=== PATIENT | female | born 1950 | race Caucasian/White ===

== ENCOUNTER → 2019-03-13 11:29 | Outpatient (CLI) | payer MEDICARE, OTHER, SELFPAY ==
[2019-03-14 16:08] LABS: Endomysial Antibody IgA Positive (Negative)
[2019-03-15 12:34] LABS: Immunoglobulin A 195 mg/dL (87-352); t-Transglutaminase IgA 29 U/mL (0-3)
== END ==
PROVIDERS: Family Provider Family Medicine; PCP Family Medicine; Referring Provider Internal Medicine Gastroenterology; Visit Provider Internal Medicine Gastroenterology
DX: R19.7 Diarrhea, unspecified (principal)
CPT/HCPCS: 36415; 82784; 83516; 86255

== ENCOUNTER → 2025-03-24 | Outpatient (CLI) | payer MEDICARE, OTHER, SELFPAY ==
[2025-03-24 17:41] LABS: Hematocrit 39.8 % (37-47); Hemoglobin 13.0 g/dL (12.0-15.0); Mean Corp Hgb Conc 32.7 g/dL (32-36); Mean Corpuscular Volume 96.6 fL (81-99); Mean Platelet Vol. 12.1 fl (6.2-12.0); Platelet Count 287 K/mm3 (150-450); RBC Distribution Width CV 14.6 % (11.6-14.6); RBC Distribution Width SD 52.9 fl (35.1-43.9); Red Blood Count 4.12 M/mm3 (4.2-5.4); White Blood Count 7.0 K/mm3 (4.4-11.0)
[2025-03-24 18:17] LABS: CRP < 3.00 mg/L (0.0-3.0)
--- OUTSIDE RECORDS SUMMARY | 2025-03-24 23:38 | XMS RPT_ITS | CCD ---
Author Organization [facility] CliniSyin Care Team Providers Care Government Teacher Name Role Phone RENATA JIMENEZ Unavailable Unavailable RENATA JIMENEZ Unavailable Unavailable MIGUEL ALCARAZ Unavailable Unavailable RENATA JIMENEZ Unavailable Unavailable RENATA JIMENEZ Unavailable Unavailable MIGUEL ALCARAZ Unavailable Unavailable PRISCILLA DO, DR SZYMANSKI A Primary Care Physician PRISCILLA DO, DR SZYMANSKI A Primary Care Physician PRISCILLA DO, DR SZYMANSKI A Primary Care Physician Unavailable Primary Care Provider Unavailabl e Priscilla DO, Stephon Primary Care Provider Serge Boswell Unavailable Benton Jarrett Unavailable Britta Basurto Unavailable [phone] Benton Jarrett Unavailable Serge Boswell MD Unavailable [phone] SERGE BOSWELL Attending Unavailable PRISCILLA DO, DR STEPHON Tolbert Primary Care Unavailabl e PRISCILLA DO, DR STEPHON Tolbert Attending Unavailabl e PRISCILLA DO, DR STEPHON Tolbert Primary Care Unavailabl e PRISCILLA DO, DR STEPHON Tolbert Attending Unavailabl e PRISCILLA DO, DR STEPHON Tolbert Primary Care Unavailabl SERGE Fleming Attending Unavailable PRISCILLA DO, DR STEPHON Tolbert Primary Care UnavailSERGE Loredo Attending Unavailable PRISCILLA DO, DR STEPHON Tolbert Primary Care Unavailabl BRITTA Gonzales MD Attending Unavaila ble PRISCILLA DO, DR STEPHON Tolbert Primary Care Unavailabl e PRISCILLA DO, DR STEPHON Tolbert Attending Unavailabl e PRISCILLA DO, DR STEPHON Tolbert Primary Care Unavailabl e PRISCILLA DO, DR STEPHON Tolbert Attending Unavailabl e PRISCILLA DO, DR STEPHON Tolbert Primary Care Unavailabl e RAGHUNATHAN MD, BRITTA Attending Unavaila ble PRISCILLA DO, DR STEPHON Tolbert Primary Care Unavailabl e SERGE BOSWELL Attending Unavailable PRISCILLA DO, DR STEPHON Tolbert Primary Care Unavailabl e ZOBENTON MARCANO Attending Unavailable PRISCILLA, STEPHON Primary Care Unavailable ZOBENTON MARCANO Admitting Unavailable ZOGRBENTON WELLS Attending Unavailable PRISCILLA, STEPHON Primary Care Unavailable ZOGRBENTON WELLS Attending Unavailable PRISCILLA, STEPHON Primary Care Unavailable ZOGRAFAKISBENTON Attending Unavailable PRISCILLA, STEPHON Referring Unavailable PRISCILLA, STEPHON Primary Care Unavailable ZOGRAFAKISBENTON Attending Unavailable PRISCILLA, STEPHON Primary Care Unavailable ZOGRAFAKIS, BENTON Attending Unavailable ZOGRAFAKISBENTON Referring Unavailable PRISCILLA, STEPHON Primary Care Unavailable ZOGRAFAKIS, BENTON Attending Unavailable PRISCILLA, STEPHON Primary Care Unavailable Priscilla DO, Stephon Lugo Primary Care Provider SELF Referring Unavailable PRISCILLA, STEPHON LUGO Primary Care Unavailable CHANEL BOONE Attending Unavailable IsckarusAngel Attending Unavailable IsckarusAngel Referring Unavailable Priscilla, Stephon Primary Care Unavailable Mirlande Quiroga Attending Unavailable Priscilla, Stephon Referring Unavailable IsckarusAngel Attending Unavailable Priscilla, Stephon Primary Care Unavailable IsckarusAngel Attending Unavailable Priscilla, Stephon Primary Care Unavailable Priscilla, Stephon Referring Unavailable Priscilla, Stephon Referring Unavailable Isckarus, Angel Attending Unavailable Priscilla, Stephon Primary Care Unavailable BRITTA BASURTO MD Attending Unavaila ble PRISCILLA DO, DR STEPHON Tolbert Primary Care Unavailabl e BRITTA BASURTO MD Attending Unavaila ble PRISCILLA DO, DR STEPHON Tolbert Primary Care Unavailabl e BRITTA BASURTO MD Attending Unavaila ble PRISCILLA DO, DR STEPHON Tolbert Primary Care Unavailabl e PRISCILLA DO, DR STEPHON Tolbert Attending Unavailabl e PRISCILLA DO, DR STEPHON Tolbert Primary Care Unavailabl e Allergies Allergy Classification Reported Allergen(s) Allergy Type Date of Onset Reaction(s) Facility diphenhydrAMINE (2 sources) diphenhydrAMINE Drug Allergy 4 [facility] (2 sources) Gluten Food Allergy 4 [facility] (20 sources) diphenhydrAMINE; Translations: [diphenhydramine] Drug Allergy 3 [facility] (6 sources) Gluten Food allergy [facility] (13 sources) diphenhydrAMINE Drug Allergy 4 [facility] (13 sources) Gluten Allergy to substance 4 [facility] (6 sources) WHEAT DEXTRIN Drug Allergy 4 [facility] (1 source) diphenhydrAMINE Drug Allergy 5 [facility] (1 source) Wheat preparation Drug Allergy 5 [facility] Medications Current Medications Medication Drug Class(es) Dates Sig (Normalized) Sig (Original) alendronic acid 70 mg oral tablet (20 sources) Bisphosphonate Start: 09-16-2024 alendronate 70 mg oral tablet Dose : 70 mg = 1 tab(s), Oral, qWeek, # 12 tab(s), 1 Refill(s), Pharmacy: [facility]/pharmacy #[id number], 163, cm, 08/26/24 9:30:00 EST, Height, kg, 08/26/24 9:30:00 EST, Dosing Weight Start Date: 09/16/24 Status: Ordered Quantity: 12.0 Unit: tab(s) Repeat number: 2 Start: 01-26-2021 End: 06-28-2024 alendronate 70 mg oral table t Dose : 70 mg = 1 tab(s), Oral, qWeek, # 12 tab(s), 0 Refill(s) Start Date: 04/04/24 Status: Ordered amLODIPine 10 mg oral tablet (20 sources) Dihydropyridine Calcium Channel Arina Start: 10-11-2024 amLODIPine 10 mg oral tablet Dose : 10 mg = 1 tab(s), Oral, qDay, change in dose, # 90 tab(s), 3 Refill(s), Pharmacy: [facility], 163, cm, 08/26/24 9:30:00 EST, Height, kg, 08/26/24 9:30:00 EST, Dosing Weight Start Date: 10/11/24 Status: Ordered Quantity: 90.0 Unit: tab(s) Repeat number: 4 Start: 05-11-2022 amLODIPine 10 mg oral tablet Dose : 10 mg = 1 tab(s), Oral, qDay, change in dose, # 90 tab(s), 3 Refill(s), Pharmacy: [facility], 160.5, cm, 03/01/24 9:19:00 EDT, Height, kg, 03/01/24 9:19:00 EDT, Dosing Weight Start Date: 03/01/24 Status: Ordered Start: 07-15-2021 amLODIPine 10 mg oral tablet Dose : 10 mg = 1 tab(s), Oral, qDay, change in dose, # 90 tab(s), 3 Refill(s), Pharmacy: [facility], 160, cm, 07/15/21 9:19:00 EST, Height, kg, 07/15/21 9:19:00 EST, Dosing Weight Start Date: 07/15/21 Status: Ordered amoxicillin 875 mg oral tablet (1 source) Penicillin-class Antibacterial Start: 07-23-2024 End: 08-02-2024 take 1 tablet by mouth every twelve hours amoxicillin (AMOXIL) 875 mg tablet Indications: Acute otitis media, bilateral Take 1 tablet by mouth every 12 hours for 10 days. 20 tablet 07/23/2024 08/02/2024 Active aspirin 81 mg delayed release oral tablet (20 sources) Platelet Aggregation Inhibitor, Nonsteroidal Anti-inflammatory Drug Start: 09-03-2020 aspirin 81 mg oral delayed release tablet Dose : 81 mg = 1 tab(s), Oral, qDay, 0 Refill(s) Start Date: 09/03/20 Status: Ordered Start: 09-03-2020 aspirin, enter ic coated (ASPIRIN, ENTERIC COATED) 81 mg EC tablet Take 81 mg by mouth. 09/03/2020 Active Comment on above: Take 81 mg by mouth. Basaglar 100 unit(s)/mL 3 mL KwikPen (1 source) Start: 2 inject 1 dose by subcutaneous injection once daily at bedtime Basaglar 100 unit(s)/mL 3 mL KwikPen Dose : 15 unit(s) =, Subcutaneous, qHS, # 15 mL, 3 Refill(s), Pharmacy: [facility], 160, cm, 07/15/21 9:19:00 EST, Height, kg, 07/15/21 9:19:00 EST, Dosing Weight Start Date: 07/15/21 Status: Ordered Calcium (1 source) Phosphate Binder, Calcium Start: 9 calcium (as carbonate) 600 mg oral tablet Dose : 600 mg = 1 tab(s), Oral, qDay, 0 Refill(s) Start Date: 06/27/19 Status: Ordered calcium carbonate 1500 mg oral tablet (20 sources) Start: 9 calcium carbonate (CALTRATE) 600 mg calcium (1,500 mg) tab Take 600 mg by mouth. 06/27/2019 Active Start: 06-27-2019 calcium (as ca rbonate) 600 mg oral tablet Dose : 600 mg = 1 tab(s), Oral, qDay, 0 Refill(s) Start Date: 06/27/19 Status: Ordered Repeat number: 1 Comment on above: Take 600 mg by mouth . Calcium Carbonate / Ergocalciferol (6 sources) Provitamin D2 Compound Start: 11-01-2023 Calcium Carbonate-Vitamin D 600-5 MG-MCG capsule Take by mouth. 11/01/2023 Active cholecalciferol 0.025 mg oral capsule (7 sources) Vitamin D Start: 10-17-2024 cholecalciferol 25 mcg (1000 intl units) oral capsule Dose : 25 mcg = 1 cap(s), Oral, qDay, # 90 cap(s), 3 Refill(s), Pharmacy: [facility], 163, cm, 08/26/24 9:30:00 EST, Height, kg, 08/26/24 9:30:00 EST, Dosing Weight Start Date: 10/17/24 Status: Ordered Quantity: 90.0 Unit: cap(s) Repeat number: 4 take 1 tablet by mouth once nii y cholecalciferol (Vitamin D-3) 50 MCG (2000 UT) tablet Take 2,000 Units by mouth daily. Monday thru Monday Active empagliflozin 10 mg oral tablet (1 source) Sodium-Glucose Cotransporter 2 Inhibitor Start: 09-25-2024 Jardiance 10 mg oral tablet Dose : 10 mg = 1 tab(s), Oral, qAM, # 30 tab(s), 4 Refill(s), Pharmacy: [facility], 163, cm, 08/26/24 9:30:00 EST, Height, kg, 08/26/24 9:30:00 EST, Dosing Weight Start Date: 09/25/24 Status: Ordered Quantity: 30.0 Unit: tab(s) Repeat number: 5 ferrous sulfate 324 mg delayed release oral tablet (7 sources) Start: 10-17-2024 ferrous sulfat e 324 mg (65 mg elemental iron) oral delayed release tablet Dose : 324 mg = 1 tab(s), Oral, qDay, # 90 tab(s), 3 Refill(s), Pharmacy: [facility], 163, cm, 08/26/24 9:30:00 EST, Height, kg, 08/26/24 9:30:00 EST, Dosing Weight Start Date: 10/17/24 Status: Ordered Quantity: 90.0 Unit: tab(s) Repeat number: 4 Start: 11-30-2023 ferrous sulfat e 325 mg (65 mg elemental iron) oral tablet Dose : 325 mg = 1 tab(s), Oral, BIDM, Take with food., # 60 tab(s), 3 Refill(s) Start Date: 11/30/23 Status: Ordered Quantity: 60.0 Unit: tab(s) Repeat number: 1 Start: 09-04-2023 ferrous sulfat e 325 mg (65 mg elemental iron) oral delayed release tablet Dose : 325 mg = 1 tab(s), Oral, qDay, may take with food to minimize abdominal discomfort., # 90 tab(s), 1 Refill(s), Pharmacy: [facility]/pharmacy #[id number], Iron deficiency anemia, 160, cm, 09/01/23 9:23:00 EST, Height, kg, 09/01/23 9:23:00 EST, Dosing Weight Start Date: 09/04/23 Status: Ordered folic acid 0.8 mg oral table t (20 sources) Start: 06-08-2018 folic acid 0.8 mg oral tablet Dose : 0.8 mg = 1 tab(s), Oral, qDay, # 90 tab(s), 3 Refill(s), Pharmacy: [facility], 163, cm, 08/26/24 9:30:00 EST, Height, kg, 08/26/24 9:30:00 EST, Dosing Weight Start Date: 10/17/24 Status: Ordered Quantity: 90.0 Unit: tab(s) Repeat number: 4 Start: 06-08-2018 folic acid 800 mcg tablet Take 0.8 mg by mouth. 06/08/2018 Active Folic Acid 0.8 M G capsule Take by mouth. Active Comment on above: Take 0.8 mg by mouth . gentamicin 3 mg/ml ophthalmic solution (1 source) Start: 09-25-19 End: 10-02-19 gentamicin (GENTAK) 0.3 % ophthalmic solution Use 1-2 Drops in eyes three times daily for 7 days. 3 mL 0 09/24/2022 10/01/2022 Active Comment on above: Use 1-2 Drops in eye s three times daily for 7 days. 3 ml insulin glargine 100 unt/ml pen injector (7 sources) Insulin Analog Start: 07-15-19 inject 1 dose by subcutaneous injection once daily at bedtime Basaglar 100 unit(s)/mL 3 mL KwikPen Dose : 15 unit(s) =, Subcutaneous, qHS, # 15 mL, 3 Refill(s), Pharmacy: [facility], 160, cm, 07/15/21 9:19:00 EST, Height, kg, 07/15/21 9:19:00 EST, Dosing Weight Start Date: 07/15/21 Status: Ordered levothyroxine sodium 0.112 mg oral tablet (20 sources) l-Thyroxine Start: 10-15-19 take 1 tablet by mouth once daily levothyroxine 112 mcg (0.112 mg) oral tablet See Instructions, TAKE 1 TABLET BY MOUTH EVERY DAY/ none on sun, # 90 tab(s), 3 Refill(s), Pharmacy: [facility], 163, cm, 08/26/24 9:30:00 EST, Height, kg, 08/26/24 9:30:00 EST, Dosing Weight Start Date: 10/14/24 Status: Ordered Quantity: 90.0 Unit: tab(s) Repeat number: 4 Start: 03-20-2024 take 1 tablet by fausto once daily levothyroxine 112 mcg (0.112 mg) oral tablet See Instructions, TAKE 1 TABLET BY MOUTH EVERY DAY/ none on sun, # 90 tab(s), 3 Refill(s), Pharmacy: [facility], 160.5, cm, 03/01/24 9:19:00 EDT, Height, kg, 03/01/24 9:19:00 EDT, Dosing Weight Start Date: 03/20/24 Status: Ordered Start: 02-02-2023 take 1 tablet by fausto th once daily levothyroxine 112 mcg (0.112 mg) oral tablet See Instructions, TAKE 1 TABLET BY MOUTH EVERY DAY/ none on sun, # 90 tab(s), 3 Refill(s), Pharmacy: [facility], 161.5, cm, 02/02/23 9:08:00 EDT, Height, kg, 02/02/23 9:08:00 EDT, Dosing Weight Start Date: 02/02/23 Status: Ordered Start: 09-05-2022 take 1 tablet by fausto th once daily levothyroxine (Synthroid, Levoxyl) 112 MCG tablet See Instructions, TAKE 1 TABLET BY MOUTH EVERY DAY/ none on sun, # 90 tab(s), 3 Refill(s), Pharmacy: [facility], 161.5, cm, 02/02/23 9:08:00 EDT, Height, kg, 02/02/23 9:08:00 EDT, Dosing Weight 02/02/2023 Active Start: 07-15-2021 take 1 tablet by fausto th once daily levothyroxine 112 mcg (0.112 mg) oral tablet See Instructions, TAKE 1 TABLET BY MOUTH EVERY DAY/ none on sun, # 90 tab(s), 3 Refill(s), Pharmacy: [facility], 161.5, cm, 08/04/22 8:50:00 EST, Height, kg, 08/04/22 8:50:00 EST, Dosing Weight Start Date: 08/04/22 Status: Ordered lisinopril 10 mg oral tablet (20 sources) Angiotensin Converting Enzyme Inhibitor Start: 10-11-2024 lisinopril 10 mg ora l tablet Dose : 10 mg = 1 tab(s), Oral, qDay, # 90 tab(s), 3 Refill(s), [facility], 163, cm, 08/26/24 9:30:00 EST, Height, kg, 08/26/24 9:30:00 EST, Dosing Weight Start Date: 10/11/24 Status: Ordered Quantity: 90.0 Unit: tab(s) Repeat number: 4 Start: 08-15-2022 End: 08-07-2023 lisinopril 10 mg oral tablet Dose : 10 mg = 1 tab(s), Oral, qDay, # 90 tab(s), 3 Refill(s), Pharmacy: [facility], 160.5, cm, 03/01/24 9:19:00 EDT, Height, kg, 03/01/24 9:19:00 EDT, Dosing Weight Start Date: 03/01/24 Status: Ordered Start: 06-18-2021 End: 06-13-2022 lisinopril 10 mg oral tablet Dose : 10 mg = 1 tab(s), Oral, qDay, # 30 tab(s), 11 Refill(s), Pharmacy: [facility]/pharmacy #[id number], 160, cm, 05/24/21 11:28:00 EST, Height, kg, 05/24/21 11:28:00 EST, Dosing Weight Start Date: 06/18/21 Stop Date: 06/13/22 Status: Ordered Magnesium (6 sources) Magnesium 400 MG capsule Take by mouth 1 (one) time each day. Active magnesium oxide 500 mg oral tablet (20 sources) Start: 10-17-2024 End: 10-12-2025 magnesium oxide 500 mg oral tablet Dose : 500 mg = 1 tab(s), Oral, Daily, X 90 day(s), # 90 tab(s), 3 Refill(s), 10/12/25 7:13:00 AM EDT, Pharmacy: [facility], 163, cm, 08/26/24 9:30:00 EST, Height, kg, 08/26/24 9:30:00 EST, Dosing Weight Start Date: 10/17/24 Stop Date: 10/12/25 Status: Ordered Quantity: 90.0 Unit: tab(s) Repeat number: 4 Start: 06-08-2018 magnesium oxid e 400 mg (241.3 mg elemental magnesium) oral tablet Dose : 400 mg = 1 tab(s), Oral, qDay, 0 Refill(s) Start Date: 06/08/18 Status: Ordered Repeat number: 1 Comment on above: Take 400 mg by mouth . metFORMIN hydrochloride 500 mg oral tablet (20 sources) Biguanide Start: take 1 tablet by mouth in the morning, then take 1 tablet by mouth in the evening metFORMIN 500 mg oral tablet (IR) See Instructions, TAKE 1 TABLET IN THE MORNING TAKE 1 TABLETS IN THE EVENING, # 270 tab(s), 3 Refill(s), Pharmacy: [facility], 163, cm, 08/26/24 9:30:00 EST, Height, kg, 08/26/24 9:30:00 EST, Dosing Weight Start Date: 11/04/24 Status: Ordered Quantity: 270.0 Unit: tab(s) Repeat number: 4 Start: 07-11-2022 take 1 tablet by fausto th in the morning, then take 1 tablet by mouth in the evening metFORMIN 500 mg oral tablet (IR) See Instructions, TAKE 1 TABLET IN THE MORNING TAKE 1 TABLETS IN THE EVENING, # 270 tab(s), 3 Refill(s), Pharmacy: [facility], 159, cm, 08/08/23 9:07:00 EST, Height, kg, 08/08/23 9:07:00 EST, Dosing Weight Start Date: 08/08/23 Status: Ordered Start: 07-15-2021 take 1 tablet by fausto th in the morning, then take 2 tablets by mouth in the evening metFORMIN 500 mg oral tablet (IR) See Instructions, TAKE 1 TABLET IN THE MORNING TAKE 2 TABLETS IN THE EVENING, # 270 tab(s), 3 Refill(s), Pharmacy: [facility], 160, cm, 07/15/21 9:19:00 EST, Height, kg, 07/15/21 9:19:00 EST, Dosing Weight Start Date: 07/15/21 Status: Ordered Multivitamin preparation (20 sources) Start: 06-27-2019 take 1 tablet by mouth once daily Multivitamin Dose = 1 tab(s), Oral, Daily, 0 Refill(s) Start Date: 06/27/19 Status: Ordered Repeat number: 1 Start: 06-27-2019 take 1 tablet by fausto th once daily Multivitamin Dose = 1 tab(s), Oral, Daily, 0 Refill(s) Start Date: 06/27/19 Status: Ordered ondansetron 4 mg oral tablet (5 sources) Serotonin-3 Receptor Antagonist Start: 01-26-2024 End: 02-02-2024 take 1 tablet by mouth every eight hours as needed for nausea and vomiting ondansetron (Zofran) 4 MG tablet Take 1 tablet (4 mg) by mouth every 8 hours as needed for nausea or vomiting for up to 7 days. 20 tablet 01/26/2024 02/02/2024 Active Start: 01-26-2024 End: 01-26-2024 4 mg, IntraVENous, Once PRN, nausea, Starting on Mon01/26/24 at 1038, For 1 dose, Recovery (only), Initial antiemetic therapy. 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 15 tablet 01/26/2024 01/31/2024 Active pantoprazole 40 mg delayed release oral tablet (20 sources) Proton Pump Inhibitor Start: 01-26-2024 End: 01-29-2024 40 mg, IntraVENous, Administer over 2 Minutes, Daily, First dose on Mon01/26/24 at 1400, Phase II/On Unit Start: 02-08-2021 End: 12-09-2024 pantoprazole 40 mg oral ente lena coated tablet Dose : 40 mg = 1 tab(s), Oral, BID, # 180 tab(s), 3 Refill(s), Pharmacy: [facility], 163, cm, 08/26/24 9:30:00 EST, Height, kg, 08/26/24 9:30:00 EST, Dosing Weight Start Date: 10/11/24 Status: Ordered Quantity: 180.0 Unit: tab(s) Repeat number: 4 Comment on above: Take 40 mg by mouth. rosuvastatin calcium 10 mg oral tablet (20 sources) HMG-CoA Reductase Inhibitor Start: 07-15-2021 End: 10-09-2025 rosuvastatin 10 mg oral tablet Dose : 10 mg = 1 tab(s), Oral, qDay, X 90 day(s), # 90 tab(s), 3 Refill(s), 10/09/25 5:50:00 AM EDT, Pharmacy: [facility], 163, cm, 08/26/24 9:30:00 EST, Height, kg, 08/26/24 9:30:00 EST, Dosing Weight Start Date: 10/14/24 Stop Date: 10/09/25 Status: Ordered Quantity: 90.0 Unit: tab(s) Repeat number: 4 Comment on above: Take 10 mg by mouth. spironolactone 25 mg oral tablet (20 sources) Aldosterone Antagonist Start: 10-11-2024 spironolactone 25 mg oral tablet Dose : 25 mg = 1 tab(s), Oral, Every other day, # 45 tab(s), 1 Refill(s), Pharmacy: [facility], CHF - Congestive heart failure, 163, cm, 08/26/24 9:30:00 EST, Height, kg, 08/26/24 9:30:00 EST, Dosing Weight Start Date: 10/11/24 Status: Ordered Quantity: 45.0 Unit: tab(s) Repeat number: 2 Indications: Heart failure, unspecified; Start: 05-07-2021 spironolactone 25 mg oral tablet Dose : 25 mg = 1 tab(s), Oral, Every other day, # 45 tab(s), 1 Refill(s), Pharmacy: [facility], CHF - Congestive heart failure, 158, cm, 04/04/24 8:28:00 EDT, Height, kg, 04/04/24 8:28:00 EDT, Dosing Weight Start Date: 04/05/24 Status: Ordered Comment on above: Take 25 mg by mouth. terazosin 1 mg oral capsule (20 sources) alpha-Adrenergic Arina Start: 10-11-2024 terazosin 1 mg oral capsule Dose : 1 mg = 1 cap(s), Oral, qHS, # 90 cap(s), 3 Refill(s), Pharmacy: [facility], 163, cm, 08/26/24 9:30:00 EST, Height, kg, 08/26/24 9:30:00 EST, Dosing Weight Start Date: 10/11/24 Status: Ordered Quantity: 90.0 Unit: cap(s) Repeat number: 4 Start: 04-10-2024 terazosin 1 mg oral capsule Dose : 1 mg = 1 cap(s), Oral, qHS, # 90 cap(s), 3 Refill(s), Pharmacy: [facility], 158, cm, 04/04/24 8:28:00 EDT, Height, kg, 04/04/24 8:28:00 EDT, Dosing Weight Start Date: 04/10/24 Status: Ordered Start: 05-05-2023 terazosin 1 mg oral capsule Dose : 1 mg = 1 cap(s), Oral, qHS, # 90 cap(s), 3 Refill(s), Pharmacy: [facility], 160, cm, 05/05/23 14:43:00 EDT, Height, kg, 05/05/23 14:43:00 EDT, Dosing Weight Start Date: 05/05/23 Status: Ordered vitamin b12 0.5 mg oral tablet (8 sources) Vitamin B12 Start: 10-17-2024 cyanocobalamin 500 mcg oral tablet Dose : 500 mcg = 1 tab(s), Oral, Daily, # 90 tab(s), 3 Refill(s), Pharmacy: [facility], 163, cm, 08/26/24 9:30:00 EST, Height, kg, 08/26/24 9:30:00 EST, Dosing Weight Start Date: 10/17/24 Status: Ordered Quantity: 90.0 Unit: tab(s) Repeat number: 4 Start: 08-26-2024 Vitamin B12 0 Refill(s) Start Date: 08/26/24 Status: Ordered Repeat number: 1 Cyanocobalamin ( VITAMIN B-12 PO) Take by mouth. Active Vitamin D3 2000 intl units o ral capsule (20 sources) Start: 06-08-2018 Vitamin D3 200 0 intl units oral capsule Dose : 2,000 unit(s) = 1 cap(s), Oral, Daily, 0 Refill(s) Start Date: 06/08/18 Status: Ordered Repeat number: 1 Start: 06-08-2018 Vitamin D3 200 0 intl units oral capsule Dose : 2,000 unit(s) = 1 cap(s), Oral, Daily, 0 Refill(s) Start Date: 06/08/18 Status: Ordered Completed/Discontinued Medications Medication Drug Class(es) Dates Sig (Normalized) Sig (Original) Acetaminophen (4 sources) Start: 01-26-2024 End: 01-27-2024 1,000 mg, IntraVENous, at 400 mL/hr, Administer over 15 Minutes, Every 6 hours scheduled (4 times per day), First dose on Mon01/26/24 at 1800, For 2 doses Start: 01-26-2024 End: 01-26-2024 take 1000 mg by mouth once, then take 4000 mg by mouth every twenty-four hours 1,000 mg, Oral, Once, On Mon01/26/24 at 0715, For 1 dose, Preprocedure, Maximum dose of acetaminophen is 4000 mg from all sources in 24 hours. Do not administer if patient has taken tylenol barium sulfate (E-Z-Paque) 9 6 % suspension 176 g (2 sources) Start: 12-12-2023 End: 12-12-2023 barium sulfate (E-Z-Paque) 9 6 % suspension 176 g calcium chloride 0.0014 meq/ ml / potassium chloride 0.004 meq/ml / sodium chloride 0.103 meq/ml / sodium lactate 0.028 meq/ml injectable solution (4 sources) Start: 01-26-2024 End: 01-26-2024 500 mL, IntraVENous, at 250 mL/hr, Administer over 2 Hours, Once, On Mon01/26/24 at 1545, For 1 dose Start: 01-26-2024 End: 01-26-2024 take 50 mL intravenously every hour 50 mL/hr, IntraVENous, Continuous, Starting on Mon01/26/24 at 0715, Preprocedure, Upon admission to sameday - please start iv if patient does not have iv access. Use 500ml NS for patients on dialysis. cholecalciferol 9.52 unt/ml / glucose 357 mg/ml oral gel (2 sources) Vitamin D Start: 01-27-2024 End: 01-29-2024 15 g, Oral, As needed, low blood sugar, Starting on 01/27/24 at 1137, If blood glucose less than 50 mg/dL and patient ALERT and NOT NPO, give 2 tubes glucose gel. If blood glucose less than 70 mg/dL and patient ALERT and NOT NPO, give 1 tube glucose gel. Repeat blood glucose in 15 minutes. If blood glucose is less than 70 mg/dL, repeat treatment and recheck blood glucose in 15 minutes x2 and notify provider. diatrizoate meglumine-sodium (Gastrografin) 66-10 % solution 30 mL (2 sources) Start: 01-27-2024 End: 01-27-2024 take 30 mL by mouth once 30 mL, Oral, Once, On Mon01/27/24 at 0915, For 1 dose 0.4 ml enoxaparin sodium 100 mg/ml prefilled syringe (2 sources) Low Molecular Weight Heparin Start: 01-26-2024 End: 01-29-2024 inject 40 mg by subcutaneous injection every twenty-four hours 40 mg, SubCUTAneous, Every 24 hours, First dose on Mon01/26/24 at 2200, Phase II/On Unit, Indication of Use: Prophylaxis-DVT/PE , Indications: Prophylaxis of Venous Thromboembolism 1 ml ePHEDrine sulfate 50 mg/ml injection (2 sources) alpha-Adrenergic Agonist, beta-Adrenergic Agonist, Norepinephrine Releasing Agent Start: 01-26-2024 End: 01-26-2024 inject 25 mg by intramuscular injection once 25 mg, IntraMUSCular, Once, On Mon01/26/24 at 1215, For 1 dose, Recovery (only) glucagon (rdna) 1 mg injection (2 sources) Antihypoglycemic Agent Start: 01-27-2024 End: 01-29-2024 1 mg, IntraMUSCular, PRN, low blood sugar, Blood glucose less than 70 mg/dL and patient NOT ALERT or NPO and does not have IV access., Starting on 01/27/24 at 1137, After administration, attempt intravenous access and start D5W at 100 mL/hr. Repeat blood glucose in 15 minutes x2 and notify provider. 150 ml glucose 50 mg/ml injection (4 sources) Start: 01-27-2024 End: 01-29-2024 12.5 g, IntraVENous, PRN, low blood sugar, Blood glucose less than 70 mg/dL and patient NOT ALERT or NPO., Starting on 01/27/24 at 1137, If patient does not respond within 5 minutes, repeat dose x1. Start D5W at 100 mL/hour until ordering provider can be reached. Repeat blood glucose in 15 minutes. If blood glucose is less than 70 mg/dL, repeat treatment and recheck blood glucose in 15 minutes x2. If using Glucostabilizer, dose as instructed per system. Start: 01-27-2024 End: 01-29-2024 100 mL/hr, IntraVENous, PRN, Blood sugar less than 70mg/dL, Starting on 01/27/24 at 1137, Start infusion following administration of dextrose 50% or glucagon. 500 ml glucose 50 mg/ml / potassium chloride 0.02 meq/ml / sodium chloride 4.5 mg/ml injection (2 sources) Start: 01-26-2024 End: 01-26-2024 take 100 mL intravenously every hour 100 mL/hr, IntraVENous, Continuous, Starting on Mon01/26/24 at 1330, Phase II/On Unit 0.5 ml heparin sodium, porcine 20134 unt/ml prefilled syringe (2 sources) Unfractionated Heparin, Anti-coagulant Start: 01-26-2024 End: 01-26-2024 inject 5000 [IU] by subcutaneous injection once 5,000 Units, SubCUTAneous, Once, On Mon01/26/24 at 0715, For 1 dose, Preprocedure 1 ml hydrALAZINE hydrochloride 20 mg/ml injection (2 sources) Arteriolar Vasodilator Start: 01-28-2024 End: 01-29-2024 take 10 mg intravenously every four hours as needed for hypertension 10 mg, IntraVENous, Every 4 hours PRN, high blood pressure, Second line, give for blood pressure greater than 160 hold for heart greater than 100 bpm, Starting on Mon01/28/24 at 0755 1 ml HYDROmorphone hydrochloride 1 mg/ml cartridge (2 sources) Opioid Agonist Start: 01-26-2024 End: 01-26-2024 0.5 mg, IntraVENous, Every 5 min PRN, severe pain (7-10), Starting on Mon01/26/24 at 1038, For 4 doses, Recovery (only), Phase I and Phase II- Initial therapy for severe pain (7-10). Restricted to a 90 minute time frame starting when the patient can verbally state their pain score. If after 2 doses the pain score does not decrease by more than one point, then call the provider. If oral meds are utilized, do not return to initial therapy medications. HYDROmorphone (Dilaudid) injection 0.25 mg (2 sources) Start: 01-26-2024 End: 01-29-2024 take 0.25 mg intravenously every four hours as needed for pain HYDROmorphone (Dilaudid) injection 0.25 mg insulin lispro 100 unt/ml injectable solution (4 sources) Insulin Analog Start: 01-26-2024 End: 01-29-2024 inject 6 [IU] by subcutaneous injection four times daily 0-6 Units, SubCUTAneous, 4 times daily, First dose on Mon01/27/24 at 1300, Low Dose Correction Algorithm Glucose: Dose: LESS than 139 No Insulin 140-199 1 Unit 200-249 2 Units 250-299 3 Units 300-349 4 Units 350-400 5 Units Above 400 6 Units labetalol hydrochloride 5 mg/ml injectable solution (2 sources) beta-Adrenergic Arina Start: 01-28-2024 End: 01-29-2024 take 10 mg intravenously every four hours as needed for hypertension 10 mg, IntraVENous, Every 4 hours PRN, high blood pressure, First line, give for blood pressure greater than 160 hold for heart rate less than 60 bpm, Starting on Mon01/28/24 at 0755 1 ml naloxone hydrochloride 0.4 mg/ml injection (2 sources) Opioid Antagonist Start: 01-26-2024 End: 01-29-2024 0.4 mg, IntraVENous, Every 5 min PRN, opioid reversal, respiratory depression, Starting on Mon01/26/24 at 1316, +++ For RR ondansetron ODT (Zofran-ODT) disintegrating tablet 4 mg (2 sources) Start: 01-26-2024 End: 01-29-2024 take 1 tablet by mouth every eight hours as needed for nausea and vomiting ondansetron ODT (Zofran-ODT) disintegrating tablet 4 mg 1000 ml potassium chloride 0.02 meq/ml / sodium chloride 4.5 mg/ml injection (2 sources) Start: 01-26-2024 End: 01-29-2024 take 100 mL intravenously every hour 100 mL/hr, IntraVENous, Continuous, Starting on Mon01/26/24 at 1545 1 ml promethazine hydrochloride 25 mg/ml injection (2 sources) Phenothiazine Start: 01-26-2024 End: 01-29-2024 inject 6.25 mg by intramuscular injection every six hours as needed for nausea and vomiting 6.25 mg, IntraMUSCular, Every 6 hours PRN, nausea, vomiting, Starting on Mon01/26/24 at 1502, Only to be given as IM injection. 5 ml sodium chloride 9 mg/ml injection (6 sources) Start: 01-26-2024 End: 01-29-2024 10 mL, IntraVENous, Every 12 hours scheduled (2 times per day), First dose on Mon01/26/24 at 2100, Phase II/On Unit Start: 01-26-2024 End: 01-29-2024 Start: 01-26-2024 End: 01-29-2024 Problems Active Problems Problem Classification Problem Date Documented Da te Episodic/Chronic Abdominal hernia (20 sources) Hiatal hernia; Translations: [Diaphragmatic hernia without obstruction or gangrene] Onset: 4 04-06-2022 Episodic Abdominal pain (17 sources) Abdominal pain; Translations: [Unspecified abdominal pain] Onset: 4 04-06-2022 Episodic Cardiac dysrhythmias (20 sources) Mo rhythm disorder; Translations: [Other specified cardiac arrhythmias] Onset: 4 01-29-2021 Chronic Cardiac dysrhythmias (20 sources) Bradycardia; Translations: [Bradycardia, unspecified] Onset: 4 03-17-2021 Episodic Chronic kidney disease (15 sources) Chronic kidney disease stage 3; Translations: [Stage 3 chronic kidney disease] Onset: 4 09-01-2023 Chronic Congestive heart failure; nonhypertensive (20 sources) Heart failure with normal ejection fraction; Translations: [Unspecified diastolic (congestive) heart failure] Onset: 4 01-28-2021 Chronic Deficiency and other anemia (2 sources) Iron deficiency anemia secondary to blood loss (chronic); Translations: [Iron deficiency anemia secondary to blood loss (chronic)] Onset: Chronic Deficiency and other anemia (20 sources) Anemia; Translations: [Anemia, unspecified] Onset: 01-28-2021 Episodic Diabetes mellitus with complications (20 sources) Polyneuropathy due to diabetes mellitus; Translations: [Chronic kidney disease stage 3 due to type 2 diabetes mellitus] Onset: 12-12-2019 Chronic Diabetes mellitus without complication (20 sources) Diabetes mellitus; Translations: [Type 2 diabetes mellitus] Onset: 10-05-2017 Chronic Disorders of lipid metabolism (20 sources) Hyperlipidemia; Translations: [Hyperlipidemia, unspecified] Onset: 12-12-2019 Chronic Esophageal disorders (20 sources) Gastroesophageal reflux disease; Translations: [Gastroesophageal reflux disease without esophagitis] Onset: 10-05-2017 Chronic Essential hypertension (20 sources) Hypertensive disorder; Translations: [Essential hypertension] Onset: 10-05-2017 Chronic Genitourinary symptoms and ill-defined conditions (20 sources) Increased frequency of urination; Translations: [Nocturia] Onset: 12-12-2019 Episodic Inflammation; infection of eye (except that caused by tuberculosis or sexually transmitteddisease) (1 source) Bacterial conjunctivitis; Translations: [Unspecified conjunctivitis] Episodic Noninfectious gastroenteritis (20 sources) Inflammatory bowel disease; Translations: [Noninfective gastroenteritis and colitis, unspecified] Onset: 12-12-2019 Episodic Nutritional deficiencies (20 sources) Vitamin D deficiency; Translations: [Vitamin D deficiency, unspecified] Onset: 12-12-2019 Chronic Osteoarthritis (20 sources) Osteoarthritis; Translations: [Unspecified osteoarthritis, unspecified site] Onset: 06-25-2019 Chronic Osteoporosis (20 sources) Osteoporosis; Translations: [Primary osteoporosis] Onset: 06-27-2019 Chronic Other aftercare (2 sources) Postoperative visit; Translations: [Encounter for other specified surgical aftercare] 02-09-2024 Episodic Other aftercare (2 sources) Encounter for other specified surgical aftercare; Translations: [Encounter for other specified surgical aftercare] Onset: 4 Episodic Other circulatory disease (20 sources) Low blood pressure; Translations: [Hypotension, unspecified] Onset: 4 03-17-2021 Episodic Other gastrointestinal disorders (20 sources) Celiac disease; Translations: [Celiac disease] Onset: 4 12-12-2019 Chronic Other gastrointestinal disorders (2 sources) Celiac disease; Translations: [Celiac disease] Onset: 4 Chronic Other lower respiratory disease (20 sources) Dyspnea; Translations: [Shortness of breath] Onset: 4 02-16-2021 Episodic Other nervous system disorders (20 sources) Neuropathy; Translations: [Polyneuropathy, unspecified] Onset: 4 06-08-2018 Chronic Comment on above: BILATERAL FEET Other skin disorders (17 sources) Lesion of face; Translations: [Disorder of the skin and subcutaneous tissue, unspecified] Onset: 4 04-06-2022 Episodic Otitis media and related conditions (4 sources) Acute bilateral otitis media ; Translations: [Otitis media, unspecified, bilateral] Onset: 5 07-23-2024 Episodic Thyroid disorders (20 sources) Hypothyroidism; Translations: [Thyroid nodule] Onset: 4 12-12-2019 Chronic Viral infection (20 sources) Herpes zoster; Translations: [Viral disease] Onset: 3 11-12-2020 Episodic Past or Other Problems Problem Classification Problem Date Documented Da te Episodic/Chronic Deficiency and other anemia (6 sources) Iron deficiency anemia; Translations: [Iron deficiency anemia, unspecified] Onset: 09-01-2023 01-04-2024 Episodic Deficiency and other anemia (2 sources) Iron deficiency anemia, unspecified; Translations: [Iron deficiency anemia, unspecified] Onset: 09-01-2023 Episodic Diabetes mellitus without complication (7 sources) Hyperglycemia; Translations: [Hyperglycemia, unspecified] Onset: 08-13-2022 Episodic Fluid and electrolyte disorders (7 sources) Dehydration; Translations: [Dehydration] Onset: 08-13-2022 Episodic Other gastrointestinal disorders (2 sources) Diarrhea, unspecified; Translations: [DIARRHEA, UNSPECIFIED] Onset: 01-07-2017 Episodic Other screening for suspected conditions (not mental disorders or infectious disease) (2 sources) Encounter for screening mammogram for malignant neoplasm of breast; Translations: [Encounter for screening mammogram for malignant neoplasm of breast] Onset: 06-10-2024 Episodic Results Test Name Value Interpretation Reference Range Facility .GFRon 12-03-2024 Estimated Glomerular Filtration Rate 63 ml/min/1.73sqm Normal [facility] Comment on above: Result Comment: Stages of Chronic Kidney Disease (CKD) Stage Description eGFR(ml/min/1.73 sq.m.) CKD 1 Normal kidney function or >=90 normal kindney function with possible kidney damage (ex. Proteinuria) CKD 2 Kidney damage with mild loss 60-89 of kidney function CKD 3a Mild to moderate loss of kidney 45-59 function CKD 3b Moderate to severe loss of 30-44 of kindey function CKD 4 Severe loss of kidney function 15-29 CKD 5 Kidney failure <15 Note: (go live 2024) the eGFR calculation was updated to the 2020 CKD-EPI creatinine equation without a race factor to calculate the eGFR results. Performed By: #### Kandice LANGLEY, [id number] #### [id number] [place], [place] [address] A1Con 12-03-2024 Glucose [Mass/Vol] 140 mg/dL Normal [facility] Comment on above: Result Comment: Gerri mated Average Glucose calculated by equation ((28.7xA1C)-46.7) Estimated average glucose (eAG) is a calculated value from Hemoglobin A1C and is electroplating sales representative of the average blood glucose level in the last 2-3 month period. Normal range: less than 114 mg/dL Performed By: #### C SHIVAM, [id number] #### [id number] [place], [place] [address] HbA1c (Bld) [Mass fraction] 6.5 % High 4.3-6.4 [facility] Comment on above: Performed By: #### Kandice LANGLEY, [id number] #### [facility] [address] [place], [place] [address] CMPon 12-03-2024 Albumin Level 4.1 G/dL Normal 3.4-4.8 [facility] Comment on above: Performed By: #### Kandice SOLISR, [id number] #### [address] [address] Albumin/Globulin [Mass ratio] 1.2 {ratio} Normal 1.1-2.5 [facility] Comment on above: Performed By: #### Kandice SOLISR, [id number] #### [address] [address] ALP [Catalytic activity/Vol] 54 U/L Normal 40-135 [facility] Comment on above: Performed By: #### Kandice SOLISR, [id number] #### [place] [address] ALT [Catalytic activity/Vol] 20 U/L Normal 14-59 [facility] Comment on above: Performed By: #### Kandice SOLISR, [id number] #### [place] [address] AST [Catalytic activity/Vol] 13 U/L Normal 10-40 [facility] Comment on above: Performed By: #### Kandice SOLISR, [id number] #### [address] [address] Bili Total 0.4 mg/dL Normal 0.2-1.0 [facility] Comment on above: Result Comment: Use of this assay is not recommended for patients undergoing treatment with eltrombopag due to the potential for falsely elevated results. Performed By: #### Kandice SOLISR, [id number] #### [address] [address] BUN/Creatinine Ratio 25 ratio Normal 7-27 [facility] Comment on above: Performed By: #### Kandice SOLISR, [id number] #### [place] [id number] Calcium [Mass/Vol] 8.8 mg/dL Normal 8.4-10.2 [facility] Comment on above: Performed By: #### Kandice SOLISR, [id number] #### [address] [address] Chloride [Moles/Vol] 104 mmol/L Normal 98-107 [facility] Comment on above: Performed By: #### Kandice LANGLEY, [id number] #### [address] [address] CO2 [Moles/Vol] 31 mmol/L Normal 23-31 [facility] Comment on above: Performed By: #### Kandice LAGNLEY, [id number] #### [address] [address] Creatinine [Mass/Vol] 0.95 mg/dL Normal 0.51-0.95 [facility] Comment on above: Performed By: #### Kandice LANGLEY, [id number] #### [address] [address] Electrolyte Balance 4.0 mEq/L Normal 4.0-15.0 [facility] Comment on above: Performed By: #### Kandice LANGLEY, [id number] #### [address] [address] Globulin 3.3 G/dL Normal 2.7-4.4 [facility] Comment on above: Performed By: #### Kandice LANGLEY, [id number] #### [address] [address] Glucose [Mass/Vol] 100 mg/dL Normal 83-110 [facility] Comment on above: Performed By: #### Kandice LANGLEY, [id number] #### [address] [address] Potassium [Moles/Vol] 4.7 mmol/L Normal 3.5-5.1 [facility] Comment on above: Performed By: #### Kandice LANGLEY, [id number] #### [address] [address] Sodium [Moles/Vol] 139 mmol/L Normal 136-145 [facility] Comment on above: Performed By: #### Kandice LANGLEY, [id number] #### [address] [address] Total Protein 7.4 G/dL Normal 6.4-8.2 [facility] Comment on above: Performed By: #### Kandice LANGLEY, [id number] #### [address] [address] Urea nitrogen [Mass/Vol] 24 mg/dL High 7-18 [facility] Comment on above: Performed By: #### Kandice LANGLEY, [id number] #### [place] [address] FT3on 12-03-2024 Free T3 [Mass/Vol] 2.10 pg/mL Low 2.30-4.00 [facility] Comment on above: Performed By: #### Kandice LANGLEY, [id number] #### [address] [place] [address] FT4on 12-03-2024 Free T4 [Mass/Vol] 1.39 ng/dL Normal 0.76-1.46 [facility] Comment on above: Performed By: #### Kandice LANGLEY, [id number] #### [place] [address] LABORATORYOrdered By: SYSTEM SYSTEM on 12-03-2024 Albumin BCP dye [Mass/Vol] 4.1 G/dL Normal 3.4 - 4.8 G/dL AO ADM SS Albumin/Globulin [Mass ratio] 1.2 {ratio} Normal 1.1 - 2.5 ratio AO ADM SS ALP [Catalytic activity/Vol] 54 U/L Normal 40 - 135 U/L AO ADM SS ALT With P-5'-P [Catalytic activity/Vol] 20 U/L Normal 14 - 59 U/L AO ADM SS AST With P-5'-P [Catalytic activity/Vol] 13 U/L Normal 10 - 40 U/L AO ADM SS Bilirubin [Mass/Vol] 0.4 mg/dL Normal 0.2 - 1 .0 mg/dL AO ADM SS Comment on above: Interpretive Data: U se of this assay is not recommended for patients undergoing treatment with eltrombopag due to the potential for falsely elevated results. Calcium [Mass/Vol] 8.8 mg/dL Normal 8.4 - 10. 2 mg/dL AO ADM SS Chloride [Moles/Vol] 104 mmol/L Normal 98 - 10 7 mmol/L AO ADM SS CO2 [Moles/Vol] 31 mmol/L Normal 23 - 31 mmol/L AO ADM SS Creatinine [Mass/Vol] 0.95 mg/dL Normal 0.51 - 0.95 mg/dL AO ADM SS Electrolyte Balance 4.0 mEq/L Normal 4.0 - 15 .0 mEq/L AO ADM SS Estimated Glomerular Filtration Rate 63 ml/min/1.73sqm Invalid Interpretation Code AO Chemistry S Comment on above: Interpretive Data: Stages of Chronic Kidney Disease (CKD) Stage Description eGFR(ml/min/1.73 sq.m.) CKD 1 Normal kidney function or >=90 normal kindney function with possible kidney damage (ex. Proteinuria) CKD 2 Kidney damage with mild loss 60-89 of kidney function CKD 3a Mild to moderate loss of kidney 45-59 function CKD 3b Moderate to severe loss of 30-44 of kindey function CKD 4 Severe loss of kidney function 15-29 CKD 5 Kidney failure <15 Note: (go live 2024) the eGFR calculation was updated to the 2020 CKD-EPI creatinine equation without a race factor to calculate the eGFR results. Free T3 [Mass/Vol] 2.10 pg/mL Low 2.30 - 4.00 pg/mL AO ADM SS Free T4 [Mass/Vol] 1.39 ng/dL Normal 0.76 - 1.46 ng/dL AO ADM SS Globulin 3.3 G/dL Normal 2.7 - 4.4 G/dL AO ADM SS Glucose [Mass/Vol] 100 mg/dL Normal 83 - 110 mg/dL AO ADM SS Glucose [Mass/Vol] 140 mg/dL Invalid Interpretation Code AO Chemistry S Comment on above: Interpretive Data: E stimated average glucose (eAG) is a calculated value from Hemoglobin A1C and is electroplating sales representative of the average blood glucose level in the last 2-3 month period. Normal range: less than 114 mg/dL HbA1c (Bld) [Mass fraction] 6.5 % High 4.3 - 6.4 % AO ADM SS Potassium [Moles/Vol] 4.7 mmol/L Normal 3.5 - 5.1 mmol/L AO ADM SS Protein [Mass/Vol] 7.4 G/dL Normal 6.4 - 8.2 G/dL AO ADM SS Sodium [Moles/Vol] 139 mmol/L Normal 136 - 145 mmol/L AO ADM SS TSH Qn 2.66 m[IU]/L Normal 0.36 - 3.74 mcIU/mL AO ADM SS Urea nitrogen [Mass/Vol] 24 mg/dL High 7 - 18 mg/dL AO ADM SS Urea nitrogen/Creatinine [Mass ratio] 25 ratio Normal 7 - 27 ratio AO ADM SS LABORATORYOrdered By: Morteza Keller on 12-03-2024 Cholesterol [Mass/Vol] 157 mg/dL Normal 0 - 200 mg/dL AO ADM SS Comment on above: Interpretive Data: C holesterol Reference Interval: Less than 200 Desirable 200-239 Borderline high risk 240 and above High risk Cholesterol in HDL [Mass/Vol] 59 mg/dL Normal 40 - 60 mg/dL AO ADM SS Cholesterol in LDL [Mass/Vol] 85 mg/dL Normal 0 - 130 mg/dL AO ADM SS Triglyceride [Mass/Vol] 66 mg/dL Normal 0 - 150 mg/dL AO ADM SS Comment on above: Interpretive Data: T riglyceride Reference Interval: Less than 150 Normal 150-199 Borderline high risk 200-499 High risk 500 or higher Very high risk LIPIDon 12-03-2024 Cholesterol [Mass/Vol] 157 mg/dL Normal 0-200 [facility] Comment on above: Result Comment: Chol esterol Reference Interval: Less than 200 Desirable 200-239 Borderline high risk 240 and above High risk Performed By: #### C WILLR, [id number] #### [address] [address] Cholesterol in HDL [Mass/Vol] 59 mg/dL Normal 40-60 [facility] Comment on above: Performed By: #### Kandice SOLISR, [id number] #### [id number] [place], [place] [address] Cholesterol in LDL [Mass/Vol] 85 mg/dL Normal 0-130 [facility] Comment on above: Performed By: #### Kandice SOLISR, [id number] #### [address] [place], [place] [address] Triglyceride [Mass/Vol] 66 mg/dL Normal 0-150 [facility] Comment on above: Result Comment: Trig lyceride Reference Interval: Less than 150 Normal 150-199 Borderline high risk 200-499 High risk 500 or higher Very high risk Performed By: #### C SHIVAM, [id number] #### [id number] [place], [place] [address] TSHon 12-03-2024 TSH Qn 2.66 m[IU]/L Normal 0.36-3.74 [facility] Comment on above: Performed By: #### Kandice LANGLEY, [id number] #### [id number] [place], [place] [address] CBC W/Diff, Automatedon Absolute Lymph 2.30 X10 3/uL Normal 0.83-4.51 [facility] Comment on above: Performed By: #### L 100.0100, L503.6550, L503.6030, L100.9950 #### [facility] [address] [place], [address] Absolute Neut 3.6 X10 3/uL Normal 2.0-7.7 [facility] Comment on above: Performed By: #### L 100.0100, [id number], L503.6030, L100.9950 #### [facility] [address] [place], [address] Basophils/100 WBC (Bld) 0.8 % Normal 0-1 [facility] Comment on above: Performed By: #### L 100.0100, [id number], L503.6030, L100.9950 #### [facility] [address] [place], [address] Eosinophils/100 WBC (Bld) 1.7 % Normal 0-5 [facility] Comment on above: Performed By: #### L 100.0100, [id number], L503.6030, L100.9950 #### [facility] [address] [place], [address] Erythrocyte distribution width (RBC) [Ratio] 14.4 % Normal 11.6-14.6 [facility] Comment on above: Performed By: #### L 100.0100, [id number], L503.6030, L100.9950 #### [facility] [address] [place], [address] Hematocrit (Bld) [Volume fraction] 36.9 % Low 37-47 [facility] Comment on above: Performed By: #### L 100.0100, [id number], L503.6030, L100.9950 #### [facility] [address] [place], [address] Hemoglobin (Bld) [Mass/Vol] 11.9 g/dL Low 12.0-15.0 [facility] Comment on above: Performed By: #### L 100.0100, [id number], L503.6030, L100.9950 #### [facility] [address] [place], [address] IG% 0.200 Normal 0.0-0.9 [facility] Comment on above: Result Comment: IG% - Immature Granulocytes (promyelocytes, myelocytes and metamyelocytes) > 1% indicates that a LEFT SHIFT is Present. Performed By: #### L 100.0100, [id number], L503.6030, L100.9950 #### [facility] [address] [place], [address] Lymphocytes/100 WBC (Bld) 34.8 % Normal 19-41 [facility] Comment on above: Performed By: #### L 100.0100, [id number], L503.6030, L100.9950 #### [facility] [address] [place], [address] MCH (RBC) [Entitic mass] 30.3 pg Normal 27.0-32.0 [facility] Comment on above: Performed By: #### L 100.0100, [id number], L503.6030, L100.9950 #### [facility] [address] [place], [address] MCHC (RBC) [Mass/Vol] 32.2 g/dL Normal 32-36 [facility] Comment on above: Performed By: #### L 100.0100, [id number], L503.6030, L100.9950 #### [facility] [address] [place], [address] MCV (RBC) [Entitic vol] 93.9 fL Normal 81-99 [facility] Comment on above: Performed By: #### L 100.0100, [id number], [id number], L100.9950 #### [facility] [address] [place], [address] Monocytes/100 WBC (Bld) 8.9 % Normal 0-10 [facility] Comment on above: Performed By: #### L 100.0100, [id number], [id number], L100.9950 #### [facility] [address] [place], [address] Neutrophils/100 WBC (Bld) 53.6 % Normal 47-70 [facility] Comment on above: Performed By: #### L 100.0100, [id number], L503.6030, L100.9950 #### [facility] [address] [place], [address] Nucleated RBC (Bld) [#/Vol] 0 10*3/uL Normal 0-5 [facility] Comment on above: Performed By: #### L 100.0100, L503.6550, L503.6030, L100.9950 #### [facility] [address] [place], [address] Platelet mean volume (Bld) [Entitic vol] 11.6 fL Normal 6.2-12.0 [facility] Comment on above: Performed By: #### L 100.0100, L503.6550, L503.6030, L100.9950 #### [facility] [address] [place], [address] Platelets (Bld) [#/Vol] 303 10*3/uL Normal 150-450 [facility] Comment on above: Performed By: #### L 100.0100, L503.6550, L503.6030, L100.9950 #### [facility] [address] [place], [address] RBC (Bld) [#/Vol] 3.93 10*6/uL Low 4.2-5.4 [facility] [place] Comment on above: Performed By: #### L 100.0100, L503.6550, L503.6030, L100.9950 #### [facility] [address] [place], [address] RDW SD 49.5 fl High 35.1-43.9 [facility] Comment on above: Performed By: #### L 100.0100, L503.6550, L503.6030, L100.9950 #### [facility] [address] [place], [address] WBC (Bld) [#/Vol] 6.6 10*3/uL Normal 4.4-11.0 [facility] Comment on above: Performed By: #### L 100.0100, L503.6550, L503.6030, L100.9950 #### [facility] [address] [place], [address] Ferritinon 08-12-2024 Ferritin [Mass/Vol] 39 ng/mL Normal 8-252 [facility] [place] Comment on above: Performed By: #### L 100.0100, L503.6550, L503.6030, L100.9950 #### [facility] [address] [place], [address] Iron+Iron Binding Capacityon 08-12-2024 Iron [Mass/Vol] 63 ug/dL Normal 50-170 [facility] Comment on above: Performed By: #### L 100.0100, L503.6550, L503.6030, L100.9950 #### [facility] [address] [place], [address] IRON SATURATION 18.0 Normal 15.0-55.0 [facility] Comment on above: Performed By: #### L 100.0100, L503.6550, L503.6030, L100.9950 #### [facility] [address] [place], [address] TIBC 350 ug/dL Normal 250-450 [facility] Comment on above: Performed By: #### L 100.0100, L503.6550, L503.6030, L100.9950 #### [facility] [address] [place], [address] Oncology Visit Reporton Oncology Visit Report [facility] [address] [place] [address] OFFICE VISIT Date of Service: 08/12/24 1122 MR#: [id number] Acct: [id number] Name: HAYDEE QUIROGA Rep #: [id number] : 1950 From: Angel Crespo MD Age/Sex: 74/F Location: [facility] Status: Signed HPI Subjective Date of Service 08/12/24 Chief Complaint Anemia History of Present Illness 73-year-old lady who was evaluated in August 2023 for anemia and was found to be iron deficient. She has a longstanding history of GERD secondary to a hiatus hernia. She has been on pantoprazole for several years. She was started on an oral iron supplement in August 2023 and her anemia has improved. September 2023 colonoscopy; small sessile polyps were biopsied, patient was told were benign. EGD October 2023 confirmed a large hiatus hernia with reflux and pathology showed reactive gastropathy with focal intestinal metaplasia in a background of chronic gastritis negative for H. pylori. [facility] Medical History Hiatal hernia Iron deficiency anemia due to chronic blood loss GERD (gastroesophageal reflux disease) Hypertension Diabetes mellitus type 2, controlled Surgical History History of repair of hiatal hernia H/O right knee surgery Hx of tonsillectomy History of thyroid surgery Family History Mother Hypertension Heart disease COPD (chronic obstructive pulmonary disease) Father Leukemia Social History household members: spouse current occupational status: retired Smoking Status: Never smoker alcohol intake: never substance use type: does not use ROS ROS Narrative I feel a whole lot better Constitutional Constitutional: Reports systems reviewed and no addt'l complaints, except as documented; Denies fatigue Eyes Eyes: Reports systems reviewed and no addt'l complaints, except as documented ENT HEENT: Reports systems reviewed and no addt'l complaints, except as documented; Denies bleeding gums or epistaxis Cardiovascular Cardiovascular: Reports systems reviewed and no addt'l complaints, except as documented; Denies chest pain Respiratory/Chest Respiratory/Chest: Reports systems reviewed and no addt'l complaints, except as documented; Denies dyspnea Gastrointestinal Gastrointestinal: Reports systems reviewed and no addt'l complaints, except as documented; Denies heartburn, hematochezia or melena Genitourinary Genitourinary: Reports systems reviewed and no addt'l complaints, except as documented; Denies hematuria Musculoskeletal Musculoskeletal: Reports systems reviewed and no addt'l complaints, except as documented Integumentary Integumentary: Reports systems reviewed and no addt'l complaints, except as documented; Denies bleeding lesions Neurologic Neurologic: Reports systems reviewed and no addt'l complaints, except as documented Psychiatric Psychiatric: Reports systems reviewed and no addt'l complaints, except as documented Endocrine Endocrinology: Reports systems reviewed and no addt'l complaints, except as documented Hematologic/Lymphatic Hematologic/Lymphatic: Reports systems reviewed and no addt'l complaints, except as documented; Denies easy bleeding Allergic/Immunologic Allergic/Immunologic: Reports systems reviewed and no addt'l complaints, except as documented Intake Vital Signs 02/12/24 10:58 08/12/24 11:23 08/12/24 11:28 Height 5 ft 3 in 5 ft 3 in 5 ft 3 in Weight: 64.637 kg 68.719 kg BMI 25.2 26.8 BP 153/76 H 175/79 H Blood Pressure Location Lt brachial Lt brachial Position Sitting Sitting Respiration 18 16 Pulse 75 83 Pulse Source Monitor Monitor Temp 97.9 F 97.1 F L Temperature Source Temporal Artery Temporal Artery Pulse Oximetry (%) 100 100 Oxygen Delivery Method room air room air Intake Is patient in pain?: No Allergies wheat Allergy (Mild, Verified 08/12/24 11:26) UNKNOWN diphenhydramine (From Benadryl) Allergy (Verified 08/12/24 11:26) unknown Medications ???Medication ???Instructions ???Recorded ???Confirmed ???Type calcium 600 mg (as cap PO DAILY 11/01/23 08/12/24 His tory carbonate)-vitamin D3 5 mcg (200 unit) capsule (Calcium 600 + D(3)) pantoprazole 40 mg tablet,delayed 40 mg PO DAILY 11/01/23 08/12/24 History release alendronate 70 mg tablet 70 mg PO QWEEK 11/13/23 08/12/24 H istory amlodipine 2.5 mg tablet 10 mg PO DAILY 11/13/23 08/12/24 H istory cholecalciferol (vitamin D3) 50 50 mcg PO DAILY 11/13/23 08/12/24 History mcg (2,000 unit) capsule folic acid 1 mg tablet 0.8 mg PO DAILY 11/13/23 08/12/24 History levothyroxine 112 mcg (more content not included)... Normal [facility] Retic Panelon 08-12-2024 IM RET FRACTION 10.50 Normal 3.00-15.90 [facility] Comment on above: Performed By: #### L 100.0100, L503.6550, L503.6030, L100.9950 #### [facility] [address] [place], [address] RET-HE 33.2 pg Normal 30-35 [facility] Comment on above: Performed By: #### L 100.0100, L503.6550, L503.6030, L100.9950 #### [facility] [address] [place], [address] Retic Count 1.32 Normal 0.5-1.5 [facility] Comment on above: Performed By: #### L 100.0100, L503.6550, L503.6030, L100.9950 #### [facility] [address] [facility] [place], [address] [id number] 08-07-2024 Creatinine [Mass/Vol] 119.2 mg/dL Normal Not Estab. [facility] Comment on above: Performed By: #### Kandice LANGLEY, [id number] #### [address] [place], [place] [address] N-telopeptide Ur 188 nmol BCE Normal Not Estab. [facility] Comment on above: Performed By: #### Kandice LANGLEY, [id number] #### [address] [place], [place] [address] NTx Creat Ur 18 nM BCE/mM Cr Normal 0-89 [facility] Comment on above: Result Comment: Comm ent The N-telopeptide and Creatinine are used to calculate the N-telo/Creat. Ratio which is referred to as NTx. Suggested guidelines for the clinical use of NTx are as follows: 1. Menopausal Women not on Hormone Replacement Therapy (HRT): Women with a baseline NTx value >38 are at significant risk for a decrease in bone mineral density (BMD) after 1 year compared to women on HRT. The probability of a decline in BMD increases with NTx value as follows: (1): Baseline NTx Probability of Decrease in BMD 18- 38 1.4 p=0.28 38- 51 2.5 p=0.03 51- 67 3.8 p=0.0006 67-188 17.3 p=0.0001 2. Menopausal Women Receiving Antiresorptive Therapy: The probability that treatment is effective after three months is increased when the measured NTx value is or=30% from baseline.[1] 3. Patients with Paget's Disease of Bone: The probability that treatment is effective after one month is increased when the measured NTx value is within the reference range, or NTx has decreased >or=30% from baseline.[2] 1. Wilman CH, Dacosta NH, Giovani GS, et al. Am J Med, 102:29-37,1997. (1):M757, 1996. 2. Bone H, Carmen J, et al. J Bone Min Res.11(1):M757,1995 Performed At: Lab[address] [id number] Wilber Hardy MD Ph:[phone] Performed At: [address] [id number] Delia Valentine PhD Ph:[phone] Performed By: #### C [facility], [id number] #### [address] [address] .GFRon 08-02-2024 GFR 60 ml/min/1.73sqm Normal [facility] Comment on above: Result Comment: GFR Population mean for , Non- Americans Ages 20-29 = 116 mL/min/1.73 sq.m. Ages 30-39 = 107 mL/min/1.73 sq.m. Ages 40-49 = 99 mL/min/1.73 sq.m. Ages 50-59 = 93 mL/min/1.73 sq.m. Ages 60-69 = 85 mL/min/1.73 sq.m. Ages 70+ = 75 mL/min/1.73 sq.m. Chronic Kidney Disease: Less than 60 mL/min/1.73 square meters End Stage Renal Disease: Less than 15 mL/min/1.73 square meters Performed By: #### V IDH, FT4, GFR, TSH, LIPID, FT3, A1C, CMP #### [address] [address] GFR Non- 50 ml/min/1.73sqm Normal [facility] Comment on above: Result Comment: GFR Population mean for , Non- Americans Ages 20-29 = 116 mL/min/1.73 sq.m. Ages 30-39 = 107 mL/min/1.73 sq.m. Ages 40-49 = 99 mL/min/1.73 sq.m. Ages 50-59 = 93 mL/min/1.73 sq.m. Ages 60-69 = 85 mL/min/1.73 sq.m. Ages 70+ = 75 mL/min/1.73 sq.m. Chronic Kidney Disease: Less than 60 mL/min/1.73 square meters End Stage Renal Disease: Less than 15 mL/min/1.73 square meters Performed By: #### V IDH, FT4, GFR, TSH, LIPID, FT3, A1C, CMP #### [address] [address] A1Con 08-02-2024 Glucose [Mass/Vol] 146 mg/dL Normal [facility] Comment on above: Result Comment: Gerri mated Average Glucose calculated by equation ((28.7xA1C)-46.7) Estimated average glucose (eAG) is a calculated value from Hemoglobin A1C and is electroplating sales representative of the average blood glucose level in the last 2-3 month period. Normal range: less than 114 mg/dL Performed By: #### V IDH, FT4, GFR, TSH, LIPID, FT3, A1C, CMP #### [address] [address] HbA1c (Bld) [Mass fraction] 6.7 % High 4.3-6.4 [facility] Comment on above: Performed By: #### V IDH, FT4, GFR, TSH, LIPID, FT3, A1C, CMP #### [address] [address] CMPon 08-02-2024 Albumin Level 4.0 G/dL Normal 3.4-4.8 [facility] Comment on above: Performed By: #### V IDH, FT4, GFR, TSH, LIPID, FT3, A1C, CMP #### [address] [address] Albumin/Globulin [Mass ratio] 1.1 {ratio} Normal 1.1-2.5 [facility] Comment on above: Performed By: #### V IDH, FT4, GFR, TSH, LIPID, FT3, A1C, CMP #### [address] [address] ALP [Catalytic activity/Vol] 65 U/L Normal 40-135 [facility] Comment on above: Performed By: #### V IDH, FT4, GFR, TSH, LIPID, FT3, A1C, CMP #### [address] [address] ALT [Catalytic activity/Vol] 14 U/L Normal 14-59 [facility] Comment on above: Performed By: #### V IDH, FT4, GFR, TSH, LIPID, FT3, A1C, CMP #### [place] [address] AST [Catalytic activity/Vol] 13 U/L Normal 10-40 [facility] Comment on above: Performed By: #### V IDH, FT4, GFR, TSH, LIPID, FT3, A1C, CMP #### [place] [address] Bili Total 0.4 mg/dL Normal 0.2-1.0 [facility] Comment on above: Result Comment: Use of this assay is not recommended for patients undergoing treatment with eltrombopag due to the potential for falsely elevated results. Performed By: #### V IDH, FT4, GFR, TSH, LIPID, FT3, A1C, CMP #### [address] [address] BUN/Creatinine Ratio 18 ratio Normal 7-27 [facility] Comment on above: Performed By: #### V IDH, FT4, GFR, TSH, LIPID, FT3, A1C, CMP #### [address] [address] Calcium [Mass/Vol] 9.1 mg/dL Normal 8.4-10.2 [facility] Comment on above: Performed By: #### V IDH, FT4, GFR, TSH, LIPID, FT3, A1C, CMP #### [address] [address] Chloride [Moles/Vol] 100 mmol/L Normal 98-107 [facility] Comment on above: Performed By: #### V IDH, FT4, GFR, TSH, LIPID, FT3, A1C, CMP #### [address] [address] CO2 [Moles/Vol] 32 mmol/L High 23-31 [facility] Comment on above: Performed By: #### V IDH, FT4, GFR, TSH, LIPID, FT3, A1C, CMP #### [address] [address] Creatinine [Mass/Vol] 1.08 mg/dL High 0.55-1.02 [facility] Comment on above: Result Comment: Test ing performed on Siemens Dimension EXL analyzer using a modified kinetic Siddharth technique. Performed By: #### V IDH, FT4, GFR, TSH, LIPID, FT3, A1C, CMP #### [address] [address] Electrolyte Balance 5.0 mEq/L Normal 4.0-15.0 [facility] Comment on above: Performed By: #### V IDH, FT4, GFR, TSH, LIPID, FT3, A1C, CMP #### [address] [address] Globulin 3.6 G/dL Normal [facility] Comment on above: Performed By: #### V IDH, FT4, GFR, TSH, LIPID, FT3, A1C, CMP #### [address] [address] Glucose [Mass/Vol] 102 mg/dL Normal 83-110 [facility] Comment on above: Performed By: #### V IDH, FT4, GFR, TSH, LIPID, FT3, A1C, CMP #### [address] [address] Potassium [Moles/Vol] 4.5 mmol/L Normal 3.5-5.1 [facility] Comment on above: Performed By: #### V IDH, FT4, GFR, TSH, LIPID, FT3, A1C, CMP #### [address] [address] Sodium [Moles/Vol] 137 mmol/L Normal 136-145 [facility] Comment on above: Performed By: #### V IDH, FT4, GFR, TSH, LIPID, FT3, A1C, CMP #### [address] [address] Total Protein 7.6 G/dL Normal 6.4-8.2 [facility] Comment on above: Performed By: #### V IDH, FT4, GFR, TSH, LIPID, FT3, A1C, CMP #### [address] [address] Urea nitrogen [Mass/Vol] 19 mg/dL High 7-18 [facility] Comment on above: Performed By: #### V IDH, FT4, GFR, TSH, LIPID, FT3, A1C, CMP #### [address] [address] CRURon 08-02-2024 U Creatinine 119.4 mg/dL Normal [facility] Comment on above: Performed By: #### C RUR, [id number] #### [address] [address] FT3on 08-02-2024 Free T3 [Mass/Vol] 2.49 pg/mL Normal 2.30-4.00 [facility] Comment on above: Performed By: #### V IDH, FT4, GFR, TSH, LIPID, FT3, A1C, CMP #### [address] [address] FT4on 08-02-2024 Free T4 [Mass/Vol] 1.49 ng/dL High 0.76-1.46 [facility] Comment on above: Performed By: #### V IDH, FT4, GFR, TSH, LIPID, FT3, A1C, CMP #### [address] [address] LIPIDon 08-02-2024 Cholesterol [Mass/Vol] 146 mg/dL Normal 0-200 [facility] Comment on above: Result Comment: Chol esterol Reference Interval: Less than 200 Desirable 200-239 Borderline high risk 240 and above High risk Performed By: #### V IDH, FT4, GFR, TSH, LIPID, FT3, A1C, CMP #### [address] [address] Cholesterol in HDL [Mass/Vol] 49 mg/dL Normal 40-60 [facility] Comment on above: Performed By: #### V IDH, FT4, GFR, TSH, LIPID, FT3, A1C, CMP #### [address] [address] Cholesterol in LDL [Mass/Vol] 81 mg/dL Normal 0-130 [facility] Comment on above: Performed By: #### V IDH, FT4, GFR, TSH, LIPID, FT3, A1C, CMP #### [address] [address] Triglyceride [Mass/Vol] 78 mg/dL Normal 0-150 [facility] Comment on above: Result Comment: Trig lyceride Reference Interval: Less than 150 Normal 150-199 Borderline high risk 200-499 High risk 500 or higher Very high risk Performed By: #### V IDH, FT4, GFR, TSH, LIPID, FT3, A1C, CMP #### [address] [address] MALBRon 08-02-2024 U Creatinine 124.1 mg/dL Normal [facility] Comment on above: Performed By: #### C RUR, [id number] #### [address] [address] U Microalb 1669 mcg/dL Normal [facility] Comment on above: Performed By: #### C RUR, [id number] #### [address] [address] U Ratio Alb/Cre 13 mcg/mg Normal 0-30 [facility] Comment on above: Performed By: #### C RUR, [id number] #### [address] [address] TSHon 08-02-2024 TSH Qn 2.91 m[IU]/L Normal 0.36-3.74 [facility] Comment on above: Performed By: #### V IDH, FT4, GFR, TSH, LIPID, FT3, A1C, CMP #### [address] [address] VIDHon 08-02-2024 Vit. D 25-Hydroxy 75.4 ng/mL Normal [facility] Comment on above: Result Comment: Inte rpretive Values Based on Total 25(OH) Vitamin D: Deficient <20 ng/mL Insufficient 20 - <30 ng/mL Sufficient 30-100 ng/mL Performed By: #### C WILLR, [id number] #### [place] [address] CNOVon 07-23-2024 CNOV Office Visit (MMAS ) BOBBI ACUÑA ([id number]) 1950 F Date Time Provider Department 07/23/24 4:40 PM CHANEL BOONE [facility] During your visit today, we recorded the following information about you: Temperature Pulse Respiration Blood pressure 98.4 degrees 85/minute 18/minute 148/76 Chanel Boone PA-C 07/23/2024 5:10 PM Signed Bobbi Acuña is a 74 year old female who presents with Sore Throat (Sore throat x 2 days, both ears painful today) Patient is a 74-year-old female presenting today for sore throat and ear pain. Patient states that she started to have sore throat and ear pain about 2 days ago. Patient states that her sore throat has gone away but now she still having ear pain and pressure. She has had decrease in hearing in both of her ears because of the pressure. Patient is concerned that she may have an infection so patient was wanting to come in today to have this evaluated. History reviewed. No pertinent past medical history. There is no problem list on file for this patient. Current Outpatient Medications Medication Sig Dispense Refill spironolactone (ALDACTONE) 25 mg tablet Take 25 mg by mouth. rosuvastatin (CRESTOR) 10 mg tablet Take 10 mg by mouth. metFORMIN (GLUCOPHAGE) 500 mg tablet magnesium oxide (MAG-OX) 400 mg (241.3 mg magnesium) tablet Take 400 mg by mouth. lisinopril (ZESTRIL) 10 mg tablet levothyroxine (SYNTHROID) 112 mcg tablet folic acid 800 mcg tablet Take 0.8 mg by mouth. calcium carbonate (CALTRATE) 600 mg calcium (1,500 mg) tab Take 600 mg by mouth. aspirin, enteric coated (ASPIRIN, ENTERIC COATED) 81 mg EC tablet Take 81 mg by mouth. amLODIPine (NORVASC) [address] (PROTONIX) 40 mg tablet Take 40 mg by mouth. No current facility-administered medications for this visit. Social History Tobacco Use Smoking status: Never Smokeless tobacco: Never Vaping Use Vaping status: Never Used Substance Use Topics Alcohol use: Not Currently Drug use: Never Alcohol Use: Not Currently Tobacco Use: Never History reviewed. No pertinent family history. Review of Systems Constitutional: Negative for chills, fever and malaise/fatigue. HENT: Positive for ear pain. Negative for congestion, ear discharge, sinus pain and sore throat (Admits to a previous sore throat but admits to this not being present anymore.). Respiratory: Negative. Cardiovascular: Negative. BP 148/76 Pulse 85 Temp 98.4 Resp 18 SpO2 96% Physical Exam Vitals and nursing note reviewed. Constitutional: General: She is not in acute distress. Appearance: Normal appearance. She is not ill-appearing. HENT: Head: Normocephalic and atraumatic. Right Ear: Ear canal normal. Tympanic membrane is erythematous and bulging. Left Ear: Ear canal normal. Tympanic membrane is erythematous and bulging. Nose: Nose normal. No congestion or rhinorrhea. Mouth/Throat: Mouth: Mucous membranes are moist. Pharynx: Oropharynx is clear. No oropharyngeal exudate or posterior oropharyngeal erythema. Eyes: Extraocular Movements: Extraocular movements intact. Conjunctiva/sclera: Conjunctivae normal. Pupils: Pupils are equal, round, and reactive to light. Cardiovascular: Rate and Rhythm: Normal rate and regular rhythm. Heart sounds: Normal heart sounds. Pulmonary: Effort: Pulmonary effort is normal. Breath sounds: Normal breath sounds. Musculoskeletal: Cervical back: Normal range of motion and neck supple. No rigidity or tenderness. Lymphadenopathy: Cervical: No cervical adenopathy. Skin: General: Skin is warm and dry. Neurological: General: No focal deficit present. Mental Status: She is alert and oriented to person, place, and time. ASSESSMENT/PLAN: 1. Acute otitis media, bilateral - ICD9: 382.9, ICD10: H66.93 - AMOXICILLIN 875 MG TABLET Patient is presenting today with bilateral otitis media. I sent in amoxicillin for the patient and she is to take as directed. Take Tylenol or Motrin [id number] if needed for symptomatic relief patient can also put warm compresses on to the ears. Follow-up at primary care doctor if not improving. Patient agrees and understands plan at this time. Patient was stable upon discharge from [facility]. Chanel Boone PA-C Referring Provider: SELF [200] Allergies As of Date: 07/23/2024 Noted Allergy Reaction BENADRYL (DIPHENHYDRAMINE) 09/24/2022 4 - Hives Date Reviewed: 07/23/2024 Reviewed by: Chanel Boone PA-C - Fully Assessed Reason for Visit: Sore Throat [200] Cmt: Sore throat x 2 days, both ears painful today Primary Visit Diagnosis:Acute otitis media, bilateral [H66.93] Order(s):amoxicillin (AMOXIL) 875 mg tabletTake 1 tablet by mouth every 12 hours for 10 days.Disp: 20 tabletRfl: 0 Prescriptions as of 07/23/2024 - amoxicillin (AMOXIL) 875 mg tablet Take 1 tablet by mouth every 12 h (more content not included)... Normal [facility] MA MAMMOGRAM SCREENING BILAT ERAL W/TOMOon 06-13-2024 MA MAMMOGRAM SCREENING BILATERAL W/GONZALEZ ORIGINAL FROM: SAURABH LEBRON [address] [place], [place] [id number] PROCEDURE FOR: HAYDEE ACUÑA [address] [place] [address] Home: PID#: [id number] Exam#: [id number] : 1950 Age: 73 TO: STEPHON WELLS DO [address] [place], [place] [address] Fax: NO FAX EXAMINATION: SCREENING DIGITAL BILATERAL MAMMOGRAM WITH TOMOSYNTHESIS, 06/10/2024 9:39 am TECHNIQUE: Screening mammography of the bilateral breasts was performed with tomosynthesis. 2D standard and 3D tomosynthesis combination imaging performed through both breasts in the MLO and CC projection. Computer aided detection was utilized in the interpretation of this exam. COMPARISON: 05/29/2023, 05/04/2022 HISTORY: Breast cancer screening. FINDINGS: BREAST DENSITY: The breasts are heterogeneously dense, which may obscure small masses. There are benign appearing calcifications in both breasts. There are no significant masses or calcifications. IMPRESSION: No mammographic evidence of malignancy. Continued screening with annual mammograms is recommended. Tyrer zick risk calculations, generated with the history provided, report this patient's 10 year risk and lifetime risk for developing breast cancer at 3.0% and 3.7%, respectively. Based on this assessment tool, if the patient's calculated lifetime risk is below 20%, then the patient is considered at average risk for developing breast cancer. If the patient's calculated lifetime risk is at or above 20%, then the patient is considered high risk for developing breast cancer and may be a candidate for supplemental breast MRI screening in addition to annual mammographic screening per the [employer]. BIRADS: BI-RADS: 2: Benign RECALL: 1 year screening RECALL TYPE: mammo LETTER SENT: Normal BI-RADS 1 and 2 Interpreted by: Baldo Meza MD Preliminary Report By: Baldo Meza MD Electronically signed By Baldo Meza MD Dictated Date: 06/13/2024 9:21:56 AM Prelim Date: 06/13/2024 9:24:27 AM Sign Date: 06/13/2024 9:24:27 AM Ordering Provider: STEPHON WELLS [place] Technician: PALAK CROFT RT(R)(M)(CT) letter sent: Normal BI-RADS 1 and 2 Mammogram BI-RADS: 2 Benign Normal [facility] .GFRon 04-02-2024 GFR 62 ml/min/1.73sqm Normal [facility] Comment on above: Result Comment: GFR Population mean for , Non- Americans Ages 20-29 = 116 mL/min/1.73 sq.m. Ages 30-39 = 107 mL/min/1.73 sq.m. Ages 40-49 = 99 mL/min/1.73 sq.m. Ages 50-59 = 93 mL/min/1.73 sq.m. Ages 60-69 = 85 mL/min/1.73 sq.m. Ages 70+ = 75 mL/min/1.73 sq.m. Chronic Kidney Disease: Less than 60 mL/min/1.73 square meters End Stage Renal Disease: Less than 15 mL/min/1.73 square meters Performed By: #### C SHIVAM, [id number] #### [address] [place], [place] [address] GFR Non- 51 ml/min/1.73sqm [facility] Comment on above: Result Comment: GFR Population mean for , Non- Americans Ages 20-29 = 116 mL/min/1.73 sq.m. Ages 30-39 = 107 mL/min/1.73 sq.m. Ages 40-49 = 99 mL/min/1.73 sq.m. Ages 50-59 = 93 mL/min/1.73 sq.m. Ages 60-69 = 85 mL/min/1.73 sq.m. Ages 70+ = 75 mL/min/1.73 sq.m. Chronic Kidney Disease: Less than 60 mL/min/1.73 square meters End Stage Renal Disease: Less than 15 mL/min/1.73 square meters Performed By: #### C SHIVAM, [id number] #### [address] [place], [place] [address] A1Con 04-02-2024 Glucose [Mass/Vol] 134 mg/dL Normal [facility] Comment on above: Result Comment: Gerri mated Average Glucose calculated by equation ((28.7xA1C)-46.7) Estimated average glucose (eAG) is a calculated value from Hemoglobin A1C and is electroplating sales representative of the average blood glucose level in the last 2-3 month period. Normal range: less than 114 mg/dL Performed By: #### Kandice LANGLEY, [id number] #### [address] [address] HbA1c (Bld) [Mass fraction] 6.3 % Normal 4.3-6.4 [facility] Comment on above: Performed By: #### Kandice SOLISR, [id number] #### [address] [address] CMPon 04-02-2024 Albumin Level 4.0 G/dL Normal 3.4-4.8 [facility] Comment on above: Performed By: #### Kandice LANGLEY, [id number] #### [id number] Albumin/Globulin [Mass ratio] 1.2 {ratio} Normal 1.1-2.5 [facility] Comment on above: Performed By: #### Kandice LANGLEY, [id number] #### [address] [address] ALP [Catalytic activity/Vol] 57 U/L Normal 40-135 [facility] Comment on above: Performed By: #### Kandice SOLISR, [id number] #### [address] [address] ALT [Catalytic activity/Vol] 19 U/L Normal 14-59 [facility] Comment on above: Performed By: #### Kandice SOLISR, [id number] #### [address] [address] AST [Catalytic activity/Vol] 13 U/L Normal 10-40 [facility] Comment on above: Performed By: #### Kandice SOLISR, [id number] #### [address] [address] Bili Total 0.6 mg/dL Normal 0.2-1.0 [facility] Comment on above: Result Comment: Use of this assay is not recommended for patients undergoing treatment with eltrombopag due to the potential for falsely elevated results. Performed By: #### Kandice LANGLEY, [id number] #### [place] [address] BUN/Creatinine Ratio 21 ratio Normal 7-27 [facility] Comment on above: Performed By: #### Kandice LANGLEY, [id number] #### [place] [address] Calcium [Mass/Vol] 8.9 mg/dL Normal 8.4-10.2 [facility] Comment on above: Performed By: #### Kandice LANGLEY, [id number] #### [place] [address] Chloride [Moles/Vol] 104 mmol/L Normal 98-107 [facility] Comment on above: Performed By: #### Kandice LANGLEY, [id number] #### [place] [address] CO2 [Moles/Vol] 32 mmol/L High 23-31 [facility] Comment on above: Performed By: #### Kandice LANGLEY, [id number] #### [place] [address] Creatinine [Mass/Vol] 1.05 mg/dL High 0.55-1.02 [facility] Comment on above: Result Comment: Test ing performed on Siemens Dimension EXL analyzer using a modified kinetic Siddharth technique. Performed By: #### Kandice LANGLEY, [id number] #### [place] [id number] Electrolyte Balance 1.0 mEq/L Low 4.0-15.0 [facility] Comment on above: Performed By: #### Kandice LANGLEY, [id number] #### [place] [address] Globulin 3.3 G/dL Normal [facility] Comment on above: Performed By: #### Kandice LANGLEY, [id number] #### [address] [address] Glucose [Mass/Vol] 103 mg/dL Normal 83-110 [facility] Comment on above: Performed By: #### Kandice LANGLEY, 685231 #### [address] [place], [place] [address] Potassium [Moles/Vol] 4.6 mmol/L Normal 3.5-5.1 [facility] Comment on above: Performed By: #### Kandice LANGLEY, [id number] #### [address] [place], [place] [address] Sodium [Moles/Vol] 137 mmol/L Normal 136-145 [facility] Comment on above: Performed By: #### Kandice LANGLEY, 713155 #### [address] [place], [place] [address] Total Protein 7.3 G/dL Normal 6.4-8.2 [facility] Comment on above: Performed By: #### Kandice LANGLEY, [id number] #### [address] [place], [place] [address] Urea nitrogen [Mass/Vol] 22 mg/dL High 7-18 [facility] Comment on above: Performed By: #### Kandice LANGLEY, [id number] #### [address] [place], [place] [address] LABORATORYOrdered By: SYSTEM SYSTEM on 04-02-2024 25-hydroxyvitamin D3 [Mass/Vol] 86.2 ng/mL Invalid Interpretation Code AO ADM SS Comment on above: Interpretive Data: I nterpretive Values Based on Total 25([place]) Vitamin D: Deficient <20 ng/mL Insufficient 20 - <30 ng/mL Sufficient 30-100 ng/mL Albumin BCP dye [Mass/Vol] 4.0 G/dL Normal 3.4 - 4.8 G/dL AO ADM SS Albumin/Globulin [Mass ratio] 1.2 {ratio} Normal 1.1 - 2.5 ratio AO ADM SS ALP [Catalytic activity/Vol] 57 U/L Normal 40 - 135 U/L AO ADM SS ALT With P-5'-P [Catalytic activity/Vol] 19 U/L Normal 14 - 59 U/L AO ADM SS AST With P-5'-P [Catalytic activity/Vol] 13 U/L Normal 10 - 40 U/L AO ADM SS Bilirubin [Mass/Vol] 0.6 mg/dL Normal 0.2 - 1 .0 mg/dL AO ADM SS Comment on above: Interpretive Data: U se of this assay is not recommended for patients undergoing treatment with eltrombopag due to the potential for falsely elevated results. Calcium [Mass/Vol] 8.9 mg/dL Normal 8.4 - 10. 2 mg/dL AO ADM SS Chloride [Moles/Vol] 104 mmol/L Normal 98 - 10 7 mmol/L AO ADM SS CO2 [Moles/Vol] 32 mmol/L High 23 - 31 mmol/L AO ADM SS Creatinine [Mass/Vol] 1.05 mg/dL High 0.55 - 1.02 mg/dL AO ADM SS Comment on above: Interpretive Data: T esting performed on Siemens Dimension EXL analyzer using a modified kinetic Siddharth technique. Electrolyte Balance 1.0 mEq/L Low 4.0 - 15 .0 mEq/L AO ADM SS GFR/1.73 sq M.predicted among blacks MDRD (S/P/Bld) [Vol rate/Area] 62 ml/min/1.73sqm Invalid Interpretation Code AO Chemistry S Comment on above: Interpretive Data: GFR Population mean for , Non- Americans Ages 20-29 = 116 mL/min/1.73 sq.m. Ages 30-39 = 107 mL/min/1.73 sq.m. Ages 40-49 = 99 mL/min/1.73 sq.m. Ages 50-59 = 93 mL/min/1.73 sq.m. Ages 60-69 = 85 mL/min/1.73 sq.m. Ages 70+ = 75 mL/min/1.73 sq.m. Chronic Kidney Disease: Less than 60 mL/min/1.73 square meters End Stage Renal Disease: Less than 15 mL/min/1.73 square meters GFR/1.73 sq M.predicted among non-blacks MDRD (S/P/Bld) [Vol rate/Area] 51 ml/min/1.73sqm Invalid Interpretation Code AO Chemistry S Comment on above: Interpretive Data: GFR Population mean for , Non- Americans Ages 20-29 = 116 mL/min/1.73 sq.m. Ages 30-39 = 107 mL/min/1.73 sq.m. Ages 40-49 = 99 mL/min/1.73 sq.m. Ages 50-59 = 93 mL/min/1.73 sq.m. Ages 60-69 = 85 mL/min/1.73 sq.m. Ages 70+ = 75 mL/min/1.73 sq.m. Chronic Kidney Disease: Less than 60 mL/min/1.73 square meters End Stage Renal Disease: Less than 15 mL/min/1.73 square meters Globulin 3.3 G/dL Invalid Interpretation Code AO ADM SS Glucose [Mass/Vol] 134 mg/dL Invalid Interpretation Code AO Chemistry S Comment on above: Interpretive Data: E stimated average glucose (eAG) is a calculated value from Hemoglobin A1C and is electroplating sales representative of the average blood glucose level in the last 2-3 month period. Normal range: less than 114 mg/dL Glucose [Mass/Vol] 103 mg/dL Normal 83 - 110 mg/dL AO ADM SS HbA1c (Bld) [Mass fraction] 6.3 % Normal 4.3 - 6.4 % AO ADM SS Potassium [Moles/Vol] 4.6 mmol/L Normal 3.5 - 5.1 mmol/L AO ADM SS Protein [Mass/Vol] 7.3 G/dL Normal 6.4 - 8.2 G/dL AO ADM SS Sodium [Moles/Vol] 137 mmol/L Normal 136 - 145 mmol/L AO ADM SS TSH Qn 2.17 m[IU]/L Normal 0.36 - 3.74 mcIU/mL AO ADM SS Urea nitrogen [Mass/Vol] 22 mg/dL High 7 - 18 mg/dL AO ADM SS Urea nitrogen/Creatinine [Mass ratio] 21 ratio Normal 7 - 27 ratio AO ADM SS TSHon 04-02-2024 TSH Qn 2.17 m[IU]/L Normal 0.36-3.74 [facility] Comment on above: Performed By: #### C SHIVAM, [id number] #### [address] [address] VIDHon 04-02-2024 Vit. D 25-Hydroxy 86.2 ng/mL Normal [facility] Comment on above: Result Comment: Inte rpretive Values Based on Total 25([place]) Vitamin D: Deficient <20 ng/mL Insufficient 20 - <30 ng/mL Sufficient 30-100 ng/mL Performed By: #### C SHIVAM, [id number] #### [id number] [place], [place] [address] Office Visiton 03-22-2024 Follow-up visit [id number] Haydee Quiroga 1950 F Date Provider Department Center 03/22/2024 [id number] NUÑEZ [facility] ALS None No family history on file Level of Service:61495 ME POSTOP FOLLOW UP VISIT RELATED TO ORIGINAL PX Reason for Visit and Comments: Post-op [483] - POST OP LAP HH REPAIR 01/26/[address] [facility] Progress Noteon 03-22-2024 Progress Note [facility] - Surgery Patient Name: Haydee Acuña Date: 03/22/24 S: Haydee Acuña follows up for a post operative visit after undergoing a laparoscopic hiatal hernia repair with posterior fundoplication, clarisa on 01/26/24. She continues to do very well. No vomiting since surgery. She has resumed her regular diet and has not had any further episodes of dysphagia. Denies any abdominal pain and has resumed all normal activities. Was taking iron supplement for chronic anemia prior to surgery. Had f/u with cad manager and states her recent bloodwork looked good and as result was taken off one iron pill. Very pleased with outcome. Allergies Allergen Reactions Diphenhydramine Hives Gluten Meal Wheat Other Reaction(s): UNKNOWN Current Outpatient Medications Medication Sig Dispense Refill alendronate (Fosamax) 70 MG tablet Take by mouth. sundays amLODIPine (Norvasc) 10 MG tablet 10 mg. Calcium Carbonate-Vitamin D 600-5 MG-MCG capsule Take by mouth. cholecalciferol (Vitamin D-3) 50 MCG (1999) tablet Take 2,000 Units by mouth daily. Monday thru Monday Cyanocobalamin (VITAMIN B-12 PO) Take by mouth. Folic Acid 0.8 MG capsule Take by mouth. levothyroxine (Synthroid, Levoxyl) 112 MCG tablet See Instructions, TAKE 1 TABLET BY MOUTH EVERY DAY/ none on sun, # 90 tab(s), 3 Refill(s), Pharmacy: [facility], 161.5, cm, 02/02/23 9:08:00 EDT, Height, kg, 02/02/23 9:08:00 EDT, Dosing Weight lisinopril 10 MG tablet 10 mg. Magnesium 400 MG capsule Take by mouth 1 (one) time each day. metFORMIN (Glucophage) 500 MG tablet See Instructions, TAKE 1 TABLET IN THE MORNING TAKE 1 TABLETS IN THE EVENING, # 270 tab(s), 3 Refill(s), Pharmacy: [facility], 159, cm, 08/08/23 9:07:00 EST, Height, kg, 08/08/23 9:07:00 EST, Dosing Weight pantoprazole (ProtoNix) 40 MG EC tablet 40 mg. rosuvastatin (Crestor) 10 MG tablet 10 mg. spironolactone (Aldactone) 25 MG tablet 25 mg every other day. Takes at 12 noon terazosin (Hytrin) 1 MG capsule 1 mg Nightly. No current facility-administered medications for this visit. Past Medical History: Diagnosis Date Diabetes mellitus (HCC) Disease of thyroid gland Hiatal hernia Hypertension O: BP 138/63 (BP Location: Right arm, Patient Position: Sitting, BP Cuff Size: Large adult) Pulse 71 Temp 36.3 ?C (97.3 ?F) Ht 5' 3 (1.6 m) Wt 147 lb (66.7 kg) BMI 26.04 kg/m? Physical Exam: The wounds are healing well. There is no evidence of infection, seroma, erythema or hernia. Pathology: Final Diagnosis STOMACH, PARTIAL GASTRECTOMY: - PORTION OF STOMACH WITH MODERATE CHRONIC GASTRITIS WITH MILD ACTIVITY Assessment/Plan Haydee was seen today for post-op. Diagnoses and all orders for this visit: Encounter for postoperative care (Primary) Hiatal hernia 73-year-old female status post laparoscopic hiatal hernia repair with mesh, Clarisa gastroplasty and posterior fundoplication on 01/26/2024. Haydee is doing great. All her preoperative symptoms have resolved and she has resumed all her normal activities as well as eating regularly. She can follow-up prn. She is off her PPI therapy and very happy overall with her outcome. The patient was seen and examined independently and relevant data reviewed by myself. A full chart review was performed. Patient Care Team: Stephon Wells DO as PCP - General (Family Medicine) Serge Boswell MD (Gastroenterology) Benton Jarrett as Cmo (Internal Medicine) Britta Basurto (Endocrinology, Diabetes, & Metabolism) hf Normal [facility] CBC W/Diff, Automatedon 08-0 Absolute Lymph 1.79 X10 3/uL Normal 0.83-4.51 [facility] Comment on above: Performed By: #### L 503.6550, L503.0105, L503.6030, L100.0100 #### [facility] [address] [place], [address] Absolute Neut 4.8 X10 3/uL Normal 2.0-7.7 [facility] Comment on above: Performed By: #### L 503.6550, L503.0105, L503.6030, L100.0100 #### [facility] [address] [place], [address] Basophils/100 WBC (Bld) 0.7 % Normal 0-1 [facility] Comment on above: Performed By: #### L 503.6550, L503.0105, L503.6030, L100.0100 #### [facility] [address] [place], [address] Eosinophils/100 WBC (Bld) 3.2 % Normal 0-5 [facility] Comment on above: Performed By: #### L 503.6550, L503.0105, L503.6030, L100.0100 #### [facility] [address] [place], [address] Erythrocyte distribution width (RBC) [Ratio] 14.5 % Normal 11.6-14.6 [facility] Comment on above: Performed By: #### L 503.6550, L503.0105, L503.6030, L100.0100 #### [facility] [address] [place], [address] Hematocrit (Bld) [Volume fraction] 34.8 % Low 37-47 [facility] Comment on above: Performed By: #### L 503.6550, L503.0105, L503.6030, L100.0100 #### [facility] [address] [place], [address] Hemoglobin (Bld) [Mass/Vol] 11.3 g/dL Low 12.0-15.0 [facility] Comment on above: Performed By: #### L 503.6550, L503.0105, L503.6030, L100.0100 #### [facility] [address] [place], [address] IG% 0.300 Normal 0.0-0.9 [facility] Comment on above: Result Comment: IG% - Immature Granulocytes (promyelocytes, myelocytes and metamyelocytes) > 1% indicates that a LEFT SHIFT is Present. Performed By: #### L 503.6550, L503.0105, L503.6030, L100.0100 #### [facility] [address] [place], [address] Lymphocytes/100 WBC (Bld) 23.7 % Normal 19-41 [facility] Comment on above: Performed By: #### L 503.6550, L503.0105, L503.6030, L100.0100 #### [facility] [address] [place], [address] MCH (RBC) [Entitic mass] 31.0 pg Normal 27.0-32.0 [facility] Comment on above: Performed By: #### L 503.6550, L503.0105, L503.6030, L100.0100 #### [facility] [address] [place], [address] MCHC (RBC) [Mass/Vol] 32.5 g/dL Normal 32-36 [facility] Comment on above: Performed By: #### L 503.6550, L503.0105, L503.6030, L100.0100 #### [facility] [address] [place], [address] MCV (RBC) [Entitic vol] 95.3 fL Normal 81-99 [facility] Comment on above: Performed By: #### L 503.6550, L503.0105, L503.6030, L100.0100 #### [facility] [address] [place], [address] Monocytes/100 WBC (Bld) 8.7 % Normal 0-10 [facility] Comment on above: Performed By: #### L 503.6550, L503.0105, L503.6030, L100.0100 #### [facility] [address] [place], [address] Neutrophils/100 WBC (Bld) 63.4 % Normal 47-70 [facility] Comment on above: Performed By: #### L 503.6550, L503.0105, L503.6030, L100.0100 #### [facility] [address] [place], [address] Nucleated RBC (Bld) [#/Vol] 0 10*3/uL Normal 0-5 [facility] Comment on above: Performed By: #### L 503.6550, L503.0105, L503.6030, L100.0100 #### [facility] [address] [place], [address] Platelet mean volume (Bld) [Entitic vol] 10.7 fL Normal 6.2-12.0 [facility] Comment on above: Performed By: #### L 503.6550, L503.0105, L503.6030, L100.0100 #### [facility] [address] [place], [address] Platelets (Bld) [#/Vol] 417 10*3/uL Normal 150-450 [facility] Comment on above: Performed By: #### L 503.6550, L503.0105, L503.6030, L100.0100 #### [facility] [address] [place], [address] RBC (Bld) [#/Vol] 3.65 10*6/uL Low 4.2-5.4 [facility] [place] Comment on above: Performed By: #### L 503.6550, L503.0105, L503.6030, L100.0100 #### [facility] [address] [place], [address] RDW SD 50.4 fl High 35.1-43.9 [facility] Comment on above: Performed By: #### L 503.6550, L503.0105, L503.6030, L100.0100 #### [facility] [address] [place], [address] WBC (Bld) [#/Vol] 7.6 10*3/uL Normal 4.4-11.0 [facility] Comment on above: Performed By: #### L 503.6550, L503.0105, L503.6030, L100.0100 #### [facility] [address] [place], [address] Ferritinon 02-12-2024 Ferritin [Mass/Vol] 59 ng/mL Normal 8-252 [facility] [place] Comment on above: Performed By: #### L 503.6550, L503.0105, L503.6030, L100.0100 #### [facility] [address] [place], [address] Iron+Iron Binding Capacityon 02-12-2024 Iron [Mass/Vol] 65 ug/dL Normal 50-170 [facility] Comment on above: Performed By: #### L 503.6550, L503.0105, L503.6030, L100.0100 #### [facility] [address] [place], [address] IRON SATURATION 19.7 Normal 15.0-55.0 [facility] Comment on above: Performed By: #### L 503.6550, L503.0105, L503.6030, L100.0100 #### [facility] [address] [place], [address] TIBC 330 ug/dL Normal 250-450 [facility] Comment on above: Performed By: #### L 503.6550, L503.0105, L503.6030, L100.0100 #### [facility] [address] [place], [address] Oncology Visit Reporton Oncology Visit Report [facility] [address] [place] [address] OFFICE VISIT Date of Service: 02/12/24 1057 MR#: [id number] Acct: [id number] Name: HAYDEE QUIROGA Rep #: [id number] : 1950 From: Angel Crespo MD Age/Sex: 73/F Location: [facility] Status: Signed HPI Subjective Date of Service 02/12/24 Chief Complaint Anemia History of Present Illness 73-year-old lady who was evaluated in August 2023 for anemia and was found to be iron deficient. She has a longstanding history of GERD secondary to a hiatus hernia. She has been on pantoprazole for several years. She was started on an oral iron supplement in August 2023 and her anemia has improved. September 2023 colonoscopy; small sessile polyps were biopsied, patient was told were benign. EGD October 2023 confirmed a large hiatus hernia with reflux and pathology showed reactive gastropathy with focal intestinal metaplasia in a background of chronic gastritis negative for H. pylori. [facility] Medical History Hiatal hernia Iron deficiency anemia due to chronic blood loss GERD (gastroesophageal reflux disease) Hypertension Diabetes mellitus type 2, controlled Surgical History History of repair of hiatal hernia H/O right knee surgery Hx of tonsillectomy History of thyroid surgery Family History Mother Hypertension Heart disease COPD (chronic obstructive pulmonary disease) Father Leukemia Social History household members: spouse current occupational status: retired Smoking Status: Never smoker alcohol intake: never substance use type: does not use ROS ROS Narrative I feel a whole lot better Constitutional Constitutional: Reports systems reviewed and no addt'l complaints, except as documented; Denies fatigue Eyes Eyes: Reports systems reviewed and no addt'l complaints, except as documented ENT HEENT: Reports systems reviewed and no addt'l complaints, except as documented; Denies bleeding gums or epistaxis Cardiovascular Cardiovascular: Reports systems reviewed and no addt'l complaints, except as documented; Denies chest pain Respiratory/Chest Respiratory/Chest: Reports systems reviewed and no addt'l complaints, except as documented; Denies dyspnea Gastrointestinal Gastrointestinal: Reports systems reviewed and no addt'l complaints, except as documented; Denies heartburn, hematochezia or melena Genitourinary Genitourinary: Reports systems reviewed and no addt'l complaints, except as documented; Denies hematuria Musculoskeletal Musculoskeletal: Reports systems reviewed and no addt'l complaints, except as documented Integumentary Integumentary: Reports systems reviewed and no addt'l complaints, except as documented; Denies bleeding lesions Neurologic Neurologic: Reports systems reviewed and no addt'l complaints, except as documented Psychiatric Psychiatric: Reports systems reviewed and no addt'l complaints, except as documented Endocrine Endocrinology: Reports systems reviewed and no addt'l complaints, except as documented Hematologic/Lymphatic Hematologic/Lymphatic: Reports systems reviewed and no addt'l complaints, except as documented; Denies easy bleeding Allergic/Immunologic Allergic/Immunologic: Reports systems reviewed and no addt'l complaints, except as documented Intake Vital Signs 11/13/23 10:46 02/12/24 10:58 Height 5 ft 3 in 5 ft 3 in Weight: 65.771 kg 64.637 kg BMI 25.7 25.2 BP 153/76 H Blood Pressure Location Lt brachial Position Sitting Respiration 18 Pulse 75 Pulse Source Monitor Temp 97.9 F Temperature Source Temporal Artery Pulse Oximetry (%) 100 Oxygen Delivery Method room air Intake Is patient in pain?: No Allergies wheat Allergy (Mild, Verified 02/12/24 10:59) UNKNOWN diphenhydramine (From Benadryl) Allergy (Verified 02/12/24 10:59) unknown Medications ???Medication ???Instructions ???Recorded ???Confirmed ???Type calcium carbonate 600 mg-vitamin cap PO DAILY 11/01/23 02/12/24 History D3 5 mcg (200 unit) capsule (Calcium 600 + D(3)) pantoprazole 40 mg tablet,delayed 40 mg PO DAILY 11/01/23 02/12/24 History release alendronate 70 mg tablet 70 mg PO QWEEK 11/13/23 02/12/24 History amlodipine 2.5 mg tablet 10 mg PO DAILY 11/13/23 02/12/24 History cholecalciferol (vitamin D3) 50 50 mcg PO DAILY 11/13/23 02/12/24 History mcg (2,000 unit) capsule folic acid 1 mg tablet 0.8 mg PO DAILY 11/13/23 02/12/24 History levothyroxine 112 mcg capsule 112 mcg PO DAILY 11/13/23 02/12/24 History lisinopril 10 mg tablet 10 mg PO DAILY 11/13/23 02/12/24 History (more content not included)... Normal [facility] Vitamin B12on 02-12-2024 Cobalamin (Vitamin B12) [Mass/Vol] 1523 pg/mL High 211-911 [facility] Comment on above: Performed By: #### L 503.3949, L503.0105, L503.6030, L100.0100 ####[facility] [id number] [place], [address] Office Visiton 02-09-2024 Follow-up visit [id number] Haydee Quiroga 1950 F Date Provider Department Center 02/09/2024 25536-EDDNECAOGIBENTON NUÑEZ [facility] ALS None No family history on file Level of Service:35381 ME POSTOP FOLLOW UP VISIT RELATED TO ORIGINAL PX Reason for Visit and Comments: Post-op [483] - Als 2 week post op Normal [facility] Progress Noteon 02-09-2024 Progress Note [facility] - Surgery Patient Name: Haydee Acuña Date: 02/09/24 S: Haydee Acuña follows up for a post operative visit after undergoing a laparoscopic hiatal hernia repair with posterior fundoplicationclarisa on 01/26/24. She is doing well without any major postoperative complications. Her pain control is well controlled and she is not asking for narcotic refills. Her bowel function has returned to normal without constipation or diarrhea. Her appetite is returning to normal. She has had some mild episodes of dysphagia that resolves with sipping on water. States she has not had any emesis since surgery and prior to surgery was vomiting 3x per week. States she feels great. Very pleased with outcome. Allergies Allergen Reactions Diphenhydramine Hives Gluten Meal Wheat Other Reaction(s): UNKNOWN Current Outpatient Medications Medication Sig Dispense Refill alendronate (Fosamax) 70 MG tablet Take by mouth. sundays amLODIPine (Norvasc) 10 MG tablet 10 mg. Calcium Carbonate-Vitamin D 600-5 MG-MCG capsule Take by mouth. cholecalciferol (Vitamin D-3) 50 MCG (1999 UT) tablet Take 2,000 Units by mouth daily. Monday thru Monday Cyanocobalamin (VITAMIN B-12 PO) Take by mouth. Folic Acid 0.8 MG capsule Take by mouth. levothyroxine (Synthroid, Levoxyl) 112 MCG tablet See Instructions, TAKE 1 TABLET BY MOUTH EVERY DAY/ none on sun, # 90 tab(s), 3 Refill(s), Pharmacy: [facility], 161.5, cm, 02/02/23 9:08:00 EDT, Height, kg, 02/02/23 9:08:00 EDT, Dosing Weight lisinopril 10 MG tablet 10 mg. Magnesium 400 MG capsule Take by mouth 1 (one) time each day. metFORMIN (Glucophage) 500 MG tablet See Instructions, TAKE 1 TABLET IN THE MORNING TAKE 1 TABLETS IN THE EVENING, # 270 tab(s), 3 Refill(s), Pharmacy: [facility], 159, cm, 08/08/23 9:07:00 EST, Height, kg, 08/08/23 9:07:00 EST, Dosing Weight pantoprazole (ProtoNix) 40 MG EC tablet 40 mg. rosuvastatin (Crestor) 10 MG tablet 10 mg. spironolactone (Aldactone) 25 MG tablet 25 mg every other day. Takes at 12 noon terazosin (Hytrin) 1 MG capsule 1 mg Nightly. No current facility-administered medications for this visit. Past Medical History: Diagnosis Date Diabetes mellitus (HCC) Disease of thyroid gland Hiatal hernia Hypertension O: BP 139/64 (BP Location: Right arm, Patient Position: Sitting, BP Cuff Size: Adult) Pulse 84 Temp 37.1 ?C (98.7 ?F) (Temporal) Ht 5' 2 (1.575 m) Wt 143 lb 6.4 oz (65 kg) BMI 26.23 kg/m? Physical Exam: The wounds are healing well. There is no evidence of infection, seroma, erythema or hernia. Pathology: Final Diagnosis STOMACH, PARTIAL GASTRECTOMY: - PORTION OF STOMACH WITH MODERATE CHRONIC GASTRITIS WITH MILD ACTIVITY Assessment/Plan Haydee was seen today for post-op. Diagnoses and all orders for this visit: Encounter for postoperative care (Primary) Hiatal hernia Celiac disease 73-year-old female with a history of a hiatal hernia, who underwent laparoscopic hiatal hernia pair with mesh, Clarisa gastroplasty and posterior fundoplication on 01/26/2024. She is doing very well and has had near complete resolution of her preoperative symptoms. She may advance diet as tolerated. She may increase their activity to a normal level yet refrain from lifting greater than 15# for one month after surgery. Follow-up 6 weeks. The patient was seen and examined independently and relevant data reviewed by myself. A full chart review was performed. Patient Care Team: Stephon Wells DO as PCP - General (Family Medicine) Serge Boswell MD (Gastroenterology) Benton Jarrett as Cmo (Internal Medicine) Britta Basurto (Endocrinology, Diabetes, & Metabolism) hf Normal [facility] BASIC METABOLIC PANELon 07-2 Anion gap [Moles/Vol] 9 mmol/L Normal 3-[address] [facility] Comment on above: Performed By: #### L AB15 ####Tail Trimmer: LINDA FIELDS ([phone])[facility] ([facility])[address] [place] [address] Calcium [Mass/Vol] 7.9 mg/dL Low 8.4-10.[address] [facility] Comment on above: Performed By: #### L AB15 ####Tail Trimmer: LINDA FIELDS ([phone])[facility])[address] [place] [address] Chloride [Moles/Vol] 105 mmol/L Normal 98-107 [facility] Comment on above: Performed By: #### L AB15 ####Tail Trimmer: LINDA FIELDS ([phone])[facility] ([facility])[address] [place] [address] CO2 [Moles/Vol] 21 mmol/L Low 22-[address] [facility] Comment on above: Performed By: #### L AB15 ####Tail Trimmer: LINDA FIELDS ([phone])[facility])[address] [place] [address] Creatinine [Mass/Vol] 0.83 mg/dL Normal 0.52-1.[address] [facility] Comment on above: Performed By: #### L AB15 ####Tail Trimmer: LINDA FIELDS ([phone])[facility])[address] [place] [address] [place] GLOMERULAR FILTRATION RATE ML/MIN/1.73 SQ M.PREDICTED 74.5 mL/min/1.73m*2 Normal >60.[address] [facility] Comment on above: Result Comment: Calc ulation based on the Chronic Kidney Disease Epidemiology Collaboration (CKD-EPI) equation refit without adjustment for race Performed By: #### L AB15 ####Tail Trimmer: LINDA FIELDS ([phone])[facility] ([facility])[address] [place] [address] Glucose [Mass/Vol] 94 mg/dL Normal 70-[address] [facility] Comment on above: Performed By: #### L AB15 ####Tail Trimmer: LINDA FIELDS ([phone])[facility] ([facility])[address] [place] [address] Potassium [Moles/Vol] 4.4 mmol/L Normal 3.5-5.[address] [facility] Comment on above: Performed By: #### L AB15 ####Tail Trimmer: LINDA FIELDS ([phone])[facility] ([facility])[address] [place] [address] Sodium [Moles/Vol] 135 mmol/L Normal 135-[address] [facility] Comment on above: Performed By: #### L AB15 ####Tail Trimmer: LINDA FIELDS ([phone])[facility] ([facility])[address] [place] [address] Urea nitrogen [Mass/Vol] 15 mg/dL Normal 7-[address] [facility] Comment on above: Performed By: #### L AB15 ####Tail Trimmer: LINDA FIELDS ([phone])[facility] ([facility])[address] [place] [address] Basic metabolic 1998 panelon 01-29-2024 Anion gap [Moles/Vol] 9 mmol/L 3 - 13 mmol/L [facility] Calcium [Mass/Vol] 7.9 mg/dL Low 8.4 - 10. 4 mg/dL [facility] Chloride [Moles/Vol] 105 mmol/L 98 - 10 7 mmol/L [facility] CO2 [Moles/Vol] 21 mmol/L Low 22 - 30 mmol/L [facility] Creatinine [Mass/Vol] 0.83 mg/dL 0.52 - 1.04 mg/dL [facility] GFR/1.73 sq M.predicted MDRD (S/P/Bld) [Vol rate/Area] 74.5 mL/min/{1.73_m2} - PINF [facility] Comment on above: Calculation based on the Chronic Kidney Disease Epidemiology Collaboration (CKD-EPI) equation refit without adjustment for race Glucose [Mass/Vol] 94 mg/dL 70 - 100 mg/dL [facility] Interpretation and review of laboratory results Abnormal [facility] Potassium [Moles/Vol] 4.4 mmol/L 3.5 - 5.1 mmol/L [facility] Sodium [Moles/Vol] 135 mmol/L 135 - 145 mmol/L [facility] Urea nitrogen [Mass/Vol] 15 mg/dL 7 - 17 mg/dL [facility] CARECOORDon 01-29-2024 [facility] TCC in to see radha scherer at 1020, Resident in at same time to discuss current state and discharge plan. Patient is s/p HH 01/25/2024. Met with pt at bedside, introduced self and explained role of TCC. Pt has insurance with RX coverage, active with PCP. Patient lives with spouse. Patient denies home going needs. Normal [facility] CBC (HEMOGRAM)on 01-29-2024 Erythrocyte distribution width (RBC) [Ratio] 15.1 % High 11.5-15.[address] [facility] Comment on above: Performed By: #### L [id number] ####Tail Trimmer: LINDA FIELDS ([phone])[address] Hematocrit (Bld) [Volume fraction] 34.0 % Low 35.0-47.[address] [facility] Comment on above: Performed By: #### L [id number] ####Tail Trimmer: LINDA FIELDS ([id number])[facility])[address] [place] [address] Hemoglobin (Bld) [Mass/Vol] 11.4 g/dL Low 11.7-16.[address] [facility] Comment on above: Performed By: #### L [id number] ####Tail Trimmer: LINDA FIELDS ([phone])[facility])[address] [place] [address] MCH (RBC) [Entitic mass] 31.1 pg Normal 26.0-34.0 [facility] Comment on above: Performed By: #### L [id number] ####Tail Trimmer: LINDA FIELDS ([id number])[facility])[address] [place] [address] MCHC 33.5 % Normal 30.5-36.0 [facility] Comment on above: Performed By: #### L [id number] ####Tail Trimmer: LINDA FIELDS ([phone])[facility])[address] [place] [address] MCV (RBC) [Entitic vol] 92.6 fL Normal 77.0-99.0 [facility] Comment on above: Performed By: #### L [id number] ####Tail Trimmer: LINDA FIELDS ([phone])[facility])[address] [place] [address] Platelet mean volume (Bld) [Entitic vol] 12.2 fL Normal 9.0-12.7 [facility] Comment on above: Performed By: #### L [id number] ####Tail Trimmer: LINDA FIELDS ([id number])[facility])[address] [place] [address] Platelets (Bld) [#/Vol] 217 10*3/uL Normal 140-440 [facility] Comment on above: Performed By: #### L [id number] ####Tail Trimmer: LINDA FIELDS ([id number])[facility])[address] [place] [address] RBC (Bld) [#/Vol] 3.67 10*6/uL Low 3.80-5.20 [facility] Comment on above: Performed By: #### L [id number] ####Tail Trimmer: LINDA FIELDS ([id number])[facility])[address] [place] [address] WBC (Bld) [#/Vol] 6.6 10*3/uL Normal 3.6-10.7 [facility] Comment on above: Performed By: #### L [id number] ####Tail Trimmer: LINDA FIELDS ([id number])[facility] ([facility])[address] [place] [address] CBC panel Auto (Bld)on 01-28 Erythrocyte distribution width (RBC) [Ratio] 15.1 % High 11.5 - 15.0 % [facility] Hematocrit (Bld) [Volume fraction] 34.0 % Low 35.0 - 47.0 % [facility] Hemoglobin (Bld) [Mass/Vol] 11.4 g/dL Low 11.7 - 16.0 g/dL [facility] Interpretation and review of laboratory results Abnormal [facility] MCH (RBC) [Entitic mass] 31.1 pg 26.0 - 34.0 pg [facility] MCHC (RBC) [Mass/Vol] 33.5 % 30.5 - 36.0 % [facility] MCV (RBC) [Entitic vol] 92.6 fL 77.0 - 99.0 fL [facility] Platelet mean volume (Bld) [Entitic vol] 12.2 fL 9.0 - 12.7 fL [facility] Platelets (Bld) [#/Vol] 217 10*3/uL 140 - 440 10*3/uL [facility] RBC (Bld) [#/Vol] 3.67 10*6/uL Low 3.80 - 5.20 10*6/uL [facility] WBC (Bld) [#/Vol] 6.6 10*3/uL 3.6 - 10.7 10*3/uL [facility] Laboratory - Chemistry and C hemistry - challengeon 01-29-2024 Glucose [Mass/Vol] 105 mg/dL High 70 - 100 mg/dL [facility] Glucose [Mass/Vol] 93 mg/dL 70 - 100 mg/dL [facility] No Panel Informationon 01-28 Interpretation and review of laboratory results Abnormal [facility] Performed by: [facility], [address] [place] [address] CLIA ID: [id number] [facility] Interpretation and review of laboratory results Normal [facility] Performed by: [facility], [address] [place] [address] CLIA ID: [id number] [facility] Nursing Noteon 01-29-2024 Nursing Note Went over discharge instructions, med rec, and prescriptions with pt. Pt verbalized understading. Staff to take pt down to discharge Normal [facility] Progress Noteon 01-29-2024 Progress Note [facility] Patient Name: Haydee Acuña Date: 01/29/24 MIS-General Surgery/Bariatric Progress Note Subjective: The patient is doing well, postoperative day #3 from HH repair . NAEO, doing well on CLD Scheduled Meds:enoxaparin, 40 mg, SubCUTAneous, q24h insulin lispro, 0-6 Units, SubCUTAneous, 4x daily pantoprazole, 40 mg, IntraVENous, Daily sodium chloride 0.9%, 10 mL, IntraVENous, 2 times per day Continuous Infusions:sodium chloride 0.45 % with KCl 20 mEq, 100 mL/hr, Last Rate: 100 mL/hr (01/29/24 0540) PRN Meds:PRN medications: dextrose, dextrose, glucagon (rDNA), glucose, hydrALAZINE, HYDROmorphone OR HYDROmorphone, labetalol, naloxone, ondansetron ODT OR ondansetron, promethazine, sodium chloride, sodium chloride 0.9% Allergies Allergen Reactions Diphenhydramine Hives Gluten Meal Wheat Other Reaction(s): UNKNOWN Objective: Patient Vitals for the past 24 hrs: BP Temp Temp src Pulse Resp SpO2 01/28/24 2142 146/70 36.3 ?C (97.3 ?F) Temporal 68 16 95 % 01/28/24 1546 158/88 36.6 ?C (97.9 ?F) Temporal 78 16 96 % 01/28/24 1206 145/74 37 ?C (98.6 ?F) Temporal 76 18 93 % 01/28/24 0758 (!) 161/93 36.5 ?C (97.7 ?F) Temporal 78 18 98 % Average, Min, and Max for last 24 hours Vitals: TEMPERATURE: Temp Av.6 ?C (97.9 ?F) Min: 36.3 ?C (97.3 ?F) Max: 37 ?C (98.6 ?F) RESPIRATIONS RANGE: Resp Av Min: 16 Max: 18 PULSE RANGE: Pulse Av Min: 68 Max: 78 BLOOD PRESSURE RANGE: Systolic (24hrs), Av , Min:145 , Max:161 ; Diastolic (24hrs), Av, Min:70, Max:93 PULSE OXIMETRY RANGE: SpO2 Av.5 % Min: 93 % Max: 98 % I/O last 3 completed shifts: In: 3928.3 [P.O.:1360; I.V.:2568.3] Out: - CBC: Recent Labs 01/26/24 1126 01/27/24 0022 01/28/24 0004 WBC -- 10.8* 8.9 HGB 10.8* 12.0 11.5* HCT 32.7* 36.2 34.3* PLT -- 249 238 BMP: Recent Labs 01/26/24 1126 01/27/24 0022 01/28/24 0004 NA 138 136 136 K 4.1 4.3 4.4 CL 106 102 102 CO2 26 24 24 BUN 18* 15 17 CREATININE 0.78 0.68 0.85 GLUCOSE 250* 223* 114* Abdomen: The abdomen was soft and appropriately tender postoperative. Nondistended. Incisions c/d/I. Assessment/Plan: Postoperative day #3, HH repair with mesh, Clarisa gastroplasty, toupet fundoplication GI/DVT prophylaxis, continue SQ Lovenox UGI with delay on esophageal emptying, debris within distal esophagus Continue CLD with advance at home Increase activity Pulmonary toilet Continue admit to surg 4, H6. Eli Cui MD PGY5, General Surgery Pager #[phone] [facility] BASIC METABOLIC PANELon 07- Anion gap [Moles/Vol] 11 mmol/L Normal 3-[address] [facility] Comment on above: Performed By: #### L AB15 ####Tail Trimmer: LINDA FIELDS ([phone])[facility] ([address] Calcium [Mass/Vol] 8.0 mg/dL Low 8.4-10.[address] [facility] Comment on above: Performed By: #### L AB15 ####Tail Trimmer: LINDA FIELDS ([phone])[facility] ([facility])[address] [place] [address] [place] Chloride [Moles/Vol] 102 mmol/L Normal 98-107 [facility] Comment on above: Performed By: #### L AB15 ####Tail Trimmer: LINDA FIELDS ([phone])[facility])[address] [place] [address] CO2 [Moles/Vol] 24 mmol/L Normal 22-[address] [facility] Comment on above: Performed By: #### L AB15 ####Tail Trimmer: LINDA FIELDS ([phone])[facility])[address] [place] [address] Creatinine [Mass/Vol] 0.85 mg/dL Normal 0.52-1.[address] [facility] Comment on above: Performed By: #### L AB15 ####Tail Trimmer: LINDA FIELDS ([id number])[facility] ([facility])[address] [place] [address] GLOMERULAR FILTRATION RATE ML/MIN/1.73 SQ M.PREDICTED 72.4 mL/min/1.73m*2 Normal >60.[address] [facility] Comment on above: Result Comment: Calc ulation based on the Chronic Kidney Disease Epidemiology Collaboration (CKD-EPI) equation refit without adjustment for race Performed By: #### L AB15 ####Tail Trimmer: LINDA FIELDS ([phone])[facility] ([facility])[address] [place] [address] [place] Glucose [Mass/Vol] 114 mg/dL High 70-[address] [facility] Comment on above: Performed By: #### L AB15 ####Tail Trimmer: LINDA FIELDS ([phone])[facility] ([facility])[address] [place] [address] [place] Potassium [Moles/Vol] 4.4 mmol/L Normal 3.5-5.[address] [facility] Comment on above: Performed By: #### L AB15 ####Tail Trimmer: LNIDA [id number])[facility])[address] [place] [address] Sodium [Moles/Vol] 136 mmol/L Normal 135-[address] [facility] Comment on above: Performed By: #### L AB15 ####Tail Trimmer: LINDA FIELDS ([phone])[facility] ([facility])[address] [place] [address] Urea nitrogen [Mass/Vol] 17 mg/dL Normal 7-[address] [facility] Comment on above: Performed By: #### L AB15 ####Tail Trimmer: LINDA FIELDS ([phone])[facility])[address] [place] [address] Basic metabolic 1998 panelon 01-28-2024 Anion gap [Moles/Vol] 11 mmol/L 3 - 13 mmol/L [facility] Calcium [Mass/Vol] 8.0 mg/dL Low 8.4 - 10. 4 mg/dL [facility] Chloride [Moles/Vol] 102 mmol/L 98 - 10 7 mmol/L [facility] CO2 [Moles/Vol] 24 mmol/L 22 - 30 mmol/L [facility] Creatinine [Mass/Vol] 0.85 mg/dL 0.52 - 1.04 mg/dL [facility] GFR/1.73 sq M.predicted MDRD (S/P/Bld) [Vol rate/Area] 72.4 mL/min/{1.73_m2} - PINF [facility] Comment on above: Calculation based on the Chronic Kidney Disease Epidemiology Collaboration (CKD-EPI) equation refit without adjustment for race Glucose [Mass/Vol] 114 mg/dL High 70 - 100 mg/dL [facility] Interpretation and review of laboratory results Abnormal [facility] Potassium [Moles/Vol] 4.4 mmol/L 3.5 - 5.1 mmol/L [facility] Sodium [Moles/Vol] 136 mmol/L 135 - 145 mmol/L [facility] Urea nitrogen [Mass/Vol] 17 mg/dL 7 - 17 mg/dL [facility] CBC (HEMOGRAM)on 01-28-2024 Erythrocyte distribution width (RBC) [Ratio] 15.4 % High 11.5-15.[address] [facility] Comment on above: Performed By: #### L [id number] ####Tail Trimmer: LINDA FIELDS ([phone])[facility])[address] [place] [address] Hematocrit (Bld) [Volume fraction] 34.3 % Low 35.0-47.[address] [facility] Comment on above: Performed By: #### L [id number] ####Tail Trimmer: LINDA FIELDS ([id number])[facility])[address] [place] [address] Hemoglobin (Bld) [Mass/Vol] 11.5 g/dL Low 11.7-16.0 [facility] Comment on above: Performed By: #### L [id number] ####Tail Trimmer: LINDA FIELDS ([phone])[facility])[address] [place] [address] MCH (RBC) [Entitic mass] 30.7 pg Normal 26.0-34.[address] [facility] Comment on above: Performed By: #### L [id number] ####Tail Trimmer: LINDA FIELDS ([phone])[facility] ([facility])[address] [place] [address] MCHC 33.5 % Normal 30.5-36.0 [facility] Comment on above: Performed By: #### L [id number] ####Tail Trimmer: LINDA FIELDS ([phone])[facility])[address] [place] [address] MCV (RBC) [Entitic vol] 91.7 fL Normal 77.0-99.0 [facility] Comment on above: Performed By: #### L [id number] ####Tail Trimmer: LINDA FIELDS ([phone])[facility])[address] [place] [address] Platelet mean volume (Bld) [Entitic vol] 11.5 fL Normal 9.0-12.7 [facility] Comment on above: Performed By: #### L [id number] ####Tail Trimmer: LINDA FIELDS ([phone])[facility] ([address] Platelets (Bld) [#/Vol] 238 10*3/uL Normal 140-[address] [facility] Comment on above: Performed By: #### L [id number] ####Tail Trimmer: LINDA FIELDS ([id number])[facility])[address] [place] [address] RBC (Bld) [#/Vol] 3.74 10*6/uL Low 3.80-5.[address] [facility] Comment on above: Performed By: #### L [id number] ####Tail Trimmer: LINDA FIELDS ([phone])[facility])[address] [place] [address] WBC (Bld) [#/Vol] 8.9 10*3/uL Normal 3.6-10.[address] [facility] Comment on above: Performed By: #### L [id number] ####Tail Trimmer: LINDA FIELDS ([phone])[facility] ([facility])[address] [place] [address] CBC panel Auto (Bld)on 01-27 Erythrocyte distribution width (RBC) [Ratio] 15.4 % High 11.5 - 15.0 % [facility] Hematocrit (Bld) [Volume fraction] 34.3 % Low 35.0 - 47.0 % [facility] Hemoglobin (Bld) [Mass/Vol] 11.5 g/dL Low 11.7 - 16.0 g/dL [facility] Interpretation and review of laboratory results Abnormal [facility] MCH (RBC) [Entitic mass] 30.7 pg 26.0 - 34.0 pg [facility] MCHC (RBC) [Mass/Vol] 33.5 % 30.5 - 36.0 % [facility] MCV (RBC) [Entitic vol] 91.7 fL 77.0 - 99.0 fL [facility] Platelet mean volume (Bld) [Entitic vol] 11.5 fL 9.0 - 12.7 fL [facility] Platelets (Bld) [#/Vol] 238 10*3/uL 140 - 440 10*3/uL [facility] RBC (Bld) [#/Vol] 3.74 10*6/uL Low 3.80 - 5.20 10*6/uL [facility] WBC (Bld) [#/Vol] 8.9 10*3/uL 3.6 - 10.7 10*3/uL [facility] IDNon 01-28-2024 IDN The patient is Moder ately Stable - Low risk of patient condition declining or worsening The patient's goals for the shift include pain control The clinical goals for the shift include pain control Over the shift, the patient did not make progress toward the following goals. Barriers to progression include none qt present tolerating diet.. Recommendations to address these barriers include go slow with diet.. Normal [facility] IDN The patient is Moder ately Stable - Low risk of patient condition declining or worsening The patient's goals for the shift include pain control The clinical goals for the shift include pain control Over the shift, the patient did not make progress toward the following goals. Barriers to progression include started on clear liquids. . Recommendations to address these barriers include awaiting to see how patient tolerates clears.. Normal [facility] Laboratory - Chemistry and C hemistry - challengeon 01-28-2024 Glucose [Mass/Vol] 152 mg/dL High 70 - 100 mg/dL [facility] Glucose [Mass/Vol] 123 mg/dL High 70 - 100 mg/dL [facility] Glucose [Mass/Vol] 117 mg/dL High 70 - 100 mg/dL [facility] Glucose [Mass/Vol] 90 mg/dL 70 - 100 mg/dL [facility] No Panel Informationon 01-27 Interpretation and review of laboratory results Abnormal [facility] Performed by: [facility], [address] [place] [address] CLIA ID: [id number] [facility] Interpretation and review of laboratory results Abnormal [facility] Performed by: [facility], [address] [place] [address] CLIA ID: [id number] [facility] Interpretation and review of laboratory results Abnormal [facility] Performed by: [facility], [address] [place] [address] CLIA ID: [id number] [facility] Interpretation and review of laboratory results Normal [facility] Performed by: [facility] [employer] [facility], [address] [place], [place] [address]IA ID: [id number] [facility] Progress Noteon 01-28-2024 Progress Note .Nutrition rescreen completed. Patient is NPO/Clear liquid >3 days. Refer to Dietitian. KELLEE Ramirez Normal [facility] Progress Note -------- Attestation signed by Rafael York MD at 01/28/2024 10:54 AM Feels well, looks well. Labs and vitals noted. Hb and wbc stable. Plan for clears and if tolerates will dc home today. Diet progression as per protocol at home, discussed with pt and family in room. F/u juan harvey as op. I saw and evaluated the patient on the date of service as documented on resident/fellow note. I agree with the findings and plan of care as documented in the resident/fellow's note. The total time spent during this patient encounter includes the face to face interaction with the patient and/or family, chart review, coordination with other providers, and documentation. Additionally, we discussed the risks and the overall treatment plan including any benefits or drawbacks of surgery as well as the preoperative and postoperative care plan for this patient. [facility] Patient Name: Haydee Acuña Date: 01/28/24 MIS-General Surgery/Bariatric Progress Note Subjective: The patient is doing well, postoperative day #2 from HH repair . NAEO, nausea resolved after upper GI yesterday. Denies further nausea/vomiting. Scheduled Meds:enoxaparin, 40 mg, SubCUTAneous, q24h insulin lispro, 0-6 Units, SubCUTAneous, 4x daily pantoprazole, 40 mg, IntraVENous, Daily sodium chloride 0.9%, 10 mL, IntraVENous, 2 times per day Continuous Infusions:sodium chloride 0.45 % with KCl 20 mEq, 100 mL/hr, Last Rate: 100 mL/hr (01/28/24 1022) PRN Meds:PRN medications: dextrose, dextrose, glucagon (rDNA), glucose, hydrALAZINE, HYDROmorphone OR HYDROmorphone, labetalol, naloxone, ondansetron ODT OR ondansetron, promethazine, sodium chloride, sodium chloride 0.9% Allergies Allergen Reactions Diphenhydramine Hives Gluten Meal Wheat Other Reaction(s): UNKNOWN Objective: Patient Vitals for the past 24 hrs: BP Temp Temp src Pulse Resp SpO2 01/28/24 0758 (!) 161/93 36.5 ?C (97.7 ?F) Temporal 78 18 98 % 01/28/24 0454 148/80 36.4 ?C (97.6 ?F) Temporal 69 16 95 % 01/27/24 2355 158/76 36.2 ?C (97.2 ?F) Temporal 74 18 94 % 01/27/24 2022 118/75 -- -- -- -- -- 01/27/242006 (!) 161/74 36.8 ?C (98.3 ?F) Temporal 78 18 96 % 01/27/24 1430 142/74 36.7 ?C (98.1 ?F) Temporal 78 16 99 % Average, Min, and Max for last 24 hours Vitals: TEMPERATURE: Temp Av.6 ?C (97.8 ?F) Min: 36.2 ?C (97.2 ?F) Max: 36.8 ?C (98.3 ?F) RESPIRATIONS RANGE: Resp Av.2 Min: 16 Max: 18 PULSE RANGE: Pulse Av.4 Min: 69 Max: 78 BLOOD PRESSURE RANGE: Systolic (24hrs), Av , Min:118 , Max:161 ; Diastolic (24hrs), Av, Min:74, Max:93 PULSE OXIMETRY RANGE: SpO2 Av.4 % Min: 94 % Max: 99 % I/O last 3 completed shifts: In: 2568.3 [I.V.:2568.3] Out: 400 [Urine:400] CBC: Recent Labs 01/26/24 1126 01/27/24 0022 01/28/24 0004 WBC -- 10.8* 8.9 HGB 10.8* 12.0 11.5* HCT 32.7* 36.2 34.3* PLT -- 249 238 BMP: Recent Labs 01/26/24 1126 01/27/24 0022 01/28/24 0004 NA 138 136 136 K 4.1 4.3 4.4 CL 106 102 102 CO2 24 BUN 18* 15 17 CREATININE 0.78 0.68 0.85 GLUCOSE 250* 223* 114* Abdomen: The abdomen was soft and appropriately tender postoperative. Nondistended. Incisions c/d/I. Assessment/Plan: Postoperative day #2, HH repair with mesh, Clarisa gastroplasty, toupet fundoplication GI/DVT prophylaxis, continue SQ Lovenox UGI with delay on esophageal emptying, debris within distal esophagus Adv to CLD today Increase activity Pulmonary toilet Continue admit to surg 4, H6. Eren Velazquez MD PGY-3, General Surgery Pager# [phone] 01/28/2024 10:[address] [facility] BASIC METABOLIC PANELon 07-2 Anion gap [Moles/Vol] 11 mmol/L Normal 3-[address] [facility] Comment on above: Performed By: #### L AB15 ####Tail Trimmer: LINDA FIELDS ([phone])[address] Calcium [Mass/Vol] 8.4 mg/dL Normal 8.4-10.[address] [facility] Comment on above: Performed By: #### L AB15 ####Tail Trimmer: LINDA FIELDS ([phone])[facility] ([facility])[address] [place] [address] Chloride [Moles/Vol] 102 mmol/L Normal 98-107 [facility] Comment on above: Performed By: #### L AB15 ####Tail Trimmer: LINDA FIELDS ([phone])[facility])[address] [place] [address] CO2 [Moles/Vol] 24 mmol/L Normal 22-[address] [facility] Comment on above: Performed By: #### L AB15 ####Tail Trimmer: LINDA FIELDS ([phone])[facility])[address] [place] [address] Creatinine [Mass/Vol] 0.68 mg/dL Normal 0.52-1.[address] [facility] Comment on above: Performed By: #### L AB15 ####Tail Trimmer: LINDA FIELDS ([id number])[address] GLOMERULAR FILTRATION RATE ML/MIN/1.73 SQ M.PREDICTED >90.0 Normal >60.[address] [facility] Comment on above: Result Comment: Calc ulation based on the Chronic Kidney Disease Epidemiology Collaboration (CKD-EPI) equation refit without adjustment for race Performed By: #### L AB15 ####Tail Trimmer: LINDA FIELDS ([phone])[address] Glucose [Mass/Vol] 223 mg/dL High 70-[address] [facility] Comment on above: Performed By: #### L AB15 ####Tail Trimmer: LINDA FIELDS ([phone])[address] Potassium [Moles/Vol] 4.3 mmol/L Normal 3.5-5.1 [facility] Comment on above: Performed By: #### L AB15 ####Tail Trimmer: LINDA FIELDS ([phone])[address] Sodium [Moles/Vol] 136 mmol/L Normal 135-[address] [facility] Comment on above: Performed By: #### L AB15 ####Tail Trimmer: LINDA FIELDS ([phone])[facility] ([facility])[address] [place] [address] Urea nitrogen [Mass/Vol] 15 mg/dL Normal 7-[address] [facility] Comment on above: Performed By: #### L AB15 ####Tail Trimmer: LINDA FIELDS ([id number])[facility])[address] [place] [address] Basic metabolic 1998 panelon 01-27-2024 Anion gap [Moles/Vol] 11 mmol/L 3 - 13 mmol/L [facility] Calcium [Mass/Vol] 8.4 mg/dL 8.4 - 10. 4 mg/dL [facility] Chloride [Moles/Vol] 102 mmol/L 98 - 10 7 mmol/L [facility] CO2 [Moles/Vol] 24 mmol/L 22 - 30 mmol/L [facility] Creatinine [Mass/Vol] 0.68 mg/dL 0.52 - 1.04 mg/dL [facility] GFR/1.73 sq M.predicted MDRD (S/P/Bld) [Vol rate/Area] - PINF [facility] Comment on above: Calculation based on the Chronic Kidney Disease Epidemiology Collaboration (CKD-EPI) equation refit without adjustment for race Glucose [Mass/Vol] 223 mg/dL High 70 - 100 mg/dL [facility] Interpretation and review of laboratory results Abnormal [facility] Potassium [Moles/Vol] 4.3 mmol/L 3.5 - 5.1 mmol/L [facility] Sodium [Moles/Vol] 136 mmol/L 135 - 145 mmol/L [facility] Urea nitrogen [Mass/Vol] 15 mg/dL 7 - 17 mg/dL [facility] CBC (HEMOGRAM)on 01-27-2024 Erythrocyte distribution width (RBC) [Ratio] 14.9 % Normal 11.5-15.[address] [facility] Comment on above: Performed By: #### L [id number] ####Tail Trimmer: LINDA FIELDS ([id number])[facility])[address] [place] [address] Hematocrit (Bld) [Volume fraction] 36.2 % Normal 35.0-47.0 [facility] Comment on above: Performed By: #### L [id number] ####Tail Trimmer: LINDA FIELDS ([phone])[facility] ([facility])[address] [place] [address] Hemoglobin (Bld) [Mass/Vol] 12.0 g/dL Normal 11.7-16.0 [facility] Comment on above: Performed By: #### L AB294 ####Tail Trimmer: LINDA FIELDS ([phone])[facility] ([facility])[address] [place] [address] MCH (RBC) [Entitic mass] 30.2 pg Normal 26.0-34.0 [facility] Comment on above: Performed By: #### L [id number] ####Tail Trimmer: LINDA FIELDS ([id number])[facility])[address] [place] [address] MCHC 33.1 % Normal 30.5-36.0 [facility] Comment on above: Performed By: #### L AB294 ####Tail Trimmer: LINDA FIELDS ([phone])[facility] ([facility])[address] [place] [address] MCV (RBC) [Entitic vol] 91.0 fL Normal 77.0-99.0 [facility] Comment on above: Performed By: #### L [id number] ####Tail Trimmer: LINDA FIELDS ([id number])[facility])[address] [place] [address] Platelet mean volume (Bld) [Entitic vol] 12.0 fL Normal 9.0-12.7 [facility] Comment on above: Performed By: #### L [id number] ####Tail Trimmer: LINDA FIELDS ([id number])[facility])[address] [place] [address] Platelets (Bld) [#/Vol] 249 10*3/uL Normal 140-440 [facility] Comment on above: Performed By: #### L [id number] ####Tail Trimmer: LINDA FIELDS ([phone])[facility])[address] [place] [address] RBC (Bld) [#/Vol] 3.98 10*6/uL Normal 3.80-5.20 [facility] Comment on above: Performed By: #### L [id number] ####Tail Trimmer: LINDA FIELDS ([id number])[facility] ([facility])[address] [place] [address] WBC (Bld) [#/Vol] 10.8 10*3/uL High 3.6-10.[address] [facility] Comment on above: Performed By: #### L [id number] ####Tail Trimmer: LINDA FIELDS ([id number])[facility])[address] [place] [address] CBC panel Auto (Bld)on 01-26 Erythrocyte distribution width (RBC) [Ratio] 14.9 % 11.5 - 15.0 % [facility] Hematocrit (Bld) [Volume fraction] 36.2 % 35.0 - 47.0 % [facility] Hemoglobin (Bld) [Mass/Vol] 12.0 g/dL 11.7 - 16.0 g/dL [facility] Interpretation and review of laboratory results Abnormal [facility] MCH (RBC) [Entitic mass] 30.2 pg 26.0 - 34.0 pg [facility] MCHC (RBC) [Mass/Vol] 33.1 % 30.5 - 36.0 % [facility] MCV (RBC) [Entitic vol] 91.0 fL 77.0 - 99.0 fL [facility] Platelet mean volume (Bld) [Entitic vol] 12.0 fL 9.0 - 12.7 fL [facility] Platelets (Bld) [#/Vol] 249 10*3/uL 140 - 440 10*3/uL [facility] RBC (Bld) [#/Vol] 3.98 10*6/uL 3.80 - 5.20 10*6/uL [facility] WBC (Bld) [#/Vol] 10.8 10*3/uL High 3.6 - 10.7 10*3/uL [facility] ECG 12-LEADon 01-27-2024 ECG 12-LEAD IMPRESSION: Sinus rhythm Ventricular bigeminy Borderline IVCD with LAD Inferior infarct, old Probable anterolateral infarct, age indeterm Prolonged QT interval Electronically Signed On 01-27-2024 08:31:13 EDT by Paloma Chaudhary Normal [facility] Laboratory - Chemistry and C hemistry - challengeon 01-27-2024 Glucose [Mass/Vol] 98 mg/dL 70 - 100 mg/dL [facility] Glucose [Mass/Vol] 102 mg/dL High 70 - 100 mg/dL [facility] Glucose [Mass/Vol] 120 mg/dL High 70 - 100 mg/dL [facility] No Panel Informationon 01-26 Interpretation and review of laboratory results Normal [facility] Performed by: [facility], [address] [place] [address] CLIA ID: [id number] [facility] Interpretation and review of laboratory results Abnormal [facility] Performed by: [facility], [address] [place] [address] CLIA ID: [id number] [facility] Interpretation and review of laboratory results Abnormal [facility] Performed by: [facility], [address] [place] [address] CLIA ID: [id number] [facility] Sinus rhythm Ventricular bigeminy Borderline IVCD with LAD Inferior infarct, old Probable anterolateral infarct, age indeterm Prolonged QT interval Electronically Signed On 01-27-2024 08:31:13 EDT by Paloma Shaikh MD - 01/27/2024 IMPRESSION: Sinus rhythm Ventricular bigeminy Borderline IVCD with LAD Inferior infarct, old Probable anterolateral infarct, age indeterm Prolonged QT interval Electronically Signed On 01-27-2024 08:31:13 EDT by Paloma Chaudhary [facility] No Panel InformationOrdered By: Paloma Chaudhary on 01-27-2024 P [place] 0 degrees [facility] [employer] Work Phone: ME Interval 188 ms [facility] [employer] Work Phone: QRS [place] -40 degrees [facility] [employer] Work Phone: QRSD Interval 112 ms [employer] Work Phone: QT Interval 434 ms [employer] Phone: QTC Interval 518 ms [employer] Work Phone: T Wave [place] 141 degrees [employer] Phone: [employer] Phone: Progress Noteon 01-27-2024 Progress Note -------- Attestation signed by Rafael York MD at 01/28/2024 10:53 AM Ugi shows some dilation of the esophagus with transit through the wrap into the stomach. There is some delay. She feels well, looks well. Will keep her npo for now. Suspect swelling secondary to recent surgery. I saw and evaluated the patient on the date of service as documented on resident/fellow note. I agree with the findings and plan of care as documented in the resident/fellow's note. The total time spent during this patient encounter includes the face to face interaction with the patient and/or family, chart review, coordination with other providers, and documentation. Additionally, we discussed the risks and the overall treatment plan including any benefits or drawbacks of surgery as well as the preoperative and postoperative care plan for this patient. [facility] Patient Name: Haydee Acuña Date: 01/27/24 MIS-General Surgery/Bariatric Progress Note Subjective: The patient is doing well, postoperative day #1 from HH repair . Reports nausea and vomiting overnight, no adverse events. Pain when drinking contrast for upper GI swallow. . Scheduled Meds:enoxaparin, 40 mg, SubCUTAneous, q24h insulin lispro, 0-6 Units, SubCUTAneous, 4x daily pantoprazole, 40 mg, IntraVENous, Daily sodium chloride 0.9%, 10 mL, IntraVENous, 2 times per day Continuous Infusions:sodium chloride 0.45 % with KCl 20 mEq, 100 mL/hr, Last Rate: 100 mL/hr (01/27/24 0515) PRN Meds:PRN medications: dextrose, dextrose, glucagon (rDNA), glucose, HYDROmorphone OR HYDROmorphone, naloxone, ondansetron ODT OR ondansetron, promethazine, sodium chloride, sodium chloride 0.9% Allergies Allergen Reactions Diphenhydramine Hives Gluten Meal Wheat Other Reaction(s): UNKNOWN Objective: Patient Vitals for the past 24 hrs: BP Temp Temp src Pulse Resp SpO2 01/27/24 1010 145/76 36.8 ?C (98.2 ?F) Temporal 81 15 99 % 01/27/24 0557 128/71 36.5 ?C (97.7 ?F) Temporal 77 -- 100 % 01/26/24 2350 (!) 162/81 36.9 ?C (98.4 ?F) Temporal 87 18 98 % 01/26/24 2019 134/71 36.4 ?C (97.5 ?F) Temporal 89 20 96 % 01/26/24 1650 129/62 36.2 ?C (97.1 ?F) Temporal 84 16 99 % 01/26/24 1523 112/68 (!) 35.5 ?C (95.9 ?F) Temporal 83 18 98 % 01/26/24 1315 131/72 36.4 ?C (97.6 ?F) Temporal 86 16 94 % Average, Min, and Max for last 24 hours Vitals: TEMPERATURE: Temp Av.4 ?C (97.5 ?F) Min: 35.5 ?C (95.9 ?F) Max: 36.9 ?C (98.4 ?F) RESPIRATIONS RANGE: Resp Av.2 Min: 15 Max: 20 PULSE RANGE: Pulse Av.9 Min: 77 Max: 89 BLOOD PRESSURE RANGE: Systolic (24hrs), Av , Min:112 , Max:162 ; Diastolic (24hrs), Av, Min:62, Max:81 PULSE OXIMETRY RANGE: SpO2 Av.7 % Min: 94 % Max: 100 % I/O last 3 completed shifts: In: 2215.7 [I.V.:2215.7] Out: 450 [Urine:400; Blood:50] CBC: Recent Labs 01/26/24 1126 01/27/24 0022 WBC -- 10.8* HGB 10.8* 12.0 HCT 32.7* 36.2 PLT -- 249 BMP: Recent Labs 01/26/24 1126 01/27/24 0022 NA 138 136 K 4.1 4.3 CL 106 102 CO2 26 24 BUN 18* 15 CREATININE 0.78 0.68 GLUCOSE 250* 223* Abdomen: The abdomen was soft and appropriately tender postoperative. Nondistended. Incisions c/d/I. Assessment/Plan: Postoperative day #1, HH repair with mesh, Clarisa gastroplasty, toupet fundoplication GI/DVT prophylaxis, continue SQ Lovenox UGI this AM, follow-up read, preliminarily reviewed, significant delay on esophageal emptying Continue n.p.o., MIVF, okay for limited ice chips today Increase activity Pulmonary toilet Continue admit to surg 4, H6. No plans for discharge until able to advance diet. Eren Velazquez MD PGY-3, General Surgery Pager# [phone] 01/27/2024 12:[address] [facility] Progress Note Preliminary negative for leak. Keep pt in upright position for [address] [facility] Vital signsOrdered By: Paloma Chaudhary on 01-27-2024 Heart rate 85 /min bpm [facility]: XR Abdomen and RF Gastrointe stinal tract upper W contrast Sam 01-27-2024 Changes consistent w ith Toupet fundoplication, Clarisa gastroplasty, hiatal hernia repair. No extravasation or obstruction. Debris in the distal esophagus which could represent postoperative clotting. Mild to moderate distention of the esophagus on several images. Report Dictated on Electronically Signed By: Tina Mcclain MD Electronically Signed Date/Time: 01/27/2024 2:27 PM EDT [facility] Patient Name: HAYDEE QUIROGA : 1950 Exam Date/Time: 01/27/2024 09:15 Procedure: FL UPPER GI WITH KUB Ordering Provider: NUÑEZ JOHN Reason For Exam: HIATAL HERNIA GASTROGRAFIN UPPER GI SERIES CLINICAL INDICATIONS: Postop day one Toupet fundoplication, Clarisa gastroplasty, hiatal hernia repair. Evaluate for leak. FLUOROSCOPY DOSE: Ka,r= 164.3 mGy FINDINGS: Preliminary film demonstrates small amount of free air beneath the left hemidiaphragm, presumably post surgical changes. The exam was performed using Gastrografin orally as requested. There is narrowing of the distal end of the esophagus and deformity of the gastric fundus consistent with post surgical changes in accordance with Toupet fundoplication. There is debris in the distal esophagus which could represent postoperative clot. Mild to moderate distention of the mid and distal esophagus on several images. There are no signs of contrast extravasation or obstruction. There is limited visualization of the stomach that shows contrast emptying into the duodenum without obstruction. Degenerative change of the spine. Atherosclerotic vascular calcifications. Linear atelectasis or scarring in the lung bases. Prominence of the cardiac silhouette. [facility] Tina Mcclain M D - 01/27/2024 [facility] Name[facility]AY[facility] 1950 [id number] Exam Date/Time: 01/27/2024 09:15 Procedure: FL UPPER GI WITH KUB Ordering Provider: NUÑEZ JOHN Reason For Exam: HIATAL HERNIA GASTROGRAFIN UPPER GI SERIES CLINICAL INDICATIONS: Postop day one Toupet fundoplication, Clarisa gastroplasty, hiatal hernia repair. Evaluate for leak. FLUOROSCOPY DOSE: Ka,r= 164.3 mGy FINDINGS: Preliminary film demonstrates small amount of free air beneath the left hemidiaphragm, presumably post surgical changes. The exam was performed using Gastrografin orally as requested. There is narrowing of the distal end of the esophagus and deformity of the gastric fundus consistent with post surgical changes in accordance with Toupet fundoplication. There is debris in the distal esophagus which could represent postoperative clot. Mild to moderate distention of the mid and distal esophagus on several images. There are no signs of contrast extravasation or obstruction. There is limited visualization of the stomach that shows contrast emptying into the duodenum without obstruction. Degenerative change of the spine. Atherosclerotic vascular calcifications. Linear atelectasis or scarring in the lung bases. Prominence of the cardiac silhouette. IMPRESSION: Changes consistent with Toupet fundoplication, Clarisa gastroplasty, hiatal hernia repair. No extravasation or obstruction. Debris in the distal esophagus which could represent postoperative clotting. Mild to moderate distention of the esophagus on several images. Report Dictated on Electronically Signed By: Tina Mcclain MD Electronically Signed Date/Time: 01/27/2024 2:27 PM EDT [facility] Radiology Study observation (narrative) [facility] [employer] XR Abdomen and RF Gastrointe stinal tract upper W contrast POOrdered By: Tina Mcclain on 01-27-2024 [facility] [employer] Work Phone: BASIC METABOLIC PANELon 01-07 Anion gap [Moles/Vol] 6 mmol/L Normal 3-[address] [facility] Comment on above: Performed By: #### L AB15 ####Tail Trimmer: LINDA FIELDS ([phone])[address] Calcium [Mass/Vol] 7.7 mg/dL Low 8.4-10.[address] [facility] Comment on above: Performed By: #### L AB15 ####Tail Trimmer: LINDA FIELDS ([id number])[facility])[address] [place] [address] Chloride [Moles/Vol] 106 mmol/L Normal 98-107 [facility] Comment on above: Performed By: #### L AB15 ####Tail Trimmer: LINDA [id number])[facility] ([facility])[address] [place] [address] CO2 [Moles/Vol] 26 mmol/L Normal 22-[address] [facility] Comment on above: Performed By: #### L AB15 ####Tail Trimmer: LINDA FIELDS ([id number])[facility])[address] [place] [address] Creatinine [Mass/Vol] 0.78 mg/dL Normal 0.52-1.[address] [facility] Comment on above: Performed By: #### L AB15 ####Tail Trimmer: LINDA FIELDS ([id number])[facility] ([facility])[address] [place] [address] [place] GLOMERULAR FILTRATION RATE ML/MIN/1.73 SQ M.PREDICTED 80.3 mL/min/1.73m*2 Normal >60.[address] [facility] Comment on above: Result Comment: Calc ulation based on the Chronic Kidney Disease Epidemiology Collaboration (CKD-EPI) equation refit without adjustment for race Performed By: #### L AB15 ####Tail Trimmer: LINDA FIELDS ([id number])[facility])[address] [place] [address] [place] Glucose [Mass/Vol] 250 mg/dL High 70-[address] [facility] Comment on above: Performed By: #### L AB15 ####Tail Trimmer: LINDA FIELDS ([phone])[facility] ([facility])[address] [place] [address] [place] Potassium [Moles/Vol] 4.1 mmol/L Normal 3.5-5.[address] [facility] Comment on above: Performed By: #### L AB15 ####Tail Trimmer: LINDA FIELDS ([id number])[facility] ([facility])[address] [place] [address] [place] Sodium [Moles/Vol] 138 mmol/L Normal 135-[address] [facility] Comment on above: Performed By: #### L AB15 ####Tail Trimmer: LINDA FIELDS ([phone])[facility] ([facility])[address] [place] [address] [place] Urea nitrogen [Mass/Vol] 18 mg/dL High 7-17 [facility] Comment on above: Performed By: #### L AB15 ####Tail Trimmer: LINDA FIELDS ([phone])[facility] ([facility])[address] [place] [address] Basic metabolic 1998 panelon 01-26-2024 Anion gap [Moles/Vol] 6 mmol/L 3 - 13 mmol/L [facility] Calcium [Mass/Vol] 7.7 mg/dL Low 8.4 - 10. 4 mg/dL [facility] Chloride [Moles/Vol] 106 mmol/L 98 - 10 7 mmol/L [facility] CO2 [Moles/Vol] 26 mmol/L 22 - 30 mmol/L [facility] Creatinine [Mass/Vol] 0.78 mg/dL 0.52 - 1.04 mg/dL [facility] GFR/1.73 sq M.predicted MDRD (S/P/Bld) [Vol rate/Area] 80.3 mL/min/{1.73_m2} - PINF [facility] Comment on above: Calculation based on the Chronic Kidney Disease Epidemiology Collaboration (CKD-EPI) equation refit without adjustment for race Glucose [Mass/Vol] 250 mg/dL High 70 - 100 mg/dL [facility] Interpretation and review of laboratory results Abnormal [facility] Potassium [Moles/Vol] 4.1 mmol/L 3.5 - 5.1 mmol/L [facility] Sodium [Moles/Vol] 138 mmol/L 135 - 145 mmol/L [facility] Urea nitrogen [Mass/Vol] 18 mg/dL High 7 - 17 mg/dL [facility] HEMOGLOBIN AND HEMATOCRIT, B LOODon 01-26-2024 Hematocrit (Bld) [Volume fraction] 32.7 % Low 35.0-47.0 [facility] Comment on above: Performed By: #### L [id number] #### Tail Trimmer: LINDA FIELDS ([phone]) [facility] ([facility]) [address] [place] [address] Hemoglobin (Bld) [Mass/Vol] 10.8 g/dL Low 11.7-16.[address] [facility] Comment on above: Performed By: #### L AB753 #### Tail Trimmer: LINDA FIELDS ([phone]) [facility] ([facility]) [address] [place] [address] Hemoglobin (Bld) [Mass/Vol]o n 01-26-2024 Hematocrit (Bld) [Volume fraction] 32.7 % Low 35.0 - 47.0 % [facility] Interpretation and review of laboratory results Abnormal [facility] IDNon 01-26-2024 IDN Problem: Pain - Adul t Goal: Verbalizes/displays adequate comfort level or baseline comfort level Outcome: Progressing Flowsheets (Taken 01/26/2024 1323) Verbalizes/displays adequate comfort level or baseline comfort level: Encourage patient to monitor pain and request assistance Assess pain using appropriate pain scale Administer analgesics based on type and severity of pain and evaluate response Normal [facility] Laboratory - Chemistry and C hemistry - challengeon 01-26-2024 Glucose [Mass/Vol] 204 mg/dL High 70 - 100 mg/dL [facility] Glucose [Mass/Vol] 252 mg/dL High 70 - 100 mg/dL [facility] Glucose [Mass/Vol] 133 mg/dL High 70 - 100 mg/dL [facility] Laboratory - Hematology and Cell countson 01-26-2024 Hemoglobin (Bld) [Mass/Vol] 10.8 g/dL Low 11.7 - 16.0 g/dL [facility] No Panel Informationon 01-25 Interpretation and review of laboratory results Abnormal [facility] Performed by: [facility], [address] [place] [address] CLIA ID: [id number] [facility] Interpretation and review of laboratory results Abnormal [facility] Performed by: [facility], [address] [place] [id number] CLIA ID: [id number] [facility] Interpretation and review of laboratory results Abnormal [facility] Performed by: [facility], [address] [place] [id number] CLIA ID: [id number] [facility] Nursing Noteon 01-26-2024 Nursing Note Report called to H6 RN and denies any questions, patient will be monitored until transport arrives. Normal [facility] Op Noteon 01-26-2024 Op Note [facility] Surgery Patient Name: Haydee Acuña OPERATIVE NOTE DATE OF PROCEDURE: 01/26/2024 SURGEON: Benton Nuñez MD ARCHITECTURAL MANAGER: Shelly Oliveira PA-C PREOPERATIVE DIAGNOSIS: Symptomatic Hiatal Hernia Refractory GERD POSTOPERATIVE DIAGNOSIS: Symptomatic Hiatal Hernia Refractory GERD OPERATION: Laparoscopic Hiatal Hernia Repair with Mesh Laparoscopic Clarisa Gastroplasty Laparoscopic Posterior Toupet Fundoplication Upper GI Endoscopy ANESTHESIA: General anesthesia ESTIMATED BLOOD LOSS: less than 50 COMPLICATIONS: None SPECIMEN: Portion of stomach PREOPERATIVE MEDICATIONS: Ancef, Heparin HISTORY: The patient is a 73 y.o. year old female with history of above preop diagnosis. I explained the risk, benefits, expected outcome, and alternatives to the procedure. Patient understands and is in agreement to proceed with operation. PROCEDURE: The patient was brought to the operating room and placed in supine position. After initiation of general anesthesia by the Anesthesia Department, she was placed in split-leg lithotomy with his arms extended. Care was taken to pad the bony prominences. Her abdomen was shaved, prepped, and draped in a normal sterile fashion. A Veress needle was placed in the left upper quadrant. We insufflated without difficulty and exchanged this for a 12 mm trocar. A 5 mm was placed in the right upper quadrant, one inferiorly and lateral to the initial access port and one in the mid epigastrium, a 5 mm subxiphoid stab wound was created for retraction of the left lobe of the liver using the Mel liver retractor. Upon evaluation of the diaphragm, there was a hiatal hernia noted, both anteriorly and posteriorly. Because of the abnormal visual inspection of the diaphragm the hiatal hernia was repaired. The phrenoesophageal ligament was divided using hook electrocautery exposing the left yamilex of the diaphragm. We continued our dissection along the anterior crural arch from left to right. The gastrohepatic ligament was incised using Bovie electrocautery, the peritoneum overlying the junction of the transversely passing fat pad at the base of the right yamilex was incised. We bluntly mobilized the esophagus, and reduced the GE junction into the abdomen by 2-3 cm. A Shorty drain was used to provide appropriate retraction. The anterior and posterior vagus nerves were identified and 360 degree circumferential complete mobilization was performed. The hernia sac was from the mediastinum and completely reduced. The hernia sac was completely dissected off the distal esophagus as well as the right and left parietal pleura. The hiatal hernia crural separation measured approximately 12 cm. Multiple sutures of 0 Ethibond were used to reapproximate the left and right yamilex around the 50-Serbian bougie reapproximating the posterior defect created by the right and left posterior crural columns. Because of the chronic hiatal hernia there was inadequate intra-abdominal esophageal length and as such an esophageal lengthening was performed. The fundus was marked and then divided using a 45 mm blue laparoscopic linear staple load, two sequential firings perpendicular to the 50 Fr. Bougie left in place. We then proceeded parallel to the Bougie with additional 45 mm blue staple loads using GORE Seam-Guard reinforcement to complete the Clarisa gastroplasty. Once this was completed the portion of stomach was removed and sent to pathology. At this point, because of the large defect, a piece of biologic mesh was selected. A piece of ACell Gentrix Hiatal was utilized, rehydrated according to sustainable agriculture faculty's recommendations and introduced into the abdomen. It was tacked to the diaphragm, using the the bougie as a guide using a 4.8mm B shaped tacker. The tunica propria was secured to the diaphragm and the basement membrane to the wrap. We then proceeded with a posterior toupet fundoplication. The fundus was marked using a 3-0 Vicryl suture and brought in a retroesophageal plane. We proceeded with a 270? wrap posteriorly using interrupted 2-0 silk sutures securing the wrap along the right yamilex, posteriorly as well as along the left yamilex. This was performed with the bougie in place, this was then removed for endoscopy. The bougie was removed. An upper GI endoscopy was performed. The flexible gastroscope was introduced through the patient's mouth, through the esophagus, through the stomach. The air was insufflated into the stomach and the scope retroflexed. The posterior fundoplication was intact, there was no evidence of a hiatal hernia and the wrap was otherwise normal. Normal postoperative configurations. The air was evacuated and the scope was withdrawn from the patient. She tolerated the procedure well, was extubated, sent to recovery in stable condition. The skin was closed using 4-0 Monocryl. There we (more content not included)... Normal [facility] BASIC METABOLIC PANELon 07-1 2-2024 Anion gap [Moles/Vol] 11 mmol/L Normal 3-[address] [facility] Comment on above: Performed By: #### L AB15 ####Tail Trimmer: LINDA FIELDS ([id number])[facility] ([facility])[address] [place] [address] Calcium [Mass/Vol] 9.0 mg/dL Normal 8.4-10.[address] [facility] Comment on above: Performed By: #### L AB15 ####Tail Trimmer: LINDA FIELDS ([phone])[facility])[address] [place] [address] Chloride [Moles/Vol] 104 mmol/L Normal 98-107 [facility] Comment on above: Performed By: #### L AB15 ####Tail Trimmer: LINDA FIELDS ([id number])[facility] ([facility])[address] [place] [address] CO2 [Moles/Vol] 26 mmol/L Normal 22-[address] [facility] Comment on above: Performed By: #### L AB15 ####Tail Trimmer: LINDA FIELDS ([phone])[facility] ([facility])[address] [place] [address] Creatinine [Mass/Vol] 0.79 mg/dL Normal 0.52-1.[address] [facility] Comment on above: Performed By: #### L AB15 ####Tail Trimmer: LINDA FIELDS ([phone])[facility])[address] [place] [address] GLOMERULAR FILTRATION RATE ML/MIN/1.73 SQ M.PREDICTED 79.1 mL/min/1.73m*2 Normal >60.[address] [facility] Comment on above: Result Comment: Calc ulation based on the Chronic Kidney Disease Epidemiology Collaboration (CKD-EPI) equation refit without adjustment for race Performed By: #### L AB15 ####Tail Trimmer: LINDA FIELDS ([id number])[facility] ([facility])[address] [place] [address] [place] Glucose [Mass/Vol] 100 mg/dL Normal 70-[address] [facility] Comment on above: Performed By: #### L AB15 ####Tail Trimmer: LINDA FIELDS ([phone])[facility])[address] [place] [address] Potassium [Moles/Vol] 4.4 mmol/L Normal 3.5-5.[address] [facility] Comment on above: Performed By: #### L AB15 ####Tail Trimmer: LINDA FIELDS ([phone])[facility] ([facility])[address] [place] [address] Sodium [Moles/Vol] 140 mmol/L Normal 135-[address] [facility] Comment on above: Performed By: #### L AB15 ####Tail Trimmer: LINDA FIELDS ([phone])[facility])[address] [place] [address] Urea nitrogen [Mass/Vol] 17 mg/dL Normal 7-[address] [facility] Comment on above: Performed By: #### L AB15 ####Tail Trimmer: LINDA FIELDS ([phone])[facility] ([facility])[address] [place] [address] CBC (HEMOGRAM)on 01-19-2024 Erythrocyte distribution width (RBC) [Ratio] 15.2 % High 11.5-15.[address] [facility] Comment on above: Performed By: #### L [id number] ####Tail Trimmer: LINDA FIELDS ([phone])[facility] ([facility])[address] [place] [address] Hematocrit (Bld) [Volume fraction] 38.4 % Normal 35.0-47.0 [facility] Comment on above: Performed By: #### L AB294 ####Tail Trimmer: LINDA FIELDS ([phone])[facility])[address] [place] [address] Hemoglobin (Bld) [Mass/Vol] 12.6 g/dL Normal 11.7-16.[address] [facility] Comment on above: Performed By: #### L AB294 ####Tail Trimmer: LINDA FIELDS ([phone])[facility])[address] [place] [address] MCH (RBC) [Entitic mass] 30.4 pg Normal 26.0-34.0 [facility] Comment on above: Performed By: #### L AB294 ####Tail Trimmer: LINDA FIELDS ([phone])[facility])[address] [place] [address] MCHC 32.8 % Normal 30.5-36.0 [facility] Comment on above: Performed By: #### L AB294 ####Tail Trimmer: LINDA FIELDS ([phone])[facility])[address] [place] [address] MCV (RBC) [Entitic vol] 92.8 fL Normal 77.0-99.0 [facility] Comment on above: Performed By: #### L AB294 ####Tail Trimmer: LINDA FIELDS ([phone])[facility] ([facility])[address] [place] [address] Platelet mean volume (Bld) [Entitic vol] 12.7 fL Normal 9.0-12.[address] [facility] Comment on above: Performed By: #### L AB294 ####Tail Trimmer: LINDA FIELDS ([phone])[facility])[address] [place] [address] Platelets (Bld) [#/Vol] 284 10*3/uL Normal 140-440 [facility] Comment on above: Performed By: #### L AB294 ####Tail Trimmer: LINDA FIELDS ([phone])[facility])[address] [place] [address] RBC (Bld) [#/Vol] 4.14 10*6/uL Normal 3.80-5.20 [facility] Comment on above: Performed By: #### L AB294 ####Tail Trimmer: LINDA FIELDS ([phone])[facility])[address] [place] [address] WBC (Bld) [#/Vol] 5.4 10*3/uL Normal 3.6-10.[address] [facility] Comment on above: Performed By: #### L AB294 ####Tail Trimmer: LINDA FIELDS ([phone])[facility] ([facility])[address] [place] [address] Office Visiton 01-19-2024 Follow-up visit [id number] Haydee Quiroga 1950 F Date Provider Department Center 01/19/2024 [id number]-IKPVCOBLPEBENTON NUÑEZ [facility] ALS None No family history on file Level of Service:93289 ME OFFICE/OUTPATIENT ESTABLISHED MOD MDM 30 MIN Reason for Visit and Comments: Follow-up [183686] - Pre op -ALS -lap HH repair w/ mesh, post fundo, poss clarisa gastro, EGD, poss open scheduled 01/[address] [facility] PREPROCINSon 01-19-2024 PREPROCINS Medication List Accurate as of January 19, 2024 11:10 AM. Always use your most recent med list. alendronate 70 MG tablet Commonly known as: Fosamax Notes to patient: NOT DUE DAY OF SURGERY amLODIPine 10 MG tablet Commonly known as: Norvasc Medication Adjustments for Surgery: Take morning of surgery Calcium Carbonate-Vitamin D 600-5 MG-MCG capsule Medication Adjustments for Surgery: Hold morning of surgery cholecalciferol 50 MCG (1999 [place]) tablet Commonly known as: Vitamin D-3 Medication Adjustments for Surgery: Hold morning of surgery Folic Acid 0.8 MG capsule levothyroxine 112 MCG tablet Commonly known as: Synthroid, Levoxyl Medication Adjustments for Surgery: Take morning of surgery lisinopril 10 MG tablet Medication Adjustments for Surgery: Hold morning of surgery Magnesium 400 MG capsule Medication Adjustments for Surgery: Hold morning of surgery metFORMIN 500 MG tablet Commonly known as: Glucophage Medication Adjustments for Surgery: Stop 2 days before surgery Notes to patient: LAST DOSE MONDAY 01/22 pantoprazole 40 MG EC tablet Commonly known as: ProtoNix Medication Adjustments for Surgery: Take morning of surgery rosuvastatin 10 MG tablet Commonly known as: Crestor Medication Adjustments for Surgery: Take night before surgery spironolactone 25 MG tablet Commonly known as: Aldactone Medication Adjustments for Surgery: Hold morning of surgery terazosin 1 MG capsule Commonly known as: Hytrin Medication Adjustments for Surgery: Take night before surgery VITAMIN B-12 PO Medication Adjustments for Surgery: Hold morning of surgery Additional Instructions: You may take your prescription pain medication. You may take Tylenol for pain. NO Motrin, ibuprofen or Advil for 24 hours prior to surgery or longer if instructed by your surgeon. NO Aleve or Naprosyn for 5 days prior to surgery or longer if instructed by your surgeon. IF YOU TAKE ASPIRIN: NO ASPIRIN PRODUCTS FOR FIVE DAYS PRIOR TO SURGERY Follow any instructions given to you by Dr. NUÑEZ Shower with an antibacterial soap such as Dial or Safeguard before coming to the hospital. No makeup, lotion, powder, deodorant or body sprays. No hair products. Remove all jewelry and leave it at home. Wear loose comfortable clothing to go home in. You may brush your teeth morning of surgery. Do not wear contacts day of surgery. No tobacco products, marijuana (THC), smoking or alcohol for 24 hours prior to surgery. Please arrange for a responsible adult to drive you home after your surgery and that there is a responsible adult with you for 24 hours post discharge. If you have specific questions, please call your surgeon. You will receive a call the day before your surgery to verify your arrival time and date. You will be asked to arrive at least two hours prior to your scheduled surgery time. Please bring your [facility] Surgical folder and medication list with you day of surgery. We encourage you to write down any questions you may have for the surgeon, anesthesiologist, or other members of the surgical team and bring it with you the day of surgery. Please bring photo ID and insurance information. ASSISTANT GOLF COURSE SUPERINTENDENT ENTER BUILDING AT THE MAIN ENTRANCE. TAKE THE H ELEVATOR TO THE FIRST FLOOR, TURN LEFT OFF THE ELEVATOR AND GO TO THE SAME DAY SURGERY REGISTRATION DESK TO CHECK IN Normal [facility] Progress Noteon 01-19-2024 Progress Note [facility] : 1950 Primary Care Physician: Stephon Wells, DO The patient and/or family/surrogate voluntarily agreed to participate in ACP services. Patient?s cognitive capacity: intact Code Status: [x] [FULL CODE - Continue all advanced life support: CPR,intubation,invasive procedures] [_] [DNR-CCA - DO NOT do CPR, intubation] [_] [DNR-TELE RN - Comfort care only] [_] DNR form [was/was not] signed Summary of discussion: The patient health care POA/ surrogate is the following: spouse-Jinny. [Condition that instigated the ACP on this DOS, relevant PMH, functional status, goals of care, and whom this was discussed with including names and relationship to the patient, and any relevant advance care documentation discussion] I answered all the patient/family questions that I could within the range and scope of the current medical situation. We discussed the medical conditions, risks, benefits, outcomes, and goals of care at this time for the patient's medical issues at hand in the face of the patient's chronic issues and current presentation. Total time spent: 3 minutes were spent discussing the patient's resuscitation status, advance care planning, and end of life care, with patient and/or family/surrogate. Alcira Harmon APRN - INSURANCE OFFICE SUPERVISOR Acute care [facility] 01/19/2024, 11:11 AM [facility] 36on 01-15-2024 36 Called pt back and e xplained that the appt already scheduled it a good time to coincide with her PAT (to leave enough time in between) -pt verbalized understanding and stated she would attend both [facility] 36 Pt called to find ou t if Dr Harvey would have availiblity Monday that would be close to her PAT appointment at 10:30. She has an appointment at 1:00 here but she lives in [facility]. [facility] RF Upper gastrointestinal tr act and Small bowel Single view W contrast Sam 12-12-2023 Mucosal irregularity of the distal esophagus suggesting esophagitis. Small hiatus hernia with spontaneous gastroesophageal reflux. Satisfactory emptying of the marshmallow bagel within two stripping waves. Stasis of the gluten-free bagel within the thoracic esophagus. Report Dictated on Electronically Signed By: Vikas Elizalde MD Electronically Signed Date/Time: 12/12/2023 3:15 PM EDT [employer] Patient Name: HAYDEE QUIROGA : 1950 Exam Date/Time: 12/12/2023 14:03 Procedure: FL UPPER GI DOUBLE CONTRAST W KUB Ordering Provider: NUÑEZ JOHN Reason For Exam: HIATAL HERNIA AIR CONTRAST UGI SERIES (with marshmallow bagel protocol) CLINICAL INDICATIONS: Hiatal hernia. GERD. History of thyroidectomy. COMPARISON: None. FLUOROSCOPY DOSE: Ka,r= 87.51 mGy TECHNIQUE: Biphasic exam was performed with barium and air. Marshmallow bagel protocol was performed per ordering physician request. A gluten-free bagel was used for the procedure. FINDINGS: Barium and air are administered. The esophagus is studied in the upright as well as the horizontal positions. There are surgical clips seen within the neck from prior thyroidectomy. The esophagus is normal in course and caliber. There is mucosal irregularity of the distal esophagus suggesting esophagitis. There is a small hiatus hernia with spontaneous gastroesophageal reflux. Barium flows freely from the esophagus into the stomach. The stomach and duodenum show normal mucosal pattern, with no discrete ulcer or mass. The visualized proximal jejunum is unremarkable. There is satisfactory emptying of the marshmallow within two stripping waves. There is stasis of the gluten-free bagel within the thoracic esophagus. [facility] Vikas Elizalde MD - 12/12/2023 Patient Name: HAYDEE QUIROGA : 1950 Exam Date/Time: 12/12/2023 14:03 Procedure: FL UPPER GI DOUBLE CONTRAST W KUB Ordering Provider: NUÑEZ JOHN Reason For Exam: HIATAL HERNIA AIR CONTRAST UGI SERIES (with marshmallow bagel protocol) CLINICAL INDICATIONS: Hiatal hernia. GERD. History of thyroidectomy. COMPARISON: None. FLUOROSCOPY DOSE: Ka,r= 87.51 mGy TECHNIQUE: Biphasic exam was performed with barium and air. Marshmallow bagel protocol was performed per ordering physician request. A gluten-free bagel was used for the procedure. FINDINGS: Barium and air are administered. The esophagus is studied in the upright as well as the horizontal positions. There are surgical clips seen within the neck from prior thyroidectomy. The esophagus is normal in course and caliber. There is mucosal irregularity of the distal esophagus suggesting esophagitis. There is a small hiatus hernia with spontaneous gastroesophageal reflux. Barium flows freely from the esophagus into the stomach. The stomach and duodenum show normal mucosal pattern, with no discrete ulcer or mass. The visualized proximal jejunum is unremarkable. There is satisfactory emptying of the marshmallow within two stripping waves. There is stasis of the gluten-free bagel within the thoracic esophagus. IMPRESSION: Mucosal irregularity of the distal esophagus suggesting esophagitis. Small hiatus hernia with spontaneous gastroesophageal reflux. Satisfactory emptying of the marshmallow bagel within two stripping waves. Stasis of the gluten-free bagel within the thoracic esophagus. Report Dictated on Electronically Signed By: Vikas Elizalde MD Electronically Signed Date/Time: 12/12/2023 3:15 PM EDT [facility] Radiology Study observation (narrative) [facility] RF Upper gastrointestinal tr act and Small bowel Single view W contrast POOrdered By: Vikas Elizalde on 12-12-2023 [facility] Office Visiton 12-01-2023 Follow-up visit [id number] Marli Quirogaine 1950 F Date Provider Department Center 12/01/2023 [id number] NUÑEZ [facility] ALS None No family history on file Level of Service:78063 ME OFFICE/OUTPATIENT NEW MODERATE MDM 45 MINUTES Reason for Visit and Comments: Follow-up [535705] - Site Damage Prevention Technician large hiatal hernia Normal [facility] Progress Noteon 12-01-2023 Progress Note Called pt and went o josey pre op, PAT, post-op, surgery arrival. Mailed and mycharted paperwork Normal [facility] Progress Note [facility] - Surgery [facility] Physicians Surgery Patient Name: Haydee Acuña Date: 12/01/23 HPI: Haydee Acuña is a 73 y.o. female who presents with large hiatal hernia. Underwent EGD for iron deficiency anemia and h/o celiac. Patient has endorsed epigastric discomfort for the past year. Denies dysphagia, but does feel full quicker. Was endorsing nausea but resolved with a nausea bracelet. Used to have bad reflux but improved with the pantoprazole. She often is vomiting once to twice per week, especially when she bends over. Was previously on baby aspirin for TIA but stopped taking that 1 month ago due to anemia. EGD and colonoscopy did not show any ulcers or active bleeding. I personally reviewed the patient intake form and discussed the ROS with the patient. The ROS is negative except for what is listed in HPI. Dr Boswell OV note 09/21/23 reviewed EGD 10/23/23 Dr Boswell PMHx: History reviewed. No pertinent past medical history. PSHx: Past Surgical History: Procedure Laterality Date THYROID SURGERY 2020 TOTAL KNEE ARTHROPLASTY Right 2013 PFMHx: No family history on file. ALL: Allergies Allergen Reactions Diphenhydramine Hives Gluten Meal MEDS: Current Outpatient Medications Medication Sig Dispense Refill amLODIPine (Norvasc) 10 MG tablet 10 mg. levothyroxine (Synthroid, Levoxyl) 112 MCG tablet See Instructions, TAKE 1 TABLET BY MOUTH EVERY DAY/ none on sun, # 90 tab(s), 3 Refill(s), Pharmacy: [facility], 161.5, cm, 02/02/23 9:08:00 EDT, Height, kg, 02/02/23 9:08:00 EDT, Dosing Weight lisinopril 10 MG tablet 10 mg. metFORMIN (Glucophage) 500 MG tablet See Instructions, TAKE 1 TABLET IN THE MORNING TAKE 1 TABLETS IN THE EVENING, # 270 tab(s), 3 Refill(s), Pharmacy: [facility], 159, cm, 08/08/23 9:07:00 EST, Height, kg, 08/08/23 9:07:00 EST, Dosing Weight pantoprazole (ProtoNix) 40 MG EC tablet 40 mg. rosuvastatin (Crestor) 10 MG tablet 10 mg. spironolactone (Aldactone) 25 MG tablet 25 mg. terazosin (Hytrin) 1 MG capsule 1 mg. No current facility-administered medications for this visit. SOCIAL Hx: Social History Socioeconomic History Marital status: Spouse name: Not on file Number of children: Not on file Years of education: Not on file Highest education level: Not on file Occupational History Not on file Tobacco Use Smoking status: Unknown Smokeless tobacco: Not on file Substance and Sexual Activity Alcohol use: Not on file Drug use: Not on file Sexual activity: Not on file Other Topics Concern Not on file Social History Narrative Not on file Social Determinants of Health Financial Resource Strain: Not on file Food Insecurity: Not on file Transportation Needs: Not on file Physical Activity: Not on file Stress: Not on file Social Connections: Not on file Intimate Partner Violence: Not on file Housing Stability: Not on file DIAGNOSTIC EVALUATION: EGD Dr Boswell 10/23/23 Pathology Physical Examination: BP (!) 170/79 Pulse 88 Temp (!) 35.8 ?C (96.5 ?F) Resp 16 Ht 5' 2 (1.575 m) Wt 147 lb 3.2 oz (66.8 kg) BMI 26.92 kg/m? She stands Height: 5' 2 (157.5 cm) tall with a weight of Weight: 147 lb 3.2 oz (66.8 kg) , resulting in a BMI of Body mass index is 26.92 kg/m?.. General: The patient is awake, alert, and oriented, and is in no apparent distress. Head and Neck: Normocephalic and atraumatic. Respiratory: Nonlabored breathing Abdomen: Soft, no surgical scars -nontender, no reproducible abdominal pain. No palpable masses. Extremities: Ambulatory without assistance. Skin: No rashes or lesions noted. Hernia: no hernias found on exam She will need medical risk stratification from her snipper (Dr. Jarrett). We will proceed with surgical intervention. I met with the patient today to discuss risks and benefits of laparoscopic hiatal hernia repair with posterior fundoplication including, but not limited to injury to surrounding structures, the possibility of using mesh for diaphragmatic reinforcement, conversion to open, pleural effusion requiring thoracentesis, prolonged mechanical ventilation, and . She is aware of the possibility of gas bloat syndrome, the need for ongoing PPI/H2 Arina use, postoperative reflux or dysphagia. We discussed potential for hemorrhage, infection, incomplete resolution of Her symptoms, as well as cardiac and pulmonary-related complications. The patient understands and wishes to proceed. Non-operative alternatives were discussed with the patient and they wish to proceed with surgical intervention. Plan: Initial Pre-Operative Testing Primary Procedure: Laparoscopic hiatal hernia repair with mesh, posterior fundoplication, possible Clarisa gastroplasty, EGD Clearance: Cardiology clearance, Dr. Jarrett, PAT Preop SQ Heparin: 5000 units subcu heparin 2 hours preop x 1 Assessment/Plan (more content not included)... Normal [facility] Progress Note Received cardiac cassia arance, cleared for surgery. Gave to Shelly to sign off on Normal [facility] Progress Note Pt scheduled for UGI w/ contrast on 12/11 @ 1:30 [facility] *still needs surgery scheduled Normal [facility] Progress Note Called pt and spouse and gave appt date/time for UGI, and directions Normal [facility] .Auto Diffon 11-27-2023 Basophil, Absolute 0.0 10 3/mcL Normal 0.0-0.2 [facility] ([place]) Comment on above: Performed By: #### M ALBR #### [address] [address] Basophils/100 WBC (Bld) 0.5 % Normal 0.0-2.5 [facility] ([place]) Comment on above: Performed By: #### M ALBR #### [address] [address] Eosinophil, Absolute 0.2 10 3/mcL Normal 0.0-0.4 [facility] ([place]) Comment on above: Performed By: #### M ALBR #### [address] [address] Eosinophils/100 WBC (Bld) 2.4 % Normal 0.0-7.0 [facility] ([place]) Comment on above: Performed By: #### M ALBR #### [address] [address] Lymphocyte, Absolute 2.0 10 3/mcL Normal 0.8-3.9 [facility] ([place]) Comment on above: Performed By: #### M ALBR #### [address] [address] Lymphocytes/100 WBC (Bld) 31.7 % Normal 10.0-50.0 [facility] ([place]) Comment on above: Performed By: #### M ALBR #### [address] [address] Monocyte, Absolute 0.7 10 3/mcL Normal 0.2-1.0 [facility] ([place] Comment on above: Performed By: #### M ALBR #### [id number] [place], [place] [address] Monocytes/100 WBC (Bld) 10.3 % Normal 1.7-13.0 [facility] ([place]) Comment on above: Performed By: #### M ALBR #### [id number] [place], [place] [address] Neutrophils/100 WBC (Bld) 55.1 % Normal 37.0-80.0 [facility] ([place]) Comment on above: Performed By: #### M ALBR #### [id number] [place], [place] [address] .GFRon 11-27-2023 GFR Non- 53 ml/min/1.73sqm Normal [facility] ([place]) Comment on above: Result Comment: GFR Population mean for , Non- Americans Ages 20-29 = 116 mL/min/1.73 sq.m. Ages 30-39 = 107 mL/min/1.73 sq.m. Ages 40-49 = 99 mL/min/1.73 sq.m. Ages 50-59 = 93 mL/min/1.73 sq.m. Ages 60-69 = 85 mL/min/1.73 sq.m. Ages 70+ = 75 mL/min/1.73 sq.m. Chronic Kidney Disease: Less than 60 mL/min/1.73 square meters End Stage Renal Disease: Less than 15 mL/min/1.73 square meters Performed By: #### H H #### [address] [address] GFR 64 ml/min/1.73sqm Normal [facility] ([place]) Comment on above: Result Comment: GFR Population mean for , Non- Americans Ages 20-29 = 116 mL/min/1.73 sq.m. Ages 30-39 = 107 mL/min/1.73 sq.m. Ages 40-49 = 99 mL/min/1.73 sq.m. Ages 50-59 = 93 mL/min/1.73 sq.m. Ages 60-69 = 85 mL/min/1.73 sq.m. Ages 70+ = 75 mL/min/1.73 sq.m. Chronic Kidney Disease: Less than 60 mL/min/1.73 square meters End Stage Renal Disease: Less than 15 mL/min/1.73 square meters Performed By: #### H H #### [address] [address] .NEUABSon 11-27-2023 Neutrophil, Absolute 3.6 10 3/mcL Normal 2.9-6.2 [facility] ([place]) Comment on above: Performed By: #### M ALBR #### [place] [address] A1Con 11-27-2023 HbA1c (Bld) [Mass fraction] 6.3 % Normal 4.3-6.4 [facility] ([place]) Comment on above: Performed By: #### M ALBR #### [address] [address] CBCon 11-27-2023 Erythrocyte distribution width (RBC) [Ratio] 20.5 % High 11.5-14.5 [facility] ([place]) Comment on above: Performed By: #### M ALBR #### [address] [address] Hematocrit (Bld) [Volume fraction] 34.8 % Low 37.0-47.0 [facility] ([place]) Comment on above: Performed By: #### M ALBR #### [address] [address] Hgb 12.1 G/dL Normal 12.0-16.0 [facility] ([place]) Comment on above: Performed By: #### M ALBR #### [address] [address] MCH (RBC) [Entitic mass] 30.5 pg Normal 27.0-31.2 [facility] ([place] Comment on above: Performed By: #### M ALBR #### [address] [address] MCHC 34.8 G/dL Normal 33.0-37.0 [facility] ([place] Comment on above: Performed By: #### M ALBR #### [address] [address] MCV (RBC) [Entitic vol] 87.6 fL Normal 80.0-94.0 [facility] ([place]) Comment on above: Performed By: #### M ALBR #### [address] [address] Platelet 246 10 3/mcL Normal 130-400 [facility] ([place]) Comment on above: Performed By: #### M ALBR #### [address] [address] Platelet mean volume (Bld) [Entitic vol] 10.1 fL Normal 7.4-10.4 [facility] ([place]) Comment on above: Performed By: #### M ALBR #### [address] [address] RBC 3.97 10 6/mcL Low 4.20-5.40 [facility] ([place]) Comment on above: Performed By: #### M ALBR #### [address] [address] WBC 6.5 10 3/mcL Normal 4.6-10.8 [facility] ([place]) Comment on above: Performed By: #### M ALBR #### [address] [address] CMPon 11-27-2023 Albumin Level 4.2 G/dL Normal 3.4-4.8 [facility] ([place]) Comment on above: Performed By: #### H H #### [address] [address] Albumin/Globulin [Mass ratio] 1.3 {ratio} Normal 1.1-2.5 [facility] ([place]) Comment on above: Performed By: #### H H #### [address] [address] ALP [Catalytic activity/Vol] 46 U/L Normal 40-135 [facility] ([place]) Comment on above: Performed By: #### H H #### [address] [address] ALT [Catalytic activity/Vol] 21 U/L Normal 14-59 [facility] ([place]) Comment on above: Performed By: #### H H #### [address] [address] AST [Catalytic activity/Vol] 12 U/L Normal 10-40 [facility] ([place]) Comment on above: Performed By: #### H H #### [address] [address] Bili Total 0.4 mg/dL Normal 0.2-1.0 [facility] ([place]) Comment on above: Result Comment: Use of this assay is not recommended for patients undergoing treatment with eltrombopag due to the potential for falsely elevated results. Performed By: #### H H #### [address] [address] BUN/Creatinine Ratio 18 ratio Normal 7-27 [facility] ([place]) Comment on above: Performed By: #### H H #### [address] [address] Calcium [Mass/Vol] 9.1 mg/dL Normal 8.4-10.2 [facility] ([place]) Comment on above: Performed By: #### H H #### [address] [address] Chloride [Moles/Vol] 104 mmol/L Normal 98-107 [facility] ([place]) Comment on above: Performed By: #### H H #### [address] [address] CO2 [Moles/Vol] 30 mmol/L Normal 23-31 [facility] ([place]) Comment on above: Performed By: #### H H #### [address] [address] Creatinine [Mass/Vol] 1.03 mg/dL High 0.55-1.02 [facility] ([place]) Comment on above: Performed By: #### H H #### [place] [id number] Electrolyte Balance 10.0 mEq/L Normal 4.0-15.0 Replaced by [facility] ([place]) Comment on above: Performed By: #### H H #### [address] [address] Globulin 3.2 G/dL Normal [facility] ([place]) Comment on above: Performed By: #### H H #### [address] [address] Glucose [Mass/Vol] 111 mg/dL High 83-110 [facility] ([place]) Comment on above: Performed By: #### H H #### [address] [address] Potassium [Moles/Vol] 5.0 mmol/L Normal 3.5-5.1 [facility] ([place]) Comment on above: Performed By: #### H H #### [address] [address] Sodium [Moles/Vol] 144 mmol/L Normal 136-145 [facility] ([place] Comment on above: Performed By: #### H H #### [address] [address] Total Protein 7.4 G/dL Normal 6.4-8.2 [facility] ([place]) Comment on above: Performed By: #### H H #### [address] [address] Urea nitrogen [Mass/Vol] 19 mg/dL High 7-18 [facility] ([place]) Comment on above: Performed By: #### H H #### [address] [address] FT3on 11-27-2023 Free T3 [Mass/Vol] 1.98 pg/mL Low 2.30-4.00 [facility] ([place]) Comment on above: Performed By: #### H H #### [address] [address] FT4on 11-27-2023 Free T4 [Mass/Vol] 1.58 ng/dL High 0.76-1.46 [facility] ([place]) Comment on above: Performed By: #### H H #### [id number] [place], [place] [address] LABORATORYOrdered By: SYSTEM SYSTEM on 11-27-2023 25-hydroxyvitamin D3 [Mass/Vol] 90.8 ng/mL Invalid Interpretation Code AO ADM SS Comment on above: Interpretive Data: I nterpretive Values Based on Total 25(OH) Vitamin D: Deficient <20 ng/mL Insufficient 20 - <30 ng/mL Sufficient 30-100 ng/mL Albumin BCP dye [Mass/Vol] 4.2 G/dL Normal 3.4 - 4.8 G/dL AO ADM SS Albumin/Globulin [Mass ratio] 1.3 {ratio} Normal 1.1 - 2.5 ratio AO ADM SS ALP [Catalytic activity/Vol] 46 U/L Normal 40 - 135 U/L AO ADM SS ALT With P-5'-P [Catalytic activity/Vol] 21 U/L Normal 14 - 59 U/L AO ADM SS AST With P-5'-P [Catalytic activity/Vol] 12 U/L Normal 10 - 40 U/L AO ADM SS Basophil, Absolute 0.0 103/mcL Normal 0.0 - 0.2 10^3/mcL AO Workflow SS Basophils/100 WBC (Bld) 0.5 % Normal 0.0 - 2.5 % AO Workflow SS Bilirubin [Mass/Vol] 0.4 mg/dL Normal 0.2 - 1 .0 mg/dL AO ADM SS Comment on above: Interpretive Data: U se of this assay is not recommended for patients undergoing treatment with eltrombopag due to the potential for falsely elevated results. Calcium [Mass/Vol] 9.1 mg/dL Normal 8.4 - 10. 2 mg/dL AO ADM SS Chloride [Moles/Vol] 104 mmol/L Normal 98 - 10 7 mmol/L AO ADM SS CO2 [Moles/Vol] 30 mmol/L Normal 23 - 31 mmol/L AO ADM SS Creatinine [Mass/Vol] 1.03 mg/dL High 0.55 - 1.02 mg/dL AO ADM SS Electrolyte Balance 10.0 mEq/L Normal 4.0 - 15 .0 mEq/L AO ADM SS Eosinophil, Absolute 0.2 103/mcL Normal 0.0 - 0 .4 10^3/mcL AO Workflow SS Eosinophils/100 WBC (Bld) 2.4 % Normal 0.0 - 7.0 % AO Workflow SS Erythrocyte distribution width (RBC) [Ratio] 20.5 % High 11.5 - 14.5 % AO Workflow SS Free T3 [Mass/Vol] 1.98 pg/mL Low 2.30 - 4.00 pg/mL AO ADM SS Free T4 [Mass/Vol] 1.58 ng/dL High 0.76 - 1.46 ng/dL AO ADM SS GFR/1.73 sq M.predicted among blacks MDRD (S/P/Bld) [Vol rate/Area] 64 ml/min/1.73sqm Invalid Interpretation Code AO Chemistry S Comment on above: Interpretive Data: GFR Population mean for , Non- Americans Ages 20-29 = 116 mL/min/1.73 sq.m. Ages 30-39 = 107 mL/min/1.73 sq.m. Ages 40-49 = 99 mL/min/1.73 sq.m. Ages 50-59 = 93 mL/min/1.73 sq.m. Ages 60-69 = 85 mL/min/1.73 sq.m. Ages 70+ = 75 mL/min/1.73 sq.m. Chronic Kidney Disease: Less than 60 mL/min/1.73 square meters End Stage Renal Disease: Less than 15 mL/min/1.73 square meters GFR/1.73 sq M.predicted among non-blacks MDRD (S/P/Bld) [Vol rate/Area] 53 ml/min/1.73sqm Invalid Interpretation Code AO Chemistry S Comment on above: Interpretive Data: GFR Population mean for , Non- Americans Ages 20-29 = 116 mL/min/1.73 sq.m. Ages 30-39 = 107 mL/min/1.73 sq.m. Ages 40-49 = 99 mL/min/1.73 sq.m. Ages 50-59 = 93 mL/min/1.73 sq.m. Ages 60-69 = 85 mL/min/1.73 sq.m. Ages 70+ = 75 mL/min/1.73 sq.m. Chronic Kidney Disease: Less than 60 mL/min/1.73 square meters End Stage Renal Disease: Less than 15 mL/min/1.73 square meters Globulin 3.2 G/dL Invalid Interpretation Code AO ADM SS Glucose [Mass/Vol] 111 mg/dL High 83 - 110 mg/dL AO ADM SS HbA1c (Bld) [Mass fraction] 6.3 % Normal 4.3 - 6.4 % AO ADM SS Hematocrit (Bld) [Volume fraction] 34.8 % Low 37.0 - 47.0 % AO Workflow SS Hemoglobin (Bld) [Mass/Vol] 12.1 G/dL Normal 12.0 - 16.0 G/dL AO Workflow SS Lymphocyte, Absolute 2.0 103/mcL Normal 0.8 - 3 .9 10^3/mcL AO Workflow SS Lymphocytes/100 WBC (Bld) 31.7 % Normal 10.0 - 50.0 % AO Workflow SS MCH (RBC) [Entitic mass] 30.5 pg Normal 27.0 - 31.2 pg AO Workflow SS MCHC 34.8 G/dL Normal 33.0 - 37.0 G/dL AO Workflow SS MCV (RBC) [Entitic vol] 87.6 fL Normal 80.0 - 94.0 fL AO Workflow SS Monocyte, Absolute 0.7 103/mcL Normal 0.2 - 1.0 10^3/mcL AO Workflow SS Monocytes/100 WBC (Bld) 10.3 % Normal 1.7 - 13.0 % AO Workflow SS Neutrophil, Absolute 3.6 103/mcL Normal 2.9 - 6 .2 10^3/mcL AO Workflow SS Neutrophils/100 WBC (Bld) 55.1 % Normal 37.0 - 80.0 % AO Workflow SS Platelet mean volume (Bld) [Entitic vol] 10.1 fL Normal 7.4 - 10.4 fL AO Workflow SS Platelets (Bld) [#/Vol] 246 103/mcL Normal 130 - 400 10^3/mcL AO Workflow SS Potassium [Moles/Vol] 5.0 mmol/L Normal 3.5 - 5.1 mmol/L AO ADM SS Protein [Mass/Vol] 7.4 G/dL Normal 6.4 - 8.2 G/dL AO ADM SS RBC (Bld) [#/Vol] 3.97 106/mcL Low 4.20 - 5.40 10^6/mcL AO Workflow SS Sodium [Moles/Vol] 144 mmol/L Normal 136 - 145 mmol/L AO ADM SS TSH Qn 2.50 m[IU]/L Normal 0.36 - 3.74 mcIU/mL AO ADM SS Urea nitrogen [Mass/Vol] 19 mg/dL High 7 - 18 mg/dL AO ADM SS Urea nitrogen/Creatinine [Mass ratio] 18 ratio Normal 7 - 27 ratio AO ADM SS WBC (Bld) [#/Vol] 6.5 103/mcL Normal 4.6 - 10.8 10^3/mcL AO Workflow SS LABORATORYOrdered By: Shelby Graham on 11-27-2023 Cholesterol [Mass/Vol] 169 mg/dL Normal 0 - 200 mg/dL AO ADM SS Comment on above: Interpretive Data: C holesterol Reference Interval: Less than 200 Desirable 200-239 Borderline high risk 240 and above High risk Cholesterol in HDL [Mass/Vol] 66 mg/dL High 40 - 60 mg/dL AO ADM SS Cholesterol in LDL [Mass/Vol] 91 mg/dL Normal 0 - 130 mg/dL AO ADM SS Triglyceride [Mass/Vol] 61 mg/dL Normal 0 - 150 mg/dL AO ADM SS Comment on above: Interpretive Data: T riglyceride Reference Interval: Less than 150 Normal 150-199 Borderline high risk 200-499 High risk 500 or higher Very high risk LIPIDon 11-27-2023 Cholesterol [Mass/Vol] 169 mg/dL Normal 0-200 [facility] ([place]) Comment on above: Result Comment: Chol esterol Reference Interval: Less than 200 Desirable 200-239 Borderline high risk 240 and above High risk Performed By: #### H H #### [address] [address] Cholesterol in HDL [Mass/Vol] 66 mg/dL High 40-60 [facility] ([place]) Comment on above: Performed By: #### H H #### [facility] [address] [place], [place] [address] Cholesterol in LDL [Mass/Vol] 91 mg/dL Normal 0-130 [facility] ([place]) Comment on above: Performed By: #### H H #### [facility] [address] [place], [place] [address] Triglyceride [Mass/Vol] 61 mg/dL Normal 0-150 [facility] ([place]) Comment on above: Result Comment: Trig lyceride Reference Interval: Less than 150 Normal 150-199 Borderline high risk 200-499 High risk 500 or higher Very high risk Performed By: #### H H #### [id number] [place], [place] [address] TSHon 11-27-2023 TSH Qn 2.50 m[IU]/L Normal 0.36-3.74 [facility] ([place]) Comment on above: Performed By: #### H H #### [address] [address] VIDHon 11-27-2023 Vit. D 25-Hydroxy 90.8 ng/mL Normal [facility] ([place]) Comment on above: Result Comment: Inte rpretive Values Based on Total 25(OH) Vitamin D: Deficient <20 ng/mL Insufficient 20 - <30 ng/mL Sufficient 30-100 ng/mL Performed By: #### H H #### [address] [address] Oncology Visit Reporton Oncology Visit Report [facility] [address] [address] OFFICE VISIT Date of Service: 11/13/23 1035 MR#: [id number] Acct: [id number] Name: HAYDEE QUIROGA Rep #: [id number] : 1950 From: Angel Crespo MD Age/Sex: 73/F Location: [facility] Status: Signed HPI Subjective Date of Service 11/13/23 Chief Complaint Anemia History of Present Illness 73-year-old lady who was evaluated in August 2023 for anemia and was found to be iron deficient. She has a longstanding history of GERD secondary to a hiatus hernia. She has been on pantoprazole for several years. She was started on an oral iron supplement in August 2023 and her anemia has improved. September 2023 colonoscopy; small sessile polyps were biopsied, patient was told were benign. EGD October 2023 confirmed a large hiatus hernia with reflux and pathology showed reactive gastropathy with focal intestinal metaplasia in a background of chronic gastritis negative for H. pylori. PFSH Medical History (Updated 11/13/23 @ 11:[address] Angel Crespo MD) Diabetes mellitus type 2, controlled GERD (gastroesophageal reflux disease) Hypertension Iron deficiency anemia due to chronic blood loss Surgical History (Updated 11/13/23 @ 10:42 by Mirlande Quiroga LPN) H/O right knee surgery History of thyroid surgery Hx of tonsillectomy Family History Mother Hypertension Heart disease COPD (chronic obstructive pulmonary disease) Father Leukemia Social History (Updated 11/13/23 @ 10:43 by Mirlande Quiroga LPN) household members: spouse current occupational status: retired Smoking Status: Never smoker alcohol intake: never substance use type: does not use ROS Constitutional Constitutional: Reports systems reviewed and no addt'l complaints, except as documented; Denies fatigue, fever(s) or weight loss Eyes Eyes: Reports systems reviewed and no addt'l complaints, except as documented ENT HEENT: Reports systems reviewed and no addt'l complaints, except as documented; Denies bleeding gums or epistaxis Cardiovascular Cardiovascular: Reports systems reviewed and no addt'l complaints, except as documented; Denies chest pain with activity or edema Respiratory/Chest Respiratory/Chest: Reports systems reviewed and no addt'l complaints, except as documented; Denies cough or dyspnea on exertion Gastrointestinal Gastrointestinal: Reports systems reviewed and no addt'l complaints, except as documented; Denies abdominal pain, change in bowel habits, hematochezia or melena Genitourinary Genitourinary: Reports systems reviewed and no addt'l complaints, except as documented; Denies hematuria Musculoskeletal Musculoskeletal: Reports systems reviewed and no addt'l complaints, except as documented Integumentary Integumentary: Reports systems reviewed and no addt'l complaints, except as documented; Denies bleeding lesions Neurologic Neurologic: Reports systems reviewed and no addt'l complaints, except as documented; Denies focal weakness or paresthesias Psychiatric Psychiatric: Reports systems reviewed and no addt'l complaints, except as documented Endocrine Endocrinology: Reports systems reviewed and no addt'l complaints, except as documented Hematologic/Lymphatic Hematologic/Lymphatic: Reports systems reviewed and no addt'l complaints, except as documented and anemia; Denies easy bleeding, easy bruising or lymphadenopathy Allergic/Immunologic Allergic/Immunologic: Reports systems reviewed and no addt'l complaints, except as documented Intake Vital Signs 11/13/23 10:43 11/13/23 10:46 Height 5 ft 3 in 5 ft 3 in Weight: 65.771 kg 65.771 kg BMI 25.7 25.7 BP 162/84 H Blood Pressure Location Rt brachial Position Sitting Respiration 18 Pulse 90 Pulse Source Monitor Temp 98.8 F Temperature Source Temporal Artery Pulse Oximetry (%) 99 Oxygen Delivery Method room air Intake Is patient in pain?: No Allergies wheat Allergy (Mild, Verified 11/13/23 10:35) UNKNOWN diphenhydramine [From Benadryl] Allergy (Verified 11/13/23 10:35) unknown Medications calcium carbonate 600 mg-vitamin D3 5 mcg (200 unit) capsule (Calcium 600 + D(3)) cap PO DAILY 11/01/23 [History Confirmed 11/13/23] pantoprazole 40 mg tablet,delayed release 40 mg PO DAILY 11/01/23 [History Confirmed 11/13/23] alendronate 70 mg tablet 70 mg PO QWEEK 11/13/23 [History Confirmed 11/13/23] amlodipine 2.5 mg tablet 10 mg PO DAILY 11/13/23 [History Confirmed 11/13/23] cholecalciferol (vitamin D3) 50 mcg (2,000 unit) capsule 50 mcg PO DAILY 11/13/23 [History Confirmed 11/13/23] folic acid 1 mg tablet 0.8 mg PO DAILY 11/13/23 [History Confirmed 11/13/23] levothyroxine 112 mcg capsule 112 mcg PO DAILY 11/13/23 [History Confir (more content not included)... Normal [facility] Final Surgical Pathology Rep [facility] 10-24-2023 Final Surgical Pathology Report . Pathology Reports Accession: Collected Date/Time: Received Date/Time: Pathologist: [id number] 10/23/2023 09:03 EDT 10/23/2023 14:03 EDT PADMINI CRONIN MD Final Surgical Pathology Report DIAGNOSIS: A. GASTRIC ANTRUM BIOPSY: - ANTRAL MUCOSA WITH REACTIVE GASTROPATHY AND FOCAL INTESTINAL METAPLASIA - BACKGROUND OF CHRONIC INACTIVE GASTRITIS. - NEGATIVE FOR HELICOBACTER PYLORI B. DUODENUM, BIOPSY: - DUODENAL MUCOSA WITH NORMAL VILLOUS PATTERN - MINIMAL INCREASE IN INTRAEPITHELIAL LYMPHOCYTES, SEE COMMENT Comment: The biopsy shows overall normal villi, with a slight increase in intraepithelial lymphocytes; this is a nonspecific finding. CLINICAL INFORMATION: IRON DEFICIENCY ANEMIA Procedure: ESOPHAGOGASTRODUODENOSCOPY WITH BX Preoperative diagnosis: IRON DEFICIENCY ANEMIA Postoperative diagnosis: IRON DEFICIENCY ANEMIA SPECIMEN: A GASTRIC ANTRUM BX B DUODENUM BX - R/O ACTIVE CELIAC GROSS DESCRIPTION: All parts labelled with patient name and [id number] A. Received in formalin labeled gastric antrum biopsy are 4 phan-pink tissue fragments measuring less than 0.1 to 0.4 x 0.1 cm. TS-1 B. Received in formalin labeled duodenum biopsy are multiple phan-pink tissue fragments aggregating 0.7 x 0.2 x 0.1 cm. The smallest fragments may not not survive processing. TS-1 Samantha Dominguez, Grossing Nps/ Dr. Saul Tineo, Pathologist Dictated by Samantha Dominguez MICROSCOPIC DESCRIPTION: The microscopic examination is performed, except in the case of Gross Only. Electronically Signed by Pathology Report verified by [facility] PADMINI CRONIN Sign out Date: 10/24/2023 09:01 Performing Lab: [facility], [address] [place] [address] Pathology Dept Disclaimer If ancillary studies were utilized, the following Laboratory Developed Test (LDT) disclaimer will apply: Under CLIA requirements, [facility] is qualified to perform high complexity testing. For all ancillary stains, positive and negative controls stain appropriately. Performance characteristics of immunohistochemical and chromogenic in-situ Pathology Reports Accession: Collected Date/Time: Received Date/Time: Pathologist: [id number] 10/23/2023 09:03 EDT 10/23/2023 14:03 EDT PADMINI CRONIN MD Disclaimer hybridization tests have been determined by [facility]. These tests are used for clinical purposes, They should not be regarded as investigational or for research.l Normal [facility] ([place]) FEon 10-23-2023 Iron [Mass/Vol] 36 ug/dL Low 50-170 [facility] ([place]) Comment on above: Performed By: #### M ALBR #### [place] [id number] Isabell 10-23-2023 Ferritin [Mass/Vol] 15.0 ng/mL Normal 8.0-252.0 Replaced by [facility] ([place]) Comment on above: Performed By: #### H H #### [address] [address] HHon 10-23-2023 Hematocrit (Bld) [Volume fraction] 32.4 % Low 37.0-47.0 [facility] ([place]) Comment on above: Performed By: #### H H #### [address] [address] Hgb 10.8 G/dL Low 12.0-16.0 [facility] ([place]) Comment on above: Performed By: #### H H #### [address] [address] LABORATORYOrdered By: SYSTEM SYSTEM on 10-23-2023 Ferritin [Mass/Vol] 15.0 ng/mL Normal 8.0 - 252.0 ng/mL AO ADM SS Hematocrit (Bld) [Volume fraction] 32.4 % Low 37.0 - 47.0 % AO Workflow SS Hemoglobin (Bld) [Mass/Vol] 10.8 G/dL Low 12.0 - 16.0 G/dL AO Workflow SS Iron [Mass/Vol] 36 ug/dL Low 50 - 170 mcg/dL AO ADM SS TSH Qn 2.59 m[IU]/L Normal 0.36 - 3.74 mcIU/mL AO ADM SS TSHon 10-23-2023 TSH Qn 2.59 m[IU]/L Normal 0.36-3.74 [facility] ([place]) Comment on above: Performed By: #### H H #### [address] [address] Final Surgical Pathology Rep [facility] 10-04-2023 Final Surgical Pathology Report . Pathology Reports Accession: Collected Date/Time: Received Date/Time: Pathologist: [id number] 10/02/2023 08:25 EDT 10/03/2023 07:57 EDT PADMINI CRONIN MD Final Surgical Pathology Report DIAGNOSIS: RIGHT COLON POLYP: - TUBULAR ADENOMA CLINICAL INFORMATION: PROCEDURE: COLONOSCOPY PREOPERATIVE DIAGNOSIS: IRON DEFICIENCY ANEMIA POSTOPERATIVE DIAGNOSIS: IRON DEFICIENCY ANEMIA SPECIMEN: A RIGHT COLON POLYP GROSS DESCRIPTION: All parts labelled with patient name and [id number] Received in formalin labeled right colon polyp are 3 phan tissue fragments measuring 0.2 to 0.7 x 0.1 cm. TS-1 Samantha Dominguez, Grossing Nps/ Dr. Saul Tineo, Pathologist Dictated by Samantha Dominguez MICROSCOPIC DESCRIPTION: The microscopic examination is performed, except in the case of Gross Only. Electronically Signed by Pathology Report verified by [facility] PADMINI CRONIN Sign out Date: 10/04/2023 09:34 Performing Lab: [facility], [address] [place] [address] Pathology Dept Disclaimer If ancillary studies were utilized, the following Laboratory Developed Test (LDT) disclaimer will apply: Under CLIA requirements, [facility] is qualified to perform high complexity testing. For all ancillary stains, positive and negative controls stain appropriately. Performance characteristics of immunohistochemical and chromogenic in-situ hybridization tests have been determined by [facility]. These tests are used for clinical purposes, They should not be regarded as investigational or for research. Normal [facility]) LABORATORYOrdered By: Griselda Mcneil on 10-02-2023 Glucose [Mass/Vol] 96 mg/dL Normal 82 - 115 mg/dL [facility]-2023 Deam Gliad IgA Abs 21 units High 0-19 [facility] ([place]) Comment on above: Result Comment: Nega tive 0 - 19 Weak Positive 20 - 30 Moderate to Strong Positive >30 Performed By: #### 1 [id number] #### [address] [address] Deam Gliad IgG Abs 11 units Normal 0-19 [facility] ([place]) Comment on above: Result Comment: Nega tive 0 - 19 Weak Positive 20 - 30 Moderate to Strong Positive >30 Performed By: #### 1 13799 #### Saurabh [place] [address] [place] [address] Endomysial IgA Ab Negative Normal Negative [facility] ([place]) Comment on above: Performed By: #### 1 67738 #### [address] [address] IgA [Mass/Vol] 149 mg/dL Normal 64-422 [facility] ([place]) Comment on above: Result Comment: Perf ormed At: [facility] [address] [id number] Delia Valentine PhD Ph:[phone] Performed By: #### 1 25976 #### [address] [address] tTG IgA 3 units/ml Normal 0-3 [facility] ([place]) Comment on above: Result Comment: Nega tive 0 - 3 Weak Positive 4 - 10 Positive >10 Tissue Transglutaminase (tTG) has been identified as the endomysial antigen. Studies have demonstr- ated that endomysial IgA antibodies have over 99% specificity for gluten sensitive enteropathy. Performed By: #### 1 22971 #### [place] [id number] tTG IgG 3 units/ml Normal 0-5 [facility] ([place]) Comment on above: Result Comment: Nega tive 0 - 5 Weak Positive 6 - 9 Positive >9 Performed By: #### 1 33982 #### [address] [address] CRPon 09-21-2023 C-Reactive Protein 0.1 mg/dL Normal 0.0-0.3 [facility] ([place]) Comment on above: Performed By: #### C RP #### [address] [address] LABORATORYOrdered By: SYSTEM SYSTEM on 09-21-2023 CRP [Mass/Vol] 0.1 mg/dL Normal 0.0 - 0.3 mg/dL AO ADM SS LABORATORYOrdered By: Adalberto Cole on 09-01-2023 Appearance (U) Clear (09/01/23 5:22 PM) Normal Clear AO Auto Urine SS Bilirubin Ql (U) Negative (09/01/23 5:22 PM) Normal Negative AO Auto Urine SS Color (U) Yellow (09/01/23 5:22 PM) Normal AO Auto Urine SS Glucose Test strip (U) [Mass/Vol] Negative Normal Negative AO Auto Urine SS Hemoglobin Auto test strip (U) [Mass/Vol] Negative (09/01/23 5:22 PM) Normal Negative AO Auto Urine SS Ketones Ql (U) Trace mg/dL Invalid Interpretation Code Negative AO Auto Urine SS UA Leuk Est Negative (09/01/23 5:22 PM) Normal Negative AO Auto Urine SS UA Nitrite Negative (09/01/23 5:22 PM) Normal Negative AO Auto Urine SS UA pH 7.0 (09/01/23 5:22 PM) Normal 5.0 - 8.0 AO Auto Urine SS UA Protein Negative Normal Negative AO Auto Urine SS UA Spec Grav 1.020 (09/01/23 5:22 PM) Normal 1.015-1.02 5 AO Auto Urine SS UA Specimen Type Clean Catch (09/01/23 5:22 PM) Normal AO Auto Urine SS UA Urobilinogen 0.2 E.U./dL Normal 0.2-1.0 AO Auto Urine SS UAon 09-01-2023 Color (U) Yellow Normal [facility] ([place]) Comment on above: Performed By: #### U A #### [place] [address] Glucose (U) [Mass/Vol] Negative Normal Negative [facility] ([place]) Comment on above: Performed By: #### U A #### [place] [address] Ketones Ql (U) Trace Abnormal Negative [facility] ([place]) Comment on above: Performed By: #### U A #### [address] [address] UA Appear Clear Normal Clear [facility] ([place]) Comment on above: Performed By: #### U A #### [address] [address] UA Blood Negative Normal Negative [facility] ([place]) Comment on above: Performed By: #### U A #### [place] [id number] UA Leuk Est Negative Normal Negative [facility] ([place]) Comment on above: Performed By: #### U A #### [place] [address] UA Nitrite Negative Normal Negative [facility] ([place]) Comment on above: Performed By: #### U A #### [place] [address] UA pH 7.0 Normal 5.0 - 8.0 [facility] ([place]) Comment on above: Performed By: #### U A #### [place] [address] UA Protein Negative Normal Negative [facility] ([place]) Comment on above: Performed By: #### U A #### [place] [address] UA Spec Grav 1.020 Normal 1.015-1.02 5 [facility] ([place]) Comment on above: Performed By: #### U A #### [place] [address] UA Specimen Type Clean Catch Normal [facility] ([place]) Comment on above: Performed By: #### U A #### [place] [address] UA Urobilinogen 0.2 E.U./dL Normal 0.2-1.0 [facility] ([place]) Comment on above: Performed By: #### U A #### [place] [address] Urobilinogen (U) [Mass/Vol] Negative Normal Negative [facility] ([place]) Comment on above: Performed By: #### U A #### [place] [address] .Auto Diffon 08-11-2023 Basophil, Absolute 0.0 10 3/mcL Normal 0.0-0.2 [facility] ([place]) Comment on above: Performed By: #### A DIFF, IBC, ANEU, FERR, FE, CBC #### [address] [address] Basophils/100 WBC (Bld) 0.6 % Normal 0.0-2.5 [facility] ([place]) Comment on above: Performed By: #### A DIFF, IBC, ANEU, FERR, FE, CBC #### [address] [address] Eosinophil, Absolute 0.2 10 3/mcL Normal 0.0-0.4 [facility] ([place]) Comment on above: Performed By: #### A DIFF, IBC, ANEU, FERR, FE, CBC #### [address] [address] Eosinophils/100 WBC (Bld) 2.7 % Normal 0.0-7.0 [facility] ([place]) Comment on above: Performed By: #### A DIFF, IBC, ANEU, FERR, FE, CBC #### [address] [address] Lymphocyte, Absolute 2.2 10 3/mcL Normal 0.8-3.9 [facility] ([place]) Comment on above: Performed By: #### A DIFF, IBC, ANEU, FERR, FE, CBC #### [address] [address] Lymphocytes/100 WBC (Bld) 35.0 % Normal 10.0-50.0 [facility] ([place]) Comment on above: Performed By: #### A DIFF, IBC, ANEU, FERR, FE, CBC #### [address] [address] Monocyte, Absolute 0.6 10 3/mcL Normal 0.2-1.0 [facility] ([place]) Comment on above: Performed By: #### A DIFF, IBC, ANEU, FERR, FE, CBC #### [address] [address] Monocytes/100 WBC (Bld) 9.0 % Normal 1.7-13.0 [facility] ([place]) Comment on above: Performed By: #### A DIFF, IBC, ANEU, FERR, FE, CBC #### [address] [address] Neutrophils/100 WBC (Bld) 52.7 % Normal 37.0-80.0 [facility] ([place]) Comment on above: Performed By: #### A DIFF, IBC, ANEU, FERR, FE, CBC #### [address] [address] .NEUABSon 08-11-2023 Neutrophil, Absolute 3.3 10 3/mcL Normal 2.9-6.2 [facility] ([place] Comment on above: Performed By: #### U A #### [place] [address] CBCon 08-11-2023 Erythrocyte distribution width (RBC) [Ratio] 17.1 % High 11.5-14.5 [facility] ([place]) Comment on above: Performed By: #### A DIFF, IBC, ANEU, FERR, FE, CBC #### [place] [address] Hematocrit (Bld) [Volume fraction] 28.3 % Low 37.0-47.0 [facility] ([place]) Comment on above: Performed By: #### A DIFF, IBC, ANEU, FERR, FE, CBC #### [address] [address] Hgb 9.3 G/dL Low 12.0-16.0 [facility] ([place]) Comment on above: Performed By: #### A DIFF, IBC, ANEU, FERR, FE, CBC #### [place] [address] MCH (RBC) [Entitic mass] 25.1 pg Low 27.0-31.2 [facility] ([place]) Comment on above: Performed By: #### A DIFF, IBC, ANEU, FERR, FE, CBC #### [address] [address] MCHC 32.7 G/dL Low 33.0-37.0 [facility] ([place]) Comment on above: Performed By: #### A DIFF, IBC, ANEU, FERR, FE, CBC #### [address] [address] MCV (RBC) [Entitic vol] 76.8 fL Low 80.0-94.0 [facility] ([place]) Comment on above: Performed By: #### A DIFF, IBC, ANEU, FERR, FE, CBC #### [address] [address] Platelet 379 10 3/mcL Normal 130-400 [facility] ([place]) Comment on above: Performed By: #### A DIFF, IBC, ANEU, FERR, FE, CBC #### [place] [address] Platelet mean volume (Bld) [Entitic vol] 9.7 fL Normal 7.4-10.4 [facility] ([place]) Comment on above: Performed By: #### A DIFF, IBC, ANEU, FERR, FE, CBC #### [place] [address] RBC 3.69 10 6/mcL Low 4.20-5.40 [facility] ([place]) Comment on above: Performed By: #### A DIFF, IBC, ANEU, FERR, FE, CBC #### [place] [id number] WBC 6.3 10 3/mcL Normal 4.6-10.8 [facility] ([place]) Comment on above: Performed By: #### A DIFF, IBC, ANEU, FERR, FE, CBC #### [place] [address] FEon 08-11-2023 Iron [Mass/Vol] 31 ug/dL Low 50-170 [facility] ([place]) Comment on above: Performed By: #### A DIFF, IBC, ANEU, FERR, FE, CBC #### [place] [address] Isabell 08-11-2023 Ferritin [Mass/Vol] 7.0 ng/mL Low 8.0-252.0 Replaced by [facility] ([place] Comment on above: Performed By: #### A DIFF, IBC, ANEU, FERR, FE, CBC #### [address] [address] IBCon 08-11-2023 TIBC 452 mcg/dL High 250-450 [facility] ([place]) Comment on above: Performed By: #### A DIFF, IBC, ANEU, FERR, FE, CBC #### [address] [address] .Auto Diffon 08-04-2023 Basophil, Absolute 0.0 10 3/mcL Normal 0.0-0.2 [facility] ([place]) Comment on above: Performed By: #### U A #### [address] [address] Basophils/100 WBC (Bld) 0.8 % Normal 0.0-2.5 [facility] ([place]) Comment on above: Performed By: #### U A #### [address] [address] Eosinophil, Absolute 0.2 10 3/mcL Normal 0.0-0.4 [facility] ([place]) Comment on above: Performed By: #### U A #### [address] [address] Eosinophils/100 WBC (Bld) 3.8 % Normal 0.0-7.0 [facility] ([place]) Comment on above: Performed By: #### U A #### [address] [address] Lymphocyte, Absolute 2.0 10 3/mcL Normal 0.8-3.9 [facility] ([place]) Comment on above: Performed By: #### U A #### [address] [address] Lymphocytes/100 WBC (Bld) 36.1 % Normal 10.0-50.0 [facility] ([place]) Comment on above: Performed By: #### U A #### [address] [address] Monocyte, Absolute 0.5 10 3/mcL Normal 0.2-1.0 [facility] ([place]) Comment on above: Performed By: #### U A #### [address] [address] Monocytes/100 WBC (Bld) 9.6 % Normal 1.7-13.0 [facility] ([place]) Comment on above: Performed By: #### U A #### [address] [address] Neutrophils/100 WBC (Bld) 49.7 % Normal 37.0-80.0 [facility] ([place]) Comment on above: Performed By: #### U A #### [address] [address] .GFRon 08-04-2023 GFR Non- 51 ml/min/1.73sqm Normal [facility] ([place]) Comment on above: Result Comment: GFR Population mean for , Non- Americans Ages 20-29 = 116 mL/min/1.73 sq.m. Ages 30-39 = 107 mL/min/1.73 sq.m. Ages 40-49 = 99 mL/min/1.73 sq.m. Ages 50-59 = 93 mL/min/1.73 sq.m. Ages 60-69 = 85 mL/min/1.73 sq.m. Ages 70+ = 75 mL/min/1.73 sq.m. Chronic Kidney Disease: Less than 60 mL/min/1.73 square meters End Stage Renal Disease: Less than 15 mL/min/1.73 square meters Performed By: #### M ALBR #### [place] [id number] [place], [place] [address] GFR 62 ml/min/1.73sqm Normal [facility] ([place]) Comment on above: Result Comment: GFR Population mean for , Non- Americans Ages 20-29 = 116 mL/min/1.73 sq.m. Ages 30-39 = 107 mL/min/1.73 sq.m. Ages 40-49 = 99 mL/min/1.73 sq.m. Ages 50-59 = 93 mL/min/1.73 sq.m. Ages 60-69 = 85 mL/min/1.73 sq.m. Ages 70+ = 75 mL/min/1.73 sq.m. Chronic Kidney Disease: Less than 60 mL/min/1.73 square meters End Stage Renal Disease: Less than 15 mL/min/1.73 square meters Performed By: #### M ALBR #### [address] [address] .NEUABSon 08-04-2023 Neutrophil, Absolute 2.7 10 3/mcL Low 2.9-6.2 [facility] ([place]) Comment on above: Performed By: #### U A #### [address] [address] A1Con 08-04-2023 HbA1c (Bld) [Mass fraction] 5.6 % Normal 4.3-6.4 [facility] ([place]) Comment on above: Performed By: #### U A #### [address] [address] CBCon 08-04-2023 Erythrocyte distribution width (RBC) [Ratio] 17.5 % High 11.5-14.5 [facility] ([place]) Comment on above: Performed By: #### U A #### [address] [address] Hematocrit (Bld) [Volume fraction] 27.4 % Low 37.0-47.0 [facility] ([place]) Comment on above: Performed By: #### U A #### [address] [address] Hgb 8.9 G/dL Low 12.0-16.0 [facility] ([place]) Comment on above: Performed By: #### U A #### [address] [address] MCH (RBC) [Entitic mass] 25.0 pg Low 27.0-31.2 [facility] ([place]) Comment on above: Performed By: #### U A #### [address] [address] MCHC 32.3 G/dL Low 33.0-37.0 [facility] ([place]) Comment on above: Performed By: #### U A #### [address] [address] MCV (RBC) [Entitic vol] 77.5 fL Low 80.0-94.0 [facility] ([place]) Comment on above: Performed By: #### U A #### [address] [address] Platelet 332 10 3/mcL Normal 130-400 [facility] ([place]) Comment on above: Performed By: #### U A #### [address] [address] Platelet mean volume (Bld) [Entitic vol] 9.8 fL Normal 7.4-10.4 [facility] ([place]) Comment on above: Performed By: #### U A #### [address] [address] RBC 3.54 10 6/mcL Low 4.20-5.40 [facility] ([place]) Comment on above: Performed By: #### U A #### [address] [address] WBC 5.5 10 3/mcL Normal 4.6-10.8 [facility] ([place]) Comment on above: Performed By: #### U A #### [address] [address] CMPon 08-04-2023 Albumin Level 3.8 G/dL Normal 3.4-4.8 [facility] ([place]) Comment on above: Performed By: #### M ALBR #### [address] [address] Albumin/Globulin [Mass ratio] 1.2 {ratio} Normal 1.1-2.5 [facility] ([place]) Comment on above: Performed By: #### M ALBR #### [address] [address] ALP [Catalytic activity/Vol] 46 U/L Normal 40-135 [facility] ([place]) Comment on above: Performed By: #### M ALBR #### [address] [address] ALT [Catalytic activity/Vol] 24 U/L Normal 14-59 [facility] ([place]) Comment on above: Performed By: #### M ALBR #### [address] [address] AST [Catalytic activity/Vol] 13 U/L Normal 10-40 [facility] ([place]) Comment on above: Performed By: #### M ALBR #### [address] [address] Bili Total 0.4 mg/dL Normal 0.2-1.0 [facility] ([place]) Comment on above: Result Comment: Use of this assay is not recommended for patients undergoing treatment with eltrombopag due to the potential for falsely elevated results. Performed By: #### M ALBR #### [address] [address] BUN/Creatinine Ratio 21 ratio Normal 7-27 [facility] ([place]) Comment on above: Performed By: #### M ALBR #### [address] [address] Calcium [Mass/Vol] 9.3 mg/dL Normal 8.4-10.2 [facility] ([place]) Comment on above: Performed By: #### M ALBR #### [address] [address] Chloride [Moles/Vol] 104 mmol/L Normal 98-107 [facility] ([place]) Comment on above: Performed By: #### M ALBR #### [address] [address] CO2 [Moles/Vol] 29 mmol/L Normal 23-31 [facility] ([place]) Comment on above: Performed By: #### M ALBR #### [address] [address] Creatinine [Mass/Vol] 1.05 mg/dL High 0.55-1.02 [facility] ([place]) Comment on above: Performed By: #### M ALBR #### [address] [address] Electrolyte Balance 12.0 mEq/L Normal 4.0-15.0 Replaced by [facility] ([place] Comment on above: Performed By: #### M ALBR #### [address] [address] Globulin 3.3 G/dL Normal [facility] ([place]) Comment on above: Performed By: #### M ALBR #### Saurabh [address] [address] Glucose [Mass/Vol] 95 mg/dL Normal 83-110 [facility] ([place]) Comment on above: Performed By: #### M ALBR #### [address] [address] Potassium [Moles/Vol] 5.3 mmol/L High 3.5-5.1 [facility] ([place]) Comment on above: Performed By: #### M ALBR #### [address] [address] Sodium [Moles/Vol] 145 mmol/L Normal 136-145 [facility] ([place] Comment on above: Performed By: #### M ALBR #### [address] [address] Total Protein 7.1 G/dL Normal 6.4-8.2 [facility] ([place]) Comment on above: Performed By: #### M ALBR #### [address] [address] Urea nitrogen [Mass/Vol] 22 mg/dL High 7-18 [facility] ([place]) Comment on above: Performed By: #### M ALBR #### [address] [address] FT4on 08-04-2023 Free T4 [Mass/Vol] 1.59 ng/dL High 0.76-1.46 [facility] ([place]) Comment on above: Performed By: #### U A #### [place] [address] [place], [place] [address] LABORATORYOrdered By: Carole Capone on 08-04-2023 Albumin DL <= 20 mg/L (U) [Mass/Vol] 1613 mcg/dL Invalid Interpretation Code AO ADM SS Albumin/Creatinine DL <= 20 mg/L (U) [Mass ratio] 9 mcg/mg Normal 0 - 30 mcg/mg AO ADM SS Creatinine (U) [Mass/Vol] 186.8 mg/dL High 28.0 - 117.0 mg/dL AO ADM SS Cholesterol [Mass/Vol] 154 mg/dL Normal 0 - 200 mg/dL AO ADM SS Comment on above: Interpretive Data: C holesterol Reference Interval: Less than 200 Desirable 200-239 Borderline high risk 240 and above High risk Cholesterol in HDL [Mass/Vol] 55 mg/dL Normal 40 - 60 mg/dL AO ADM SS Cholesterol in LDL [Mass/Vol] 85 mg/dL Normal 0 - 130 mg/dL AO ADM SS Triglyceride [Mass/Vol] 71 mg/dL Normal 0 - 150 mg/dL AO ADM SS Comment on above: Interpretive Data: T riglyceride Reference Interval: Less than 150 Normal 150-199 Borderline high risk 200-499 High risk 500 or higher Very high risk LABORATORYOrdered By: SYSTEM SYSTEM on 08-04-2023 25-hydroxyvitamin D3 [Mass/Vol] 82.0 ng/mL Invalid Interpretation Code AO ADM SS Comment on above: Interpretive Data: I nterpretive Values Based on Total 25(OH) Vitamin D: Deficient <20 ng/mL Insufficient 20 - <30 ng/mL Sufficient 30-100 ng/mL Albumin BCP dye [Mass/Vol] 3.8 G/dL Normal 3.4 - 4.8 G/dL AO ADM SS Albumin/Globulin [Mass ratio] 1.2 {ratio} Normal 1.1 - 2.5 ratio AO ADM SS ALP [Catalytic activity/Vol] 46 U/L Normal 40 - 135 U/L AO ADM SS ALT With P-5'-P [Catalytic activity/Vol] 24 U/L Normal 14 - 59 U/L AO ADM SS AST With P-5'-P [Catalytic activity/Vol] 13 U/L Normal 10 - 40 U/L AO ADM SS Basophil, Absolute 0.0 103/mcL Normal 0.0 - 0.2 10^3/mcL AO Workflow SS Basophils/100 WBC (Bld) 0.8 % Normal 0.0 - 2.5 % AO Workflow SS Bilirubin [Mass/Vol] 0.4 mg/dL Normal 0.2 - 1 .0 mg/dL AO ADM SS Comment on above: Interpretive Data: U se of this assay is not recommended for patients undergoing treatment with eltrombopag due to the potential for falsely elevated results. Calcium [Mass/Vol] 9.3 mg/dL Normal 8.4 - 10. 2 mg/dL AO ADM SS Chloride [Moles/Vol] 104 mmol/L Normal 98 - 10 7 mmol/L AO ADM SS CO2 [Moles/Vol] 29 mmol/L Normal 23 - 31 mmol/L AO ADM SS Creatinine [Mass/Vol] 1.05 mg/dL High 0.55 - 1.02 mg/dL AO ADM SS Electrolyte Balance 12.0 mEq/L Normal 4.0 - 15 .0 mEq/L AO ADM SS Eosinophil, Absolute 0.2 103/mcL Normal 0.0 - 0 .4 10^3/mcL AO Workflow SS Eosinophils/100 WBC (Bld) 3.8 % Normal 0.0 - 7.0 % AO Workflow SS Erythrocyte distribution width (RBC) [Ratio] 17.5 % High 11.5 - 14.5 % AO Workflow SS Free T4 [Mass/Vol] 1.59 ng/dL High 0.76 - 1.46 ng/dL AO ADM SS GFR/1.73 sq M.predicted among blacks MDRD (S/P/Bld) [Vol rate/Area] 62 ml/min/1.73sqm Invalid Interpretation Code AO Chemistry S Comment on above: Interpretive Data: GFR Population mean for , Non- Americans Ages 20-29 = 116 mL/min/1.73 sq.m. Ages 30-39 = 107 mL/min/1.73 sq.m. Ages 40-49 = 99 mL/min/1.73 sq.m. Ages 50-59 = 93 mL/min/1.73 sq.m. Ages 60-69 = 85 mL/min/1.73 sq.m. Ages 70+ = 75 mL/min/1.73 sq.m. Chronic Kidney Disease: Less than 60 mL/min/1.73 square meters End Stage Renal Disease: Less than 15 mL/min/1.73 square meters GFR/1.73 sq M.predicted among non-blacks MDRD (S/P/Bld) [Vol rate/Area] 51 ml/min/1.73sqm Invalid Interpretation Code AO Chemistry S Comment on above: Interpretive Data: GFR Population mean for , Non- Americans Ages 20-29 = 116 mL/min/1.73 sq.m. Ages 30-39 = 107 mL/min/1.73 sq.m. Ages 40-49 = 99 mL/min/1.73 sq.m. Ages 50-59 = 93 mL/min/1.73 sq.m. Ages 60-69 = 85 mL/min/1.73 sq.m. Ages 70+ = 75 mL/min/1.73 sq.m. Chronic Kidney Disease: Less than 60 mL/min/1.73 square meters End Stage Renal Disease: Less than 15 mL/min/1.73 square meters Globulin 3.3 G/dL Invalid Interpretation Code AO ADM SS Glucose [Mass/Vol] 95 mg/dL Normal 83 - 110 mg/dL AO ADM SS HbA1c (Bld) [Mass fraction] 5.6 % Normal 4.3 - 6.4 % AO ADM SS Hematocrit (Bld) [Volume fraction] 27.4 % Low 37.0 - 47.0 % AO Workflow SS Hemoglobin (Bld) [Mass/Vol] 8.9 G/dL Low 12.0 - 16.0 G/dL AO Workflow SS Lymphocyte, Absolute 2.0 103/mcL Normal 0.8 - 3 .9 10^3/mcL AO Workflow SS Lymphocytes/100 WBC (Bld) 36.1 % Normal 10.0 - 50.0 % AO Workflow SS MCH (RBC) [Entitic mass] 25.0 pg Low 27.0 - 31.2 pg AO Workflow SS MCHC 32.3 G/dL Low 33.0 - 37.0 G/dL AO Workflow SS MCV (RBC) [Entitic vol] 77.5 fL Low 80.0 - 94.0 fL AO Workflow SS Monocyte, Absolute 0.5 103/mcL Normal 0.2 - 1.0 10^3/mcL AO Workflow SS Monocytes/100 WBC (Bld) 9.6 % Normal 1.7 - 13.0 % AO Workflow SS Neutrophil, Absolute 2.7 103/mcL Low 2.9 - 6 .2 10^3/mcL AO Workflow SS Neutrophils/100 WBC (Bld) 49.7 % Normal 37.0 - 80.0 % AO Workflow SS Platelet mean volume (Bld) [Entitic vol] 9.8 fL Normal 7.4 - 10.4 fL AO Workflow SS Platelets (Bld) [#/Vol] 332 103/mcL Normal 130 - 400 10^3/mcL AO Workflow SS Potassium [Moles/Vol] 5.3 mmol/L High 3.5 - 5.1 mmol/L AO ADM SS Protein [Mass/Vol] 7.1 G/dL Normal 6.4 - 8.2 G/dL AO ADM SS RBC (Bld) [#/Vol] 3.54 106/mcL Low 4.20 - 5.40 10^6/mcL AO Workflow SS Sodium [Moles/Vol] 145 mmol/L Normal 136 - 145 mmol/L AO ADM SS TSH Qn 4.19 m[IU]/L High 0.36 - 3.74 mcIU/mL AO ADM SS Urea nitrogen [Mass/Vol] 22 mg/dL High 7 - 18 mg/dL AO ADM SS Urea nitrogen/Creatinine [Mass ratio] 21 ratio Normal 7 - 27 ratio AO ADM SS WBC (Bld) [#/Vol] 5.5 103/mcL Normal 4.6 - 10.8 10^3/mcL AO Workflow SS LIPIDon 08-04-2023 Cholesterol [Mass/Vol] 154 mg/dL Normal 0-200 [facility] ([place]) Comment on above: Result Comment: Chol esterol Reference Interval: Less than 200 Desirable 200-239 Borderline high risk 240 and above High risk Performed By: #### M ALBR #### Saurabh [address] [address] Cholesterol in HDL [Mass/Vol] 55 mg/dL Normal 40-60 [facility] ([place]) Comment on above: Performed By: #### M ALBR #### Saurabh [id number] [place], [place] [address] Cholesterol in LDL [Mass/Vol] 85 mg/dL Normal 0-130 [facility] ([place]) Comment on above: Performed By: #### M ALBR #### Saurabh [id number] [place], [place] [address] Triglyceride [Mass/Vol] 71 mg/dL Normal 0-150 [facility] ([place]) Comment on above: Result Comment: Trig lyceride Reference Interval: Less than 150 Normal 150-199 Borderline high risk 200-499 High risk 500 or higher Very high risk Performed By: #### M ALBR #### [address] [address] MALBRon 08-04-2023 U Creatinine 186.8 mg/dL High 28.0-117.0 [facility] ([place]) Comment on above: Performed By: #### M ALBR #### [address] [address] U Microalb 1613 mcg/dL Normal [facility] ([place] Comment on above: Performed By: #### M ALBR #### [address] [address] U Ratio Alb/Cre 9 mcg/mg Normal 0-30 [facility] ([place] Comment on above: Performed By: #### M ALBR #### [address] [address] TSHon 08-04-2023 TSH Qn 4.19 m[IU]/L High 0.36-3.74 [facility] ([place]) Comment on above: Performed By: #### U A #### [address] [address] VIDHon 08-04-2023 Vit. D 25-Hydroxy 82.0 ng/mL Normal [facility] ([place]) Comment on above: Result Comment: Inte rpretive Values Based on Total 25(OH) Vitamin D: Deficient <20 ng/mL Insufficient 20 - <30 ng/mL Sufficient 30-100 ng/mL Performed By: #### M ALBR #### [address] [address] BD BONE DENSITY DEXA AXIAL S KELETONon 05-29-2023 BD BONE DENSITY DEXA AXIAL SKELETON ORIGINAL EXAMINATION: BONE DENSITOMETRY 05/29/2023 10:49 am TECHNIQUE: A bone density dual x-ray absorptiometry (DEXA) scan was performed of the axial (e.g. hips, spine) and/or appendicular (e.g. radius) skeleton as appropriate. COMPARISON: 07/19/2021. HISTORY: ORDERING SYSTEM PROVIDED HISTORY: Reason for Exam: Osteoporosis FINDINGS: T Score Left Femoral Neck: -2.9 Left Femoral Neck: 0.525 (g/cm2) T Score Left Hip: -2.4 Left Hip: 0.652 (g/cm2) T Score Lumbar Spine: -1.6 Lumbar Spine: 0.869 (g/cmd2) BMD Change from previous Hip: 2.3% BMD Change from previous Lumbar Spine: 4.5% IMPRESSION: Osteoporosis by WHO criteria. World Health Organization criteria: (Comparing with young normal sex matched population) - Normal: T-score at or above -1 SD (standard deviation) - Osteopenia: T-score between -1 and -2.5 SD - Osteoporosis: T-score at or below -2.5 SD The NOF recommends that FDA-approved medical therapies be considered in post-menopausal women and men age >/= 50 years with a: * Hip or vertebral fracture, or * T-score of /= 20% for major osteoporotic fractures or * >/= 3% for hip fractures All treatment decisions require clinical judgement and consideration of individual patient factors, including patient preferences, comorbidities, previous drug use, risk factors not captured in the FRAX registered model (e.g., frailty, falls, vitamin D deficiency, increased bone turnover, interval significant decline in bone density) and possible under- or over-estimation of fracture risk by FRAX. Interpreted by: Baldo Moran DO Preliminary Report By: Baldo Moran DO Electronically signed By Baldo Moran DO Dictated Date: 05/29/2023 11:34:28 AM Prelim Date: 05/29/2023 11:35:30 AM Sign Date: 05/29/2023 11:35:30 AM Ordering Provider: STEPHON Baez [facility] ([place]) MA MAMMOGRAM SCREENING BILAT KAYEL Juan/Jaspal 05-29-2023 MA MAMMOGRAM SCREENING BILATERAL W/GONZALEZ ORIGINAL FROM: [address] [address] PROCEDURE FOR: HAYDEE ACUÑA [address] [place] [id number] Home: PID#: [id number] Exam#: [id number] : 1950 Age: 72 TO: STEPHON PRISCILLA DO [address] [place], [place] [address] Fax: NO FAX EXAMINATION: SCREENING DIGITAL BILATERAL MAMMOGRAM WITH TOMOSYNTHESIS, 05/29/2023 10:03 am TECHNIQUE: Screening mammography of the bilateral breasts was performed with tomosynthesis. 2D standard and 3D tomosynthesis combination imaging performed through both breasts in the MLO and CC projection. Computer aided detection was utilized in the interpretation of this exam. COMPARISON: 05/04/2022, 01/18/2021 HISTORY: Breast cancer screening. FINDINGS: BREAST DENSITY: Heterogeneously dense There are benign appearing calcifications in both breasts. There are no significant masses or calcifications. IMPRESSION: No mammographic evidence of malignancy. Continued screening with annual mammograms is recommended. Casimiro zick risk calculations, generated with the history provided, report this patient's 10 year risk and lifetime risk for developing breast cancer at 1.9% and 2.6%, respectively. Based on this assessment tool, if the patient's calculated lifetime risk is below 20%, then the patient is considered at average risk for developing breast cancer. If the patient's calculated lifetime risk is at or above 20%, then the patient is considered high risk for developing breast cancer and may be a candidate for supplemental breast MRI screening in addition to annual mammographic screening per the [employer]. BIRADS: MAMMOGRAM BI-RADS: 2: Benign finding RECALL: 1 year screening RECALL TYPE: mammo LETTER SENT: Normal BI-RADS 1 and 2 Interpreted by: Baldo Meza MD Preliminary Report By: Baldo Meza MD Electronically signed By Baldo Meza MD Dictated Date: 05/29/2023 10:58:16 PM Prelim Date: 05/29/2023 11:13:19 PM Sign Date: 05/29/2023 11:13:19 PM Ordering Provider: STEPHON WELLS [place] Technician: PALAK OLEA RT(R) (M) letter sent: Normal BI-RADS 1 and 2 Mammogram BI-RADS: 2 Benign Normal [facility] ([place]) LABORATORYOrdered By: SYSTEM SYSTEM on 02-03-2023 Calcium [Mass/Vol] 8.5 mg/dL Invalid Interpretation Code 8.4 - 10.2 mg/dL AO ADM SS Chloride [Moles/Vol] 104 mmol/L Invalid Interpretation Code 98 - 107 mmol/L AO ADM SS CO2 [Moles/Vol] 31 mmol/L Invalid Interpretation Code 23 - 31 mmol/L AO ADM SS Creatinine [Mass/Vol] 1.05 mg/dL Invalid Interpretation Code 0.55 - 1.02 mg/dL AO ADM SS Electrolyte Balance 8.0 mEq/L Invalid Interpretation Code 4.0 - 15.0 mEq/L AO ADM SS GFR/1.73 sq M.predicted among blacks MDRD (S/P/Bld) [Vol rate/Area] 62 ml/min/1.73sqm Invalid Interpretation Code AO Chemistry S Comment on above: Interpretive Data: GFR Population mean for , Non- Americans Ages 20-29 = 116 mL/min/1.73 sq.m. Ages 30-39 = 107 mL/min/1.73 sq.m. Ages 40-49 = 99 mL/min/1.73 sq.m. Ages 50-59 = 93 mL/min/1.73 sq.m. Ages 60-69 = 85 mL/min/1.73 sq.m. Ages 70+ = 75 mL/min/1.73 sq.m. Chronic Kidney Disease: Less than 60 mL/min/1.73 square meters End Stage Renal Disease: Less than 15 mL/min/1.73 square meters GFR/1.73 sq M.predicted among non-blacks MDRD (S/P/Bld) [Vol rate/Area] 52 ml/min/1.73sqm Invalid Interpretation Code AO Chemistry S Comment on above: Interpretive Data: GFR Population mean for , Non- Americans Ages 20-29 = 116 mL/min/1.73 sq.m. Ages 30-39 = 107 mL/min/1.73 sq.m. Ages 40-49 = 99 mL/min/1.73 sq.m. Ages 50-59 = 93 mL/min/1.73 sq.m. Ages 60-69 = 85 mL/min/1.73 sq.m. Ages 70+ = 75 mL/min/1.73 sq.m. Chronic Kidney Disease: Less than 60 mL/min/1.73 square meters End Stage Renal Disease: Less than 15 mL/min/1.73 square meters Glucose [Mass/Vol] 158 mg/dL Invalid Interpretation Code 83 - 110 mg/dL AO ADM SS Potassium [Moles/Vol] 4.5 mmol/L Invalid Interpretation Code 3.5 - 5.1 mmol/L AO ADM SS Sodium [Moles/Vol] 143 mmol/L Invalid Interpretation Code 136 - 145 mmol/L AO ADM SS Urea nitrogen [Mass/Vol] 20 mg/dL Invalid Interpretation Code 7 - 18 mg/dL AO ADM SS Urea nitrogen/Creatinine [Mass ratio] 19 ratio Invalid Interpretation Code 7 - 27 ratio AO ADM SS LABORATORYOrdered By: SYSTEM SYSTEM on 01-11-2023 25-hydroxyvitamin D3 [Mass/Vol] 83.6 ng/mL Invalid Interpretation Code AO ADM SS Albumin BCP dye [Mass/Vol] 4.1 G/dL Invalid Interpretation Code 3.4 - 4.8 G/dL AO ADM SS Albumin/Globulin [Mass ratio] 1.4 {ratio} Invalid Interpretation Code 1.1 - 2.5 ratio AO ADM SS ALP [Catalytic activity/Vol] 46 U/L Invalid Interpretation Code 40 - 135 U/L AO ADM SS ALT With P-5'-P [Catalytic activity/Vol] 18 U/L Invalid Interpretation Code 14 - 59 U/L AO ADM SS AST With P-5'-P [Catalytic activity/Vol] 11 U/L Invalid Interpretation Code 10 - 40 U/L AO ADM SS Bilirubin [Mass/Vol] 0.3 mg/dL Invalid Interpretation Code 0.2 - 1.0 mg/dL AO ADM SS Calcium [Mass/Vol] 9.4 mg/dL Invalid Interpretation Code 8.4 - 10.2 mg/dL AO ADM SS Chloride [Moles/Vol] 104 mmol/L Invalid Interpretation Code 98 - 107 mmol/L AO ADM SS CO2 [Moles/Vol] 32 mmol/L Invalid Interpretation Code 23 - 31 mmol/L AO ADM SS Creatinine [Mass/Vol] 1.08 mg/dL Invalid Interpretation Code 0.55 - 1.02 mg/dL AO ADM SS Electrolyte Balance 6.0 mEq/L Invalid Interpretation Code 4.0 - 15.0 mEq/L AO ADM SS Free T3 [Mass/Vol] 1.85 pg/mL Invalid Interpretation Code 2.30 - 4.00 pg/mL AO ADM SS Free T4 [Mass/Vol] 1.48 ng/dL Invalid Interpretation Code 0.76 - 1.46 ng/dL AO ADM SS GFR/1.73 sq M.predicted among blacks MDRD (S/P/Bld) [Vol rate/Area] 60 ml/min/1.73sqm Invalid Interpretation Code AO Chemistry S GFR/1.73 sq M.predicted among non-blacks MDRD (S/P/Bld) [Vol rate/Area] 50 ml/min/1.73sqm Invalid Interpretation Code AO Chemistry S Globulin 2.9 G/dL Invalid Interpretation Code AO ADM SS Glucose [Mass/Vol] 106 mg/dL Invalid Interpretation Code 83 - 110 mg/dL AO ADM SS HbA1c (Bld) [Mass fraction] 6.6 % Invalid Interpretation Code 4.3 - 6.4 % AO ADM SS Potassium [Moles/Vol] 5.3 mmol/L Invalid Interpretation Code 3.5 - 5.1 mmol/L AO ADM SS Protein [Mass/Vol] 7.0 G/dL Invalid Interpretation Code 6.4 - 8.2 G/dL AO ADM SS Sodium [Moles/Vol] 142 mmol/L Invalid Interpretation Code 136 - 145 mmol/L AO ADM SS TSH Qn 1.48 m[IU]/L Invalid Interpretation Code 0.36 - 3.74 mcIU/mL AO ADM SS Urea nitrogen [Mass/Vol] 25 mg/dL Invalid Interpretation Code 7 - 18 mg/dL AO ADM SS Urea nitrogen/Creatinine [Mass ratio] 23 ratio Invalid Interpretation Code 7 - 27 ratio AO ADM SS LABORATORYOrdered By: SYSTEM SYSTEM on 09-26-2022 Free T4 [Mass/Vol] 1.59 ng/dL Invalid Interpretation Code 0.76 - 1.46 ng/dL AO ADM SS TSH Qn 2.76 m[IU]/L Invalid Interpretation Code 0.36 - 3.74 mcIU/mL AO ADM SS LABORATORYOrdered By: SYSTEM SYSTEM on 08-13-2022 Albumin BCP dye [Mass/Vol] 4.0 G/dL Invalid Interpretation Code 3.4 - 4.8 G/dL AO ADM SS Albumin/Globulin [Mass ratio] 1.2 {ratio} Invalid Interpretation Code 1.1 - 2.5 ratio AO ADM SS ALP [Catalytic activity/Vol] 55 U/L Invalid Interpretation Code 40 - 135 U/L AO ADM SS ALT With P-5'-P [Catalytic activity/Vol] 16 U/L Invalid Interpretation Code 14 - 59 U/L AO ADM SS AST With P-5'-P [Catalytic activity/Vol] 20 U/L Invalid Interpretation Code 10 - 40 U/L AO ADM SS Bilirubin [Mass/Vol] 0.4 mg/dL Invalid Interpretation Code 0.2 - 1.0 mg/dL AO ADM SS Calcium [Mass/Vol] 8.2 mg/dL Invalid Interpretation Code 8.4 - 10.2 mg/dL AO ADM SS Chloride [Moles/Vol] 99 mmol/L Invalid Interpretation Code 98 - 107 mmol/L AO ADM SS CO2 [Moles/Vol] 27 mmol/L Invalid Interpretation Code 23 - 31 mmol/L AO ADM SS Creatinine [Mass/Vol] 1.12 mg/dL Invalid Interpretation Code 0.55 - 1.02 mg/dL AO ADM SS Electrolyte Balance 10.0 mEq/L Invalid Interpretation Code 4.0 - 15.0 mEq/L AO ADM SS GFR 58 ml/min/1.73sqm Invalid Interpretation Code AO Chemistry S GFR Non- 48 ml/min/1.73sqm Invalid Interpretation Code AO Chemistry S Globulin 3.3 G/dL Invalid Interpretation Code AO ADM SS Glucose [Mass/Vol] 167 mg/dL Invalid Interpretation Code 83 - 110 mg/dL AO ADM SS Magnesium [Mass/Vol] 1.4 mg/dL Invalid Interpretation Code 1.8 - 2.4 mg/dL AO ADM SS Potassium [Moles/Vol] 3.8 mmol/L Invalid Interpretation Code 3.5 - 5.1 mmol/L AO ADM SS Protein [Mass/Vol] 7.3 G/dL Invalid Interpretation Code 6.4 - 8.2 G/dL AO ADM SS Sodium [Moles/Vol] 136 mmol/L Invalid Interpretation Code 136 - 145 mmol/L AO ADM SS Urea nitrogen [Mass/Vol] 25 mg/dL Invalid Interpretation Code 7 - 18 mg/dL AO ADM SS Urea nitrogen/Creatinine [Mass ratio] 22 ratio Invalid Interpretation Code 7 - 27 ratio AO ADM SS LABORATORYOrdered By: Morteza Keller on 08-13-2022 Appearance (U) Clear (08/13/22 5:51 PM) Invalid Interpretation Code Clear AO Auto Urine SS Bacteria LM.HPF (Urine sed) [#/Area] Trace /HPF Invalid Interpretation Code AO Auto Urine SS Basophil, Absolute 0.0 103/mcL Invalid Interpretation Code 0.0 - 0.2 10^3/mcL AO Workflow SS Basophils/100 WBC (Bld) 0.2 % Invalid Interpretation Code 0.0 - 2.5 % AO Workflow SS Bilirubin Ql (U) Small *ABN* (08/13/22 5:51 PM) Invalid Interpretation Code Negative AO Auto Urine SS Color (U) Yellow (08/13/22 5:51 PM) Invalid Interpretation Code AO Auto Urine SS Eosinophil, Absolute 0.0 103/mcL Invalid Interpretation Code 0.0 - 0.4 10^3/mcL AO Workflow SS Eosinophils/100 WBC (Bld) 0.1 % Invalid Interpretation Code 0.0 - 7.0 % AO Workflow SS Erythrocyte distribution width (RBC) [Ratio] 16.4 % Invalid Interpretation Code 11.5 - 14.5 % AO Workflow SS Glucose Test strip (U) [Mass/Vol] Negative Invalid Interpretation Code Negativemg /dL AO Auto Urine SS Hematocrit (Bld) [Volume fraction] 32.9 % Invalid Interpretation Code 37.0 - 47.0 % AO Workflow SS Hemoglobin (Bld) [Mass/Vol] 10.8 G/dL Invalid Interpretation Code 12.0 - 16.0 G/dL AO Workflow SS Hemoglobin Auto test strip (U) [Mass/Vol] Negative (08/13/22 5:51 PM) Invalid Interpretation Code Negative AO Auto Urine SS Ketones Ql (U) 15 mg/dL Invalid Interpretation Code Negativemg /dL AO Auto Urine SS Lymphocyte, Absolute 0.4 103/mcL Invalid Interpretation Code 0.8 - 3.9 10^3/mcL AO Workflow SS Lymphocytes/100 WBC (Bld) 3.9 % Invalid Interpretation Code 10.0 - 50.0 % AO Workflow SS MCH (RBC) [Entitic mass] 26.9 pg Invalid Interpretation Code 27.0 - 31.2 pg AO Workflow SS MCHC 32.8 G/dL Invalid Interpretation Code 33.0 - 37.0 G/dL AO Workflow SS MCV (RBC) [Entitic vol] 82.1 fL Invalid Interpretation Code 80.0 - 94.0 fL AO Workflow SS Monocyte distribution width Auto (Bld) [Entitic vol] 21.38 Invalid Interpretation Code 0.00 - 20.00 AO Workflow SS Comment on above: Result Comment: For adults in ED, MDW>20.0 may be associated with a higher risk of sepsis during the first 12hrs of hospital admission Monocyte, Absolute 0.7 103/mcL Invalid Interpretation Code 0.2 - 1.0 10^3/mcL AO Workflow SS Monocytes/100 WBC (Bld) 7.4 % Invalid Interpretation Code 1.7 - 13.0 % AO Workflow SS Neutrophil, Absolute 8.8 103/mcL Invalid Interpretation Code 2.9 - 6.2 10^3/mcL AO Workflow SS Neutrophils/100 WBC (Bld) 88.4 % Invalid Interpretation Code 37.0 - 80.0 % AO Workflow SS Platelet mean volume (Bld) [Entitic vol] 9.0 fL Invalid Interpretation Code 7.4 - 10.4 fL AO Workflow SS Platelets (Bld) [#/Vol] 360 103/mcL Invalid Interpretation Code 130 - 400 10^3/mcL AO Workflow SS RBC (Bld) [#/Vol] 4.01 106/mcL Invalid Interpretation Code 4.20 - 5.40 10^6/mcL AO Workflow SS UA Leuk Est Negative (08/13/22 5:51 PM) Invalid Interpretation Code Negative AO Auto Urine SS UA Mucous Trace /HPF Invalid Interpretation Code AO Auto Urine SS UA Nitrite Negative (08/13/22 5:51 PM) Invalid Interpretation Code Negative AO Auto Urine SS UA pH 6.0 (08/13/22 5:51 PM) Invalid Interpretation Code 5.0 - 8.0 AO Auto Urine SS UA Protein 100 mg/dL Invalid Interpretation Code Negativemg /dL AO Auto Urine SS UA RBC 0-5 /HPF Invalid Interpretation Code None Seen/HPF AO Auto Urine SS UA Spec Grav 1.020 (08/13/22 5:51 PM) Invalid Interpretation Code 1.015-1.02 5 AO Auto Urine SS UA Specimen Type Clean Catch (08/13/22 5:51 PM) Invalid Interpretation Code AO Auto Urine SS UA Squam Epithelial 15-25 /HPF Invalid Interpretation Code None Seen/HPF AO Auto Urine SS UA Urobilinogen 0.2 E.U./dL Invalid Interpretation Code 0.2-1.0E.U ./dL AO Auto Urine SS WBC (Bld) [#/Vol] 9.9 103/mcL Invalid Interpretation Code 4.6 - 10.8 10^3/mcL AO Workflow SS WBC LM.HPF (Urine sed) [#/Area] 0-5 /HPF Invalid Interpretation Code None Seen/HPF AO Auto Urine SS LABORATORYOrdered By: Maira Alexander on 08-03-2022 Albumin DL <= 20 mg/L (U) [Mass/Vol] 1363 mcg/dL Invalid Interpretation Code AO ADM SS Albumin/Creatinine DL <= 20 mg/L (U) [Mass ratio] 14 mcg/mg Invalid Interpretation Code 0 - 30 mcg/mg AO ADM SS Creatinine (U) [Mass/Vol] 94.2 mg/dL Invalid Interpretation Code 28.0 - 117.0 mg/dL AO ADM SS Cholesterol [Mass/Vol] 167 mg/dL Invalid Interpretation Code 0 - 200 mg/dL AO ADM SS Cholesterol in HDL [Mass/Vol] 60 mg/dL Invalid Interpretation Code 40 - 60 mg/dL AO ADM SS Cholesterol in LDL [Mass/Vol] 91 mg/dL Invalid Interpretation Code 0 - 130 mg/dL AO ADM SS Triglyceride [Mass/Vol] 81 mg/dL Invalid Interpretation Code 0 - 150 mg/dL AO ADM SS LABORATORYOrdered By: SYSTEM SYSTEM on 08-03-2022 Albumin BCP dye [Mass/Vol] 4.2 G/dL Invalid Interpretation Code 3.4 - 4.8 G/dL AO ADM SS Albumin/Globulin [Mass ratio] 1.3 {ratio} Invalid Interpretation Code 1.1 - 2.5 ratio AO ADM SS ALP [Catalytic activity/Vol] 53 U/L Invalid Interpretation Code 40 - 135 U/L AO ADM SS ALT With P-5'-P [Catalytic activity/Vol] 15 U/L Invalid Interpretation Code 14 - 59 U/L AO ADM SS AST With P-5'-P [Catalytic activity/Vol] 13 U/L Invalid Interpretation Code 10 - 40 U/L AO ADM SS Bilirubin [Mass/Vol] 0.3 mg/dL Invalid Interpretation Code 0.2 - 1.0 mg/dL AO ADM SS Calcium [Mass/Vol] 8.8 mg/dL Invalid Interpretation Code 8.4 - 10.2 mg/dL AO ADM SS Chloride [Moles/Vol] 103 mmol/L Invalid Interpretation Code 98 - 107 mmol/L AO ADM SS CO2 [Moles/Vol] 32 mmol/L Invalid Interpretation Code 23 - 31 mmol/L AO ADM SS Creatinine [Mass/Vol] 0.98 mg/dL Invalid Interpretation Code 0.55 - 1.02 mg/dL AO ADM SS Electrolyte Balance 7.0 mEq/L Invalid Interpretation Code 4.0 - 15.0 mEq/L AO ADM SS Free T3 [Mass/Vol] 1.70 pg/mL Invalid Interpretation Code 2.30 - 4.00 pg/mL AO ADM SS Free T4 [Mass/Vol] 1.25 ng/dL Invalid Interpretation Code 0.76 - 1.46 ng/dL AO ADM SS GFR 68 ml/min/1.73sqm Invalid Interpretation Code AO Chemistry S GFR Non- 56 ml/min/1.73sqm Invalid Interpretation Code AO Chemistry S Globulin 3.3 G/dL Invalid Interpretation Code AO ADM SS Glucose [Mass/Vol] 113 mg/dL Invalid Interpretation Code 83 - 110 mg/dL AO ADM SS HbA1c (Bld) [Mass fraction] 6.5 % Invalid Interpretation Code 4.3 - 6.4 % AO ADM SS Potassium [Moles/Vol] 5.1 mmol/L Invalid Interpretation Code 3.5 - 5.1 mmol/L AO ADM SS Protein [Mass/Vol] 7.5 G/dL Invalid Interpretation Code 6.4 - 8.2 G/dL AO ADM SS Sodium [Moles/Vol] 142 mmol/L Invalid Interpretation Code 136 - 145 mmol/L AO ADM SS TSH Qn 9.02 m[IU]/L Invalid Interpretation Code 0.36 - 3.74 mcIU/mL AO ADM SS Urea nitrogen [Mass/Vol] 18 mg/dL Invalid Interpretation Code 7 - 18 mg/dL AO ADM SS Urea nitrogen/Creatinine [Mass ratio] 18 ratio Invalid Interpretation Code 7 - 27 ratio AO ADM SS Vit. D 25-Hydroxy 99.1 ng/mL Invalid Interpretation Code AO ADM SS LABORATORYOrdered By: Shelby Graham on 05-23-2022 Calcium [Mass/Vol] 9.8 mg/dL Invalid Interpretation Code 8.4 - 10.2 mg/dL AO ADM SS Chloride [Moles/Vol] 100 mmol/L Invalid Interpretation Code 98 - 107 mmol/L AO ADM SS CO2 [Moles/Vol] 31 mmol/L Invalid Interpretation Code 23 - 31 mmol/L AO ADM SS Creatinine [Mass/Vol] 0.91 mg/dL Invalid Interpretation Code 0.55 - 1.02 mg/dL AO ADM SS Electrolyte Balance 6.0 mEq/L Invalid Interpretation Code 4.0 - 15.0 mEq/L AO ADM SS Glucose [Mass/Vol] 114 mg/dL Invalid Interpretation Code 83 - 110 mg/dL AO ADM SS Natriuretic peptide.B prohormone N-Terminal [Mass/Vol] 158 pg/mL Invalid Interpretation Code 0 - 125 pg/mL AO ADM SS Potassium [Moles/Vol] 4.4 mmol/L Invalid Interpretation Code 3.5 - 5.1 mmol/L AO ADM SS Sodium [Moles/Vol] 137 mmol/L Invalid Interpretation Code 136 - 145 mmol/L AO ADM SS Urea nitrogen [Mass/Vol] 24 mg/dL Invalid Interpretation Code 7 - 18 mg/dL AO ADM SS Urea nitrogen/Creatinine [Mass ratio] 26 ratio Invalid Interpretation Code 7 - 27 ratio AO ADM SS LABORATORYOrdered By: SYSTEM SYSTEM on 05-23-2022 GFR 74 ml/min/1.73sqm Invalid Interpretation Code AO Chemistry S GFR Non- 61 ml/min/1.73sqm Invalid Interpretation Code AO Chemistry S LABORATORYOrdered By: Maira Alexander on 04-07-2022 Albumin BCP dye [Mass/Vol] 4.6 G/dL Invalid Interpretation Code 3.4 - 4.8 G/dL AO ADM SS Albumin/Globulin [Mass ratio] 1.5 {ratio} Invalid Interpretation Code 1.1 - 2.5 ratio AO ADM SS ALP [Catalytic activity/Vol] 49 U/L Invalid Interpretation Code 40 - 135 U/L AO ADM SS ALT With P-5'-P [Catalytic activity/Vol] 15 U/L Invalid Interpretation Code 14 - 59 U/L AO ADM SS AST With P-5'-P [Catalytic activity/Vol] 13 U/L Invalid Interpretation Code 10 - 40 U/L AO ADM SS Bilirubin [Mass/Vol] 0.5 mg/dL Invalid Interpretation Code 0.2 - 1.0 mg/dL AO ADM SS Calcium [Mass/Vol] 8.9 mg/dL Invalid Interpretation Code 8.4 - 10.2 mg/dL AO ADM SS Chloride [Moles/Vol] 102 mmol/L Invalid Interpretation Code 98 - 107 mmol/L AO ADM SS CO2 [Moles/Vol] 30 mmol/L Invalid Interpretation Code 23 - 31 mmol/L AO ADM SS Creatinine [Mass/Vol] 0.98 mg/dL Invalid Interpretation Code 0.55 - 1.02 mg/dL AO ADM SS Electrolyte Balance 9.0 mEq/L Invalid Interpretation Code 4.0 - 15.0 mEq/L AO ADM SS Globulin 3.0 G/dL Invalid Interpretation Code AO ADM SS Glucose [Mass/Vol] 99 mg/dL Invalid Interpretation Code 83 - 110 mg/dL AO ADM SS Lipase [Catalytic activity/Vol] 69 U/L Invalid Interpretation Code 73 - 393 U/L AO ADM SS Potassium [Moles/Vol] 4.6 mmol/L Invalid Interpretation Code 3.5 - 5.1 mmol/L AO ADM SS Protein [Mass/Vol] 7.6 G/dL Invalid Interpretation Code 6.4 - 8.2 G/dL AO ADM SS Sodium [Moles/Vol] 141 mmol/L Invalid Interpretation Code 136 - 145 mmol/L AO ADM SS Urea nitrogen [Mass/Vol] 19 mg/dL Invalid Interpretation Code 7 - 18 mg/dL AO ADM SS Urea nitrogen/Creatinine [Mass ratio] 19 ratio Invalid Interpretation Code 7 - 27 ratio AO ADM SS LABORATORYOrdered By: Salma Stovall on 04-07-2022 Basophil, Absolute 0.0 103/mcL Invalid Interpretation Code 0.0 - 0.2 10^3/mcL AO Workflow SS Basophils/100 WBC (Bld) 0.7 % Invalid Interpretation Code 0.0 - 2.5 % AO Workflow SS Eosinophil, Absolute 0.1 103/mcL Invalid Interpretation Code 0.0 - 0.4 10^3/mcL AO Workflow SS Eosinophils/100 WBC (Bld) 2.1 % Invalid Interpretation Code 0.0 - 7.0 % AO Workflow SS Erythrocyte distribution width (RBC) [Ratio] 16.5 % Invalid Interpretation Code 11.5 - 14.5 % AO Workflow SS Hematocrit (Bld) [Volume fraction] 33.7 % Invalid Interpretation Code 37.0 - 47.0 % AO Workflow SS Hemoglobin (Bld) [Mass/Vol] 10.9 G/dL Invalid Interpretation Code 12.0 - 16.0 G/dL AO Workflow SS Lymphocyte, Absolute 1.9 103/mcL Invalid Interpretation Code 0.8 - 3.9 10^3/mcL AO Workflow SS Lymphocytes/100 WBC (Bld) 33.9 % Invalid Interpretation Code 10.0 - 50.0 % AO Workflow SS MCH (RBC) [Entitic mass] 27.5 pg Invalid Interpretation Code 27.0 - 31.2 pg AO Workflow SS MCHC 32.5 G/dL Invalid Interpretation Code 33.0 - 37.0 G/dL AO Workflow SS MCV (RBC) [Entitic vol] 84.6 fL Invalid Interpretation Code 80.0 - 94.0 fL AO Workflow SS Monocyte, Absolute 0.6 103/mcL Invalid Interpretation Code 0.2 - 1.0 10^3/mcL AO Workflow SS Monocytes/100 WBC (Bld) 10.0 % Invalid Interpretation Code 1.7 - 13.0 % AO Workflow SS Neutrophil, Absolute 3.1 103/mcL Invalid Interpretation Code 2.9 - 6.2 10^3/mcL AO Workflow SS Neutrophils/100 WBC (Bld) 53.3 % Invalid Interpretation Code 37.0 - 80.0 % AO Workflow SS Platelet mean volume (Bld) [Entitic vol] 10.0 fL Invalid Interpretation Code 7.4 - 10.4 fL AO Workflow SS Platelets (Bld) [#/Vol] 318 103/mcL Invalid Interpretation Code 130 - 400 10^3/mcL AO Workflow SS RBC (Bld) [#/Vol] 3.98 106/mcL Invalid Interpretation Code 4.20 - 5.40 10^6/mcL AO Workflow SS WBC (Bld) [#/Vol] 5.7 103/mcL Invalid Interpretation Code 4.6 - 10.8 10^3/mcL AO Workflow SS LABORATORYOrdered By: SYSTEM SYSTEM on 04-07-2022 GFR 68 ml/min/1.73sqm Invalid Interpretation Code AO Chemistry S GFR Non- 56 ml/min/1.73sqm Invalid Interpretation Code AO Chemistry S LABORATORYOrdered By: Shelby Graham on 02-02-2022 Albumin BCP dye [Mass/Vol] 4.2 G/dL Invalid Interpretation Code 3.4 - 4.8 G/dL AO ADM SS Albumin/Globulin [Mass ratio] 1.5 {ratio} Invalid Interpretation Code 1.1 - 2.5 ratio AO ADM SS ALP [Catalytic activity/Vol] 52 U/L Invalid Interpretation Code 40 - 135 U/L AO ADM SS ALT With P-5'-P [Catalytic activity/Vol] 16 U/L Invalid Interpretation Code 14 - 59 U/L AO ADM SS AST With P-5'-P [Catalytic activity/Vol] 14 U/L Invalid Interpretation Code 10 - 40 U/L AO ADM SS Bilirubin [Mass/Vol] 0.3 mg/dL Invalid Interpretation Code 0.2 - 1.0 mg/dL AO ADM SS Calcium [Mass/Vol] 8.6 mg/dL Invalid Interpretation Code 8.4 - 10.2 mg/dL AO ADM SS Chloride [Moles/Vol] 102 mmol/L Invalid Interpretation Code 98 - 107 mmol/L AO ADM SS CO2 [Moles/Vol] 28 mmol/L Invalid Interpretation Code 23 - 31 mmol/L AO ADM SS Creatinine [Mass/Vol] 0.85 mg/dL Invalid Interpretation Code 0.55 - 1.02 mg/dL AO ADM SS Electrolyte Balance 11.0 mEq/L Invalid Interpretation Code 4.0 - 15.0 mEq/L AO ADM SS Free T4 [Mass/Vol] 1.84 ng/dL Invalid Interpretation Code 0.76 - 1.46 ng/dL AO ADM SS Globulin 2.8 G/dL Invalid Interpretation Code AO ADM SS Glucose [Mass/Vol] 103 mg/dL Invalid Interpretation Code 83 - 110 mg/dL AO ADM SS HbA1c (Bld) [Mass fraction] 6.3 % Invalid Interpretation Code 4.3 - 6.4 % AO ADM SS Potassium [Moles/Vol] 4.3 mmol/L Invalid Interpretation Code 3.5 - 5.1 mmol/L AO ADM SS Protein [Mass/Vol] 7.0 G/dL Invalid Interpretation Code 6.4 - 8.2 G/dL AO ADM SS Sodium [Moles/Vol] 141 mmol/L Invalid Interpretation Code 136 - 145 mmol/L AO ADM SS TSH Qn 0.48 m[IU]/L Invalid Interpretation Code 0.36 - 3.74 mcIU/mL AO ADM SS Urea nitrogen [Mass/Vol] 19 mg/dL Invalid Interpretation Code 7 - 18 mg/dL AO ADM SS Urea nitrogen/Creatinine [Mass ratio] 22 ratio Invalid Interpretation Code 7 - 27 ratio AO ADM SS Vit. D 25-Hydroxy 57.9 ng/mL Invalid Interpretation Code AO ADM SS LABORATORYOrdered By: SYSTEM SYSTEM on 02-02-2022 GFR 80 ml/min/1.73sqm Invalid Interpretation Code AO Chemistry S GFR Non- 66 ml/min/1.73sqm Invalid Interpretation Code AO Chemistry S LABORATORYOrdered By: Shelby Graham on 11-24-2021 Calcium [Mass/Vol] 8.9 mg/dL Invalid Interpretation Code 8.4 - 10.2 mg/dL AO ADM SS Chloride [Moles/Vol] 104 mmol/L Invalid Interpretation Code 98 - 107 mmol/L AO ADM SS CO2 [Moles/Vol] 29 mmol/L Invalid Interpretation Code 23 - 31 mmol/L AO ADM SS Creatinine [Mass/Vol] 0.96 mg/dL Invalid Interpretation Code 0.55 - 1.02 mg/dL AO ADM SS Electrolyte Balance 10.0 mEq/L Invalid Interpretation Code 4.0 - 15.0 mEq/L AO ADM SS Glucose [Mass/Vol] 115 mg/dL Invalid Interpretation Code 83 - 110 mg/dL AO ADM SS Natriuretic peptide.B prohormone N-Terminal [Mass/Vol] 625 pg/mL Invalid Interpretation Code 0 - 125 pg/mL AO ADM SS Potassium [Moles/Vol] 4.5 mmol/L Invalid Interpretation Code 3.5 - 5.1 mmol/L AO ADM SS Sodium [Moles/Vol] 143 mmol/L Invalid Interpretation Code 136 - 145 mmol/L AO ADM SS Urea nitrogen [Mass/Vol] 22 mg/dL Invalid Interpretation Code 7 - 18 mg/dL AO ADM SS Urea nitrogen/Creatinine [Mass ratio] 23 ratio Invalid Interpretation Code 7 - 27 ratio AO ADM SS LABORATORYOrdered By: SYSTEM SYSTEM on 11-24-2021 GFR 69 ml/min/1.73sqm Invalid Interpretation Code AO Chemistry S GFR Non- 57 ml/min/1.73sqm Invalid Interpretation Code AO Chemistry S LABORATORYOrdered By: Carlos Alberto Farah on 10-12-2021 Free T3 [Mass/Vol] 1.82 pg/mL Invalid Interpretation Code 2.30 - 4.00 pg/mL AO ADM SS Free T4 [Mass/Vol] 1.75 ng/dL Invalid Interpretation Code 0.76 - 1.46 ng/dL AO ADM SS TSH Qn 0.76 m[IU]/L Invalid Interpretation Code 0.36 - 3.74 mcIU/mL AO ADM SS Ova & Parasite Examon 2016 Ova & Parasite Exam NO TRAVEL HISTORYMRN #: [id number] Name: HAYDEE QUIROGA.: 1950 Sex: Moreno# Loc [facility] Site [id number] [address] 01/16/17NTIBIOTICS AT COL.:[place] [address] [place] [address] C O M M E N T S ---------NO TRAVEL HISTORYO&P Gross Exam FINALConsistency: LiquidColor: BrownOva & Parasite Exam FINALConcentrated Smear: NegativeThis test does NOT allow identification of Cryptosporidiumspp., Cyclospora, or the Microsporidia. Please consultMicrobiology if needed.Trichrome Smear: Negative for Intestinal ProtozoaMany YeastKEY FOR RESULTS: - NEW RESULTATT.PHYS.: RENATA JIMENEZ LOCATION: DROP--ADM.DATE: 01/16/17 PATIENT : MARLI QUIROGAMATIASMICROBIOLOGYPRINTED : 01/18/17 13:05 REGULAR 2 PAGE: 2 of 1 1 [facility] Comment on above: Performed By: #### O P ####[facility], [address] [place] [id number] C. difficile PCRon 7 C. difficile PCR Name : ROGERS DOMENICO HAYDEE : 1950 Sex: Moreno# Loc [facility] Site [id number] [address] 01/07/17NTIBIOTICS AT COL.:[address] [address]A. difficile PCR FINALNEGATIVE..No tcdB gene DNA detected..Negative test results may occur from improper collection,handling or storage of specimen, technical error, ornumber of organisms below the analytical sensitivity ofthe test..As with all in vitro diagnostic tests, positive andnegative predictive values are highly dependent onprevalence. The [employer] C. difficile PCR Assayperformance may vary depending on the prevalence andpopulation tested.ALLISON FOR RESULTS: - NEW RESULTATT.PHYS.: RENATA JIMENEZ LOCATION: DROP--ADM.DATE: 01/07/17 PATIENT : CÉSAR QUIROGAROBIOLOGYPRINTED : 01/07/17 21:41 REGULAR 2 PAGE: 2 of 1 1 [facility] Cryptosporidium Antigenon Cryptosporidium Antigen Name: MARLI QUIROGAMATIAS Velez: 1950 Sex: Moreno# [facility] Site [id number] [address] 01/07/NTIBIOTICS AT COL.:[address] [address]Wfmkhepowfvnohp Antigen FINALCryptosporidium Antigen by rapid membrane immunoassay: Absentor below detectable levels.Multiple specimens collected over several days can be testedfor patients suspected of cryptosporidiosis. The resultsobtained should be used in conjunction with other clinicalinformation available.ALLISON FOR RESULTS: - NEW RESULTATT.PHYS.: RENATA JIMENEZ LOCATION: DROP--ADM.DATE: 01/07/17 PATIENT : VANDANA QUIROGAIOLOGYPRINTED : 01/09/17 10:19 REGULAR 2 PAGE: 2 of 1 1 [facility] Culture Stoolon 01-07-2017 Culture Stool Name : HAYDEE QUIROGA : 1950 Sex: Moreno# Loc [facility] Site [id number] [address] 01/07/NTIBIOTICS AT COL.:[address] [address]Oiaiqee Stool FINALNormal stool joss presentSalmonella: NegativeShigella: NegativeCampylobacter: NegativeSensitivity Testing: Not IndicatedComment: Requests for alternative pathogens includingYersinia, C. difficile toxin, E. coli 0157,Rotavirus, and parasites require specific requests.ALLISON FOR RESULTS: - NEW RESULTATT.PHYS.: RENATA JIMENEZ LOCATION: DROP--ADM.DATE: 01/07/17 PATIENT : CÉSAR QUIROGAROBIOLOGYPRINTED : 01/10/17 07:47 REGULAR 2 PAGE: 2 of 1 1 [facility] Giardia Antigenon 01-07-2017 Giardia Antigen Name : HAYDEE QUIROGA : 1950 Sex: Moreno# Loc [facility] Site [id number] [address] 01/07/NTIBIOTICS AT COL.:[address] [address]Jzappbk Antigen FINALGiardia Antigen by EIA: NegativeA single diagnostic assay should not be used as the basisfor forming a clinical conclusion. Giardia antigens are shedvery sporadically. It is recommended that two separatestoolsbe tested for Giardia antigen. If both are negative, then itis less likely that Giardia is present.Results should be supported by correlation with the patientsymptoms and the overall clinical picture.ALLISON FOR RESULTS: - NEW RESULTATT.PHYS.: RENATA JIMENEZ LOCATION: DROP--ADM.DATE: 01/07/17 PATIENT : VANDANA QUIROGAIOLOGYPRINTED : 01/09/17 14:48 REGULAR 2 PAGE: 2 of 1 1 [facility] Shiga Toxins 1 and 2on 01-07 Shiga Toxins 1 and 2 Nam e: HAYDEE QUIROGA : 1950 Sex: Moreno# Loc [facility] Site [id number] [address] 01/07/NTIBIOTICS AT COL.:TONY[address] [address]Rlhol Toxins 1 and 2 FINALAbsence of Shiga toxin 1Absence of Shiga toxin 2Testing performed by immunochromatography.ALLISON FOR RESULTS: - NEW RESULTATT.PHYS.: RENATA JIMENEZ LOCATION: DROP--ADM.DATE: 01/07/17 PATIENT : CÉSAR QUIROGAROBIOLOGYPRINTED : 01/09/17 10:20 REGULAR 2 PAGE: 2 of 1 1 [facility] Vital Signs Date Time Vital Sign Value Performing Clinician Facility 07-23-2024 16:44-0500 Body temperature 98.4 [degF] Chanel Zarasusanaky PA-C Work Phone: [facility] 07-23-2024 16:44-0500 Diastolic blood pressure 76 mm[Hg] Chanel Wasosky PA-C Work Phone: [facility] 07-23-2024 16:44-0500 Heart rate 85 /min Chanel Zuñigaosky PA-C Work Phone: [facility] 07-23-2024 16:44-0500 Respiratory rate 18 /min Chanel Zaraosky PA-C Work Phone: [facility] 07-23-2024 16:44-0500 SaO2% (BldA) [Mass fraction] 96 % Chanel Zarasusanaky PA-C Work Phone: [facility] 07-23-2024 16:44-0500 Systolic blood pressure 148 mm[Hg] Chanel Zarasusanaky PA-C Work Phone: [facility] 03-22-2024 10:07-0400 Body height 160 cm Benton Nuñez MD Work Phone: [facility] 03-22-2024 10:07-0400 Body mass index (BMI) [Ratio] 26.04 kg/m2 Benton Nuñez MD Work Phone: [facility] 03-22-2024 10:07-0400 Body temperature 97.3 [degF] Benton Nuñez MD Work Phone: [facility] 03-22-2024 10:07-0400 Body weight 66.68 kg Benton Nuñez MD Work Phone: [facility] 03-22-2024 10:07-0400 Diastolic blood pressure 63 mm[Hg] Benton Nuñez MD Work Phone: [facility] 03-22-2024 10:07-0400 Heart rate 71 /min Benton Nuñez MD Work Phone: [facility] 03-22-2024 10:07-0400 Systolic blood pressure 138 mm[Hg] Benton Nuñez MD Work Phone: [facility] [employer] 02-09-2024 10:22-0400 Body height 157.5 cm Benton Nuñez MD Work Phone: [facility] [employer] 02-09-2024 10:22-0400 Body mass index (BMI) [Ratio] 26.23 kg/m2 Benton Nuñez MD Work Phone: [facility] [employer] 02-09-2024 10:22-0400 Body temperature 98.71 [degF] Benton Nuñez MD Work Phone: [facility] [employer] 02-09-2024 10:22-0400 Body weight 65.05 kg Benton Nuñez MD Work Phone: [facility] [employer] 02-09-2024 10:22-0400 Diastolic blood pressure 64 mm[Hg] Benton Nuñez MD Work Phone: [facility] [employer] 02-09-2024 10:22-0400 Heart rate 84 /min Benton Nuñez MD Work Phone: [facility] [employer] 02-09-2024 10:22-0400 Systolic blood pressure 139 mm[Hg] Benton Nuñez MD Work Phone: [facility] [employer] 01-29-2024 09:55-0400 Diastolic blood pressure 75 mm[Hg] Benton Nuñez MD Work Phone: [facility] [employer] 01-29-2024 09:55-0400 Heart rate 70 /min Benton Nuñez MD Work Phone: [facility] [employer] 01-29-2024 09:55-0400 Systolic blood pressure 160 mm[Hg] Benton Nuñez MD Work Phone: [facility] [employer] 01-29-2024 07:39-0400 Body temperature 97.9 [degF] Benton Nuñez MD Work Phone: [facility] [employer] 01-29-2024 07:39-0400 Respiratory rate 16 /min Benton Nuñez MD Work Phone: [facility] [employer] 01-29-2024 07:39-0400 SaO2% (BldA) [Mass fraction] 97 % Benton Nuñez MD Work Phone: [facility] [employer] 01-19-2024 12:54-0400 Body height 157.5 cm Benton Nuñez MD Work Phone: [facility] [employer] 01-19-2024 12:54-0400 Body mass index (BMI) [Ratio] 27.44 kg/m2 Benton Nuñez MD Work Phone: [facility] [employer] 01-19-2024 12:54-0400 Body temperature 97.81 [degF] Benton Nuñez MD Work Phone: [facility] [employer] 01-19-2024 12:54-0400 Body weight 68.04 kg Benton Nuñez MD Work Phone: [facility] [employer] 01-19-2024 12:54-0400 Diastolic blood pressure 73 mm[Hg] Benton Nuñez MD Work Phone: [facility] [employer] 01-19-2024 12:54-0400 Heart rate 88 /min Benton Nuñez MD Work Phone: [facility] [employer] 01-19-2024 12:54-0400 Systolic blood pressure 144 mm[Hg] Benton Nuñez MD Work Phone: [facility] 12-01-2023 11:12-0400 Body height 157.5 cm Benton Nuñez MD Work Phone: [facility] [employer] 12-01-2023 11:12-0400 Body mass index (BMI) [Ratio] 26.92 kg/m2 Benton Nuñez MD Work Phone: [facility] [employer] 12-01-2023 11:12-0400 Body temperature 96.49 [degF] Benton Nuñez MD Work Phone: [facility] [employer] 12-01-2023 11:12-0400 Body weight 66.77 kg Benton Nuñez MD Work Phone: [facility] 12-01-2023 11:12-0400 Diastolic blood pressure 79 mm[Hg] Benton Nuñez MD Work Phone: [facility] 12-01-2023 11:12-0400 Heart rate 88 /min Benton Nuñez MD Work Phone: [facility] 12-01-2023 11:12-0400 Respiratory rate 16 /min Benton Nuñez MD Work Phone: [facility] 12-01-2023 11:12-0400 Systolic blood pressure 170 mm[Hg] Benton Nuñez MD Work Phone: [facility] 10-23-2023 09:38-0400 Diastolic Blood Pressure Non-Invasive 66 mm[Hg] DR SERGE BOSWELL MD [facility] 10-23-2023 09:38-0400 Heart rate 53 /min DR SERGE BOSWELL MD [facility] 10-23-2023 09:38-0400 Respiratory rate 15 /min DR SERGE BOSWELL MD [facility] 10-23-2023 09:38-0400 Systolic Blood Pressure Non-Invasive 151 mm[Hg] DR SERGE BOSWELL MD [facility] 10-23-2023 09:25-0400 Diastolic Blood Pressure Non-Invasive 74 mm[Hg] DR SERGE BOSWELL MD [facility] 10-23-2023 09:25-0400 Heart rate 67 /min DR SERGE BOSWELL MD [facility] 10-23-2023 09:25-0400 Respiratory rate 20 /min DR SERGE BOSWELL MD [facility] 10-23-2023 09:25-0400 Systolic Blood Pressure Non-Invasive 139 mm[Hg] DR SERGE BOSWELL MD [facility] 10-23-2023 09:20-0400 Diastolic Blood Pressure Non-Invasive 67 mm[Hg] DR SERGE BOSWELL MD [facility] 10-23-2023 09:20-0400 Heart rate 65 /min DR SERGE BOSWELL MD [facility] 10-23-2023 09:20-0400 Respiratory rate 20 /min DR SERGE BOSWELL MD [facility] 10-23-2023 09:20-0400 Systolic Blood Pressure Non-Invasive 118 mm[Hg] DR SERGE BOSWELL MD [facility] 10-23-2023 09:05-0400 Respiratory Rate - Anes 16 br/min DR SERGE BOSWELL MD [facility] 10-23-2023 09:00-0400 Respiratory Rate - Anes 22 br/min DR SERGE BOSWELL MD [facility] 10-23-2023 07:48-0400 Blood Pressure Cuff Size DR SERGE BOSWELL MD [facility] 10-23-2023 07:48-[address] SERGE BOSWELL MD [facility] 10-23-2023 07:48-[address] SERGE BOSWELL MD [facility] 10-23-2023 07:48-0400 Body height 160.[address] SERGE BOSWELL MD [facility] 10-23-2023 07:48-0400 Body temperature 98.06 [degF] DR SERGE BOSWELL MD [facility] 10-23-2023 07:48-0400 Body weight 65.[address] SERGE BOSWELL MD [facility] 10-23-2023 07:48-0400 Body weight 25.74 kg/m2 DR SERGE BOSWELL MD [facility] 10-23-2023 07:48-0400 Heart rate 80 /min DR SERGE BOSWELL MD [facility] 10-02-2023 09:12-0400 Diastolic Blood Pressure Non-Invasive 70 mm[Hg] DR SERGE BOSWELL MD [address] [place] [address] 10-02-2023 09:12-0400 Heart rate 69 /min DR SERGE BOSWELL MD [facility] 10-02-2023 09:12-0400 Respiratory rate 16 /min DR SERGE BOSWELL MD [facility] 10-02-2023 09:12-0400 Systolic Blood Pressure Non-Invasive 129 mm[Hg] DR SERGE BOSWELL MD [facility] 10-02-2023 09:05-0400 Diastolic Blood Pressure Non-Invasive 60 mm[Hg] DR SERGE BOSWELL MD [facility] 10-02-2023 09:05-0400 Respiratory rate 15 /min DR SERGE BOSWELL MD [facility] 10-02-2023 09:05-0400 Systolic Blood Pressure Non-Invasive 115 mm[Hg] DR SERGE BOSWELL MD [facility] 10-02-2023 09:01-0400 Diastolic Blood Pressure Non-Invasive 58 mm[Hg] DR SERGE BOSWELL MD [facility] 10-02-2023 09:01-0400 Heart rate 70 /min DR SERGE BOSWELL MD [facility] 10-02-2023 09:01-0400 Respiratory rate 16 /min DR SERGE BOSWELL MD [facility] 10-02-2023 09:01-0400 Systolic Blood Pressure Non-Invasive 118 mm[Hg] DR SERGE BOSWELL MD [facility] 10-02-2023 08:54-0400 Body temperature 97.88 [degF] DR SERGE BOSWELL MD [facility] 10-02-2023 08:54-0400 Heart rate 62 /min DR SERGE BOSWELL MD [facility] 10-02-2023 08:45-0400 Respiratory Rate - Anes 18 br/min DR SERGE BOSWELL MD [facility] 10-02-2023 08:40-0400 Respiratory Rate - Anes 18 br/min DR SERGE BOSWELL MD [facility] 10-02-2023 08:35-0400 Respiratory Rate - Anes 13 br/min DR SERGE BOSWELL MD [facility] 10-02-2023 07:50-0400 Body height 160.[address] SERGE BOSWELL MD [facility] 10-02-2023 07:50-0400 Body temperature 98.06 [degF] DR SERGE BOSWELL MD [facility] 10-02-2023 07:50-0400 Body weight 65.[address] SERGE BOSWELL MD [facility] 10-02-2023 07:50-0400 Heart rate 81 /min DR SERGE BOSWELL MD [facility] 09-24-2022 16:31-0400 Body weight 68.04 kg Emmanuelle Haris PA-C Work Phone: [facility] 09-24-2022 16:31-0400 Diastolic blood pressure 80 mm[Hg] Emmanuelle Haris PA-C Work Phone: [facility] 09-24-2022 16:31-0400 Heart rate 102 /min Emmanuelle Haris PA-C Work Phone: [facility] 09-24-2022 16:31-0400 Respiratory rate 16 /min Emmanuelle Haris PA-C Work Phone: [facility] 09-24-2022 16:31-0400 SaO2% (BldA) [Mass fraction] 97 % Emmanuelle Haris PA-C Work Phone: [facility] 09-24-2022 16:31-0400 Systolic blood pressure 163 mm[Hg] Emmanuelle Haris PA-C Work Phone: [facility] 08-13-2022 19:25-0500 Body temperature 100.22 [degF] DR EMMANUELLE FREEMAN MD [facility] 08-13-2022 19:25-0500 Diastolic Blood Pressure Non-Invasive [address] EMMANUELLE FREEMAN MD [facility] 08-13-2022 19:25-0500 Heart rate 98 /min DR EMMANUELLE FREEMAN MD [facility] 08-13-2022 19:25-0500 Respiratory rate 16 /min DR EMMANUELLE FREEMAN MD [facility] 08-13-2022 19:25-0500 Systolic Blood Pressure Non-Invasive [address] EMMANUELLE FREEMAN MD [facility] 08-13-2022 17:35-0500 Body temperature 100.04 [degF] DR EMMANUELLE FREEMAN MD [facility] 08-13-2022 17:35-0500 Diastolic Blood Pressure Non-Invasive [address] EMMANUELLE FREEMAN MD [facility] 08-13-2022 17:35-0500 Heart rate 128 /min DR EMMANUELLE FREEMAN MD [facility] 08-13-2022 17:35-0500 Respiratory rate 20 /min DR EMMANUELLE FREEMAN MD [facility] 08-13-2022 17:35-0500 Systolic Blood Pressure Non-Invasive [address] EMMANUELLE FREEMAN MD [facility] Encounters Encounter Date Encounter Type Care Provider Facility Start: 12-03-2024 End: 12-03-2024 ambulatory BRITTA BASURTO MD Facility:[facility] Start: 12-03-2024 End: 12-03-2024 Patient encounter procedure BRITTA BASURTO MD [facility] Start: 08-12-2024 End: 08-12-2024 ambulatory Angel Crespo Facility:[facility] Start: 08-02-2024 End: 08-02-2024 ambulatory BRITTA BASURTO MD Facility:[facility] Start: 07-23-2024 End: 07-23-2024 Patient encounter procedure Chanel Boone PA-C Work Phone: [facility] Comment on above: Acute otitis media, bilateral (Primary Dx) Start: 07-23-2024 End: 07-23-2024 ambulatory SELF Facility:[id number] Start: 06-10-2024 End: 06-10-[address] STEPHON WELLS DO Facility:[facility] Start: 06-10-2024 End: 06-10-[address] STEPHON WELLS DO [facility] Start: 04-02-2024 End: 04-02-2024 ambulatory BRITTA BASURTO MD Facility:[facility] Start: 04-02-2024 End: 04-02-2024 Patient encounter procedure BRITTA BASURTO MD [facility] Start: 03-22-2024 End: 03-22-2024 Postop follow up visit related to original px Benton Nuñez MD Work Phone: [facility] [place] Comment on above: Encounter for postop erative care (Primary Dx); Hiatal hernia Start: 03-22-2024 End: 03-22-2024 ambulatory BENTON NUÑEZ [facility] Start: 03-05-[address] STEPHON WELLS DO Fa cility:B Start: 02-12-2024 End: 02-12-2024 ambulatory Stephon Wells Facility:[facility] Start: 02-09-2024 End: 02-09-2024 Postop follow up visit related to original px Benton Nuñez MD Work Phone: [facility] Comment on above: Encounter for postop erative care (Primary Dx); Hiatal hernia; Celiac disease Start: 02-09-2024 End: 02-09-2024 ambulatory BENTON NUÑEZ [facility] Start: 01-26-2024 End: 01-29-2024 Evaluation and management of inpatient Benton Nuñez MD Work Phone: [facility] Surgical Progressive Care Unit PCU H6 Comment on above: Diaphragmatic hernia without obstruction or gangrene (Primary Dx); Gastro-esophageal reflux disease without esophagitis Start: 01-19-2024 End: 01-19-2024 Office outpatient visit 25 minutes Benton Nuñez MD Work Phone: [facility] Comment on above: Hiatal hernia (Prima ry Dx); GERD without esophagitis Start: 01-19-2024 End: 01-19-2024 ambulatory BENTON NUÑEZ [facility] Start: 01-19-2024 End: 01-19-2024 ambulatory BENTON NUÑEZ [facility] Start: 01-19-2024 End: 01-19-2024 Encounter for other preprocedural examination BENTON NUÑEZ [facility] Start: 12-28-2023 End: 12-28-2023 Admission to same day surgery center Shelly Oliveira PA-C Work Phone: [facility] Start: 12-28-2023 End: 12-28-2023 ambulatory Shelly Oliveira PA-C Work Phone: [facility] Start: 12-12-2023 End: 12-12-2023 Subsequent hospital visit by physician Benton Nuñez MD Work Phone: [facility] Comment on above: Hiatal hernia Start: 12-12-2023 End: 12-12-2023 ambulatory BENTON NUÑEZ [facility] Start: 12-01-2023 End: 12-01-2023 Office outpatient new 45 minutes Benton Nuñez MD Work Phone: [facility] Comment on above: Hiatal hernia (Prima ry Dx); Gastroesophageal reflux disease without esophagitis; Celiac disease Start: 12-01-2023 End: 12-01-2023 ambulatory BENTON NUÑEZ [facility] Start: 11-27-2023 End: 11-27-2023 ambulatory BRITTA BASURTO MD Facility:[facility] Start: 11-27-2023 End: 11-27-2023 Patient encounter procedure BRITTA BASURTO MD [facility] Start: 11-13-2023 End: 11-13-2023 ambulatory Stephon Wells Facility:[facility] Start: 11-01-2023 ambulatory Mirlande Quiroga Facility :[facility] Start: 10-23-2023 End: 10-23-2023 ambulatory SERGE BOSWELL Facility:[facility] Start: 10-23-2023 End: 10-23-[address] SERGE BOSWELL MD [facility] Start: 10-02-2023 End: 10-02-2023 ambulatory SERGE BOSWELL Facility:[facility] Start: 10-02-2023 End: 10-02-[address] SERGE BOSWELL MD [facility] Start: 09-22-2023 End: 09-22-2023 [facility] Start: 09-22-2023 End: 09-22-[address] SERGE BOSWELL MD [facility] Start: 09-21-2023 End: 09-21-2023 ambulatory SERGE BOSWELL Facility:[facility] Start: 09-21-2023 End: 09-21-[address] SERGE BOSWELL MD [facility] Start: 09-01-2023 End: 09-05-[address] STEPHON WELLS DO Facility:[facility] Start: 09-01-2023 End: 09-05-[address] STEPHON WELLS DO [facility] Start: 08-11-2023 End: 08-11-[address] STEPHON WELLS DO Facility:[facility] Start: 08-04-2023 End: 08-04-2023 ambulatory BRITTA BASURTO MD Facility:[facility] Start: 08-04-2023 End: 08-04-2023 Patient encounter procedure BRITTA BASURTO MD [facility] Start: 05-29-2023 End: 05-29-[address] STEPHON WELLS DO Facility:[facility] Start: 05-29-2023 End: 05-29-[address] STEPHON WELLS DO [facility] Start: 02-03-2023 End: 02-03-2023 Patient encounter procedure BRITTA BASURTO MD [facility] Start: 01-11-2023 End: 01-11-2023 Patient encounter procedure BRITTA BASURTO MD [facility] Start: 09-26-2022 End: 09-26-2022 Patient encounter procedure BRITTA BASURTO MD [facility] Start: 09-24-2022 End: 09-24-2022 Patient encounter procedure Emmanuelle Carballo PA-C Work Phone: [facility] Comment on above: Bacterial conjunctiv itis (Primary Dx) Start: 08-13-2022 End: 08-13-2022 Emergency department patient visit DR EMMANUELLE FREEMAN MD [facility] Start: 08-03-2022 End: 08-03-2022 Patient encounter procedure BRITTA BASURTO MD [facility] Start: 05-23-2022 End: 05-23-[address] BENTON JARRETT MD [facility] Start: 05-04-2022 End: 05-04-[address] STEPHON WELLS DO [facility] Start: 04-22-2022 End: 04-22-2022 Patient encounter procedure JOANNE MONTANEZKRIS [employer] ARCHITECT-INSURANCE OFFICE SUPERVISOR [facility] Start: 04-07-2022 End: 04-07-2022 Patient encounter procedure JOANNE MONTANEZKRIS [employer] ARCHITECT-INSURANCE OFFICE SUPERVISOR [facility] Start: 02-02-2022 End: 02-02-2022 Patient encounter procedure BRITTA BASURTO MD [facility] Start: 11-24-2021 End: 11-24-[address] BENTON JARRETT MD [facility] Start: 10-12-2021 End: 10-12-2021 Patient encounter procedure BRITTA BASURTO MD [facility] Start: 07-19-2021 End: 07-19-2021 Patient encounter procedure BRITTA BASURTO MD [facility] Start: 01-16-2017 End: 01-17-2017 Ambulatory RENATA JIMENEZ [facility] Start: 01-07-2017 End: 01-08-2017 Ambulatory RENATA JIMENEZ Facility[facility] Procedures Date Procedure Procedure Detail Performing Clinician Start: 01-29-2024 Glucose quantitative blood xcpt reagent strip Benton Nuñez MD Work Phone: Start: 01-29-2024 Glucose quantitative blood xcpt reagent strip Benton Nuñez MD Work Phone: Start: 01-29-2024 Basic metabolic panel calcium total Benton Nuñez MD Work Phone: Start: 01-28-2024 Glucose quantitative blood xcpt reagent strip Benton Nuñez MD Work Phone: Start: 01-28-2024 Glucose quantitative blood xcpt reagent strip Benton Nuñez MD Work Phone: Start: 01-28-2024 Glucose quantitative blood xcpt reagent strip Benton Nuñez MD Work Phone: Start: 01-28-2024 Glucose quantitative blood xcpt reagent strip Benton Nuñez MD Work Phone: Start: 01-28-2024 Basic metabolic panel calcium total Benton Nuñez MD Work Phone: Start: 01-27-2024 Glucose quantitative blood xcpt reagent strip Benton Nuñez MD Work Phone: Start: 01-27-2024 Glucose quantitative blood xcpt reagent strip Benton Nuñez MD Work Phone: Start: 01-27-2024 Glucose quantitative blood xcpt reagent strip Benton Nuñez MD Work Phone: Start: 01-27-2024 Radiologic exam upr gi trc single contrast study Benton Nuñez MD Work Phone: Start: 01-27-2024 Basic metabolic panel calcium total Benton Nuñez MD Work Phone: Start: 01-26-2024 Glucose quantitative blood xcpt reagent strip Benton Nuñez MD Work Phone: Start: 01-26-2024 End: 01-26-2024 Basic metabolic panel calcium total Benton Nuñez MD Work Phone: Start: 01-26-2024 Ecg routine ecg w/least 12 lds trcg only w/o i&r [employer]ong [employer]on [employer] 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 Work Phone: Start: 01-26-2024 End: 01-26-2024 Egd transoral biopsy single/multiple Benton Nuñez MD Work Phone: Start: 01-26-2024 End: 01-26-2024 Esophagus lengthening Benton Nuñez MD Work Phone: Start: 01-26-2024 End: 01-26-2024 Laps rpr paraesphgl hrna incl fundplsty w/mesh Benton Nuñez MD Work Phone: Start: 01-26-2024 Glucose quantitative blood xcpt reagent strip Benton Nuñez MD Work Phone: Start: 12-12-2023 Radiologic exam upr gi trc double contrast study Benton Nuñez MD Work Phone: Start: 10-23-2023 Esophagogastroduodenoscopic electrohydraulic lithotripsy of bezoar in stomach DR SERGE BOSWELL MD Start: 10-02-[address] SERGE BOSWELL MD Start: 04-27-2021 Prescription event monitoring BRITTA BASURTO MD Comment on above: 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 Nocturnal sinus pauses were noted and were asymptomatic as well. Start: 04-21-2021 Electrocardiographic monitor and recorder, device (physical object) BRITTA BASURTO MD Comment on above: 30 day- 03/23/21-04/21/21 Start: 02-09-2021 Echocardiography BRITTA BASURTO MD Comment on above: EF 55-60% Start: 06-12-2018 History of total thyroidectomy BRITTA BASURTO MD Comment on above: Dr. Blanco Start: 07-10-2016 Cardiac catheterization BRITTA BASURTO MD Comment on above: Normal Start: 07-10-2015 Cataract (disorder) BRITTA BASURTO MD Comment on above: bilateral Start: 07-10-2011 Arthroplasty of knee BRITTA BASURTO MD Comment on above: RIGHT Basal cell carcinoma (morphologic abnormality) DR SERGE BOSWELL MD Colonoscopy DR SERGE GOODWIN MD Tonsillectomy BRITTA BASURTO MD Plan of Treatment Date Care Activity Detail Author Start: 2025 RSV Vaccine (1 - 1-dose 75+ series) RSV Vaccine (1 - 1-dose 75+ series) [facility] Start: 01-28-2025 Diabetes: Estimated Glomerular Filtration Rate for Kidney Health Diabetes: Estimated Glomerular Filtration Rate for Kidney Health [facility] Start: 01-18-2025 Diabetes: Estimated Glomerular Filtration Rate for Kidney Health Diabetes: Estimated Glomerular Filtration Rate for Kidney Health [facility] Start: 07-10-2024 Advance Directive Discussion Advance Directive Discussion [facility] Start: 03-22-2024 End: 03-22-2024 Patient encounter procedure 03/22/2024 10:15 AM EDT Office Visit [facility] [address] [place] [address] Benton Nuñez MD [address] [place] [address] [facility] Start: 03-10-2024 COVID-19 Vaccine ( season) COVID-19 Vaccine ( season) [facility] Start: 03-10-2024 Influenza vaccination Influenza Vaccine (#1) [facility] Start: 02-09-2024 End: 02-09-2024 Patient encounter procedure 02/09/2024 10:15 AM EDT Office Visit [facility] [address] [place] [address] Benton Nuñez MD [address] [place] [address] [facility] Start: 01-26-2024 End: 01-26-2024 Admission to same day surgery center [facility] MA[facility] OR Comment on above: LAPAROSCOPY REPAIR PARAESOPHAGEAL HERNIA INCLUDING FUNDOPLASTY WITH MESH [92630 (CPT )] LAPAROSCOPY HIATAL H ERNIA REPAIR WITH MESH AND POSTERIOR FUNDOPLICATION, [47858 (CPT )] Start: 01-26-2024 End: 01-26-2024 Anesthesia consultation 01/26/2024 8:30 AM EDT Anesthesia Event [facility] MA[facility] OR [address] [place] [phone] Ree Murdock, SOFTWARE SOLUTIONS ARCHITECT - INSURANCE OFFICE SUPERVISOR [address] [place] [address] [facility] MAIN OR Start: 01-26-2024 End: 01-26-2024 Egd transoral biopsy single/multiple ESOPHAGOGASTRODUODENOSCOPY WITH BIOPSY Diaphragmatic hernia without obstruction or gangrene Gastro-esophageal reflux disease without esophagitis 01/26/2024 8:[address] [facility] Operating Room Start: 01-26-2024 End: 01-26-2024 Esophagus lengthening ESOPHAGEAL LENGTHENING PROCE DURE GASTROPLASTY OR WEDGE GASTROPLASTY Diaphragmatic hernia without obstruction or gangrene Gastro-esophageal reflux disease without esophagitis 01/26/2024 8:[address] [facility] Operating Room Start: 01-26-2024 End: 01-26-2024 Laps rpr paraesphgl hrna incl fundplsty w/mesh LAPAROSCOPY REPAIR PARAESOPHAGEAL HERNIA INCLUDING FUNDOPLASTY WITH MESH Diaphragmatic hernia without obstruction or gangrene Gastro-esophageal reflux disease without esophagitis 01/26/2024 8:[address] [facility] Operating Room Start: 01-26-2024 Subsequent hospital visit by physician 01/26/2024 8:30 AM EDT Hospital Encounter [facility] OR [address] [place] [phone] Benton Nuñez MD [address] [place] [address] [address] [place] [address] [facility] MA[facility] OR Start: 01-19-2024 End: 01-19-2024 Patient encounter procedure 01/19/2024 1:00 PM EDT Office Visit [facility] [address] [place] [phone] Benton Nuñez MD [address] [facility] [address] [place] [address] [facility] Start: 01-19-2024 End: 01-19-2024 Admission to establishment 01/19/2024 10:30 AM EDT Pre-Admission Testing [facility] Pre-Admit Testing [address] [place] [address] [facility]mit [facility] Start: 12-12-2023 End: 12-12-2023 Patient encounter procedure 12/12/2023 1:30 PM EDT Appointment [facility] [address] [place] [address] Benton Nuñez MD [address] [place] [address] [place] [id number] [facility] Start: 12-01-2023 End: 11-30-2024 RF Upper gastrointestinal tract and Small bowel Single view W contrast PO FL upper GI double contrast w KUB Imaging Routine Hiatal hernia Expected: 12/01/2023, Expires: 11/30/2024 [facility] Work Phone: Comment on above: Expected: 12/01/2023, Expires: Start: 08-11-2023 COVID-19 Vaccine () COVID-19 Vaccine () [facility] Start: 07-10-2022 ADVANCE DIRECTIVE DISCUSSION ADVANCE DIRECTIVE DISCUSSION [facility] Start: 07-10-2022 DEPRESSION ASSESSMENT DEPRESSION ASSESSMENT [facility] Start: 2015 BONE DENSITY BONE DENSITY [facility] Start: 2015 PNEUMOCOCCAL: 65+ (1 - PCV) PNEUMOCOCCAL: 65+ (1 - PCV) [facility] Start: 2015 Screening for osteoporosis Bone Density Screening [facility] Start: 2010 RSV Immunization aged 60 or older (1 - 1-dose 60+ series) RSV Immunization aged 60 or older (1 - 1-dose 60+ series) [facility] Start: 2000 SHINGRIX VACCINE (1 of 2) SHINGRIX VACCINE (1 of 2) [facility] Start: 1995 COLOGUARD (FIT-DNA) COLOGUARD (FIT-DNA) [facility] Start: 1995 Colonoscopy COLONOSCOPY [facility] Start: 1995 COLORECTAL CANCER SCREENING COLORECTAL CANCER SCREENING [facility] Start: [address] COLONOGRAPHY [facility] Start: 1995 DIABETES SCREEN DIABETES SCREEN [facility] Start: 1995 Diabetes Screening Diabetes Screening [facility] Start: 1995 FECAL OCCULT BLOOD FECAL OCCULT BLOOD [facility] Start: 1995 Lipid panel Lipid Screening [facility] Start: 1995 LIPID SCREEN LIPID SCREEN [facility] Start: 1995 Screening for malignant neoplasm of colon [facility] Start: 1995 SIGMOIDOSCOPY SIGMOIDOSCOPY [facility] Start: 1990 Mammography MAMMOGRAM [facility] Start: 1990 Screening for malignant neoplasm of breast [facility] Start: 1969 DTaP/Tdap/Td Vaccines (1 - Tdap) DTaP/Tdap/Td Vaccines (1 - Tdap) [facility] Start: 1969 Urine microalbumin profile [facility] Start: 1968 Anxiety Screening Anxiety Screening [facility] Start: 1968 Depression Screening Depression Screening [facility] Start: 1968 Diabetes: Estimated Glomerular Filtration Rate for Kidney Health Diabetes: Estimated Glomerular Filtration Rate for Kidney Health [facility] Start: 1968 Diabetes: Urine Albumin-Creatinine Ratio for Kidney Health Diabetes: Urine Albumin-Creatinine Ratio for Kidney Health [facility] Start: 1968 HEPATITIS C SCREENING HEPATITIS C SCREENING [facility] Start: 1968 Hepatitis C screening Hepatitis C Screening [facility] Start: 2 Depression Screening Depression Screening [facility] Start: 1960 Diabetic foot examination Diabetes: Foot Exam [facility] Start: 1960 Glaucoma screening Diabetes: Retinopathy Screening [facility] Start: 1960 Preventive dental service Diabetes: Dental Exam [facility] Start: 1950 Hemoglobin A1c measurement Diabetes: Hemoglobin A1C [facility] Start: 1950 Lipid panel Lipid Panel [facility] Start: 1950 Medicare Annual Wellness (AWV) Medicare Annual Wellness (AWV) [facility] Start: 1950 Screening for malignant neoplasm of colon [facility] Start: 1950 Screening for osteoporosis Bone Density Scan [facility] Start: 1950 Thyroid stimulating hormone measurement TSH Level [facility] Tissue exam [facility] Work Phone: Comment on above: Release Upon Ordering for 1 Occurrences starting 01/26/2024, 1 completed Immunizations Immunization Date Immunization Notes Care Provider [facility] 04-01-2024 influenza virus vaccine, unspecified formulation BRITTA BASURTO MD [facility] 04-01-2024 SARS-CoV-2 (COVID-19 ) [id number] BRITTA BASURTO MD [facility] 04-10-2023 Influenza, High-dose Seasonal, Quadrivalent, Preservative Free Benton Nuñez MD Work Phone: [facility] 04-10-2023 SARS-CoV-2 (COVID-19 ) [id number] BRITTA BASURTO MD [facility] 04-10-2023 influenza virus vaccine, unspecified formulation Benton Nuñez MD Work Phone: [facility] 07-25-2022 SARS-CoV-2 (CV19)mRNA-1273 bivalent vac BRITTA BASURTO MD [facility] 04-27-2022 influenza virus vaccine, unspecified formulation BRITTA BASURTO MD [facility] 04-27-2022 Influenza, Seasonal, Quadrivalent, Adjuvanted Benton Nuñez MD Work Phone: [facility] [employer] 02-11-2022 SARS-CoV-2 (COVID-19 ) mRNA-1273 vaccine JOANNE ZIMMER [employer] ARCHITECT-INSURANCE OFFICE SUPERVISOR [facility] 08-03-2021 zoster vaccine recombinant BRITTA BASURTO MD [facility] 05-24-2021 zoster vaccine recombinant BRITTA BASURTO MD [facility] 05-03-2021 SARS-CoV-2 (COVID-19 ) mRNA-[id number] vaccine BRITTA BASURTO MD [facility] Comment on above: Result Comment: 2020: [id number] 04-05-2021 influenza virus vaccine, unspecified formulation BRITTA BASURTO MD [facility] 04-05-2021 Influenza, Seasonal, Quadrivalent, Adjuvanted Benton Nuñez MD Work Phone: [facility] 10-06-2020 SARS-CoV-2 (COVID-19 ) mRNA-1273 vaccine BRITTA BASURTO MD [facility] 09-08-2020 SARS-CoV-2 (COVID-19 ) mRNA-1273 vaccine BRITTA BASURTO MD [facility] 03-12-2020 influenza virus vaccine, unspecified formulation BRITTA BASURTO MD [facility] Comment on above: Result Comment: [facility] [place] 03-12-2020 influenza, injectabl e, quadrivalent, preservative free Benton Nuñez MD Work Phone: [facility] 03-12-2020 pneumococcal conjuga te vaccine, 13 valent BRITTA BASURTO MD [facility] Comment on above: Result Comment: Adam [place] 04-04-2019 influenza virus vaccine, unspecified formulation BRITTA BASURTO MD [facility] 04-04-2019 Seasonal trivalent influenza vaccine, adjuvanted, preservative free Benton Nuñez MD Work Phone: [facility] 07-11-2018 pneumococcal polysaccharide vaccine, 23 valent BRITTA BASURTO MD [facility] 05-07-2018 influenza virus vaccine, unspecified formulation BRITTA BASURTO MD [facility] 05-07-2018 Seasonal trivalent influenza vaccine, adjuvanted, preservative free Benton Nuñez MD Work Phone: [facility] 05-03-2018 influenza virus vaccine, unspecified formulation BRITTA BASURTO MD [facility] 05-03-2018 influenza, seasonal, injectable, preservative free Benton Nuñez MD Work Phone: [facility] 05-29-2017 influenza virus vaccine, unspecified formulation JOANNE ZIMMER APRN-INSURANCE OFFICE SUPERVISOR [facility] 05-29-2017 influenza, injectabl e, quadrivalent, contains preservative Benton Nuñez MD Work Phone: [facility] 05-16-2016 influenza virus vaccine, unspecified formulation JOANNE ZIMMER [employer] ARCHITECT-INSURANCE OFFICE SUPERVISOR [facility] 05-16-2016 influenza, injectabl e, quadrivalent, preservative free Benton Nuñez MD Work Phone: [facility] 05-11-2015 influenza virus vaccine, unspecified formulation JOANNE ZIMMER [employer] ARCHITECT-INSURANCE OFFICE SUPERVISOR [facility] 05-11-2015 influenza, injectabl e, quadrivalent, preservative free Benton Nuñez MD Work Phone: [facility] Payers Date Payer Category Payer Self-pay 2015 Unknown [id number] 2015 Medicare [id number] 2015 Medicare [id number] 2015 Private Health Insurance [facility] [id number] 2014 Unknown [id number] 1950 Unknown [id number] 2.16.8 [id number] 1950 Unknown [id number] 2.16.8 [id number] 1950 Unknown [id number] 2.16.8 [id number] 1950 Unknown [id number] 2.16.8 [id number] 1950 Unknown [id number] 2.16.8 [id number] 1950 Unknown [id number] 2.16.8 [id number] 1950 Unknown [id number] 2.16.8 [id number] 1950 Unknown [id number] 2.16.8 [id number] 1950 Unknown [id number] 2.16.8 [id number] 1950 Unknown [id number] 2.16.8 [id number] 1950 Unknown [id number] 2.16.8 [id number] 1950 Unknown [id number] 2.16.8 [id number] 1950 Unknown [id number] 2.16.8 [id number] 1950 Unknown [id number] 2.16.8 [id number] Unknown [id number] 2.16.8 [id number] Unknown [id number] 2.16.8 [id number] Unknown [id number] 2.16.8 [id number] Unknown [id number] 2.16.8 [id number] Unknown [id number] 2.16.8 [id number] Social History Date Type Detail Facility Start: 06-24-2019 End: 09-24-2022 Never smoked tobacco (finding) [facility] Sex Assigned At Female [facility] Start: 09-24-2022 End: 01-19-2024 Tobacco use and exposure Smokeless tobacco non-user [facility] Start: 1950 Sex Assigned At Not on file [facility] Start: 11-24-2023 Tobacco smoking stat [facility] Tobacco smoking consumption unknown [facility] Start: 01-26-2024 End: 07-23-2024 Gender identity Not on file [facility] Start: 01-19-2024 End: 03-22-2024 Alcoholic beverage intake Lifetime non-drinker (finding) [facility] Start: 01-26-2024 End: 07-23-2024 History of Social function [facility] Within the last year , have you been afraid of your partner or ex-partner? No [facility] How often to you hav e a drink containing alcohol? Never [facility] How many standard dr inks containing alcohol do you have on a typical day? Patient does not drink [facility] Start: 07-23-2024 Alcoholic beverage intake Ex-drinker (finding) [facility] Sexual Orientation [facility] Start: 01-02-2019 Sex Female (finding) [facility] Medical Equipment Procedure Code Equipment Code Equipment Origin al Text Equipment Identifier Dates Graft Surg Gentr ix Hiatal 6x7 - [id number] - [id number] Start: 01-26-2024 Functional Status Date Assessment Result Facility 10-23-2023 Functional Status Awake [facility] 10-23-2023 Functional Status Maintained [facility] 10-02-2023 Functional Status Awake [facility] 10-02-2023 Functional Status Maintained [facility] 08-13-2022 Functional Status Independent [facility] 08-13-2022 Functional Status Standard Safet y ID band on, Allergy Band on, Call device within reach, Bed in low position, Wheels locked, Upper/Half-Length side-rails up, Phone within reach, personal items within reach, Assistive devices within reach, Toileting device within reach, Bedside Cart Locked, Visitor at bedside, Safety level maintained [facility] Mental Status Date Assessment Result Facility 10-23-2023 Mental Status Orientation Oriented x 4 [facility] 10-02-2023 Mental Status Oriented x 4 [facility] 10-02-2023 Mental Status [facility] 08-13-2022 Mental Status Orientation Oriented x 4 [facility] 08-13-2022 Mental Status [facility] Clinical Notes 04-22-2022 to 07-23-2024 Chanel Boone PA-C - 07/23/2024 4:47 PM Manisha Nuñez MD - 03/22/2024 10:15 AM Annika Nuñez MD - 02/09/2024 10:15 AM EDTCcelestino Dalton - Ondina Ibarra RN - 01/27/2024 1:28 AM EDT Note Date & Type Note Facility 07-23-2024 Note HNO ID: [id number] Author: CHANEL BOONE PA-C Service: ? Author Type: Physician Java Web User Interface Developer Type: Progress Notes Filed: 07/23/2024 17:10 Note Text: Bobbi Acuña is a 74 year old female who presents with Sore Throat (Sore throat x 2 days, both ears painful today) Patient is a 74-year-old female presenting today for sore throat and ear pain. Patient states that she started to have sore throat and ear pain about 2 days ago. Patient states that her sore throat has gone away but now she still having ear pain and pressure. She has had decrease in hearing in both of her ears because of the pressure. Patient is concerned that she may have an infection so patient was wanting to come in today to have this evaluated. History reviewed. No pertinent past medical history. There is no problem list on file for this patient. Current Outpatient Medications Medication Sig Dispense Refill spironolactone (ALDACTONE) 25 mg tablet Take 25 mg by mouth. rosuvastatin (CRESTOR) 10 mg tablet Take 10 mg by mouth. metFORMIN (GLUCOPHAGE) 500 mg tablet magnesium oxide (MAG-OX) 400 mg (241.3 mg magnesium) tablet Take 400 mg by mouth. lisinopril (ZESTRIL) 10 mg tablet levothyroxine (SYNTHROID) 112 mcg tablet folic acid 800 mcg tablet Take 0.8 mg by mouth. calcium carbonate (CALTRATE) 600 mg calcium (1,500 mg) tab Take 600 mg by mouth. aspirin, enteric coated (ASPIRIN, ENTERIC COATED) 81 mg EC tablet Take 81 mg by mouth. amLODIPine (NORVASC) [address] (PROTONIX) 40 mg tablet Take 40 mg by mouth. No current facility-administered medications for this visit. Social History Tobacco Use Smoking status: Never Smokeless tobacco: Never Vaping Use Vaping status: Never Used Substance Use Topics Alcohol use: Not Currently Drug use: Never Alcohol Use: Not Currently Tobacco Use: Never History reviewed. No pertinent family history. Review of Systems Constitutional: Negative for chills, fever and malaise/fatigue. HENT: Positive for ear pain. Negative for congestion, ear discharge, sinus pain and sore throat (Admits to a previous sore throat but admits to this not being present anymore.). Respiratory: Negative. Cardiovascular: Negative. BP 148/76 Pulse 85 Temp 98.4 Resp 18 SpO2 96% Physical Exam Vitals and nursing note reviewed. Constitutional: General: She is not in acute distress. Appearance: Normal appearance. She is not ill-appearing. HENT: Head: Normocephalic and atraumatic. Right Ear: Ear canal normal. Tympanic membrane is erythematous and bulging. Left Ear: Ear canal normal. Tympanic membrane is erythematous and bulging. Nose: Nose normal. No congestion or rhinorrhea. Mouth/Throat: Mouth: Mucous membranes are moist. Pharynx: Oropharynx is clear. No oropharyngeal exudate or posterior oropharyngeal erythema. Eyes: Extraocular Movements: Extraocular movements intact. Conjunctiva/sclera: Conjunctivae normal. Pupils: Pupils are equal, round, and reactive to light. Cardiovascular: Rate and Rhythm: Normal rate and regular rhythm. Heart sounds: Normal heart sounds. Pulmonary: Effort: Pulmonary effort is normal. Breath sounds: Normal breath sounds. Musculoskeletal: Cervical back: Normal range of motion and neck supple. No rigidity or tenderness. Lymphadenopathy: Cervical: No cervical adenopathy. Skin: General: Skin is warm and dry. Neurological: General: No focal deficit present. Mental Status: She is alert and oriented to person, place, and time. ASSESSMENT/PLAN: 1. Acute otitis media, bilateral - ICD9: 382.9, ICD10: H66.93 - AMOXICILLIN 875 MG TABLET Patient is presenting today with bilateral otitis media. I sent in amoxicillin for the patient and she is to take as directed. Take Tylenol or Motrin [id number] if needed for symptomatic relief patient can also put warm compresses on to the ears. Follow-up at primary care doctor if not improving. Patient agrees and understands plan at this time. Patient was stable upon discharge from [facility]. Chanel Boone PA-C [facility] 07-23-2024 History of Present illness Narrative Bobbi Acuña is a 74 year old female who presents with Sore Throat (Sore throat x 2 days, both ears painful today) Patient is a 74-year-old female presenting today for sore throat and ear pain. Patient states that she started to have sore throat and ear pain about 2 days ago. Patient states that her sore throat has gone away but now she still having ear pain and pressure. She has had decrease in hearing in both of her ears because of the pressure. Patient is concerned that she may have an infection so patient was wanting to come in today to have this evaluated. History reviewed. No pertinent past medical history. There is no problem list on file for this patient. Current Outpatient Medications Medication Sig Dispense Refill spironolactone (ALDACTONE) 25 mg tablet Take 25 mg by mouth. rosuvastatin (CRESTOR) 10 mg tablet Take 10 mg by mouth. metFORMIN (GLUCOPHAGE) 500 mg tablet magnesium oxide (MAG-OX) 400 mg (241.3 mg magnesium) tablet Take 400 mg by mouth. lisinopril (ZESTRIL) 10 mg tablet levothyroxine (SYNTHROID) 112 mcg tablet folic acid 800 mcg tablet Take 0.8 mg by mouth. calcium carbonate (CALTRATE) 600 mg calcium (1,500 mg) tab Take 600 mg by mouth. aspirin, enteric coated (ASPIRIN, ENTERIC COATED) 81 mg EC tablet Take 81 mg by mouth. amLODIPine (NORVASC) [address] (PROTONIX) 40 mg tablet Take 40 mg by mouth. No current facility-administered medications for this visit. Social History Tobacco Use Smoking status: Never Smokeless tobacco: Never Vaping Use Vaping status: Never Used Substance Use Topics Alcohol use: Not Currently Drug use: Never Alcohol Use: Not Currently Tobacco Use: Never History reviewed. No pertinent family history. Review of Systems Constitutional: Negative for chills, fever and malaise/fatigue. HENT: Positive for ear pain. Negative for congestion, ear discharge, sinus pain and sore throat (Admits to a previous sore throat but admits to this not being present anymore.). Respiratory: Negative. Cardiovascular: Negative. BP 148/76 Pulse 85 Temp 98.4 Resp 18 SpO2 96% Physical Exam Vitals and nursing note reviewed. Constitutional: General: She is not in acute distress. Appearance: Normal appearance. She is not ill-appearing. HENT: Head: Normocephalic and atraumatic. Right Ear: Ear canal normal. Tympanic membrane is erythematous and bulging. Left Ear: Ear canal normal. Tympanic membrane is erythematous and bulging. Nose: Nose normal. No congestion or rhinorrhea. Mouth/Throat: Mouth: Mucous membranes are moist. Pharynx: Oropharynx is clear. No oropharyngeal exudate or posterior oropharyngeal erythema. Eyes: Extraocular Movements: Extraocular movements intact. Conjunctiva/sclera: Conjunctivae normal. Pupils: Pupils are equal, round, and reactive to light. Cardiovascular: Rate and Rhythm: Normal rate and regular rhythm. Heart sounds: Normal heart sounds. Pulmonary: Effort: Pulmonary effort is normal. Breath sounds: Normal breath sounds. Musculoskeletal: Cervical back: Normal range of motion and neck supple. No rigidity or tenderness. Lymphadenopathy: Cervical: No cervical adenopathy. Skin: General: Skin is warm and dry. Neurological: General: No focal deficit present. Mental Status: She is alert and oriented to person, place, and time. ASSESSMENT/PLAN: 1. Acute otitis media, bilateral - ICD9: 382.9, ICD10: H66.93 - AMOXICILLIN 875 MG TABLET Patient is presenting today with bilateral otitis media. I sent in amoxicillin for the patient and she is to take as directed. Take Tylenol or Motrin [id number] if needed for symptomatic relief patient can also put warm compresses on to the ears. Follow-up at primary care doctor if not improving. Patient agrees and understands plan at this time. Patient was stable upon discharge from [facility]. Chanel Boone PA-C documented in this encounter [facility] 03-22-2024 History of Present illness Narrative [facility] Patient Name: Haydee Acuña Date: 03/22/24 S: Haydee Acuña follows up for a post operative visit after undergoing a laparoscopic hiatal hernia repair with posterior fundoplicationclarisa on 01/26/24. She continues to do very well. No vomiting since surgery. She has resumed her regular diet and has not had any further episodes of dysphagia. Denies any abdominal pain and has resumed all normal activities. Was taking iron supplement for chronic anemia prior to surgery. Had f/u with cad manager and states her recent bloodwork looked good and as result was taken off one iron pill. Very pleased with outcome. Allergies Allergen Reactions Diphenhydramine Hives Gluten Meal Wheat Other Reaction(s): UNKNOWN Current Outpatient Medications Medication Sig Dispense Refill alendronate (Fosamax) 70 MG tablet Take by mouth. sundays amLODIPine (Norvasc) 10 MG tablet 10 mg. Calcium Carbonate-Vitamin D 600-5 MG-MCG capsule Take by mouth. cholecalciferol (Vitamin D-3) 50 MCG (1999) tablet Take 2,000 Units by mouth daily. Monday thru Monday Cyanocobalamin (VITAMIN B-12 PO) Take by mouth. Folic Acid 0.8 MG capsule Take by mouth. levothyroxine (Synthroid, Levoxyl) 112 MCG tablet See Instructions, TAKE 1 TABLET BY MOUTH EVERY DAY/ none on sun, # 90 tab(s), 3 Refill(s), [facility], 161.5, cm, 02/02/23 9:08:00 EDT, Height, kg, 02/02/23 9:08:00 EDT, Dosing Weight lisinopril 10 MG tablet 10 mg. Magnesium 400 MG capsule Take by mouth 1 (one) time each day. metFORMIN (Glucophage) 500 MG tablet See Instructions, TAKE 1 TABLET IN THE MORNING TAKE 1 TABLETS IN THE EVENING, # 270 tab(s), 3 Refill(s), Pharmacy: [facility], 159, cm, 08/08/23 9:07:00 EST, Height, kg, 08/08/23 9:07:00 EST, Dosing Weight pantoprazole (ProtoNix) 40 MG EC tablet 40 mg. rosuvastatin (Crestor) 10 MG tablet 10 mg. spironolactone (Aldactone) 25 MG tablet 25 mg every other day. Takes at 12 noon terazosin (Hytrin) 1 MG capsule 1 mg Nightly. No current facility-administered medications for this visit. Past Medical History: Diagnosis Date Diabetes mellitus (HCC) Disease of thyroid gland Hiatal hernia Hypertension O: BP 138/63 (BP Location: Right arm, Patient Position: Sitting, BP Cuff Size: Large adult) Pulse 71 Temp 36.3 C (97.3 F) Ht 5' 3 (1.6 m) Wt 147 lb (66.7 kg) BMI 26.04 kg/m Physical Exam: The wounds are healing well. There is no evidence of infection, seroma, erythema or hernia. Pathology: Final Diagnosis STOMACH, PARTIAL GASTRECTOMY: - PORTION OF STOMACH WITH MODERATE CHRONIC GASTRITIS WITH MILD ACTIVITY Assessment/Plan Haydee was seen today for post-op. Diagnoses and all orders for this visit: Encounter for postoperative care (Primary) Hiatal hernia 73-year-old female status post laparoscopic hiatal hernia repair with mesh, Clarisa gastroplasty and posterior fundoplication on 01/26/2024. Haydee is doing great. All her preoperative symptoms have resolved and she has resumed all her normal activities as well as eating regularly. She can follow-up prn. She is off her PPI therapy and very happy overall with her outcome. The patient was seen and examined independently and relevant data reviewed by myself. A full chart review was performed. Patient Care Team: Stephon Wells DO as PCP - General (Family Medicine) Serge Boswell MD (Gastroenterology) Benton Jarrett as Cmo (Internal Medicine) Britta Basurto (Endocrinology, Diabetes, & Metabolism) hf documented in this encounter [facility] 02-09-2024 History of Present illness Narrative [facility] Patient Name: Haydee Acuña Date: 02/09/24 S: Haydee Acuña follows up for a post operative visit after undergoing a laparoscopic hiatal hernia repair with posterior fundoplicationclarisa on 01/26/24. She is doing well without any major postoperative complications. Her pain control is well controlled and she is not asking for narcotic refills. Her bowel function has returned to normal without constipation or diarrhea. Her appetite is returning to normal. She has had some mild episodes of dysphagia that resolves with sipping on water. States she has not had any emesis since surgery and prior to surgery was vomiting 3x per week. States she feels great. Very pleased with outcome. Allergies Allergen Reactions Diphenhydramine Hives Gluten Meal Wheat Other Reaction(s): UNKNOWN Current Outpatient Medications Medication Sig Dispense Refill alendronate (Fosamax) 70 MG tablet Take by mouth. sundays amLODIPine (Norvasc) 10 MG tablet 10 mg. Calcium Carbonate-Vitamin D 600-5 MG-MCG capsule Take by mouth. cholecalciferol (Vitamin D-3) 50 MCG (1999) tablet Take 2,000 Units by mouth daily. Monday thru Monday Cyanocobalamin (VITAMIN B-12 PO) Take by mouth. Folic Acid 0.8 MG capsule Take by mouth. levothyroxine (Synthroid, Levoxyl) 112 MCG tablet See Instructions, TAKE 1 TABLET BY MOUTH EVERY DAY/ none on sun, # 90 tab(s), 3 Refill(s), Pharmacy: [facility], 161.5, cm, 02/02/23 9:08:00 EDT, Height, kg, 02/02/23 9:08:00 EDT, Dosing Weight lisinopril 10 MG tablet 10 mg. Magnesium 400 MG capsule Take by mouth 1 (one) time each day. metFORMIN (Glucophage) 500 MG tablet See Instructions, TAKE 1 TABLET IN THE MORNING TAKE 1 TABLETS IN THE EVENING, # 270 tab(s), 3 Refill(s), Pharmacy: [facility], 159, cm, 08/08/23 9:07:00 EST, Height, kg, 08/08/23 9:07:00 EST, Dosing Weight pantoprazole (ProtoNix) 40 MG EC tablet 40 mg. rosuvastatin (Crestor) 10 MG tablet 10 mg. spironolactone (Aldactone) 25 MG tablet 25 mg every other day. Takes at 12 noon terazosin (Hytrin) 1 MG capsule 1 mg Nightly. No current facility-administered medications for this visit. Past Medical History: Diagnosis Date Diabetes mellitus (HCC) Disease of thyroid gland Hiatal hernia Hypertension O: BP 139/64 (BP Location: Right arm, Patient Position: Sitting, BP Cuff Size: Adult) Pulse 84 Temp 37.1 C (98.7 F) (Temporal) Ht 5' 2 (1.575 m) Wt 143 lb 6.4 oz (65 kg) BMI 26.23 kg/m Physical Exam: The wounds are healing well. There is no evidence of infection, seroma, erythema or hernia. Pathology: Final Diagnosis STOMACH, PARTIAL GASTRECTOMY: - PORTION OF STOMACH WITH MODERATE CHRONIC GASTRITIS WITH MILD ACTIVITY Assessment/Plan Haydee was seen today for post-op. Diagnoses and all orders for this visit: Encounter for postoperative care (Primary) Hiatal hernia Celiac disease 73-year-old female with a history of a hiatal hernia, who underwent laparoscopic hiatal hernia pair with mesh, Clarisa gastroplasty and posterior fundoplication on 01/26/2024. She is doing very well and has had near complete resolution of her preoperative symptoms. She may advance diet as tolerated. She may increase their activity to a normal level yet refrain from lifting greater than 15# for one month after surgery. Follow-up 6 weeks. The patient was seen and examined independently and relevant data reviewed by myself. A full chart review was performed. Patient Care Team: Stephon Wells DO as PCP - General (Family Medicine) Serge Boswell MD (Gastroenterology) Benton Jarrett as Cmo (Internal Medicine) Britta Basurto (Endocrinology, Diabetes, & Metabolism) hf documented in this encounter [facility] 01-29-2024 Miscellaneous Notes TCC in to see patient at 1020, Resident in at same time to discuss current state and discharge plan. Patient is s/p HH 01/25/2024. Met with pt at bedside, introduced self and explained role of TCC. Pt has insurance with RX coverage, active with PCP. Patient lives with spouse. Patient denies home going needs. The patient is Moderately Stable - Low risk of patient condition declining or worsening The patient's goals for the shift include pain control The clinical goals for the shift include pain control Over the shift, the patient did not make progress toward the following goals. Barriers to progression include none qt present tolerating diet.. Recommendations to address these barriers include go slow with diet.. The patient is Moderately Stable - Low risk of patient condition declining or worsening The patient's goals for the shift include pain control The clinical goals for the shift include pain control Over the shift, the patient did not make progress toward the following goals. Barriers to progression include started on clear liquids. . Recommendations to address these barriers include awaiting to see how patient tolerates clears.. Problem: Pain - Adult Goal: Verbalizes/displays adequate comfort level or baseline comfort level Outcome: Progressing Problem: Safety - Adult Goal: Free from fall injury Outcome: Progressing Problem: Pain - Adult Goal: Verbalizes/displays adequate comfort level or baseline comfort level Outcome: Progressing Flowsheets (Taken 01/26/2024 1323) Verbalizes/displays adequate comfort level or baseline comfort level: Encourage patient to monitor pain and request assistance Assess pain using appropriate pain scale Administer analgesics based on type and severity of pain and evaluate response Family called and updated on plan of care. Report called to H6 RN and denies any questions, patient will be monitored until transport arrives. Images from the original note were not included. [facility] Surgery Patient Name: Haydee Acuña OPERATIVE NOTE DATE OF PROCEDURE: 01/26/2024 SURGEON: Benton Nuñez MD ARCHITECTURAL MANAGER: Shelly Oliveira PA-C PREOPERATIVE DIAGNOSIS: Symptomatic Hiatal Hernia Refractory GERD POSTOPERATIVE DIAGNOSIS: Symptomatic Hiatal Hernia Refractory GERD OPERATION: Laparoscopic Hiatal Hernia Repair with Mesh Laparoscopic Clarisa Gastroplasty Laparoscopic Posterior Toupet Fundoplication Upper GI Endoscopy ANESTHESIA: General anesthesia ESTIMATED BLOOD LOSS: less than 50 COMPLICATIONS: None SPECIMEN: Portion of stomach PREOPERATIVE MEDICATIONS: Ancef, Heparin HISTORY: The patient is a 73 y.o. year old female with history of above preop diagnosis. I explained the risk, benefits, expected outcome, and alternatives to the procedure. Patient understands and is in agreement to proceed with operation. PROCEDURE: The patient was brought to the operating room and placed in supine position. After initiation of general anesthesia by the Anesthesia Department, she was placed in split-leg lithotomy with his arms extended. Care was taken to pad the bony prominences. Her abdomen was shaved, prepped, and draped in a normal sterile fashion. A Veress needle was placed in the left upper quadrant. We insufflated without difficulty and exchanged this for a 12 mm trocar. A 5 mm was placed in the right upper quadrant, one inferiorly and lateral to the initial access port and one in the mid epigastrium, a 5 mm subxiphoid stab wound was created for retraction of the left lobe of the liver using the Mel liver retractor. Upon evaluation of the diaphragm, there was a hiatal hernia noted, both anteriorly and posteriorly. Because of the abnormal visual inspection of the diaphragm the hiatal hernia was repaired. The phrenoesophageal ligament was divided using hook electrocautery exposing the left yamilex of the diaphragm. We continued our dissection along the anterior crural arch from left to right. The gastrohepatic ligament was incised using Bovie electrocautery, the peritoneum overlying the junction of the transversely passing fat pad at the base of the right yamilex was incised. We bluntly mobilized the esophagus, and reduced the GE junction into the abdomen by 2-3 cm. A Shorty drain was used to provide appropriate retraction. The anterior and posterior vagus nerves were identified and 360 degree circumferential complete mobilization was performed. The hernia sac was from the mediastinum and completely reduced. The hernia sac was completely dissected off the distal esophagus as well as the right and left parietal pleura. The hiatal hernia crural separation measured approximately 12 cm. Multiple sutures of 0 Ethibond were used to reapproximate the left and right yamilex around the 50-Serbian bougie reapproximating the posterior defect created by the right and left posterior crural columns. Because of the chronic hiatal hernia there was inadequate intra-abdominal esophageal length and as such an esophageal lengthening was performed. The fundus was marked and then divided using a 45 mm blue laparoscopic linear staple load, two sequential firings perpendicular to the 50 Fr. [address] left in place. We then proceeded parallel to the Bougie with additional 45 mm blue staple loads using GORE Seam-Guard reinforcement to complete the Clarisa gastroplasty. Once this was completed the portion of stomach was removed and sent to pathology. At this point, because of the large defect, a piece of biologic mesh was selected. A piece of ACell Gentrix Hiatal was utilized, rehydrated according to sustainable agriculture faculty's recommendations and introduced into the abdomen. It was tacked to the diaphragm, using the the bougie as a guide using a 4.8mm B shaped tacker. The tunica propria was secured to the diaphragm and the basement membrane to the wrap. We then proceeded with a posterior toupet fundoplication. The fundus was marked using a 3-0 Vicryl suture and brought in a retroesophageal plane. We proceeded with a 270 wrap posteriorly using interrupted 2-0 silk sutures securing the wrap along the right yamilex, posteriorly as well as along the left yamilex. This was performed with the bougie in place, this was then removed for endoscopy. The bougie was removed. An upper GI endoscopy was performed. The flexible gastroscope was introduced through the patient's mouth, through the esophagus, through the stomach. The air was insufflated into the stomach and the scope retroflexed. The posterior fundoplication was intact, there was no evidence of a hiatal hernia and the wrap was otherwise normal. Normal postoperative configurations. The air was evacuated and the scope was withdrawn from the patient. She tolerated the procedure well, was extubated, sent to recovery in stable condition. The skin was closed using 4-0 Monocryl. There were no qualified residents available to facilitate the procedure, as a result Shelly Oliveira PA-C was asked to serve as the first officer and flight instructor for this procedure. documented in this encounter [facility] 01-29-2024 Note Formatting of this n ote might be different from the original. TCC in to see patient at [facility], Resident in at same time to discuss current state and discharge plan. Patient is s/p 01/25/2024. Met with pt at bedside, introduced self and explained role of TCC. Pt has insurance with RX coverage, active with PCP. Patient lives with spouse. Patient denies home going needs. [facility] 01-29-2024 Note Formatting of this n ote might be different from the original. TCC in to see patient at [facility], Resident in at same time to discuss current state and discharge plan. Patient is s/p 01/25/2024. Met with pt at bedside, introduced self and explained role of TCC. Pt has insurance with RX coverage, active with PCP. Patient lives with spouse. Patient denies home going needs. [facility] 01-29-2024 Nurse Note Went over discharge instructions, med rec, and prescriptions with pt. Pt verbalized understading. Staff to take pt down to discharge [facility] 01-29-2024 Nurse Note Went over discharge instructions, med rec, and prescriptions with pt. Pt verbalized understading. Staff to take pt down to discharge documented in this encounter [facility] 01-29-2024 History of Present illness Narrative Images from the original note were not included. [facility] Patient Name: Haydee Acuña Date: 01/29/24 MIS-General Surgery/Bariatric Progress Note Subjective: The patient is doing well, postoperative day #3 from HH repair . NAEO, doing well on CLD Scheduled Meds:enoxaparin, 40 mg, SubCUTAneous, q24h insulin lispro, 0-6 Units, SubCUTAneous, 4x daily pantoprazole, 40 mg, IntraVENous, Daily sodium chloride 0.9%, 10 mL, IntraVENous, 2 times per day Continuous Infusions:sodium chloride 0.45 % with KCl 20 mEq, 100 mL/hr, Last Rate: 100 mL/hr (01/29/24 0540) PRN Meds:PRN medications: dextrose, dextrose, glucagon (rDNA), glucose, hydrALAZINE, HYDROmorphone OR HYDROmorphone, labetalol, naloxone, ondansetron ODT OR ondansetron, promethazine, sodium chloride, sodium chloride 0.9% Allergies Allergen Reactions Diphenhydramine Hives Gluten Meal Wheat Other Reaction(s): UNKNOWN Objective: Patient Vitals for the past 24 hrs: BP Temp Temp src Pulse Resp SpO2 01/28/24 2142 146/70 36.3 C (97.3 F) Temporal 68 16 95 % 01/28/24 1546 158/88 36.6 C (97.9 F) Temporal 78 16 96 % 01/28/24 1206 145/74 37 C (98.6 F) Temporal 76 18 93 % 01/28/24 0758 (!) 161/93 36.5 C (97.7 F) Temporal 78 18 98 % Average, Min, and Max for last 24 hours Vitals: TEMPERATURE: Temp Av.6 C (97.9 F) Min: 36.3 C (97.3 F) Max: 37 C (98.6 F) RESPIRATIONS RANGE: Resp Av Min: 16 Max: 18 PULSE RANGE: Pulse Av Min: 68 Max: 78 BLOOD PRESSURE RANGE: Systolic (24hrs), Av , Min:145 , Max:161 ; Diastolic (24hrs), Av, Min:70, Max:93 PULSE OXIMETRY RANGE: SpO2 Av.5 % Min: 93 % Max: 98 % I/O last 3 completed shifts: In: 3928.3 [P.O.:1360; I.V.:2568.3] Out: - CBC: Recent Labs 01/26/24 1126 01/27/24 0022 01/28/24 0004 WBC -- 10.8* 8.9 HGB 10.8* 12.0 11.5* HCT 32.7* 36.2 34.3* PLT -- 249 238 BMP: Recent Labs 01/26/24 1126 01/27/24 0022 01/28/24 0004 NA 138 136 136 K 4.1 4.3 4.4 CL 106 102 102 CO2 24 BUN 18* 15 17 CREATININE 0.78 0.68 0.85 GLUCOSE 250* 223* 114* Abdomen: The abdomen was soft and appropriately tender postoperative. Nondistended. Incisions c/d/I. Assessment/Plan: Postoperative day #3, HH repair with mesh, Clarisa gastroplasty, toupet fundoplication GI/DVT prophylaxis, continue SQ Lovenox UGI with delay on esophageal emptying, debris within distal esophagus Continue CLD with advance at home Increase activity Pulmonary toilet Continue admit to surg 4, H6. Eli Cui MD PGY5, General Surgery Pager #[phone] .Nutrition rescreen completed. Patient is NPO/Clear liquid >3 days. Refer to Dietitian. KELLEE Ramirez Images from the original note were not included. [facility] Patient Name: Haydee Acuña Date: 01/28/24 MIS-General Surgery/Bariatric Progress Note Subjective: The patient is doing well, postoperative day #2 from HH repair . NAEO, nausea resolved after upper GI yesterday. Denies further nausea/vomiting. Scheduled Meds:enoxaparin, 40 mg, SubCUTAneous, q24h insulin lispro, 0-6 Units, SubCUTAneous, 4x daily pantoprazole, 40 mg, IntraVENous, Daily sodium chloride 0.9%, 10 mL, IntraVENous, 2 times per day Continuous Infusions:sodium chloride 0.45 % with KCl 20 mEq, 100 mL/hr, Last Rate: 100 mL/hr (01/28/24 1022) PRN Meds:PRN medications: dextrose, dextrose, glucagon (rDNA), glucose, hydrALAZINE, HYDROmorphone OR HYDROmorphone, labetalol, naloxone, ondansetron ODT OR ondansetron, promethazine, sodium chloride, sodium chloride 0.9% Allergies Allergen Reactions Diphenhydramine Hives Gluten Meal Wheat Other Reaction(s): UNKNOWN Objective: Patient Vitals for the past 24 hrs: BP Temp Temp src Pulse Resp SpO2 01/28/24 0758 (!) 161/93 36.5 C (97.7 F) Temporal 78 18 98 % 01/28/24 0454 148/80 36.4 C (97.6 F) Temporal 69 16 95 % 01/27/24 2355 158/76 36.2 C (97.2 F) Temporal 74 18 94 % 01/27/242021 118/75 -- -- -- -- -- 01/27/242006 (!) 161/74 36.8 C (98.3 F) Temporal 78 18 96 % 01/27/24 1430 142/74 36.7 C (98.1 F) Temporal 78 16 99 % Average, Min, and Max for last 24 hours Vitals: TEMPERATURE: Temp Av.6 C (97.8 F) Min: 36.2 C (97.2 F) Max: 36.8 C (98.3 F) RESPIRATIONS RANGE: Resp Av.2 Min: 16 Max: 18 PULSE RANGE: Pulse Av.4 Min: 69 Max: 78 BLOOD PRESSURE RANGE: Systolic (24hrs), Av , Min:118 , Max:161 ; Diastolic (24hrs), Av, Min:74, Max:93 PULSE OXIMETRY RANGE: SpO2 Av.4 % Min: 94 % Max: 99 % I/O last 3 completed shifts: In: 2568.3 [I.V.:2568.3] Out: 400 [Urine:400] CBC: Recent Labs 01/26/24 1126 01/27/24 0022 01/28/24 0004 WBC -- 10.8* 8.9 HGB 10.8* 12.0 11.5* HCT 32.7* 36.2 34.3* PLT -- 249 238 BMP: Recent Labs 01/26/24 1126 01/27/24 0022 01/28/24 0004 NA 138 136 136 K 4.1 4.3 4.4 CL 106 102 102 CO2 26 24 24 BUN 18* 15 17 CREATININE 0.78 0.68 0.85 GLUCOSE 250* 223* 114* Abdomen: The abdomen was soft and appropriately tender postoperative. Nondistended. Incisions c/d/I. Assessment/Plan: Postoperative day #2, HH repair with mesh, Clarisa gastroplasty, toupet fundoplication GI/DVT prophylaxis, continue SQ Lovenox UGI with delay on esophageal emptying, debris within distal esophagus Adv to CLD today Increase activity Pulmonary toilet Continue admit to surg 4, H6. Eren Velazquez MD PGY-3, General Surgery Pager# [phone] 01/28/2024 10:43 AM Associated attestation - Rafael York MD - 01/28/2024 10:54 AM EDT Feels well, looks well. Labs and vitals noted. Hb and wbc stable. Plan for clears and if tolerates will dc home today. Diet progression as per protocol at home, discussed with pt and family in room. F/u juan zamudio op. I saw and evaluated the patient on the date of service as documented on resident/fellow note. I agree with the findings and plan of care as documented in the resident/fellow's note. The total time spent during this patient encounter includes the face to face interaction with the patient and/or family, chart review, coordination with other providers, and documentation. Additionally, we discussed the risks and the overall treatment plan including any benefits or drawbacks of surgery as well as the preoperative and postoperative care plan for this patient. Images from the original note were not included. [facility] Patient Name: Haydee Acuña Date: 01/27/24 MIS-General Surgery/Bariatric Progress Note Subjective: The patient is doing well, postoperative day #1 from HH repair . Reports nausea and vomiting overnight, no adverse events. Pain when drinking contrast for upper GI swallow. . Scheduled Meds:enoxaparin, 40 mg, SubCUTAneous, q24h insulin lispro, 0-6 Units, SubCUTAneous, 4x daily pantoprazole, 40 mg, IntraVENous, Daily sodium chloride 0.9%, 10 mL, IntraVENous, 2 times per day Continuous Infusions:sodium chloride 0.45 % with KCl 20 mEq, 100 mL/hr, Last Rate: 100 mL/hr (01/27/24 0515) PRN Meds:PRN medications: dextrose, dextrose, glucagon (rDNA), glucose, HYDROmorphone OR HYDROmorphone, naloxone, ondansetron ODT OR ondansetron, promethazine, sodium chloride, sodium chloride 0.9% Allergies Allergen Reactions Diphenhydramine Hives Gluten Meal Wheat Other Reaction(s): UNKNOWN Objective: Patient Vitals for the past 24 hrs: BP Temp Temp src Pulse Resp SpO2 01/27/24 1010 145/76 36.8 C (98.2 F) Temporal 81 15 99 % 01/27/24 0557 128/71 36.5 C (97.7 F) Temporal 77 -- 100 % 01/26/24 2350 (!) 162/81 36.9 C (98.4 F) Temporal 87 18 98 % 01/26/24 2019 134/71 36.4 C (97.5 F) Temporal 89 20 96 % 01/26/24 1650 129/62 36.2 C (97.1 F) Temporal 84 16 99 % 01/26/24 1523 112/68 (!) 35.5 C (95.9 F) Temporal 83 18 98 % 01/26/24 1315 131/72 36.4 C (97.6 F) Temporal 86 16 94 % Average, Min, and Max for last 24 hours Vitals: TEMPERATURE: Temp Av.4 C (97.5 F) Min: 35.5 C (95.9 F) Max: 36.9 C (98.4 F) RESPIRATIONS RANGE: Resp Av.2 Min: 15 Max: 20 PULSE RANGE: Pulse Av.9 Min: 77 Max: 89 BLOOD PRESSURE RANGE: Systolic (24hrs), Av , Min:112 , Max:162 ; Diastolic (24hrs), Av, Min:62, Max:81 PULSE OXIMETRY RANGE: SpO2 Av.7 % Min: 94 % Max: 100 % I/O last 3 completed shifts: In: 2215.7 [I.V.:2215.7] Out: 450 [Urine:400; Blood:50] CBC: Recent Labs 01/26/24 1126 01/27/24 0022 WBC -- 10.8* HGB 10.8* 12.0 HCT 32.7* 36.2 PLT -- 249 BMP: Recent Labs 01/26/24 1126 01/27/24 0022 NA 138 136 K 4.1 4.3 CL 106 102 CO2 26 24 BUN 18* 15 CREATININE 0.78 0.68 GLUCOSE 250* 223* Abdomen: The abdomen was soft and appropriately tender postoperative. Nondistended. Incisions c/d/I. Assessment/Plan: Postoperative day #1, HH repair with mesh, Clarisa gastroplasty, toupet fundoplication GI/DVT prophylaxis, continue SQ Lovenox UGI this AM, follow-up read, preliminarily reviewed, significant delay on esophageal emptying Continue n.p.o., MIVF, okay for limited ice chips today Increase activity Pulmonary toilet Continue admit to surg 4, H6. No plans for discharge until able to advance diet. Eren Velazquez MD PGY-3, General Surgery Pager# [phone] 01/27/2024 12:56 PM Associated attestation - Rafael York MD - 01/28/2024 10:53 AM EDT Ugi shows some dilation of the esophagus with transit through the wrap into the stomach. There is some delay. She feels well, looks well. Will keep her npo for now. Suspect swelling secondary to recent surgery. I saw and evaluated the patient on the date of service as documented on resident/fellow note. I agree with the findings and plan of care as documented in the resident/fellow's note. The total time spent during this patient encounter includes the face to face interaction with the patient and/or family, chart review, coordination with other providers, and documentation. Additionally, we discussed the risks and the overall treatment plan including any benefits or drawbacks of surgery as well as the preoperative and postoperative care plan for this patient. Preliminary negative for leak. Keep pt in upright position for 1 hour. documented in this encounter [facility] 01-28-2024 Plan of care note The patient is Moderately Stable - Low risk of patient condition declining or worsening The patient's goals for the shift include pain control The clinical goals for the shift include pain control Over the shift, the patient did not make progress toward the following goals. Barriers to progression include none qt present tolerating diet.. Recommendations to address these barriers include go slow with diet.. [facility] 01-28-2024 Plan of care note The patient is Moderately Stable - Low risk of patient condition declining or worsening The patient's goals for the shift include pain control The clinical goals for the shift include pain control Over the shift, the patient did not make progress toward the following goals. Barriers to progression include started on clear liquids. . Recommendations to address these barriers include awaiting to see how patient tolerates clears.. [facility] 01-27-2024 Note Problem: Pain - Adul t Goal: Verbalizes/displays adequate comfort level or baseline comfort level Outcome: Progressing Problem: Safety - Adult Goal: Free from fall injury Outcome: Progressing [facility] 01-27-2024 Plan of care note Problem: Pain - Adult Goal: Verbalizes/displays adequate comfort level or baseline comfort level Outcome: Progressing Problem: Safety - Adult Goal: Free from fall injury Outcome: Progressing [facility] 01-26-2024 Plan of care note Problem: Pain - Adult Goal: Verbalizes/displays adequate comfort level or baseline comfort level Outcome: Progressing Flowsheets (Taken 01/26/2024 1323) Verbalizes/displays adequate comfort level or baseline comfort level: Encourage patient to monitor pain and request assistance Assess pain using appropriate pain scale Administer analgesics based on type and severity of pain and evaluate response T [facility] 01-26-2024 Note Formatting of this n ote might be different from the original. Family called and updated on plan of care. [facility] 01-26-2024 Note Formatting of this n ote might be different from the original. Family called and updated on plan of care. T [facility] 01-26-2024 Note Family called and up dated on plan of care. [facility] 01-26-2024 Note Formatting of this n ote might be different from the original. Report called to H6 RN and denies any questions, patient will be monitored until transport arrives. T [facility] 01-26-2024 Note Formatting of this n ote might be different from the original. Report called to H6 RN and denies any questions, patient will be monitored until transport arrives. T [facility] 01-26-2024 Note Discharge Summary Haydee Acuña : 1950 ADMIT DATE: 01/26/2024 DISCHARGE DATE: 01/29/2024 PRIMARY CARE PHYSICIAN: Stephon Wells VISIT STATUS: Admission CODE STATUS: Full Code DISCHARGE DIAGNOSES: Principal Problem: Hiatal hernia Active Problems: Gastroesophageal reflux disease HOSPITAL COURSE: Taken to OR 01/[address] Nuñez for Laparoscopic HH repair with clarisa gastroplasty, mesh placement, toupe wrap. UGI POD1 showed no leak or obstruction, but did have mild delay. Diet was slowly advanced. Discharged tolerating liquid diet on 01/28 DISCHARGE MEDICATIONS: Medication List START taking these medications ondansetron 4 MG tablet Commonly known as: Zofran Take 1 tablet (4 mg) by mouth every 8 hours as needed for nausea or vomiting for up to 7 days. oxyCODONE 5 MG immediate release tablet Commonly known as: Roxicodone Take 1 tablet (5 mg) by mouth every 6 hours as needed for severe pain (7-10) for up to 5 days. CONTINUE taking these medications alendronate 70 MG tablet Commonly known as: Fosamax amLODIPine 10 MG tablet Commonly known as: Norvasc Calcium Carbonate-Vitamin D 600-5 MG-MCG capsule cholecalciferol 50 MCG (2000 UT) tablet Commonly known as: Vitamin D-3 Folic Acid 0.8 MG capsule levothyroxine 112 MCG tablet Commonly known as: Synthroid, Levoxyl lisinopril 10 MG tablet Magnesium 400 MG capsule metFORMIN 500 MG tablet Commonly known as: Glucophage pantoprazole 40 MG EC tablet Commonly known as: ProtoNix rosuvastatin 10 MG tablet Commonly known as: Crestor spironolactone 25 MG tablet Commonly known as: Aldactone terazosin 1 MG capsule Commonly known as: Hytrin VITAMIN B-12 PO Where to Get Your Medications These medications were sent to [facility] [address] [place], [place] [id number] Hours: Monday to Monday 10 am to 6 pm ondansetron 4 MG tablet oxyCODONE 5 MG immediate release tablet DIET: No diet orders on file ACTIVITY: No restriction. COMPLEXITY OF FOLLOW UP: [x] Moderate Complexity: follow up within 7-14 calendar days (64846) [] Severe Complexity: follow up within 7 calendar days (82104) FOLLOW UP TESTING, PENDING RESULTS OR REFERRALS AT TRANSITIONAL CARE VISIT: [] Yes [] No PENDING STUDIES: Path DISPOSITION: Home FACILITY/HOME CARE AGENCY NAME: Follow up with Benton Nuñez MD [address] [place], [place] [id number] Schedule an appointment as soon as possible for a visit in 1 week(s) on INSTRUCTIONS TO MA/SW: Please call patient on day after discharge (must document patient contacted within 2 business days of discharge). FOLLOW UP QUESTIONS FOR MA/SW: 1. Did you get medications filled and taking them as instructed from discharge? 2. Are you following your discharge instructions from your hospital stay? 3. Please confirm patient is scheduled for a follow up appointment within the above time frame. DISCHARGE TIME: < 30 minutes SIGNED: Eli Cui MD 01/26/2024, 10:[address] [facility] 01-26-2024 Hospital course Narrative Discharge Summary Haydee Acuña : 1950 ADMIT DATE: 01/26/2024 DISCHARGE DATE: 01/29/2024 PRIMARY CARE PHYSICIAN: Stephon Wells VISIT STATUS: Admission CODE STATUS: Full Code DISCHARGE DIAGNOSES: Principal Problem: Hiatal hernia Active Problems: Gastroesophageal reflux disease HOSPITAL COURSE: Taken to OR 01/[address] Nuñez for Laparoscopic HH repair with clarisa gastroplasty, mesh placement, toupe wrap. UGI POD1 showed no leak or obstruction, but did have mild delay. Diet was slowly advanced. Discharged tolerating liquid diet on 01/28 DISCHARGE MEDICATIONS: Medication List START taking these medications ondansetron 4 MG tablet Commonly known as: Zofran Take 1 tablet (4 mg) by mouth every 8 hours as needed for nausea or vomiting for up to 7 days. oxyCODONE 5 MG immediate release tablet Commonly known as: Roxicodone Take 1 tablet (5 mg) by mouth every 6 hours as needed for severe pain (7-10) for up to 5 days. CONTINUE taking these medications alendronate 70 MG tablet Commonly known as: Fosamax amLODIPine 10 MG tablet Commonly known as: Norvasc Calcium Carbonate-Vitamin D 600-5 MG-MCG capsule cholecalciferol 50 MCG (2000 UT) tablet Commonly known as: Vitamin D-3 Folic Acid 0.8 MG capsule levothyroxine 112 MCG tablet Commonly known as: Synthroid, Levoxyl lisinopril 10 MG tablet Magnesium 400 MG capsule metFORMIN 500 MG tablet Commonly known as: Glucophage pantoprazole 40 MG EC tablet Commonly known as: ProtoNix rosuvastatin 10 MG tablet Commonly known as: Crestor spironolactone 25 MG tablet Commonly known as: Aldactone terazosin 1 MG capsule Commonly known as: Hytrin VITAMIN B-12 PO Where to Get Your Medications These medications were sent to [facility] [address] [place] [address] Hours: Monday to Monday 10 am to 6 pm ondansetron 4 MG tablet oxyCODONE 5 MG immediate release tablet DIET: No diet orders on file ACTIVITY: No restriction. COMPLEXITY OF FOLLOW UP: [x] Moderate Complexity: follow up within 7-14 calendar days (11744) [] Severe Complexity: follow up within 7 calendar days (38074) FOLLOW UP TESTING, PENDING RESULTS OR REFERRALS AT TRANSITIONAL CARE VISIT: [] Yes [] No PENDING STUDIES: Path DISPOSITION: Home FACILITY/HOME CARE AGENCY NAME: Follow up with Benton Nuñez MD [address] [place] [address] [address] Count includes the [facility] [address] Schedule an appointment as soon as possible for a visit in 1 week(s) on INSTRUCTIONS TO MA/SW: Please call patient on day after discharge (must document patient contacted within 2 business days of discharge). FOLLOW UP QUESTIONS FOR MA/SW: 1. Did you get medications filled and taking them as instructed from discharge? 2. Are you following your discharge instructions from your hospital stay? 3. Please confirm patient is scheduled for a follow up appointment within the above time frame. DISCHARGE TIME: < 30 minutes SIGNED: Eli Cui MD 01/26/2024, 10:52 AM documented in this encounter [facility] 01-26-2024 Note Patient: Haydee Acuña Procedure Summary Date: 01/26/24 Room / Location: [address] Operating Room Anesthesia Start: 823 Anesthesia Stop: 1049 Procedures: LAPAROSCOPIC HIATAL HERNIA REPAIR WITH MESH, CLARISA GASTROPLASTY, POSTERIOR FUNDOPLICATION, EGD (Abdomen) POSSIBLE CLARISA GASTROPLASTY ESOPHAGOGASTRODUODENOSCOPY WITH BIOPSY, POSSIBLE OPEN Diagnosis: Diaphragmatic hernia without obstruction or gangrene Gastro-esophageal reflux disease without esophagitis Surgeons: Benton Nuñez MD Responsible Provider: Sherman Goncalves MD Anesthesia Type: general, regional ASA Status: 2 Anesthesia Type: general, regional Vitals Value Taken Time BP 91/53 01/26/24 1047 Temp 36.5 ?C (97.7 ?F) 01/26/24 1045 Pulse 47 01/26/24 1050 Resp 23 01/26/24 1050 SpO2 99 % 01/26/24 1048 Vitals shown include unfiled device data. Anesthesia Post Evaluation Patient location during evaluation: PACU Patient participation: complete - patient participated Level of consciousness: awake and alert Pain management: satisfactory to patient Airway patency: patent Dental Injury: no Cardiovascular status: acceptable, blood pressure returned to baseline and hemodynamically stable Respiratory status: acceptable and spontaneous ventilation Hydration status: euvolemic Nausea/Vomiting: controlled No notable events documented. Patient can be discharged once all PACU criteria has been met. [facility] 01-26-2024 Note Patient: Haydee Acuña Procedure Summary Date: 01/26/24 Room / Location: [facility] Operating Room Anesthesia Start: 823 Anesthesia Stop: 1049 Procedures: LAPAROSCOPIC HIATAL HERNIA REPAIR WITH MESH, CLARISA GASTROPLASTY, POSTERIOR FUNDOPLICATION, EGD (Abdomen) POSSIBLE CLARISA GASTROPLASTY ESOPHAGOGASTRODUODENOSCOPY WITH BIOPSY, POSSIBLE OPEN Diagnosis: Diaphragmatic hernia without obstruction or gangrene Gastro-esophageal reflux disease without esophagitis Surgeons: Benton Nuñez MD Responsible Provider: Sherman Goncalves MD Anesthesia Type: general, regional ASA Status: 2 Anesthesia Type: general, regional Vitals Value Taken Time BP 91/53 01/26/24 1047 Temp 36.5 ?C (97.7 ?F) 01/26/24 1045 Pulse 47 01/26/24 1050 Resp 23 01/26/24 1050 SpO2 99 % 01/26/24 1048 Vitals shown include unfiled device data. Anesthesia Post Evaluation Patient location during evaluation: PACU Patient participation: complete - patient participated Level of consciousness: awake and alert Pain management: satisfactory to patient Multimodal analgesia pain management approach Airway patency: patent Two or more strategies used to mitigate risk of obstructive sleep apnea Cardiovascular status: acceptable and hemodynamically stable Respiratory status: acceptable Hydration status: acceptable No notable events documented. MIPS #430 PONV Patient received an inhalational anesthetic (4554F) Patient exhibits three or more risk factors for PONV (4556F) Patient received at leaset 2 prophylactic Rx PONV anti-emtic agents of different classes preop and/or intraop (G9775) MIPS # 424 Perioperative Temperature Management Anesthesia time was 60 minutes or longer (4255F) Anesthesai administered was General (inhalational or TIVA) or Neuraxial block (X0424) At least one body temperature greater than 95.8F/35.5C achieved within the 30 mins immediately prior to or the 15 minutes immediately following anesthesia end time (G9771) MIPS #477 Multimodal Pain Management Not emergent case Patient was administered multimodal pain management (two or more drugs and/or interventions excluding systemic opioids) in the periopeartive period occurring at some time between 6 hours prior to anesthesia start time until discharged from PACU (G2148) MIPS #404 Anesthesiology Smoking Abstinence The patient is not a current smoker (e.g. cigarette, cigar, pipe, e-cigarette/vaping/marijuana) If no stop here (XX404) I completed my handoff to the receiving clinician during which we: 1. Identified the patient 2. Identified the responsible provider 3. Reviewed the pertinent medical history 4. Discussed the surgical course 5. Reviewed intra-op anesthesia management and issues during anesthesia 6. Set expectations for post-procedure period 7. Allowed opportunity for questions and acknowledgement of understanding. [facility] 01-26-2024 Note Peripheral Block Time Out: 01/26/2024 8:35 AM Patient location during procedure: Procedural Start time: 01/26/2024 8:36 AM End time: 01/26/2024 8:40 AM Reason for block: at surgeon's request and post-op pain management Staffing Performed: SWEEPING COMPOUND BLENDER Resident/SWEEPING COMPOUND BLENDER: Fernando Rosales Jr., SOFTWARE SOLUTIONS 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 Preanesthetic Checklist Completed: patient identified, IV checked, site marked, risks and benefits discussed, surgical consent, monitors and equipment checked, pre-op evaluation and timeout performed Region: [place] Primary: TAP (Bupivacaine 0.375%/ Epi 1:200,000/ Dex 0.1mg/mL 40ml divided evenly bilateral) Secondary: Upper rectus (Bupivacaine 0.375%/ Epi 1:200,000/ Dex 0.1mg/mL 20ml divided evenly bilateral) Peripheral Block Patient position: supine Prep: ChloraPrep Patient monitoring: heart rate, criminal justice professor, continuous pulse ox and continuous capnometry O2: ETT/LMA Laterality: bilateral Injection technique: single-shot Guidance: ultrasound guided -image retained in chart, tip of the needle identified by ultraound during injection. Needle Needle: 21G X 110 mm Additional Notes 01/26/2024 8:36 AM Assessment Injection assessment: negative aspiration for heme, no paresthesia on injection and incremental injection Heart rate change: no Slow fractionated injection: yes Required Documentation: Relevant anatomy identified (Nerves, Vessels, Muscles), Negative for blood on aspiration, Local anesthetic injected incrementally with intermittent aspiration every 5 mL, Normal resistance with injection, No EKG changes noted, No symptoms of toxicity, Local anesthetic spread visualized around nerves or plane. and Local anesthetic injected without difficultyMedications dbsHMVYOizjmj-dkywmlzjqfi-udwcygh rine (TAP) syringe - Injection 60 mL - 01/26/2024 8:36:[address] [facility] 01-26-2024 Note Airway Date/Time: 01/26/2024 8:30 AM Urgency: scheduled Airway not difficult General Information and Staff Patient location during procedure: Procedural Resident/SWEEPING COMPOUND BLENDER: YEN Winston SWEEPING COMPOUND BLENDER Performed: SWEEPING COMPOUND BLENDER and SRNA Indications and Patient Condition Indications for airway management: anesthesia Sedation level: Asleep and RSI Preoxygenated: yes Patient position: sniffing Mask difficulty assessment: 2 - vent by mask + OA or adjuvant +/- NMBA Final Airway Details Final airway type: endotracheal airway Successful airway: ETT Cuffed: yes Successful intubation technique: direct laryngoscopy Facilitating devices/methods: cricoid pressure and intubating stylet Endotracheal tube insertion site: oral Blade: Reyes Blade size: #2 ETT size (mm): 7.0 Cormack-Lehane Classification: grade I - full view of glottis Placement verified by: chest auscultation, capnometry and palpation of cuff Measured from: lips ETT to lips (cm): 21 Number of attempts at approach: 1 Additional Comments anterior [facility] 01-26-2024 Note Formatting of this n ote might be different from the original. Images from the original note were not included. [facility] - Surgery [facility] Physicians Surgery Patient Name: Haydee Acuña OPERATIVE NOTE DATE OF PROCEDURE: 01/26/2024 SURGEON: Benton Nuñez MD ARCHITECTURAL MANAGER: Shelly Oliveira PA-C PREOPERATIVE DIAGNOSIS: Symptomatic Hiatal Hernia Refractory GERD POSTOPERATIVE DIAGNOSIS: Symptomatic Hiatal Hernia Refractory GERD OPERATION: Laparoscopic Hiatal Hernia Repair with Mesh Laparoscopic Clarisa Gastroplasty Laparoscopic Posterior Toupet Fundoplication Upper GI Endoscopy ANESTHESIA: General anesthesia ESTIMATED BLOOD LOSS: less than 50 COMPLICATIONS: None SPECIMEN: Portion of stomach PREOPERATIVE MEDICATIONS: Ancef, Heparin HISTORY: The patient is a 73 y.o. year old female with history of above preop diagnosis. I explained the risk, benefits, expected outcome, and alternatives to the procedure. Patient understands and is in agreement to proceed with operation. PROCEDURE: The patient was brought to the operating room and placed in supine position. After initiation of general anesthesia by the Anesthesia Department, she was placed in split-leg lithotomy with his arms extended. Care was taken to pad the bony prominences. Her abdomen was shaved, prepped, and draped in a normal sterile fashion. A Veress needle was placed in the left upper quadrant. We insufflated without difficulty and exchanged this for a 12 mm trocar. A 5 mm was placed in the right upper quadrant, one inferiorly and lateral to the initial access port and one in the mid epigastrium, a 5 mm subxiphoid stab wound was created for retraction of the left lobe of the liver using the Mel liver retractor. Upon evaluation of the diaphragm, there was a hiatal hernia noted, both anteriorly and posteriorly. Because of the abnormal visual inspection of the diaphragm the hiatal hernia was repaired. The phrenoesophageal ligament was divided using hook electrocautery exposing the left yamilex of the diaphragm. We continued our dissection along the anterior crural arch from left to right. The gastrohepatic ligament was incised using Bovie electrocautery, the peritoneum overlying the junction of the transversely passing fat pad at the base of the right yamilex was incised. We bluntly mobilized the esophagus, and reduced the GE junction into the abdomen by 2-3 cm. A Shorty drain was used to provide appropriate retraction. The anterior and posterior vagus nerves were identified and 360 degree circumferential complete mobilization was performed. The hernia sac was from the mediastinum and completely reduced. The hernia sac was completely dissected off the distal esophagus as well as the right and left parietal pleura. The hiatal hernia crural separation measured approximately 12 cm. Multiple sutures of 0 Ethibond were used to reapproximate the left and right yamilex around the 50-Serbian bougie reapproximating the posterior defect created by the right and left posterior crural columns. Because of the chronic hiatal hernia there was inadequate intra-abdominal esophageal length and as such an esophageal lengthening was performed. The fundus was marked and then divided using a 45 mm blue laparoscopic linear staple load, two sequential firings perpendicular to the 50 Fr. Bougie left in place. We then proceeded parallel to the Bougie with additional 45 mm blue staple loads using GORE Seam-Guard reinforcement to complete the Clarisa gastroplasty. Once this was completed the portion of stomach was removed and sent to pathology. At this point, because of the large defect, a piece of biologic mesh was selected. A piece of ACell Gentrix Hiatal was utilized, rehydrated according to sustainable agriculture faculty's recommendations and introduced into the abdomen. It was tacked to the diaphragm, using the the bougie as a guide using a 4.8mm B shaped tacker. The tunica propria was secured to the diaphragm and the basement membrane to the wrap. We then proceeded with a posterior toupet fundoplication. The fundus was marked using a 3-0 Vicryl suture and brought in a retroesophageal plane. We proceeded with a 270 wrap posteriorly using interrupted 2-0 silk sutures securing the wrap along the right yamilex, posteriorly as well as along the left yamilex. This was performed with the bougie in place, this was then removed for endoscopy. The bougie was removed. An upper GI endoscopy was performed. The flexible gastroscope was introduced through the patient's mouth, through the esophagus, through the stomach. The air was insufflated into the stomach and the scope retroflexed. The posterior fundoplication was intact, there was no evidence of a hiatal hernia and the wrap was otherwise normal. Normal postoperative configurations. The air was evacuated and the scope was withdrawn from the patient. She tolerated the procedure well, was extubated, sent to recovery in stable condition. The skin was closed using 4-0 Monocryl. There were no qualified residents available to facilitate the procedure, as a result Shelly Oliveira PA-C was asked to serve as the first officer and flight instructor for this procedure. [facility] 01-26-2024 Note Formatting of this n ote might be different from the original. Images from the original note were not included. [facility] - Surgery [facility] Physicians Surgery Patient Name: Haydee Acuña OPERATIVE NOTE DATE OF PROCEDURE: 01/26/2024 SURGEON: Benton Nuñez MD ARCHITECTURAL MANAGER: Shelly Oliveira PA-C PREOPERATIVE DIAGNOSIS: Symptomatic Hiatal Hernia Refractory GERD POSTOPERATIVE DIAGNOSIS: Symptomatic Hiatal Hernia Refractory GERD OPERATION: Laparoscopic Hiatal Hernia Repair with Mesh Laparoscopic Clarisa Gastroplasty Laparoscopic Posterior Toupet Fundoplication Upper GI Endoscopy ANESTHESIA: General anesthesia ESTIMATED BLOOD LOSS: less than 50 COMPLICATIONS: None SPECIMEN: Portion of stomach PREOPERATIVE MEDICATIONS: Ancef, Heparin HISTORY: The patient is a 73 y.o. year old female with history of above preop diagnosis. I explained the risk, benefits, expected outcome, and alternatives to the procedure. Patient understands and is in agreement to proceed with operation. PROCEDURE: The patient was brought to the operating room and placed in supine position. After initiation of general anesthesia by the Anesthesia Department, she was placed in split-leg lithotomy with his arms extended. Care was taken to pad the bony prominences. Her abdomen was shaved, prepped, and draped in a normal sterile fashion. A Veress needle was placed in the left upper quadrant. We insufflated without difficulty and exchanged this for a 12 mm trocar. A 5 mm was placed in the right upper quadrant, one inferiorly and lateral to the initial access port and one in the mid epigastrium, a 5 mm subxiphoid stab wound was created for retraction of the left lobe of the liver using the Mel liver retractor. Upon evaluation of the diaphragm, there was a hiatal hernia noted, both anteriorly and posteriorly. Because of the abnormal visual inspection of the diaphragm the hiatal hernia was repaired. The phrenoesophageal ligament was divided using hook electrocautery exposing the left yamilex of the diaphragm. We continued our dissection along the anterior crural arch from left to right. The gastrohepatic ligament was incised using Bovie electrocautery, the peritoneum overlying the junction of the transversely passing fat pad at the base of the right yamilex was incised. We bluntly mobilized the esophagus, and reduced the GE junction into the abdomen by 2-3 cm. A Shorty drain was used to provide appropriate retraction. The anterior and posterior vagus nerves were identified and 360 degree circumferential complete mobilization was performed. The hernia sac was from the mediastinum and completely reduced. The hernia sac was completely dissected off the distal esophagus as well as the right and left parietal pleura. The hiatal hernia crural separation measured approximately 12 cm. Multiple sutures of 0 Ethibond were used to reapproximate the left and right yamilex around the 50-Serbian bougie reapproximating the posterior defect created by the right and left posterior crural columns. Because of the chronic hiatal hernia there was inadequate intra-abdominal esophageal length and as such an esophageal lengthening was performed. The fundus was marked and then divided using a 45 mm blue laparoscopic linear staple load, two sequential firings perpendicular to the 50 Fr. [address] left in place. We then proceeded parallel to the Bougie with additional 45 mm blue staple loads using GORE Seam-Guard reinforcement to complete the Clarisa gastroplasty. Once this was completed the portion of stomach was removed and sent to pathology. At this point, because of the large defect, a piece of biologic mesh was selected. A piece of ACell Gentrix Hiatal was utilized, rehydrated according to sustainable agriculture faculty's recommendations and introduced into the abdomen. It was tacked to the diaphragm, using the the bougie as a guide using a 4.8mm B shaped tacker. The tunica propria was secured to the diaphragm and the basement membrane to the wrap. We then proceeded with a posterior toupet fundoplication. The fundus was marked using a 3-0 Vicryl suture and brought in a retroesophageal plane. We proceeded with a 270 wrap posteriorly using interrupted 2-0 silk sutures securing the wrap along the right yamilex, posteriorly as well as along the left yamilex. This was performed with the bougie in place, this was then removed for endoscopy. The bougie was removed. An upper GI endoscopy was performed. The flexible gastroscope was introduced through the patient's mouth, through the esophagus, through the stomach. The air was insufflated into the stomach and the scope retroflexed. The posterior fundoplication was intact, there was no evidence of a hiatal hernia and the wrap was otherwise normal. Normal postoperative configurations. The air was evacuated and the scope was withdrawn from the patient. She tolerated the procedure well, was extubated, sent to recovery in stable condition. The skin was closed using 4-0 Monocryl. There were no qualified residents available to facilitate the procedure, as a result Shelly Oliveira PA-C was asked to serve as the first officer and flight instructor for this procedure. [facility] 01-26-2024 Attending History and physical note Images from the original note were not included. [facility] - Surgery [facility] Physicians Surgery Patient Name: Haydee Acuña Date: 01/26/24 Update History & Physical The patient's History and Physical was reviewed with the patient and there were no significant changes. I examined the patient and there were no significant changes from the previous History and Physical. I verify that the patient's condition and planned treatment has not changed. I also confirm the necessity for the procedure still present. Plan: The risk, benefits, expected outcome, and alternative to the recommended procedure have been discussed with the patient. Patient understands and wants to proceed with the procedure. HH Plan Lap HH Source Note - Benton Nuñez MD - 01/19/2024 1:00 PM EDT Images from the original note were not included. [facility] Advanced Laparoscopic Surgery, GERD Evaluation Follow-up Visit Patient Name: Haydee Acuña Date: 01/19/24 HPI: Haydee Acuña is a 73 y.o. female who has undergone a work-up for large hiatal hernia, chronic anemia, satiety. The patient is here for a follow-up visit to discuss the results of testing and the surgical options to treat that patients reflux. Results are as followed: Gerd Workup Dates Results Referring Provider Dr. Wells Initial Symptoms 12/01/23 Large HH, chronic anemia, satiety, GERD UGI w/ Marshmallow/Bagel 12/12/23 Poss esophagitis, sm HH, reflux, dysmotility of bagel EGD 10/23/23 ([facility]) Large HH, cobblestoning of the duodenum; path: (-) h. pylori Lewis NA Manometry NA Surgery Scheduled/Performed: 01/26/24 Scheduled for laparoscopic large hiatal hernia repair w/ poss mesh, poss Clarisa, partial fundoplication, EGD Follow Up Appt: 01/19/24 Joaquin Martines personally reviewed the patient intake form with the patient. The ROS is negative except for what is listed in HPI. PMHx: Past Medical History: Diagnosis Date Hiatal hernia PSHx: Past Surgical History: Procedure Laterality Date COLONOSCOPY THYROID SURGERY 2020 TOTAL KNEE ARTHROPLASTY Right 2013 UPPER GASTROINTESTINAL ENDOSCOPY PFMHx: No family history on file. ALL: Allergies Allergen Reactions Diphenhydramine Hives Gluten Meal Wheat Other Reaction(s): UNKNOWN MEDS: Current Outpatient Medications Medication Sig Dispense Refill alendronate (Fosamax) 70 MG tablet Take by mouth. sundays amLODIPine (Norvasc) 10 MG tablet 10 mg. Calcium Carbonate-Vitamin D 600-5 MG-MCG capsule Take by mouth. cholecalciferol (Vitamin D-3) 50 MCG (1999) tablet Take 2,000 Units by mouth daily. Monday thru Monday Cyanocobalamin (VITAMIN B-12 PO) Take by mouth. Folic Acid 0.8 MG capsule Take by mouth. levothyroxine (Synthroid, Levoxyl) 112 MCG tablet See Instructions, TAKE 1 TABLET BY MOUTH EVERY DAY/ none on sun, # 90 tab(s), 3 Refill(s), Pharmacy: [facility], 161.5, cm, 02/02/23 9:08:00 EDT, Height, kg, 02/02/23 9:08:00 EDT, Dosing Weight lisinopril 10 MG tablet 10 mg. Magnesium 400 MG capsule Take by mouth 1 (one) time each day. metFORMIN (Glucophage) 500 MG tablet See Instructions, TAKE 1 TABLET IN THE MORNING TAKE 1 TABLETS IN THE EVENING, # 270 tab(s), 3 Refill(s), Pharmacy: [facility], 159, cm, 08/08/23 9:07:00 EST, Height, kg, 08/08/23 9:07:00 EST, Dosing Weight pantoprazole (ProtoNix) 40 MG EC tablet 40 mg. rosuvastatin (Crestor) 10 MG tablet 10 mg. spironolactone (Aldactone) 25 MG tablet 25 mg every other day. Takes at 12 noon terazosin (Hytrin) 1 MG capsule 1 mg Nightly. No current facility-administered medications for this visit. SOCIAL Hx: Social History Socioeconomic History Marital status: Spouse name: Not on file Number of children: Not on file Years of education: Not on file Highest education level: Not on file Occupational History Not on file Tobacco Use Smoking status: Never Smokeless tobacco: Never Vaping Use Vaping status: Never Used Substance and Sexual Activity Alcohol use: Never Drug use: Never Sexual activity: Not on file Other Topics Concern Not on file Social History Narrative Not on file Social Determinants of Health Financial Resource Strain: Not on file Food Insecurity: Not on file Transportation Needs: Not on file Physical Activity: Not on file Stress: Not on file Social Connections: Not on file Intimate Partner Violence: Not on file Housing Stability: Not on file ROS: General: negative for - chills, fatigue, fever or malaise Gastrointestinal: negative for - change in bowel habits, hemoptysis, hematemesis, hematochezia, dysphagia, nausea, vomiting, diarrhea, constipation, weight loss DIAGNOSTIC EVALUATION: Gerd Workup Dates Results Referring Provider Dr. Wells Initial Symptoms 12/01/23 Large HH, chronic anemia, satiety, GERD UGI w/ Marshmallow/Bagel 12/12/23 Poss esophagitis, sm HH, reflux, dysmotility of bagel EGD 10/23/23 ([facility]) Large HH, cobblestoning of the duodenum; path: (-) h. pylori Lewis NA Manometry NA Surgery Scheduled/Performed: 01/26/24 Scheduled for laparoscopic large hiatal hernia repair w/ poss mesh, poss Clarisa, partial fundoplication, EGD Follow Up Appt: 01/19/24 Joaquin Physical Examination: BP (!) 144/73 (BP Location: Left arm, Patient Position: Sitting, BP Cuff Size: Large adult) Pulse 88 Temp 36.6 C (97.8 F) Ht 5' 2 (1.575 m) Wt 150 lb (68 kg) BMI 27.44 kg/m She stands Height: 5' 2 (157.5 cm) tall with a weight of Weight: 150 lb (68 kg), resulting in a BMI of Body mass index is 27.44 kg/m . General: The patient is awake, alert, and oriented, and is in no apparent distress; normal affect Respiratory: Normal effort, no gross abnormal breath sounds - non labored breathing Abdomen: Appropriate girth, non-distended, No prior abdominal surgery and no scars are noted, soft, no masses or hepatosplenomegaly Hernia: none Extremities: Ambulatory without assistance, no obvious deformities Skin: Warm, dry, intact; no obvious lesions or discoloration Assessment/Plan Haydee was seen today for follow-up. Diagnoses and all orders for this visit: Hiatal hernia (Primary) GERD without esophagitis 73-year-old female with a large hiatal hernia. I met with her today to discuss risk and benefits of operative repair as outlined below. Visual aids were used to describe the procedure. All of her questions were answered to her satisfaction. We discussed the procedure as well as the potential for esophageal lengthening. Proceed with surgery as scheduled. I met with the patient today to discuss risks and benefits of laparoscopic HH repair/anti-reflux surgery including, but not limited to injury to surrounding structures, the possibility of using mesh for diaphragmatic reinforcement, conversion to open, pleural effusion requiring thoracentesis and/or chest tube placement, prolonged mechanical ventilation, and . The patient is aware of the possibility of gas bloat syndrome, the need for ongoing PPI/H2 Arina use, postoperative reflux or dysphagia requiring dilation. We discussed potential for hemorrhage, infection, incomplete resolution of reflux symptoms, as well as cardiac and pulmonary-related complications. The possibility of removal of magnetic sphincter augmentation device was also explained if applicable. Non-operative alternatives were discussed with the patient. The patient understands and wishes to proceed with recommendations. Plan: Initial Pre-Operative Testing Primary Procedure: Laparoscopic large hiatal hernia repair with poss mesh, poss Clarisa gastroplasty, partial fundoplication, EGD on 01/26/24 Clearance: [facility] - Dr. Jarrett (leighton Gordon SOFTWARE SOLUTIONS ARCHITECT 01/01/24) Preop SQ Heparin: 5000u subcutaneous heparin 2hrs preop I met with her today to discuss the risks and benefits of laparoscopic HH repair/anti-reflux surgery as outlined above. Visual aids were used to describe the procedure. All questions were answered to patient's satisfaction. I personally performed the evaluation and management of Haydee Acuña in the development of a treatment plan for this patient. I personally interviewed the patient and performed an individual physical examination. In addition, I discussed the patient's condition and treatment options with them. I have also reviewed and agree with the past medical, family and social history unless otherwise noted. All of the patient's questions were answered. I discussed/counseled the patient regarding the risks and benefits of surgery as well as the preoperative and postoperative care plan for this patient.The patient was seen and examined independently and relevant data reviewed by myself. A full chart review was performed. Patient Care Team: Stephon Wells DO as PCP - General (Family Medicine) Serge Boswell (Gastroenterology) Benton Jarrett as Cmo (Internal Medicine) Britta Basurto (Endocrinology, Diabetes, & Metabolism) [facility] 01-26-2024 Note [facility] Patient Name: Haydee Acuña Date: 01/26/24 Update History & Physical The patient's History and Physical was reviewed with the patient and there were no significant changes. I examined the patient and there were no significant changes from the previous History and Physical. I verify that the patient's condition and planned treatment has not changed. I also confirm the necessity for the procedure still present. Plan: The risk, benefits, expected outcome, and alternative to the recommended procedure have been discussed with the patient. Patient understands and wants to proceed with the procedure. Plan [facility] 01-26-2024 History and physical note Images from the original note were not included. [facility] Patient Name: Haydee Acuña Date: 01/26/24 Update History & Physical The patient's History and Physical was reviewed with the patient and there were no significant changes. I examined the patient and there were no significant changes from the previous History and Physical. I verify that the patient's condition and planned treatment has not changed. I also confirm the necessity for the procedure still present. Plan: The risk, benefits, expected outcome, and alternative to the recommended procedure have been discussed with the patient. Patient understands and wants to proceed with the procedure. HH Plan Lap Source Note - Benton Nuñez MD - 01/19/2024 1:00 PM EDT Images from the original note were not included. [facility] Advanced Laparoscopic Surgery, GERD Evaluation Follow-up Visit Patient Name: Haydee Acuña Date: 01/19/24 HPI: Haydee Acuña is a 73 y.o. female who has undergone a work-up for large hiatal hernia, chronic anemia, satiety. The patient is here for a follow-up visit to discuss the results of testing and the surgical options to treat that patients reflux. Results are as followed: Gerd Workup Dates Results Referring Provider Dr. Wells Initial Symptoms 12/01/23 Large HH, chronic anemia, satiety, GERD UGI w/ Marshmallow/Bagel 12/12/23 Poss esophagitis, sm HH, reflux, dysmotility of bagel EGD 10/23/23 ([facility]) Large HH, cobblestoning of the duodenum; path: (-) h. pylori Lewis NA Manometry NA Surgery Scheduled/Performed: 01/26/24 Scheduled for laparoscopic large hiatal hernia repair w/ poss mesh, poss Clarisa, partial fundoplication, EGD Follow Up Appt: 01/19/24 Joaquin Martines personally reviewed the patient intake form with the patient. The ROS is negative except for what is listed in HPI. PMHx: Past Medical History: Diagnosis Date Hiatal hernia PSHx: Past Surgical History: Procedure Laterality Date COLONOSCOPY THYROID SURGERY 2019 TOTAL KNEE ARTHROPLASTY Right 2013 UPPER GASTROINTESTINAL ENDOSCOPY PFMHx: No family history on file. ALL: Allergies Allergen Reactions Diphenhydramine Hives Gluten Meal Wheat Other Reaction(s): UNKNOWN MEDS: Current Outpatient Medications Medication Sig Dispense Refill alendronate (Fosamax) 70 MG tablet Take by mouth. sundays amLODIPine (Norvasc) 10 MG tablet 10 mg. Calcium Carbonate-Vitamin D 600-5 MG-MCG capsule Take by mouth. cholecalciferol (Vitamin D-3) 50 MCG (1999) tablet Take 2,000 Units by mouth daily. Monday thru Monday Cyanocobalamin (VITAMIN B-12 PO) Take by mouth. Folic Acid 0.8 MG capsule Take by mouth. levothyroxine (Synthroid, Levoxyl) 112 MCG tablet See Instructions, TAKE 1 TABLET BY MOUTH EVERY DAY/ none on sun, # 90 tab(s), 3 Refill(s), Pharmacy: [facility], 161.5, cm, 02/02/23 9:08:00 EDT, Height, kg, 02/02/23 9:08:00 EDT, Dosing Weight lisinopril 10 MG tablet 10 mg. Magnesium 400 MG capsule Take by mouth 1 (one) time each day. metFORMIN (Glucophage) 500 MG tablet See Instructions, TAKE 1 TABLET IN THE MORNING TAKE 1 TABLETS IN THE EVENING, # 270 tab(s), 3 Refill(s), Pharmacy: [facility], 159, cm, 08/08/23 9:07:00 EST, Height, kg, 08/08/23 9:07:00 EST, Dosing Weight pantoprazole (ProtoNix) 40 MG EC tablet 40 mg. rosuvastatin (Crestor) 10 MG tablet 10 mg. spironolactone (Aldactone) 25 MG tablet 25 mg every other day. Takes at 12 noon terazosin (Hytrin) 1 MG capsule 1 mg Nightly. No current facility-administered medications for this visit. SOCIAL Hx: Social History Socioeconomic History Marital status: Spouse name: Not on file Number of children: Not on file Years of education: Not on file Highest education level: Not on file Occupational History Not on file Tobacco Use Smoking status: Never Smokeless tobacco: Never Vaping Use Vaping status: Never Used Substance and Sexual Activity Alcohol use: Never Drug use: Never Sexual activity: Not on file Other Topics Concern Not on file Social History Narrative Not on file Social Determinants of Health Financial Resource Strain: Not on file Food Insecurity: Not on file Transportation Needs: Not on file Physical Activity: Not on file Stress: Not on file Social Connections: Not on file Intimate Partner Violence: Not on file Housing Stability: Not on file ROS: General: negative for - chills, fatigue, fever or malaise Gastrointestinal: negative for - change in bowel habits, hemoptysis, hematemesis, hematochezia, dysphagia, nausea, vomiting, diarrhea, constipation, weight loss DIAGNOSTIC EVALUATION: Gerd Workup Dates Results Referring Provider Dr. Priscilla Initial Symptoms 12/01/23 Large HH, chronic anemia, satiety, GERD UGI w/ Marshmallow/Bagel 12/12/23 Poss esophagitis, sm HH, reflux, dysmotility of bagel EGD 10/23/23 ([facility]) Large HH, cobblestoning of the duodenum; path: (-) h. pylori Lewis NA Manometry NA Surgery Scheduled/Performed: 01/26/24 Scheduled for laparoscopic large hiatal hernia repair w/ poss mesh, poss Clarisa, partial fundoplication, EGD Follow Up Appt: 01/19/24 Joaquin Physical Examination: BP (!) 144/73 (BP Location: Left arm, Patient Position: Sitting, BP Cuff Size: Large adult) Pulse 88 Temp 36.6 C (97.8 F) Ht 5' 2 (1.575 m) Wt 150 lb (68 kg) BMI 27.44 kg/m She stands Height: 5' 2 (157.5 cm) tall with a weight of Weight: 150 lb (68 kg), resulting in a BMI of Body mass index is 27.44 kg/m . General: The patient is awake, alert, and oriented, and is in no apparent distress; normal affect Respiratory: Normal effort, no gross abnormal breath sounds - non labored breathing Abdomen: Appropriate girth, non-distended, No prior abdominal surgery and no scars are noted, soft, no masses or hepatosplenomegaly Hernia: none Extremities: Ambulatory without assistance, no obvious deformities Skin: Warm, dry, intact; no obvious lesions or discoloration Assessment/Plan Haydee was seen today for follow-up. Diagnoses and all orders for this visit: Hiatal hernia (Primary) GERD without esophagitis 73-year-old female with a large hiatal hernia. I met with her today to discuss risk and benefits of operative repair as outlined below. Visual aids were used to describe the procedure. All of her questions were answered to her satisfaction. We discussed the procedure as well as the potential for esophageal lengthening. Proceed with surgery as scheduled. I met with the patient today to discuss risks and benefits of laparoscopic HH repair/anti-reflux surgery including, but not limited to injury to surrounding structures, the possibility of using mesh for diaphragmatic reinforcement, conversion to open, pleural effusion requiring thoracentesis and/or chest tube placement, prolonged mechanical ventilation, and . The patient is aware of the possibility of gas bloat syndrome, the need for ongoing PPI/H2 Arina use, postoperative reflux or dysphagia requiring dilation. We discussed potential for hemorrhage, infection, incomplete resolution of reflux symptoms, as well as cardiac and pulmonary-related complications. The possibility of removal of magnetic sphincter augmentation device was also explained if applicable. Non-operative alternatives were discussed with the patient. The patient understands and wishes to proceed with recommendations. Plan: Initial Pre-Operative Testing Primary Procedure: Laparoscopic large hiatal hernia repair with poss mesh, poss Clarisa gastroplasty, partial fundoplication, EGD on 01/26/24 Clearance: [facility] - Dr. Jarrett (obtained [employer] ARCHITECT 01/01/24) Preop SQ Heparin: 5000u subcutaneous heparin 2hrs preop I met with her today to discuss the risks and benefits of laparoscopic HH repair/anti-reflux surgery as outlined above. Visual aids were used to describe the procedure. All questions were answered to patient's satisfaction. I personally performed the evaluation and management of Haydee Acuña in the development of a treatment plan for this patient. I personally interviewed the patient and performed an individual physical examination. In addition, I discussed the patient's condition and treatment options with them. I have also reviewed and agree with the past medical, family and social history unless otherwise noted. All of the patient's questions were answered. I discussed/counseled the patient regarding the risks and benefits of surgery as well as the preoperative and postoperative care plan for this patient.The patient was seen and examined independently and relevant data reviewed by myself. A full chart review was performed. Patient Care Team: Stephon Wells DO as PCP - General (Family Medicine) Serge Boswell (Gastroenterology) Benton Jarrett as Cmo (Internal Medicine) Britta Basurto (Endocrinology, Diabetes, & Metabolism) Comprehensive Pre Surgical History and Physical ? Name: Haydee Acuña : 1950 (Age-73 y.o.) Date of Service: Pt seen/examined on 01/19/2024 Procedure Information Date/Time: 01/26/24 0830 Procedures: LAPAROSCOPY HIATAL HERNIA REPAIR WITH MESH AND POSTERIOR FUNDOPLICATION, (Abdomen) - 150 mins POSSIBLE CLARISA GASTROPLASTY, ESOPHAGOGASTRODUODENOSCOPY WITH BIOPSY, POSSIBLE OPEN Location: [address] Operating Room Surgeons: Benton Nuñez MD Chief Complaint: LAPAROSCOPY HIATAL HERNIA REPAIR WITH MESH AND POSTERIOR FUNDOPLICATION, (Abdomen) - 150 mins POSSIBLE CLARISA GASTROPLASTY, ESOPHAGOGASTRODUODENOSCOPY WITH BIOPSY, POSSIBLE OPEN ASSESSMENT/PLAN: Patient is considered intermediate risk for this intermediate level 1 risk procedure/surgery with no reducible risk factors. Based on the above evaluation, the benefits of the planned procedure likely exceed the risks. The patient is medically optimized to proceed with the planned procedure without any further cardiopulmonary testing. 1) LAPAROSCOPY HIATAL HERNIA REPAIR WITH MESH AND POSTERIOR FUNDOPLICATION, (Abdomen) - 150 mins POSSIBLE CLARISA GASTROPLASTY, ESOPHAGOGASTRODUODENOSCOPY WITH BIOPSY, POSSIBLE OPEN - Managed per surgery - cardiac clearance obtained on 01/02/24 2) HTN - amlodipine - lisinopril - terazosin - states compliance with meds - previous office visit BP 170/79; today's bp 158/71 3) HLD - rosuvastin - trig 61 HDL 66 LDL 91 4) CHF - [place] Class 1 - Normal EF in 2020 - spironolactone 5) Hypothyroidism - levothyroxine 6)DM II - metformin Visit Type: Pre-Admission Testing Visit Labs Ordered: YES - PER PAT PROTOCOL Sleep Referral Ordered: NO - NEGATIVE SCREEN PER SLEEP REFERRAL PROTOCOL Total time spent (which include face to face and non face to face encounters) : 31 minutes Toxic drug monitoring/narrow therapeutic index drug monitoring : # Drug name : BP meds # Route administered : orally # Method of monitoring : BP monitoring PAT Protocol referenced includes: 1. Anesthesia Lab Protocol Orders 2. Perioperative Cardiovascular Risk Assessment 3. Anesthesia Assessment 4. Pain Assessment and Acute Pain Service Consult (if appropriate) 5. Medical Clearance/Consult from Internal Medicine (IMS) 6. Shower/Wash Order (for designated surgeries) 7. JOSEF Screen and Sleep Clinic Referral (if appropriate) Patient did not name a surrogate decision-maker or provide an advance care plan History Of Present Illness: 73 y.o. female who we are asked to see/evaluate by Dr. Zelaya prior to LAPAROSCOPY HIATAL HERNIA REPAIR WITH MESH AND POSTERIOR FUNDOPLICATION, (Abdomen) - 150 mins POSSIBLE CLARISA GASTROPLASTY, ESOPHAGOGASTRODUODENOSCOPY WITH BIOPSY, POSSIBLE OPEN Do you have a history of chronic opioid use? YES/NO ? Denies history of DE, CAD, CHF, TIA,; hx of stroke-was on ASA but stopped it a month ago due to anemia Past Medical History: No past medical history on file. Past Surgical History: Past Surgical History: 2020: THYROID SURGERY 2014: TOTAL KNEE ARTHROPLASTY; Right Medications Prior to Admission: Prior to Admission medications Medication Sig Start Date End Date Taking? Authorizing Provider alendronate (Fosamax) 70 MG tablet Take by mouth. 01/26/21 06/28/24 Historical Provider, amLODIPine (Norvasc) 10 MG tablet 10 mg. 04/03/23 Historical Provider, Calcium Carbonate-Vitamin D 600-5 MG-MCG capsule Take by mouth. 11/01/23 Historical Provider, levothyroxine (Synthroid, Levoxyl) 112 MCG tablet See Instructions, TAKE 1 TABLET BY MOUTH EVERY DAY/ none on sun, # 90 tab(s), 3 Refill(s), Pharmacy: [facility], 161.5, cm, 02/02/23 9:08:00 EDT, Height, kg, 02/02/23 9:08:00 EDT, Dosing Weight 02/02/23 Historical Provider, lisinopril 10 MG tablet 10 mg. 04/03/23 Historical Provider, metFORMIN (Glucophage) 500 MG tablet See Instructions, TAKE 1 TABLET IN THE MORNING TAKE 1 TABLETS IN THE EVENING, # 270 tab(s), 3 Refill(s), Pharmacy: [facility], 159, cm, 08/08/23 9:07:00 EST, Height, kg, 08/08/23 9:07:00 EST, Dosing Weight 08/08/23 Historical Provider, pantoprazole (ProtoNix) 40 MG EC tablet 40 mg. 04/03/23 03/28/24 Historical Provider, rosuvastatin (Crestor) 10 MG tablet 10 mg. 07/27/23 07/21/24 Historical Provider, spironolactone (Aldactone) 25 MG tablet 25 mg. 05/05/23 Historical Provider, terazosin (Hytrin) 1 MG capsule 1 mg. 05/05/23 Historical Provider, CHRONIC NARCOTIC USE: No Allergies: Diphenhydramine, Gluten meal, and Wheat If patient has opioid allergy, is it okay to take Acetaminophen: N/A Social History: TOBACCO: has no history on file for tobacco use. ETOH: has no history on file for alcohol use. Social History Substance and Sexual Activity Drug Use Not on file Family History: No family history on file. Review of Systems Constitutional: Negative for chills and fever. HENT: Negative for congestion. Respiratory: Negative for cough and shortness of breath. Cardiovascular: Negative for chest pain. Gastrointestinal: Negative for abdominal pain. Musculoskeletal: Negative for gait problem and myalgias. Skin: Negative for rash. Neurological: Negative for dizziness and headaches. Physical Exam Constitutional: General: She is not in acute distress. Appearance: Normal appearance. HENT: Head: Normocephalic and atraumatic. Mouth/Throat: Mouth: Mucous membranes are moist. Eyes: Pupils: Pupils are equal, round, and reactive to light. Cardiovascular: Rate and Rhythm: Normal rate and regular rhythm. Pulses: Normal pulses. Heart sounds: Normal heart sounds. Pulmonary: Effort: Pulmonary effort is normal. Breath sounds: Normal breath sounds. Abdominal: General: Bowel sounds are normal. Palpations: Abdomen is soft. Musculoskeletal: Cervical back: Normal range of motion. Skin: General: Skin is warm and dry. Capillary Refill: Capillary refill takes less than 2 seconds. Neurological: General: No focal deficit present. Mental Status: She is alert and oriented to person, place, and time. Vitals: Vitals Value Taken Time BP 158/71 01/19/24 1036 Temp 36.1 C (97 F) 01/19/24 1036 Pulse 87 01/19/24 1036 Resp 16 01/19/24 1036 SpO2 99 % 01/19/24 1036 Labs: No results found for: WBC, HGB, HCT, MCV, PLT No results found for: NA, K, CL, CO2, BUN, CREATININE, GLUCOSE, CALCIUM, PROT, BILIRUBINFL, ALKPHOS, AST, ALT, EGFR, GLOB Doug's Simple Cardiac Risk Index: Interpretation: 0 Points Class I 0.5% 1 Point Class II 1.3% 2 Points Class III 3.6% 3+ Points Class IV 9.1% PAT Pain Score: Postop Pain Management Plan (Pain consult ordered?): Pain consult not indicated at this time ? EKG: NSR with no noted ischemia as per Dr. Jarrett's cardiology note No results found for this or any previous visit (from the past 4464 hour(s)). ECHO and EF:Normal EF on date 2020 No components found for: LVEF, LVEFMODE METS >4 Electronically signed by: Alcira Harmon APRN - INSURANCE OFFICE SUPERVISOR Date: 01/19/2024 at 10:16 AM documented in this encounter [facility] 01-25-2024 Hospital Discharge instructions Benton Nuñez MD - 01/25/2024 4:15 PM EDT Images from the original note were not included. [facility] - Surgery [facility] Surgery DISCHARGE INSTRUCTIONS FOR DR. NUÑEZ Thank you very much for allowing me to participate in your care, it is truly a privilege. Below please see discharge orders that will help you during your recovery. Please do not hesitate to call the office during the day at [phone] for any questions. After hours, the same number will allow you to reach the on-call surgeon. Please remove the Steri-Strips 5 days after surgery. Please remove the Steri-Strips as instructed 5 days after your date of surgery, remove them on Monday, January 31, 2024. This includes any clear bandages and gauze placed in the navel, if applicable. If you have been provided with an abdominal binder, this is for your comfort. Please take this off in order to shower and use it as needed for your comfort. There is no designated time frame with which you should wear the binder. Again, it is only for your comfort and symptom relief. Please shower the day after surgery. Soap and water is adequate. Keep the incisions clean and dry. No lotions or ointments until you are seen in the office. Surgery can hurt! Please make every effort to take the pain medicine as instructed to help reduce your discomfort. I usually recommend that you take pain medicine when you wake up in the morning and before you go to sleep. Schedule the rest of the day in order to not interfere with medication dosages as prescribed. If you feel that the medicine is not working, please call the office. Should you have nausea after surgery (the most common complaint after surgery) you will be provided with a prescription for Zofran. Please utilize this should you have any postoperative nausea or vomiting. If you feel that the medicine is not working, please call the office. Please use Miralax (available over the counter) until you have a bowel movement. Constipation is routine after surgery and adding the Miralax will help prevent constipation. For any emergencies, please dial 911. Thank you again for allowing me to participate in your care, and get well soon! Best regards, Benton Nuñez M.D., F.A.C.S.Postoperative Hiatal Hernia Dietary Advancement Recommendations Good nutrition is important when healing from an illness, injury, or surgery. Follow any nutrition recommendations given to you during your hospital stay. If you were given an oral nutrition supplement while in the hospital, continue to take this supplement at home. You can take it with meals, in-between meals, and/or before bedtime. These supplements can be purchased at most local grocery stores, pharmacies, and [employer]-stores. If you have any questions about your diet or nutrition, call the hospital and ask for the dietitian. Avoid carbonation, straws, gum chewing, and smoking. These activities introduce air into your stomach and cause bloating and discomfort. Simethicone (gas-x) may ease gas pain and can be purchased over the counter without a prescription. Day 1 after your surgery begin a clear liquid diet. It includes the following liquids: Apple juice Cranberry juice Grape juice Chicken broth Beef broth Flavored gelatin (Jell-O ) Decaf tea and coffee Caffeinated beverages are permitted based on tolerance Popsicles Czech ice Day 2 and Day 3 after your surgery advance diet to full liquid diet which includes anything on the clear liquid diet, plus: Milk, soy, rice and almond Cream of wheat, cream of rice, grits Strained creamed soups Vanilla and strawberry-flavored ice cream Sherbet Blended, custard styled or whipped yogurt Vanilla and butterscotch pudding Nutritional drinks including Ensure , Boost , [place] Instant Breakfast Mashed potatoes On Day 4 after your surgery you may start a soft diet and continue this diet until you follow up in the office in one to two weeks. A list of food items is below. Food Category Foods to Choose Foods to Avoid Beverages Milk, such as, whole, 2%, 1%, non-fat, or skim, soy, rice, almond Caffeinated and decaf tea and coffee Powdered drink mixes (in moderation) Non-citrus juices (apple, grape, cranberry or blends of these) Fruit nectars Nutritional drinks including Boost , Ensure , [place] Instant Breakfast Carbonated drinks Alcohol [place] juices like orange, grapefruit, lemon and ruby Breads Pancakes, Serbian toast and waffles Crackers (saltine, butter, soda, jim, Goldfish and Cheese Nips ) Toasted bread Untoasted bread, bagels, Raya and hard rolls, Kyrgyz muffins Crackers with nuts, seeds, fresh or dried fruit, coconut, or highly seasoned, such as garlic or onion-flavored Sweet rolls, coffee cake or doughnuts Cereals Well cooked cereals, such as oatmeal (plain or flavored) Cold cereal (Cornflakes , Rice Krispies , Cheerios , Special K plain, Rice Chex and puffed rice) Very coarse cereal, such as bran, shredded wheat Any cereal with fresh or dried fruit, coconut, seeds or nuts Desserts Eat in moderation and do not eat desserts or sweets by themselves. Plain cakes, cookies and cream-filled pies Vanilla and butterscotch pudding or custard Ice cream, ice milk, frozen yogurt and sherbet Gelatin made from allowed foods Fruit ices and popsicles Desserts containing chocolate, coconut, nuts, seeds, fresh or dried fruit, peppermint or spearmint Eggs Poached, hard boiled or scrambled Fried eggs and highly seasoned eggs Fats Eat in moderation. Butter and margarine Mayonnaise and vegetable oils Mildly seasoned cream sauces and gravies Plain cream cheese Sour cream Highly seasoned salad dressings, cream sauces and gravies Swain, swain fat, ham fat, lard and salt pork Fried foods Nuts Fruits Fruit juice Any canned or cooked fruit except those listed in the AVOID column ALL fresh fruits, such as citrus, bananas and pineapple Canned pineapple Dried fruits, such as raisins, berries Fruits with seeds, such as berries, kiwi and figs Meat, Fish, Poultry, and Dairy Products Meats may be ground, minced or chopped to ease swallowing and digestion Tender, well cooked and moist cuts of beef, chicken, turkey and pork Veal and peguero Flaky, cooked fish Canned tuna Cottage and ricotta cheeses Mild cheese, such as Zimbabwean, brick, mozzarella and baby Trin[place]adian Creamy peanut butter Plain custard or blended fruit yogurt Moist casseroles, such as macaroni & cheese, tuna noodle Grilled or toasted cheese sandwich Tough meats with a lot of gristle Fried, highly seasoned, smoked and fatty meat, fish or poultry, such as frankfurters, luncheon meats, sausage, swain, spare ribs, beef brisket, sardines, anchovies, duck and goose [place] and other entrees made with pepper or chili pepper Shellfish Strongly flavored cheeses, such as sharp cheese, extra sharp cheddar, cheese containing peppers or other seasonings Crunchy peanut butter Any yogurt with nuts, seeds, coconut, strawberries or raspberries Potatoes and Starches Peeled, mashed or boiled white or sweet potatoes Oven-baked potatoes without skin Well cooked white rice, enriched noodles, barley, spaghetti, macaroni and other pastas Fried potatoes, potato skins and potato chips Hard and soft taco shells Fried, brown or wild rice Soups Mildly flavored meat stocks Cream soups made from allowed foods Highly seasoned soups and tomato based soups, cream soups made with gas producing vegetables, such as broccoli, cauliflower, onion, etc. Sweets and Snacks Use in moderation and do not eat large amounts of sweets by themselves. Syrup, honey, jelly and seedless jam Plain hard candies and plain candies made with allowed ingredients Molasses Marshmallows Other candy made from allowed ingredients Thin pretzels Jam, marmalade and preserves Chocolate in any form Any candy containing nuts, coconut, seeds, peppermint, spearmint or dried or fresh fruit Popcorn, potato chips, tortilla chips Soft or hard thick pretzels, such as sourdough Vegetables Well cooked soft vegetables without seeds or skins, such as asparagus tips, beets, carrots, green and wax beans, chopped spinach, tender canned baby peas, squash and pumpkin Raw vegetables, tomatoes, tomato juice, tomato sauce and V-8 juice Gas producing vegetables, such as broccoli, Brussel sprouts, cabbage, cauliflower, onions, corn, cucumber, green peppers, rutabagas, turnips, radishes and sauerkraut Dried beans, peas and lentils Miscellaneous Salt and spices in moderation Mustard and vinegar in moderation Fried or highly seasoned foods Coconut and seeds Pickles and olives [place] sauces, ketchup, barbecue sauce, horseradish, black pepper, chili powder and onion and garlic seasonings Any other strongly flavored seasoning, condiment, spice or herb not tolerated Any food not tolerated documented in this encounter [facility] 01-19-2024 History of Present illness Narrative Images from the original note were not included. [facility] Advanced Laparoscopic Surgery, GERD Evaluation Follow-up Visit Patient Name: Haydee Acuña Date: 01/19/24 HPI: Haydee Acuña is a 73 y.o. female who has undergone a work-up for large hiatal hernia, chronic anemia, satiety. The patient is here for a follow-up visit to discuss the results of testing and the surgical options to treat that patients reflux. Results are as followed: Gerd Workup Dates Results Referring Provider Dr. Wells Initial Symptoms 12/01/23 Large HH, chronic anemia, satiety, GERD UGI w/ Marshmallow/Bagel 12/12/23 Poss esophagitis, sm HH, reflux, dysmotility of bagel EGD 10/23/23 ([facility]) Large HH, cobblestoning of the duodenum; path: (-) h. pylori Lewis NA Manometry NA Surgery Scheduled/Performed: 01/26/24 Scheduled for laparoscopic large hiatal hernia repair w/ poss mesh, poss Clarisa, partial fundoplication, EGD Follow Up Appt: 01/19/24 Joaquin Martines personally reviewed the patient intake form with the patient. The ROS is negative except for what is listed in HPI. PMHx: Past Medical History: Diagnosis Date Hiatal hernia PSHx: Past Surgical History: Procedure Laterality Date COLONOSCOPY THYROID SURGERY 2020 TOTAL KNEE ARTHROPLASTY Right 2013 UPPER GASTROINTESTINAL ENDOSCOPY PFMHx: No family history on file. ALL: Allergies Allergen Reactions Diphenhydramine Hives Gluten Meal Wheat Other Reaction(s): UNKNOWN MEDS: Current Outpatient Medications Medication Sig Dispense Refill alendronate (Fosamax) 70 MG tablet Take by mouth. sundays amLODIPine (Norvasc) 10 MG tablet 10 mg. Calcium Carbonate-Vitamin D 600-5 MG-MCG capsule Take by mouth. cholecalciferol (Vitamin D-3) 50 MCG (2000 UT) tablet Take 2,000 Units by mouth daily. Monday thru Monday Cyanocobalamin (VITAMIN B-12 PO) Take by mouth. Folic Acid 0.8 MG capsule Take by mouth. levothyroxine (Synthroid, Levoxyl) 112 MCG tablet See Instructions, TAKE 1 TABLET BY MOUTH EVERY DAY/ none on sun, # 90 tab(s), 3 Refill(s), Pharmacy: [facility], 161.5, cm, 02/02/23 9:08:00 EDT, Height, kg, 02/02/23 9:08:00 EDT, Dosing Weight lisinopril 10 MG tablet 10 mg. Magnesium 400 MG capsule Take by mouth 1 (one) time each day. metFORMIN (Glucophage) 500 MG tablet See Instructions, TAKE 1 TABLET IN THE MORNING TAKE 1 TABLETS IN THE EVENING, # 270 tab(s), 3 Refill(s), Pharmacy: [facility], 159, cm, 08/08/23 9:07:00 EST, Height, kg, 08/08/23 9:07:00 EST, Dosing Weight pantoprazole (ProtoNix) 40 MG EC tablet 40 mg. rosuvastatin (Crestor) 10 MG tablet 10 mg. spironolactone (Aldactone) 25 MG tablet 25 mg every other day. Takes at 12 noon terazosin (Hytrin) 1 MG capsule 1 mg Nightly. No current facility-administered medications for this visit. SOCIAL Hx: Social History Socioeconomic History Marital status: Spouse name: Not on file Number of children: Not on file Years of education: Not on file Highest education level: Not on file Occupational History Not on file Tobacco Use Smoking status: Never Smokeless tobacco: Never Vaping Use Vaping status: Never Used Substance and Sexual Activity Alcohol use: Never Drug use: Never Sexual activity: Not on file Other Topics Concern Not on file Social History Narrative Not on file Social Determinants of Health Financial Resource Strain: Not on file Food Insecurity: Not on file Transportation Needs: Not on file Physical Activity: Not on file Stress: Not on file Social Connections: Not on file Intimate Partner Violence: Not on file Housing Stability: Not on file ROS: General: negative for - chills, fatigue, fever or malaise Gastrointestinal: negative for - change in bowel habits, hemoptysis, hematemesis, hematochezia, dysphagia, nausea, vomiting, diarrhea, constipation, weight loss DIAGNOSTIC EVALUATION: Gerd Workup Dates Results Referring Provider Dr. Wells Initial Symptoms 12/01/23 Large HH, chronic anemia, satiety, GERD UGI w/ Marshmallow/Bagel 12/12/23 Poss esophagitis, sm HH, reflux, dysmotility of bagel EGD 10/23/23 ([facility]) Large HH, cobblestoning of the duodenum; path: (-) h. pylori Lewis NA Manometry NA Surgery Scheduled/Performed: 01/26/24 Scheduled for laparoscopic large hiatal hernia repair w/ poss mesh, poss Clarisa, partial fundoplication, EGD Follow Up Appt: 01/19/24 Joaquin Physical Examination: BP (!) 144/73 (BP Location: Left arm, Patient Position: Sitting, BP Cuff Size: Large adult) Pulse 88 Temp 36.6 C (97.8 F) Ht 5' 2 (1.575 m) Wt 150 lb (68 kg) BMI 27.44 kg/m She stands Height: 5' 2 (157.5 cm) tall with a weight of Weight: 150 lb (68 kg), resulting in a BMI of Body mass index is 27.44 kg/m . General: The patient is awake, alert, and oriented, and is in no apparent distress; normal affect Respiratory: Normal effort, no gross abnormal breath sounds - non labored breathing Abdomen: Appropriate girth, non-distended, No prior abdominal surgery and no scars are noted, soft, no masses or hepatosplenomegaly Hernia: none Extremities: Ambulatory without assistance, no obvious deformities Skin: Warm, dry, intact; no obvious lesions or discoloration Assessment/Plan Haydee was seen today for follow-up. Diagnoses and all orders for this visit: Hiatal hernia (Primary) GERD without esophagitis 73-year-old female with a large hiatal hernia. I met with her today to discuss risk and benefits of operative repair as outlined below. Visual aids were used to describe the procedure. All of her questions were answered to her satisfaction. We discussed the procedure as well as the potential for esophageal lengthening. Proceed with surgery as scheduled. I met with the patient today to discuss risks and benefits of laparoscopic HH repair/anti-reflux surgery including, but not limited to injury to surrounding structures, the possibility of using mesh for diaphragmatic reinforcement, conversion to open, pleural effusion requiring thoracentesis and/or chest tube placement, prolonged mechanical ventilation, and . The patient is aware of the possibility of gas bloat syndrome, the need for ongoing PPI/H2 Arina use, postoperative reflux or dysphagia requiring dilation. We discussed potential for hemorrhage, infection, incomplete resolution of reflux symptoms, as well as cardiac and pulmonary-related complications. The possibility of removal of magnetic sphincter augmentation device was also explained if applicable. Non-operative alternatives were discussed with the patient. The patient understands and wishes to proceed with recommendations. Plan: Initial Pre-Operative Testing Primary Procedure: Laparoscopic large hiatal hernia repair with poss mesh, poss Clarisa gastroplasty, partial fundoplication, EGD on 01/26/24 Clearance: PAT, Cardio - Dr. Jarrett (leighton [employer]CH[employer] 01/01/24) Preop SQ Heparin: 5000u subcutaneous heparin 2hrs preop I met with her today to discuss the risks and benefits of laparoscopic HH repair/anti-reflux surgery as outlined above. Visual aids were used to describe the procedure. All questions were answered to patient's satisfaction. I personally performed the evaluation and management of Haydee Acuña in the development of a treatment plan for this patient. I personally interviewed the patient and performed an individual physical examination. In addition, I discussed the patient's condition and treatment options with them. I have also reviewed and agree with the past medical, family and social history unless otherwise noted. All of the patient's questions were answered. I discussed/counseled the patient regarding the risks and benefits of surgery as well as the preoperative and postoperative care plan for this patient.The patient was seen and examined independently and relevant data reviewed by myself. A full chart review was performed. Patient Care Team: Stephon Wells DO as PCP - General (Family Medicine) Serge Boswell (Gastroenterology) Benton Jarrett as Cmo (Internal Medicine) Britta Basurto (Endocrinology, Diabetes, & Metabolism) documented in this encounter [facility] 01-19-2024 Note [facility] Advanced Laparoscopic Surgery, GERD Evaluation Follow-up Visit Patient Name: Haydee Acuña Date: 01/19/24 HPI: Haydee Acuña is a 73 y.o. female who has undergone a work-up for large hiatal hernia, chronic anemia, satiety. The patient is here for a follow-up visit to discuss the results of testing and the surgical options to treat that patients reflux. Results are as followed: Gerd Workup Dates Results Referring Provider Dr. Wells Initial Symptoms 12/01/23 Large HH, chronic anemia, satiety, GERD UGI w/ Marshmallow/Bagel 12/12/23 Poss esophagitis, sm HH, reflux, dysmotility of bagel EGD 10/23/23 ([facility]) Large HH, cobblestoning of the duodenum; path: (-) h. pylori Lewis NA Manometry NA Surgery Scheduled/Performed: 01/26/24 Scheduled for laparoscopic large hiatal hernia repair w/ poss mesh, poss Clarisa, partial fundoplication, EGD Follow Up Appt: 01/19/24 Joaquin Martines personally reviewed the patient intake form with the patient. The ROS is negative except for what is listed in HPI. PMHx: Past Medical History: Diagnosis Date Hiatal hernia PSHx: Past Surgical History: Procedure Laterality Date COLONOSCOPY THYROID SURGERY 2020 TOTAL KNEE ARTHROPLASTY Right 2013 UPPER GASTROINTESTINAL ENDOSCOPY PFMHx: No family history on file. ALL: Allergies Allergen Reactions Diphenhydramine Hives Gluten Meal Wheat Other Reaction(s): UNKNOWN MEDS: Current Outpatient Medications Medication Sig Dispense Refill alendronate (Fosamax) 70 MG tablet Take by mouth. sundays amLODIPine (Norvasc) 10 MG tablet 10 mg. Calcium Carbonate-Vitamin D 600-5 MG-MCG capsule Take by mouth. cholecalciferol (Vitamin D-3) 50 MCG (1999 UT) tablet Take 2,000 Units by mouth daily. Monday thru Monday Cyanocobalamin (VITAMIN B-12 PO) Take by mouth. Folic Acid 0.8 MG capsule Take by mouth. levothyroxine (Synthroid, Levoxyl) 112 MCG tablet See Instructions, TAKE 1 TABLET BY MOUTH EVERY DAY/ none on sun, # 90 tab(s), 3 Refill(s), Pharmacy: [facility], 161.5, cm, 02/02/23 9:08:00 EDT, Height, kg, 02/02/23 9:08:00 EDT, Dosing Weight lisinopril 10 MG tablet 10 mg. Magnesium 400 MG capsule Take by mouth 1 (one) time each day. metFORMIN (Glucophage) 500 MG tablet See Instructions, TAKE 1 TABLET IN THE MORNING TAKE 1 TABLETS IN THE EVENING, # 270 tab(s), 3 Refill(s), Pharmacy: [facility], 159, cm, 08/08/23 9:07:00 EST, Height, kg, 08/08/23 9:07:00 EST, Dosing Weight pantoprazole (ProtoNix) 40 MG EC tablet 40 mg. rosuvastatin (Crestor) 10 MG tablet 10 mg. spironolactone (Aldactone) 25 MG tablet 25 mg every other day. Takes at 12 noon terazosin (Hytrin) 1 MG capsule 1 mg Nightly. No current facility-administered medications for this visit. SOCIAL Hx: Social History Socioeconomic History Marital status: Spouse name: Not on file Number of children: Not on file Years of education: Not on file Highest education level: Not on file Occupational History Not on file Tobacco Use Smoking status: Never Smokeless tobacco: Never Vaping Use Vaping status: Never Used Substance and Sexual Activity Alcohol use: Never Drug use: Never Sexual activity: Not on file Other Topics Concern Not on file Social History Narrative Not on file Social Determinants of Health Financial Resource Strain: Not on file Food Insecurity: Not on file Transportation Needs: Not on file Physical Activity: Not on file Stress: Not on file Social Connections: Not on file Intimate Partner Violence: Not on file Housing Stability: Not on file ROS: General: negative for - chills, fatigue, fever or malaise Gastrointestinal: negative for - change in bowel habits, hemoptysis, hematemesis, hematochezia, dysphagia, nausea, vomiting, diarrhea, constipation, weight loss DIAGNOSTIC EVALUATION: Gerd Workup Dates Results Referring Provider Dr. Wells Initial Symptoms 12/01/23 Large HH, chronic anemia, satiety, GERD UGI w/ Marshmallow/Bagel 12/12/23 Poss esophagitis, sm HH, reflux, dysmotility of bagel EGD 10/23/23 ([facility]) Large HH, cobblestoning of the duodenum; path: (-) h. pylori Lewis NA Manometry NA Surgery Scheduled/Performed: 01/26/24 Scheduled for laparoscopic large hiatal hernia repair w/ poss mesh, poss Clarisa, partial fundoplication, EGD Follow Up Appt: 01/19/24 Joaquin Physical Examination: BP (!) 144/73 (BP Location: Left arm, Patient Position: Sitting, BP Cuff Size: Large adult) Pulse 88 Temp 36.6 ?C (97.8 ?F) Ht 5' 2 (1.575 m) Wt 150 lb (68 kg) BMI 27.44 kg/m? She stands Height: 5' 2 (157.5 cm) tall with a weight of Weight: 150 lb (68 kg), resulting in a BMI of Body mass index is 27.44 kg/m?. General: The patient is awake, alert, and oriented, and is in no apparent distress; normal affect Respiratory: Normal effort, no gross abnormal breath sounds - non labored breathing (more content not included)... [facility] 01-19-2024 Note [facility] Advanced Laparoscopic Surgery, GERD Evaluation Follow-up Visit Patient Name: Haydee Acuña Date: 01/19/24 HPI: Haydee Acuña is a 73 y.o. female who has undergone a work-up for large hiatal hernia, chronic anemia, satiety. The patient is here for a follow-up visit to discuss the results of testing and the surgical options to treat that patients reflux. Results are as followed: Gerd Workup Dates Results Referring Provider Dr. Wells Initial Symptoms 12/01/23 Large HH, chronic anemia, satiety, GERD UGI w/ Marshmallow/Bagel 12/12/23 Poss esophagitis, sm HH, reflux, dysmotility of bagel EGD 10/23/23 ([facility]) Large HH, cobblestoning of the duodenum; path: (-) h. pylori Lewis NA Manometry NA Surgery Scheduled/Performed: 01/26/24 Scheduled for laparoscopic large hiatal hernia repair w/ poss mesh, poss Clarisa, partial fundoplication, EGD Follow Up Appt: 01/19/24 Joaquin Martines personally reviewed the patient intake form with the patient. The ROS is negative except for what is listed in HPI. PMHx: Past Medical History: Diagnosis Date Hiatal hernia PSHx: Past Surgical History: Procedure Laterality Date COLONOSCOPY THYROID SURGERY 2019 TOTAL KNEE ARTHROPLASTY Right 2013 UPPER GASTROINTESTINAL ENDOSCOPY PFMHx: No family history on file. ALL: Allergies Allergen Reactions Diphenhydramine Hives Gluten Meal Wheat Other Reaction(s): UNKNOWN MEDS: Current Outpatient Medications Medication Sig Dispense Refill alendronate (Fosamax) 70 MG tablet Take by mouth. sundays amLODIPine (Norvasc) 10 MG tablet 10 mg. Calcium Carbonate-Vitamin D 600-5 MG-MCG capsule Take by mouth. cholecalciferol (Vitamin D-3) 50 MCG (1999) tablet Take 2,000 Units by mouth daily. Monday thru Monday Cyanocobalamin (VITAMIN B-12 PO) Take by mouth. Folic Acid 0.8 MG capsule Take by mouth. levothyroxine (Synthroid, Levoxyl) 112 MCG tablet See Instructions, TAKE 1 TABLET BY MOUTH EVERY DAY/ none on sun, # 90 tab(s), 3 Refill(s), Pharmacy: [facility], 161.5, cm, 02/02/23 9:08:00 EDT, Height, kg, 02/02/23 9:08:00 EDT, Dosing Weight lisinopril 10 MG tablet 10 mg. Magnesium 400 MG capsule Take by mouth 1 (one) time each day. metFORMIN (Glucophage) 500 MG tablet See Instructions, TAKE 1 TABLET IN THE MORNING TAKE 1 TABLETS IN THE EVENING, # 270 tab(s), 3 Refill(s), Pharmacy: [facility], 159, cm, 08/08/23 9:07:00 EST, Height, kg, 08/08/23 9:07:00 EST, Dosing Weight pantoprazole (ProtoNix) 40 MG EC tablet 40 mg. rosuvastatin (Crestor) 10 MG tablet 10 mg. spironolactone (Aldactone) 25 MG tablet 25 mg every other day. Takes at 12 noon terazosin (Hytrin) 1 MG capsule 1 mg Nightly. No current facility-administered medications for this visit. SOCIAL Hx: Social History Socioeconomic History Marital status: Spouse name: Not on file Number of children: Not on file Years of education: Not on file Highest education level: Not on file Occupational History Not on file Tobacco Use Smoking status: Never Smokeless tobacco: Never Vaping Use Vaping status: Never Used Substance and Sexual Activity Alcohol use: Never Drug use: Never Sexual activity: Not on file Other Topics Concern Not on file Social History Narrative Not on file Social Determinants of Health Financial Resource Strain: Not on file Food Insecurity: Not on file Transportation Needs: Not on file Physical Activity: Not on file Stress: Not on file Social Connections: Not on file Intimate Partner Violence: Not on file Housing Stability: Not on file ROS: General: negative for - chills, fatigue, fever or malaise Gastrointestinal: negative for - change in bowel habits, hemoptysis, hematemesis, hematochezia, dysphagia, nausea, vomiting, diarrhea, constipation, weight loss DIAGNOSTIC EVALUATION: Gerd Workup Dates Results Referring Provider Dr. Wells Initial Symptoms 12/01/23 Large HH, chronic anemia, satiety, GERD UGI w/ Marshmallow/Bagel 12/12/23 Poss esophagitis, sm HH, reflux, dysmotility of bagel EGD 10/23/23 ([facility]) Large HH, cobblestoning of the duodenum; path: (-) h. pylori Lewis NA Manometry NA Surgery Scheduled/Performed: 01/26/24 Scheduled for laparoscopic large hiatal hernia repair w/ poss mesh, poss Clarisa, partial fundoplication, EGD Follow Up Appt: 01/19/24 Joaquin Physical Examination: BP (!) 144/73 (BP Location: Left arm, Patient Position: Sitting, BP Cuff Size: Large adult) Pulse 88 Temp 36.6 ?C (97.8 ?F) Ht 5' 2 (1.575 m) Wt 150 lb (68 kg) BMI 27.44 kg/m? She stands Height: 5' 2 (157.5 cm) tall with a weight of Weight: 150 lb (68 kg), resulting in a BMI of Body mass index is 27.44 kg/m?. General: The patient is awake, alert, and oriented, and is in no apparent distress; normal affect Respiratory: Normal effort, no gross abnormal breath sounds - non labored breathing (more content not included)... [facility] 01-19-2024 Note Patient: Haydee Acuña Procedure Information Date/Time: 01/26/24829 Procedures: LAPAROSCOPY HIATAL HERNIA REPAIR WITH MESH AND POSTERIOR FUNDOPLICATION, (Abdomen) - 150 mins POSSIBLE CLARISA GASTROPLASTY, ESOPHAGOGASTRODUODENOSCOPY WITH BIOPSY, POSSIBLE OPEN Location: [facility] OR [address] [place] [address] Operating Room Surgeons: Benton Nuñez MD Relevant Problems No relevant active problems Past Medical History: Past Medical History: No date: Hiatal hernia Past Surgical History: Past Surgical History: No date: COLONOSCOPY 2020: THYROID SURGERY 2014: TOTAL KNEE ARTHROPLASTY; Right No date: UPPER GASTROINTESTINAL ENDOSCOPY Social History: TOBACCO: reports that she has never smoked. She has never used smokeless tobacco. ETOH: reports no history of alcohol use. Social History Substance and Sexual Activity Drug Use Never Family History: No family history on file. Screening: Postmenopausal Clinical information reviewed: Allergies Meds OB Status Physical Exam Airway Mallampati: II TM distance: >3 FB Neck ROM: full Mouth Open: normalendotracheal tube not in place Cardiovascular Dental (+) Upper Dentures, Lower Dentures Pulmonary Abdominal Anesthesia Plan patient is NPO appropriate Any family history or previous problems with anesthesia no ASA 2 general and regional Any family history or previous problems with anesthesia no(TAP) The patient is not a current smoker. Anesthetic plan and risks discussed with patient and spouse (daughter). Anesthesia Allison Considerations May consider Glidescope--anterior? RSI JOSEF Screening STOP-Bang Total Score: 1 Labs: No results found for: WBC, HGB, HCT, MCV, PLT No results found for: NA, K, CL, CO2, BUN, CREATININE, GLUCOSE, CALCIUM, PROT, BILIRUBINFL, ALKPHOS, AST, ALT, EGFR, GLOB No echocardiogram results found for the past 14 days No results found for this or any previous visit. Equipment Requests: Additional Equipment Requests [facility] 01-19-2024 History and physical note Comprehensive Pre Surgical History and Physical ? Name: Haydee Acuña : 1950 (Age-73 y.o.) Date of Service: Pt seen/examined on 01/19/2024 Procedure Information Date/Time: 01/26/24 0830 Procedures: LAPAROSCOPY HIATAL HERNIA REPAIR WITH MESH AND POSTERIOR FUNDOPLICATION, (Abdomen) - 150 mins POSSIBLE CLARISA GASTROPLASTY, ESOPHAGOGASTRODUODENOSCOPY WITH BIOPSY, POSSIBLE OPEN Location: [address] Operating Room Surgeons: Benton Nuñez MD Chief Complaint: LAPAROSCOPY HIATAL HERNIA REPAIR WITH MESH AND POSTERIOR FUNDOPLICATION, (Abdomen) - 150 mins POSSIBLE CLARISA GASTROPLASTY, ESOPHAGOGASTRODUODENOSCOPY WITH BIOPSY, POSSIBLE OPEN ASSESSMENT/PLAN: Patient is considered intermediate risk for this intermediate level 1 risk procedure/surgery with no reducible risk factors. Based on the above evaluation, the benefits of the planned procedure likely exceed the risks. The patient is medically optimized to proceed with the planned procedure without any further cardiopulmonary testing. 1) LAPAROSCOPY HIATAL HERNIA REPAIR WITH MESH AND POSTERIOR FUNDOPLICATION, (Abdomen) - 150 mins POSSIBLE CLARISA GASTROPLASTY, ESOPHAGOGASTRODUODENOSCOPY WITH BIOPSY, POSSIBLE OPEN - Managed per surgery - cardiac clearance obtained on 01/02/24 2) HTN - amlodipine - lisinopril - terazosin - states compliance with meds - previous office visit BP 170/79; today's bp 158/71 3) HLD - rosuvastin - trig 61 HDL 66 LDL 91 4) CHF - [place] Class 1 - Normal EF in 2020 - spironolactone 5) Hypothyroidism - levothyroxine 6)DM II - metformin Visit Type: Pre-Admission Testing Visit Labs Ordered: YES - PER PAT PROTOCOL Sleep Referral Ordered: NO - NEGATIVE SCREEN PER SLEEP REFERRAL PROTOCOL Total time spent (which include face to face and non face to face encounters) : 31 minutes Toxic drug monitoring/narrow therapeutic index drug monitoring : # Drug name : BP meds # Route administered : orally # Method of monitoring : BP monitoring PAT Protocol referenced includes: 1. Anesthesia Lab Protocol Orders 2. Perioperative Cardiovascular Risk Assessment 3. Anesthesia Assessment 4. Pain Assessment and Acute Pain Service Consult (if appropriate) 5. Medical Clearance/Consult from Internal Medicine (IMS) 6. Shower/Wash Order (for designated surgeries) 7. JOSEF Screen and Sleep Clinic Referral (if appropriate) Patient did not name a surrogate decision-maker or provide an advance care plan History Of Present Illness: 73 y.o. female who we are asked to see/evaluate by Dr. Zelaya prior to LAPAROSCOPY HIATAL HERNIA REPAIR WITH MESH AND POSTERIOR FUNDOPLICATION, (Abdomen) - 150 mins POSSIBLE CLARISA GASTROPLASTY, ESOPHAGOGASTRODUODENOSCOPY WITH BIOPSY, POSSIBLE OPEN Do you have a history of chronic opioid use? YES/NO ? Denies history of DE, CAD, CHF, TIA,; hx of stroke-was on ASA but stopped it a month ago due to anemia Past Medical History: No past medical history on file. Past Surgical History: Past Surgical History: 2020: THYROID SURGERY 2014: TOTAL KNEE ARTHROPLASTY; Right Medications Prior to Admission: Prior to Admission medications Medication Sig Start Date End Date Taking? Authorizing Provider alendronate (Fosamax) 70 MG tablet Take by mouth. 01/26/21 06/28/24 Historical Provider, amLODIPine (Norvasc) 10 MG tablet 10 mg. 04/03/23 Historical Provider, Calcium Carbonate-Vitamin D 600-5 MG-MCG capsule Take by mouth. 11/01/23 Historical Provider, levothyroxine (Synthroid, Levoxyl) 112 MCG tablet See Instructions, TAKE 1 TABLET BY MOUTH EVERY DAY/ none on sun, # 90 tab(s), 3 Refill(s), Pharmacy: [facility], 161.5, cm, 02/02/23 9:08:00 EDT, Height, kg, 02/02/23 9:08:00 EDT, Dosing Weight 02/02/23 Historical Provider, lisinopril 10 MG tablet 10 mg. 04/03/23 Historical Provider, metFORMIN (Glucophage) 500 MG tablet See Instructions, TAKE 1 TABLET IN THE MORNING TAKE 1 TABLETS IN THE EVENING, # 270 tab(s), 3 Refill(s), Pharmacy: [facility], 159, cm, 08/08/23 9:07:00 EST, Height, kg, 08/08/23 9:07:00 EST, Dosing Weight 08/08/23 Historical Provider, pantoprazole (ProtoNix) 40 MG EC tablet 40 mg. 04/03/23 03/28/24 Historical Provider, rosuvastatin (Crestor) 10 MG tablet 10 mg. 07/27/23 07/21/24 Historical Provider, spironolactone (Aldactone) 25 MG tablet 25 mg. 05/05/23 Historical Provider, terazosin (Hytrin) 1 MG capsule 1 mg. 05/05/23 Historical Provider, CHRONIC NARCOTIC USE: No Allergies: Diphenhydramine, Gluten meal, and Wheat If patient has opioid allergy, is it okay to take Acetaminophen: N/A Social History: TOBACCO: has no history on file for tobacco use. ETOH: has no history on file for alcohol use. Social History Substance and Sexual Activity Drug Use Not on file Family History: No family history on file. Review of Systems Constitutional: Negative for chills and fever. HENT: Negative for congestion. Respiratory: Negative for cough and shortness of breath. Cardiovascular: Negative for chest pain. Gastrointestinal: Negative for abdominal pain. Musculoskeletal: Negative for gait problem and myalgias. Skin: Negative for rash. Neurological: Negative for dizziness and headaches. Physical Exam Constitutional: General: She is not in acute distress. Appearance: Normal appearance. HENT: Head: Normocephalic and atraumatic. Mouth/Throat: Mouth: Mucous membranes are moist. Eyes: Pupils: Pupils are equal, round, and reactive to light. Cardiovascular: Rate and Rhythm: Normal rate and regular rhythm. Pulses: Normal pulses. Heart sounds: Normal heart sounds. Pulmonary: Effort: Pulmonary effort is normal. Breath sounds: Normal breath sounds. Abdominal: General: Bowel sounds are normal. Palpations: Abdomen is soft. Musculoskeletal: Cervical back: Normal range of motion. Skin: General: Skin is warm and dry. Capillary Refill: Capillary refill takes less than 2 seconds. Neurological: General: No focal deficit present. Mental Status: She is alert and oriented to person, place, and time. Vitals: Vitals Value Taken Time BP 158/71 01/19/24 1036 Temp 36.1 C (97 F) 01/19/24 1036 Pulse 87 01/19/24 1036 Resp 16 01/19/24 1036 SpO2 99 % 01/19/24 1036 Labs: No results found for: WBC, HGB, HCT, MCV, PLT No results found for: NA, K, CL, CO2, BUN, CREATININE, GLUCOSE, CALCIUM, PROT, BILIRUBINFL, ALKPHOS, AST, ALT, EGFR, GLOB Doug's Simple Cardiac Risk Index: Interpretation: 0 Points Class I 0.5% 1 Point Class II 1.3% 2 Points Class III 3.6% 3+ Points Class IV 9.1% PAT Pain Score: Postop Pain Management Plan (Pain consult ordered?): Pain consult not indicated at this time ? EKG: NSR with no noted ischemia as per Dr. Jarrett's cardiology note No results found for this or any previous visit (from the past 4464 hour(s)). ECHO and EF:Normal EF on date 2020 No components found for: LVEF, LVEFMODE METS >4 Electronically signed by: Alcira Harmon APRN - PHILLIP Date: 01/19/2024 at 10:16 AM [facility] Work Phone: 01-19-2024 Note Comprehensive Pre Perez rgical History and Physical ? Name: Haydee Acuña : 1950 (Age-73 y.o.) Date of Service: Pt seen/examined on 01/19/2024 Procedure Information Date/Time: 01/26/24 0830 Procedures: LAPAROSCOPY HIATAL HERNIA REPAIR WITH MESH AND POSTERIOR FUNDOPLICATION, (Abdomen) - 150 mins POSSIBLE CLARISA GASTROPLASTY, ESOPHAGOGASTRODUODENOSCOPY WITH BIOPSY, POSSIBLE OPEN Location: [address] Operating Room Surgeons: Benton Nuñez MD Chief Complaint: LAPAROSCOPY HIATAL HERNIA REPAIR WITH MESH AND POSTERIOR FUNDOPLICATION, (Abdomen) - 150 mins POSSIBLE CLARISA GASTROPLASTY, ESOPHAGOGASTRODUODENOSCOPY WITH BIOPSY, POSSIBLE OPEN ASSESSMENT/PLAN: Patient is considered intermediate risk for this intermediate level 1 risk procedure/surgery with no reducible risk factors. Based on the above evaluation, the benefits of the planned procedure likely exceed the risks. The patient is medically optimized to proceed with the planned procedure without any further cardiopulmonary testing. 1) LAPAROSCOPY HIATAL HERNIA REPAIR WITH MESH AND POSTERIOR FUNDOPLICATION, (Abdomen) - 150 mins POSSIBLE CLARISA GASTROPLASTY, ESOPHAGOGASTRODUODENOSCOPY WITH BIOPSY, POSSIBLE OPEN - Managed per surgery - cardiac clearance obtained on 01/02/24 2) HTN - amlodipine - lisinopril - terazosin - states compliance with meds - previous office visit BP 170/79; today's bp 158/71 3) HLD - rosuvastin - trig 61 HDL 66 LDL 91 4) CHF - [place] Class 1 - Normal EF in 2020 - spironolactone 5) Hypothyroidism - levothyroxine 6)DM II - metformin Visit Type: Pre-Admission Testing Visit Labs Ordered: YES - PER PAT PROTOCOL Sleep Referral Ordered: NO - NEGATIVE SCREEN PER SLEEP REFERRAL PROTOCOL Total time spent (which include face to face and non face to face encounters) : 31 minutes Toxic drug monitoring/narrow therapeutic index drug monitoring : # Drug name : BP meds # Route administered : orally # Method of monitoring : BP monitoring PAT Protocol referenced includes: 1. Anesthesia Lab Protocol Orders 2. Perioperative Cardiovascular Risk Assessment 3. Anesthesia Assessment 4. Pain Assessment and Acute Pain Service Consult (if appropriate) 5. Medical Clearance/Consult from Internal Medicine ([facility]) 6. Shower/Wash Order (for designated surgeries) 7. JOSEF Screen and Sleep Clinic Referral (if appropriate) Patient did not name a surrogate decision-maker or provide an advance care plan History Of Present Illness: 73 y.o. female who we are asked to see/evaluate by Dr. Zelaya prior to LAPAROSCOPY HIATAL HERNIA REPAIR WITH MESH AND POSTERIOR FUNDOPLICATION, (Abdomen) - 150 mins POSSIBLE CLARISA GASTROPLASTY, ESOPHAGOGASTRODUODENOSCOPY WITH BIOPSY, POSSIBLE OPEN Do you have a history of chronic opioid use? YES/NO ? Denies history of DE, CAD, CHF, TIA,; hx of stroke-was on ASA but stopped it a month ago due to anemia Past Medical History: No past medical history on file. Past Surgical History: Past Surgical History: 2020: THYROID SURGERY 2014: TOTAL KNEE ARTHROPLASTY; Right Medications Prior to Admission: Prior to Admission medications Medication Sig Start Date End Date Taking? Authorizing Provider alendronate (Fosamax) 70 MG tablet Take by mouth. 01/26/21 06/28/24 Historical Provider, amLODIPine (Norvasc) 10 MG tablet 10 mg. 04/03/23 Historical Provider, Calcium Carbonate-Vitamin D 600-5 MG-MCG capsule Take by mouth. 11/01/23 Historical Provider, levothyroxine (Synthroid, Levoxyl) 112 MCG tablet See Instructions, TAKE 1 TABLET BY MOUTH EVERY DAY/ none on sun, # 90 tab(s), 3 Refill(s), Pharmacy: [facility], 161.5, cm, 02/02/23 9:08:00 EDT, Height, kg, 02/02/23 9:08:00 EDT, Dosing Weight 02/02/23 Historical Provider, lisinopril 10 MG tablet 10 mg. 04/03/23 Historical Provider, metFORMIN (Glucophage) 500 MG tablet See Instructions, TAKE 1 TABLET IN THE MORNING TAKE 1 TABLETS IN THE EVENING, # 270 tab(s), 3 Refill(s), Pharmacy: [facility], 159, cm, 08/08/23 9:07:00 EST, Height, kg, 08/08/23 9:07:00 EST, Dosing Weight 08/08/23 Historical Provider, pantoprazole (ProtoNix) 40 MG EC tablet 40 mg. 04/03/23 03/28/24 Historical Provider, rosuvastatin (Crestor) 10 MG tablet 10 mg. 07/27/23 07/21/24 Historical Provider, spironolactone (Aldactone) 25 MG tablet 25 mg. 05/05/23 Historical Provider, terazosin (Hytrin) 1 MG capsule 1 mg. 05/05/23 Historical Provider, CHRONIC NARCOTIC USE: No Allergies: Diphenhydramine, Gluten meal, and Wheat If patient has opioid allergy, is it okay to take Acetaminophen: N/A Social History: TOBACCO: has no history on file for tobacco use. ETOH: has no history on file for alcohol use. Social History Substance and Sexua (more content not included)... [facility] 01-19-2024 Note Comprehensive Pre Perez rgical History and Physical ? Name: Haydee Acuña : 1950 (Age-73 y.o.) Date of Service: Pt seen/examined on 01/19/2024 Procedure Information Date/Time: 01/26/24 0830 Procedures: LAPAROSCOPY HIATAL HERNIA REPAIR WITH MESH AND POSTERIOR FUNDOPLICATION, (Abdomen) - 150 mins POSSIBLE CLARISA GASTROPLASTY, ESOPHAGOGASTRODUODENOSCOPY WITH BIOPSY, POSSIBLE OPEN Location: [address] Operating Room Surgeons: Benton Nuñez MD Chief Complaint: LAPAROSCOPY HIATAL HERNIA REPAIR WITH MESH AND POSTERIOR FUNDOPLICATION, (Abdomen) - 150 mins POSSIBLE CLARISA GASTROPLASTY, ESOPHAGOGASTRODUODENOSCOPY WITH BIOPSY, POSSIBLE OPEN ASSESSMENT/PLAN: Patient is considered intermediate risk for this intermediate level 1 risk procedure/surgery with no reducible risk factors. Based on the above evaluation, the benefits of the planned procedure likely exceed the risks. The patient is medically optimized to proceed with the planned procedure without any further cardiopulmonary testing. 1) LAPAROSCOPY HIATAL HERNIA REPAIR WITH MESH AND POSTERIOR FUNDOPLICATION, (Abdomen) - 150 mins POSSIBLE CLARISA GASTROPLASTY, ESOPHAGOGASTRODUODENOSCOPY WITH BIOPSY, POSSIBLE OPEN - Managed per surgery - cardiac clearance obtained on 01/02/24 2) HTN - amlodipine - lisinopril - terazosin - states compliance with meds - previous office visit BP 170/79; today's bp 158/71 3) HLD - rosuvastin - trig 61 HDL 66 LDL 91 4) CHF - [place] Class 1 - Normal EF in 2020 - spironolactone 5) Hypothyroidism - levothyroxine 6)DM II - metformin Visit Type: Pre-Admission Testing Visit Labs Ordered: YES - PER PAT PROTOCOL Sleep Referral Ordered: NO - NEGATIVE SCREEN PER SLEEP REFERRAL PROTOCOL Total time spent (which include face to face and non face to face encounters) : 31 minutes Toxic drug monitoring/narrow therapeutic index drug monitoring : # Drug name : BP meds # Route administered : orally # Method of monitoring : BP monitoring PAT Protocol referenced includes: 1. Anesthesia Lab Protocol Orders 2. Perioperative Cardiovascular Risk Assessment 3. Anesthesia Assessment 4. Pain Assessment and Acute Pain Service Consult (if appropriate) 5. Medical Clearance/Consult from Internal Medicine ([facility]) 6. Shower/Wash Order (for designated surgeries) 7. JOSEF Screen and Sleep Clinic Referral (if appropriate) Patient did not name a surrogate decision-maker or provide an advance care plan History Of Present Illness: 73 y.o. female who we are asked to see/evaluate by Dr. Zelaya prior to LAPAROSCOPY HIATAL HERNIA REPAIR WITH MESH AND POSTERIOR FUNDOPLICATION, (Abdomen) - 150 mins POSSIBLE CLARISA GASTROPLASTY, ESOPHAGOGASTRODUODENOSCOPY WITH BIOPSY, POSSIBLE OPEN Do you have a history of chronic opioid use? YES/NO ? Denies history of DE, CAD, CHF, TIA,; hx of stroke-was on ASA but stopped it a month ago due to anemia Past Medical History: No past medical history on file. Past Surgical History: Past Surgical History: 2020: THYROID SURGERY 2014: TOTAL KNEE ARTHROPLASTY; Right Medications Prior to Admission: Prior to Admission medications Medication Sig Start Date End Date Taking? Authorizing Provider alendronate (Fosamax) 70 MG tablet Take by mouth. 01/26/21 06/28/24 Historical Provider, amLODIPine (Norvasc) 10 MG tablet 10 mg. 04/03/23 Historical Provider, Calcium Carbonate-Vitamin D 600-5 MG-MCG capsule Take by mouth. 11/01/23 Historical Provider, levothyroxine (Synthroid, Levoxyl) 112 MCG tablet See Instructions, TAKE 1 TABLET BY MOUTH EVERY DAY/ none on sun, # 90 tab(s), 3 Refill(s), Pharmacy: [facility], 161.5, cm, 02/02/23 9:08:00 EDT, Height, kg, 02/02/23 9:08:00 EDT, Dosing Weight 02/02/23 Historical Provider, lisinopril 10 MG tablet 10 mg. 04/03/23 Historical Provider, metFORMIN (Glucophage) 500 MG tablet See Instructions, TAKE 1 TABLET IN THE MORNING TAKE 1 TABLETS IN THE EVENING, # 270 tab(s), 3 Refill(s), Pharmacy: [facility], 159, cm, 08/08/23 9:07:00 EST, Height, kg, 08/08/23 9:07:00 EST, Dosing Weight 08/08/23 Historical Provider, pantoprazole (ProtoNix) 40 MG EC tablet 40 mg. 04/03/23 03/28/24 Historical Provider, rosuvastatin (Crestor) 10 MG tablet 10 mg. 07/27/23 07/21/24 Historical Provider, spironolactone (Aldactone) 25 MG tablet 25 mg. 05/05/23 Historical Provider, terazosin (Hytrin) 1 MG capsule 1 mg. 05/05/23 Historical Provider, CHRONIC NARCOTIC USE: No Allergies: Diphenhydramine, Gluten meal, and Wheat If patient has opioid allergy, is it okay to take Acetaminophen: N/A Social History: TOBACCO: has no history on file for tobacco use. ETOH: has no history on file for alcohol use. Social History Substance and Sexua (more content not included)... [facility] 12-01-2023 History of Present illness Narrative Images from the original note were not included. [facility] Physicians Surgery Patient Name: Haydee Acuña Date: 12/01/23 HPI: Haydee Acuña is a 73 y.o. female who presents with large hiatal hernia. Underwent EGD for iron deficiency anemia and h/o celiac. Patient has endorsed epigastric discomfort for the past year. Denies dysphagia, but does feel full quicker. Was endorsing nausea but resolved with a nausea bracelet. Used to have bad reflux but improved with the pantoprazole. She often is vomiting once to twice per week, especially when she bends over. Was previously on baby aspirin for TIA but stopped taking that 1 month ago due to anemia. EGD and colonoscopy did not show any ulcers or active bleeding. I personally reviewed the patient intake form and discussed the ROS with the patient. The ROS is negative except for what is listed in HPI. Dr Boswell OV note 09/21/23 reviewed EGD 10/23/23 Dr Boswell PMHx: History reviewed. No pertinent past medical history. PSHx: Past Surgical History: Procedure Laterality Date THYROID SURGERY 2019 TOTAL KNEE ARTHROPLASTY Right 2013 PFMHx: No family history on file. ALL: Allergies Allergen Reactions Diphenhydramine Hives Gluten Meal MEDS: Current Outpatient Medications Medication Sig Dispense Refill amLODIPine (Norvasc) 10 MG tablet 10 mg. levothyroxine (Synthroid, Levoxyl) 112 MCG tablet See Instructions, TAKE 1 TABLET BY MOUTH EVERY DAY/ none on sun, # 90 tab(s), 3 Refill(s), Pharmacy: [facility], 161.5, cm, 02/02/23 9:08:00 EDT, Height, kg, 02/02/23 9:08:00 EDT, Dosing Weight lisinopril 10 MG tablet 10 mg. metFORMIN (Glucophage) 500 MG tablet See Instructions, TAKE 1 TABLET IN THE MORNING TAKE 1 TABLETS IN THE EVENING, # 270 tab(s), 3 Refill(s), Pharmacy: [facility], 159, cm, 08/08/23 9:07:00 EST, Height, kg, 08/08/23 9:07:00 EST, Dosing Weight pantoprazole (ProtoNix) 40 MG EC tablet 40 mg. rosuvastatin (Crestor) 10 MG tablet 10 mg. spironolactone (Aldactone) 25 MG tablet 25 mg. terazosin (Hytrin) 1 MG capsule 1 mg. No current facility-administered medications for this visit. SOCIAL Hx: Social History Socioeconomic History Marital status: Spouse name: Not on file Number of children: Not on file Years of education: Not on file Highest education level: Not on file Occupational History Not on file Tobacco Use Smoking status: Unknown Smokeless tobacco: Not on file Substance and Sexual Activity Alcohol use: Not on file Drug use: Not on file Sexual activity: Not on file Other Topics Concern Not on file Social History Narrative Not on file Social Determinants of Health Financial Resource Strain: Not on file Food Insecurity: Not on file Transportation Needs: Not on file Physical Activity: Not on file Stress: Not on file Social Connections: Not on file Intimate Partner Violence: Not on file Housing Stability: Not on file DIAGNOSTIC EVALUATION: EGD Dr Boswell 10/23/23 Pathology Physical Examination: BP (!) 170/79 Pulse 88 Temp (!) 35.8 C (96.5 F) Resp 16 Ht 5' 2 (1.575 m) Wt 147 lb 3.2 oz (66.8 kg) BMI 26.92 kg/m She stands Height: 5' 2 (157.5 cm) tall with a weight of Weight: 147 lb 3.2 oz (66.8 kg) , resulting in a BMI of Body mass index is 26.92 kg/m .. General: The patient is awake, alert, and oriented, and is in no apparent distress. Head and Neck: Normocephalic and atraumatic. Respiratory: Nonlabored breathing Abdomen: Soft, no surgical scars -nontender, no reproducible abdominal pain. No palpable masses. Extremities: Ambulatory without assistance. Skin: No rashes or lesions noted. Hernia: no hernias found on exam She will need medical risk stratification from her snipper (Dr. Jarrett). We will proceed with surgical intervention. I met with the patient today to discuss risks and benefits of laparoscopic hiatal hernia repair with posterior fundoplication including, but not limited to injury to surrounding structures, the possibility of using mesh for diaphragmatic reinforcement, conversion to open, pleural effusion requiring thoracentesis, prolonged mechanical ventilation, and . She is aware of the possibility of gas bloat syndrome, the need for ongoing PPI/H2 Arina use, postoperative reflux or dysphagia. We discussed potential for hemorrhage, infection, incomplete resolution of Her symptoms, as well as cardiac and pulmonary-related complications. The patient understands and wishes to proceed. Non-operative alternatives were discussed with the patient and they wish to proceed with surgical intervention. Plan: Initial Pre-Operative Testing Primary Procedure: Laparoscopic hiatal hernia repair with mesh, posterior fundoplication, possible Clarisa gastroplasty, EGD Clearance: Cardiology clearance, STANLEY Coronado Preop SQ Heparin: 5000 units subcu heparin 2 hours preop x 1 Assessment/Plan Haydee was seen today for follow-up. Diagnoses and all orders for this visit: Hiatal hernia (Primary) - [place] upper GI double contrast w KUB; Future Gastroesophageal reflux disease without esophagitis Celiac disease 73-year-old female with a symptomatic large hiatal hernia with chronic iron deficiency anemia. I met with her and her today to discuss risk and benefits of laparoscopic hiatal hernia repair with mesh, posterior fundoplication and possible Clarisa gastroplasty. Visual aids were used to describe the procedure and risks and benefits outlined as above. She will need a preoperative upper GI with marshmallow bagel protocol and proceed with surgical scheduling. I personally performed the evaluation and management of Haydee Acuña in the development of a treatment plan for this patient. I personally interviewed the patient and performed an individual physical examination. In addition, I discussed the patient's condition and treatment options with them. I have also reviewed and agree with the past medical, family and social history unless otherwise noted. All of the patient's questions were answered. I discussed/counseled the patient regarding the risks and benefits of surgery as well as the preoperative and postoperative care plan for this patient.The patient was seen and examined independently and relevant data reviewed by myself. A full chart review was performed. Patient Care Team: Stephon Wells DO as PCP - (Family Medicine) Serge Boswell (Gastroenterology) Benton Jarrett (Internal Medicine) Britta Basurto (Endocrinology, Diabetes, & Metabolism) documented in this encounter [facility] 12-01-2023 History of Present illness Narrative Images from the original note were not included. [facility] Physicians Surgery Patient Name: Haydee Acuña Date: 12/01/23 HPI: Haydee Acuña is a 73 y.o. female who presents with large hiatal hernia. Underwent EGD for iron deficiency anemia and h/o celiac. Patient has endorsed epigastric discomfort for the past year. Denies dysphagia, but does feel full quicker. Was endorsing nausea but resolved with a nausea bracelet. Used to have bad reflux but improved with the pantoprazole. She often is vomiting once to twice per week, especially when she bends over. Was previously on baby aspirin for TIA but stopped taking that 1 month ago due to anemia. EGD and colonoscopy did not show any ulcers or active bleeding. I personally reviewed the patient intake form and discussed the ROS with the patient. The ROS is negative except for what is listed in HPI. Dr Boswell OV note 09/21/23 reviewed EGD 10/23/23 Dr Boswell PMHx: History reviewed. No pertinent past medical history. PSHx: Past Surgical History: Procedure Laterality Date THYROID SURGERY 2019 TOTAL KNEE ARTHROPLASTY Right 2013 PFMHx: No family history on file. ALL: Allergies Allergen Reactions Diphenhydramine Hives Gluten Meal MEDS: Current Outpatient Medications Medication Sig Dispense Refill amLODIPine (Norvasc) 10 MG tablet 10 mg. levothyroxine (Synthroid, Levoxyl) 112 MCG tablet See Instructions, TAKE 1 TABLET BY MOUTH EVERY DAY/ none on sun, # 90 tab(s), 3 Refill(s), Pharmacy: [facility], 161.5, cm, 02/02/23 9:08:00 EDT, Height, kg, 02/02/23 9:08:00 EDT, Dosing Weight lisinopril 10 MG tablet 10 mg. metFORMIN (Glucophage) 500 MG tablet See Instructions, TAKE 1 TABLET IN THE MORNING TAKE 1 TABLETS IN THE EVENING, # 270 tab(s), 3 Refill(s), Pharmacy: [facility], 159, cm, 08/08/23 9:07:00 EST, Height, kg, 08/08/23 9:07:00 EST, Dosing Weight pantoprazole (ProtoNix) 40 MG EC tablet 40 mg. rosuvastatin (Crestor) 10 MG tablet 10 mg. spironolactone (Aldactone) 25 MG tablet 25 mg. terazosin (Hytrin) 1 MG capsule 1 mg. No current facility-administered medications for this visit. SOCIAL Hx: Social History Socioeconomic History Marital status: Spouse name: Not on file Number of children: Not on file Years of education: Not on file Highest education level: Not on file Occupational History Not on file Tobacco Use Smoking status: Unknown Smokeless tobacco: Not on file Substance and Sexual Activity Alcohol use: Not on file Drug use: Not on file Sexual activity: Not on file Other Topics Concern Not on file Social History Narrative Not on file Social Determinants of Health Financial Resource Strain: Not on file Food Insecurity: Not on file Transportation Needs: Not on file Physical Activity: Not on file Stress: Not on file Social Connections: Not on file Intimate Partner Violence: Not on file Housing Stability: Not on file DIAGNOSTIC EVALUATION: EGD Dr Boswell 10/23/23 Pathology Physical Examination: BP (!) 170/79 Pulse 88 Temp (!) 35.8 C (96.5 F) Resp 16 Ht 5' 2 (1.575 m) Wt 147 lb 3.2 oz (66.8 kg) BMI 26.92 kg/m She stands Height: 5' 2 (157.5 cm) tall with a weight of Weight: 147 lb 3.2 oz (66.8 kg) , resulting in a BMI of Body mass index is 26.92 kg/m .. General: The patient is awake, alert, and oriented, and is in no apparent distress. Head and Neck: Normocephalic and atraumatic. Respiratory: Nonlabored breathing Abdomen: Soft, no surgical scars -nontender, no reproducible abdominal pain. No palpable masses. Extremities: Ambulatory without assistance. Skin: No rashes or lesions noted. Hernia: no hernias found on exam She will need medical risk stratification from her snipper (Dr. Jarrett). We will proceed with surgical intervention. I met with the patient today to discuss risks and benefits of laparoscopic hiatal hernia repair with posterior fundoplication including, but not limited to injury to surrounding structures, the possibility of using mesh for diaphragmatic reinforcement, conversion to open, pleural effusion requiring thoracentesis, prolonged mechanical ventilation, and . She is aware of the possibility of gas bloat syndrome, the need for ongoing PPI/H2 Arina use, postoperative reflux or dysphagia. We discussed potential for hemorrhage, infection, incomplete resolution of Her symptoms, as well as cardiac and pulmonary-related complications. The patient understands and wishes to proceed. Non-operative alternatives were discussed with the patient and they wish to proceed with surgical intervention. Plan: Initial Pre-Operative Testing Primary Procedure: Laparoscopic hiatal hernia repair with mesh, posterior fundoplication, possible Clarisa gastroplasty, EGD Clearance: Cardiology clearance, STANLEY Coronado Preop SQ Heparin: 5000 units subcu heparin 2 hours preop x 1 Assessment/Plan Haydee was seen today for follow-up. Diagnoses and all orders for this visit: Hiatal hernia (Primary) - [place] upper GI double contrast w KUB; Future Gastroesophageal reflux disease without esophagitis Celiac disease 73-year-old female with a symptomatic large hiatal hernia with chronic iron deficiency anemia. I met with her and her today to discuss risk and benefits of laparoscopic hiatal hernia repair with mesh, posterior fundoplication and possible Clarisa gastroplasty. Visual aids were used to describe the procedure and risks and benefits outlined as above. She will need a preoperative upper GI with marshmallow bagel protocol and proceed with surgical scheduling. I personally performed the evaluation and management of Haydee Acuña in the development of a treatment plan for this patient. I personally interviewed the patient and performed an individual physical examination. In addition, I discussed the patient's condition and treatment options with them. I have also reviewed and agree with the past medical, family and social history unless otherwise noted. All of the patient's questions were answered. I discussed/counseled the patient regarding the risks and benefits of surgery as well as the preoperative and postoperative care plan for this patient.The patient was seen and examined independently and relevant data reviewed by myself. A full chart review was performed. Patient Care Team: Stephon Wells DO as PCP - (Family Medicine) Serge Boswell (Gastroenterology) Benton Jarrett (Internal Medicine) Britta Basurto (Endocrinology, Diabetes, & Metabolism) Pt scheduled for UGI w/ contrast on 12/11 @ 1:30 [facility] *still needs surgery scheduled documented in this encounter [facility] 12-01-2023 History of Present illness Narrative Images from the original note were not included. [facility] - Surgery [facility] Physicians Surgery Patient Name: Haydee Acuña Date: 12/01/23 HPI: Haydee Acuña is a 73 y.o. female who presents with large hiatal hernia. Underwent EGD for iron deficiency anemia and h/o celiac. Patient has endorsed epigastric discomfort for the past year. Denies dysphagia, but does feel full quicker. Was endorsing nausea but resolved with a nausea bracelet. Used to have bad reflux but improved with the pantoprazole. She often is vomiting once to twice per week, especially when she bends over. Was previously on baby aspirin for TIA but stopped taking that 1 month ago due to anemia. EGD and colonoscopy did not show any ulcers or active bleeding. I personally reviewed the patient intake form and discussed the ROS with the patient. The ROS is negative except for what is listed in HPI. Dr Boswell OV note 09/21/23 reviewed EGD 10/23/23 Dr Boswell PMHx: History reviewed. No pertinent past medical history. PSHx: Past Surgical History: Procedure Laterality Date THYROID SURGERY 2019 TOTAL KNEE ARTHROPLASTY Right 2013 PFMHx: No family history on file. ALL: Allergies Allergen Reactions Diphenhydramine Hives Gluten Meal MEDS: Current Outpatient Medications Medication Sig Dispense Refill amLODIPine (Norvasc) 10 MG tablet 10 mg. levothyroxine (Synthroid, Levoxyl) 112 MCG tablet See Instructions, TAKE 1 TABLET BY MOUTH EVERY DAY/ none on sun, # 90 tab(s), 3 Refill(s), Pharmacy: [facility], 161.5, cm, 02/02/23 9:08:00 EDT, Height, kg, 02/02/23 9:08:00 EDT, Dosing Weight lisinopril 10 MG tablet 10 mg. metFORMIN (Glucophage) 500 MG tablet See Instructions, TAKE 1 TABLET IN THE MORNING TAKE 1 TABLETS IN THE EVENING, # 270 tab(s), 3 Refill(s), Pharmacy: [facility], 159, cm, 08/08/23 9:07:00 EST, Height, kg, 08/08/23 9:07:00 EST, Dosing Weight pantoprazole (ProtoNix) 40 MG EC tablet 40 mg. rosuvastatin (Crestor) 10 MG tablet 10 mg. spironolactone (Aldactone) 25 MG tablet 25 mg. terazosin (Hytrin) 1 MG capsule 1 mg. No current facility-administered medications for this visit. SOCIAL Hx: Social History Socioeconomic History Marital status: Spouse name: Not on file Number of children: Not on file Years of education: Not on file Highest education level: Not on file Occupational History Not on file Tobacco Use Smoking status: Unknown Smokeless tobacco: Not on file Substance and Sexual Activity Alcohol use: Not on file Drug use: Not on file Sexual activity: Not on file Other Topics Concern Not on file Social History Narrative Not on file Social Determinants of Health Financial Resource Strain: Not on file Food Insecurity: Not on file Transportation Needs: Not on file Physical Activity: Not on file Stress: Not on file Social Connections: Not on file Intimate Partner Violence: Not on file Housing Stability: Not on file DIAGNOSTIC EVALUATION: EGD Dr Boswell 10/23/23 Pathology Physical Examination: BP (!) 170/79 Pulse 88 Temp (!) 35.8 C (96.5 F) Resp 16 Ht 5' 2 (1.575 m) Wt 147 lb 3.2 oz (66.8 kg) BMI 26.92 kg/m She stands Height: 5' 2 (157.5 cm) tall with a weight of Weight: 147 lb 3.2 oz (66.8 kg) , resulting in a BMI of Body mass index is 26.92 kg/m .. General: The patient is awake, alert, and oriented, and is in no apparent distress. Head and Neck: Normocephalic and atraumatic. Respiratory: Nonlabored breathing Abdomen: Soft, no surgical scars -nontender, no reproducible abdominal pain. No palpable masses. Extremities: Ambulatory without assistance. Skin: No rashes or lesions noted. Hernia: no hernias found on exam She will need medical risk stratification from her snipper (Dr. Jarrett). We will proceed with surgical intervention. I met with the patient today to discuss risks and benefits of laparoscopic hiatal hernia repair with posterior fundoplication including, but not limited to injury to surrounding structures, the possibility of using mesh for diaphragmatic reinforcement, conversion to open, pleural effusion requiring thoracentesis, prolonged mechanical ventilation, and . She is aware of the possibility of gas bloat syndrome, the need for ongoing PPI/H2 Arina use, postoperative reflux or dysphagia. We discussed potential for hemorrhage, infection, incomplete resolution of Her symptoms, as well as cardiac and pulmonary-related complications. The patient understands and wishes to proceed. Non-operative alternatives were discussed with the patient and they wish to proceed with surgical intervention. Plan: Initial Pre-Operative Testing Primary Procedure: Laparoscopic hiatal hernia repair with mesh, posterior fundoplication, possible Clarisa gastroplasty, EGD Clearance: Cardiology clearance, Dr. Jarrett, PAT Preop SQ Heparin: 5000 units subcu heparin 2 hours preop x 1 Assessment/Plan Haydee was seen today for follow-up. Diagnoses and all orders for this visit: Hiatal hernia (Primary) - [place] upper GI double contrast w KUB; Future Gastroesophageal reflux disease without esophagitis Celiac disease 73-year-old female with a symptomatic large hiatal hernia with chronic iron deficiency anemia. I met with her and her today to discuss risk and benefits of laparoscopic hiatal hernia repair with mesh, posterior fundoplication and possible Clarisa gastroplasty. Visual aids were used to describe the procedure and risks and benefits outlined as above. She will need a preoperative upper GI with marshmallow bagel protocol and proceed with surgical scheduling. I personally performed the evaluation and management of Haydee Acuña in the development of a treatment plan for this patient. I personally interviewed the patient and performed an individual physical examination. In addition, I discussed the patient's condition and treatment options with them. I have also reviewed and agree with the past medical, family and social history unless otherwise noted. All of the patient's questions were answered. I discussed/counseled the patient regarding the risks and benefits of surgery as well as the preoperative and postoperative care plan for this patient.The patient was seen and examined independently and relevant data reviewed by myself. A full chart review was performed. Patient Care Team: Stephon Wells DO as PCP - General (Family Medicine) Serge Boswell (Gastroenterology) Benton Jarrett (Internal Medicine) Britta Basurto (Endocrinology, Diabetes, & Metabolism) Pt scheduled for UGI w/ contrast on 12/11 @ 1:30 [facility] *still needs surgery scheduled Called pt and spouse and gave appt date/time for UGI, and directions documented in this encounter [facility] 12-01-2023 History of Present illness Narrative Images from the original note were not included. [facility] - Surgery [facility] Physicians Surgery Patient Name: Haydee Acuña Date: 12/01/23 HPI: Haydee Acuña is a 73 y.o. female who presents with large hiatal hernia. Underwent EGD for iron deficiency anemia and h/o celiac. Patient has endorsed epigastric discomfort for the past year. Denies dysphagia, but does feel full quicker. Was endorsing nausea but resolved with a nausea bracelet. Used to have bad reflux but improved with the pantoprazole. She often is vomiting once to twice per week, especially when she bends over. Was previously on baby aspirin for TIA but stopped taking that 1 month ago due to anemia. EGD and colonoscopy did not show any ulcers or active bleeding. I personally reviewed the patient intake form and discussed the ROS with the patient. The ROS is negative except for what is listed in HPI. Dr Boswell OV note 09/21/23 reviewed EGD 10/23/23 Dr Boswell PMHx: History reviewed. No pertinent past medical history. PSHx: Past Surgical History: Procedure Laterality Date THYROID SURGERY 2020 TOTAL KNEE ARTHROPLASTY Right 2013 PFMHx: No family history on file. ALL: Allergies Allergen Reactions Diphenhydramine Hives Gluten Meal MEDS: Current Outpatient Medications Medication Sig Dispense Refill amLODIPine (Norvasc) 10 MG tablet 10 mg. levothyroxine (Synthroid, Levoxyl) 112 MCG tablet See Instructions, TAKE 1 TABLET BY MOUTH EVERY DAY/ none on sun, # 90 tab(s), 3 Refill(s), Pharmacy: [facility], 161.5, cm, 02/02/23 9:08:00 EDT, Height, kg, 02/02/23 9:08:00 EDT, Dosing Weight lisinopril 10 MG tablet 10 mg. metFORMIN (Glucophage) 500 MG tablet See Instructions, TAKE 1 TABLET IN THE MORNING TAKE 1 TABLETS IN THE EVENING, # 270 tab(s), 3 Refill(s), Pharmacy: [facility], 159, cm, 08/08/23 9:07:00 EST, Height, kg, 08/08/23 9:07:00 EST, Dosing Weight pantoprazole (ProtoNix) 40 MG EC tablet 40 mg. rosuvastatin (Crestor) 10 MG tablet 10 mg. spironolactone (Aldactone) 25 MG tablet 25 mg. terazosin (Hytrin) 1 MG capsule 1 mg. No current facility-administered medications for this visit. SOCIAL Hx: Social History Socioeconomic History Marital status: Spouse name: Not on file Number of children: Not on file Years of education: Not on file Highest education level: Not on file Occupational History Not on file Tobacco Use Smoking status: Unknown Smokeless tobacco: Not on file Substance and Sexual Activity Alcohol use: Not on file Drug use: Not on file Sexual activity: Not on file Other Topics Concern Not on file Social History Narrative Not on file Social Determinants of Health Financial Resource Strain: Not on file Food Insecurity: Not on file Transportation Needs: Not on file Physical Activity: Not on file Stress: Not on file Social Connections: Not on file Intimate Partner Violence: Not on file Housing Stability: Not on file DIAGNOSTIC EVALUATION: EGD Dr Boswell 10/23/23 Pathology Physical Examination: BP (!) 170/79 Pulse 88 Temp (!) 35.8 C (96.5 F) Resp 16 Ht 5' 2 (1.575 m) Wt 147 lb 3.2 oz (66.8 kg) BMI 26.92 kg/m She stands Height: 5' 2 (157.5 cm) tall with a weight of Weight: 147 lb 3.2 oz (66.8 kg) , resulting in a BMI of Body mass index is 26.92 kg/m .. General: The patient is awake, alert, and oriented, and is in no apparent distress. Head and Neck: Normocephalic and atraumatic. Respiratory: Nonlabored breathing Abdomen: Soft, no surgical scars -nontender, no reproducible abdominal pain. No palpable masses. Extremities: Ambulatory without assistance. Skin: No rashes or lesions noted. Hernia: no hernias found on exam She will need medical risk stratification from her snipper (Dr. Jarrett). We will proceed with surgical intervention. I met with the patient today to discuss risks and benefits of laparoscopic hiatal hernia repair with posterior fundoplication including, but not limited to injury to surrounding structures, the possibility of using mesh for diaphragmatic reinforcement, conversion to open, pleural effusion requiring thoracentesis, prolonged mechanical ventilation, and . She is aware of the possibility of gas bloat syndrome, the need for ongoing PPI/H2 Arina use, postoperative reflux or dysphagia. We discussed potential for hemorrhage, infection, incomplete resolution of Her symptoms, as well as cardiac and pulmonary-related complications. The patient understands and wishes to proceed. Non-operative alternatives were discussed with the patient and they wish to proceed with surgical intervention. Plan: Initial Pre-Operative Testing Primary Procedure: Laparoscopic hiatal hernia repair with mesh, posterior fundoplication, possible Clarisa gastroplasty, EGD Clearance: Cardiology clearance, Dr. Jarrett, PAT Preop SQ Heparin: 5000 units subcu heparin 2 hours preop x 1 Assessment/Plan Haydee was seen today for follow-up. Diagnoses and all orders for this visit: Hiatal hernia (Primary) - [place] upper GI double contrast w KUB; Future Gastroesophageal reflux disease without esophagitis Celiac disease 73-year-old female with a symptomatic large hiatal hernia with chronic iron deficiency anemia. I met with her and her today to discuss risk and benefits of laparoscopic hiatal hernia repair with mesh, posterior fundoplication and possible Clarisa gastroplasty. Visual aids were used to describe the procedure and risks and benefits outlined as above. She will need a preoperative upper GI with marshmallow bagel protocol and proceed with surgical scheduling. I personally performed the evaluation and management of Haydee Acuña in the development of a treatment plan for this patient. I personally interviewed the patient and performed an individual physical examination. In addition, I discussed the patient's condition and treatment options with them. I have also reviewed and agree with the past medical, family and social history unless otherwise noted. All of the patient's questions were answered. I discussed/counseled the patient regarding the risks and benefits of surgery as well as the preoperative and postoperative care plan for this patient.The patient was seen and examined independently and relevant data reviewed by myself. A full chart review was performed. Patient Care Team: Stephon Wells DO as PCP - General (Family Medicine) Serge Boswell (Gastroenterology) Benton Jarrett (Internal Medicine) Britta Basurto (Endocrinology, Diabetes, & Metabolism) Pt scheduled for UGI w/ contrast on 12/11 @ 1:30 [facility] *still needs surgery scheduled Called pt and spouse and gave appt date/time for UGI, and directions documented in this encounter [facility] 12-01-2023 History of Present illness Narrative Images from the original note were not included. [facility] - Surgery [facility] Physicians Surgery Patient Name: Haydee Acuña Date: 12/01/23 HPI: Haydee Acuña is a 73 y.o. female who presents with large hiatal hernia. Underwent EGD for iron deficiency anemia and h/o celiac. Patient has endorsed epigastric discomfort for the past year. Denies dysphagia, but does feel full quicker. Was endorsing nausea but resolved with a nausea bracelet. Used to have bad reflux but improved with the pantoprazole. She often is vomiting once to twice per week, especially when she bends over. Was previously on baby aspirin for TIA but stopped taking that 1 month ago due to anemia. EGD and colonoscopy did not show any ulcers or active bleeding. I personally reviewed the patient intake form and discussed the ROS with the patient. The ROS is negative except for what is listed in HPI. Dr Boswell OV note 09/21/23 reviewed EGD 10/23/23 Dr Boswell PMHx: History reviewed. No pertinent past medical history. PSHx: Past Surgical History: Procedure Laterality Date THYROID SURGERY 2020 TOTAL KNEE ARTHROPLASTY Right 2013 PFMHx: No family history on file. ALL: Allergies Allergen Reactions Diphenhydramine Hives Gluten Meal MEDS: Current Outpatient Medications Medication Sig Dispense Refill amLODIPine (Norvasc) 10 MG tablet 10 mg. levothyroxine (Synthroid, Levoxyl) 112 MCG tablet See Instructions, TAKE 1 TABLET BY MOUTH EVERY DAY/ none on sun, # 90 tab(s), 3 Refill(s), Pharmacy: [facility], 161.5, cm, 02/02/23 9:08:00 EDT, Height, kg, 02/02/23 9:08:00 EDT, Dosing Weight lisinopril 10 MG tablet 10 mg. metFORMIN (Glucophage) 500 MG tablet See Instructions, TAKE 1 TABLET IN THE MORNING TAKE 1 TABLETS IN THE EVENING, # 270 tab(s), 3 Refill(s), Pharmacy: [facility], 159, cm, 08/08/23 9:07:00 EST, Height, kg, 08/08/23 9:07:00 EST, Dosing Weight pantoprazole (ProtoNix) 40 MG EC tablet 40 mg. rosuvastatin (Crestor) 10 MG tablet 10 mg. spironolactone (Aldactone) 25 MG tablet 25 mg. terazosin (Hytrin) 1 MG capsule 1 mg. No current facility-administered medications for this visit. SOCIAL Hx: Social History Socioeconomic History Marital status: Spouse name: Not on file Number of children: Not on file Years of education: Not on file Highest education level: Not on file Occupational History Not on file Tobacco Use Smoking status: Unknown Smokeless tobacco: Not on file Substance and Sexual Activity Alcohol use: Not on file Drug use: Not on file Sexual activity: Not on file Other Topics Concern Not on file Social History Narrative Not on file Social Determinants of Health Financial Resource Strain: Not on file Food Insecurity: Not on file Transportation Needs: Not on file Physical Activity: Not on file Stress: Not on file Social Connections: Not on file Intimate Partner Violence: Not on file Housing Stability: Not on file DIAGNOSTIC EVALUATION: EGD Dr Boswell 10/23/23 Pathology Physical Examination: BP (!) 170/79 Pulse 88 Temp (!) 35.8 C (96.5 F) Resp 16 Ht 5' 2 (1.575 m) Wt 147 lb 3.2 oz (66.8 kg) BMI 26.92 kg/m She stands Height: 5' 2 (157.5 cm) tall with a weight of Weight: 147 lb 3.2 oz (66.8 kg) , resulting in a BMI of Body mass index is 26.92 kg/m .. General: The patient is awake, alert, and oriented, and is in no apparent distress. Head and Neck: Normocephalic and atraumatic. Respiratory: Nonlabored breathing Abdomen: Soft, no surgical scars -nontender, no reproducible abdominal pain. No palpable masses. Extremities: Ambulatory without assistance. Skin: No rashes or lesions noted. Hernia: no hernias found on exam She will need medical risk stratification from her snipper (Dr. Jarrett). We will proceed with surgical intervention. I met with the patient today to discuss risks and benefits of laparoscopic hiatal hernia repair with posterior fundoplication including, but not limited to injury to surrounding structures, the possibility of using mesh for diaphragmatic reinforcement, conversion to open, pleural effusion requiring thoracentesis, prolonged mechanical ventilation, and . She is aware of the possibility of gas bloat syndrome, the need for ongoing PPI/H2 Arina use, postoperative reflux or dysphagia. We discussed potential for hemorrhage, infection, incomplete resolution of Her symptoms, as well as cardiac and pulmonary-related complications. The patient understands and wishes to proceed. Non-operative alternatives were discussed with the patient and they wish to proceed with surgical intervention. Plan: Initial Pre-Operative Testing Primary Procedure: Laparoscopic hiatal hernia repair with mesh, posterior fundoplication, possible Clarisa gastroplasty, EGD Clearance: Cardiology clearance, Dr. Jarrett, PAT Preop SQ Heparin: 5000 units subcu heparin 2 hours preop x 1 Assessment/Plan Haydee was seen today for follow-up. Diagnoses and all orders for this visit: Hiatal hernia (Primary) - [place] upper GI double contrast w KUB; Future Gastroesophageal reflux disease without esophagitis Celiac disease 73-year-old female with a symptomatic large hiatal hernia with chronic iron deficiency anemia. I met with her and her today to discuss risk and benefits of laparoscopic hiatal hernia repair with mesh, posterior fundoplication and possible Clarisa gastroplasty. Visual aids were used to describe the procedure and risks and benefits outlined as above. She will need a preoperative upper GI with marshmallow bagel protocol and proceed with surgical scheduling. I personally performed the evaluation and management of Haydee Acuña in the development of a treatment plan for this patient. I personally interviewed the patient and performed an individual physical examination. In addition, I discussed the patient's condition and treatment options with them. I have also reviewed and agree with the past medical, family and social history unless otherwise noted. All of the patient's questions were answered. I discussed/counseled the patient regarding the risks and benefits of surgery as well as the preoperative and postoperative care plan for this patient.The patient was seen and examined independently and relevant data reviewed by myself. A full chart review was performed. Patient Care Team: Stephon Wells DO as PCP - General (Family Medicine) Serge Boswell (Gastroenterology) Benton Jarrett (Internal Medicine) Britta Basurto (Endocrinology, Diabetes, & Metabolism) Pt scheduled for UGI w/ contrast on 12/11 @ 1:30 [facility] *still needs surgery scheduled Called pt and spouse and gave appt date/time for UGI, and directions Called pt and went over pre op, PAT, post-op, surgery arrival. Mailed and mycharted paperwork documented in this encounter [facility] 12-01-2023 History of Present illness Narrative Images from the original note were not included. [facility] - Surgery [facility] Physicians Surgery Patient Name: Haydee Acuña Date: 12/01/23 HPI: Haydee Acuña is a 73 y.o. female who presents with large hiatal hernia. Underwent EGD for iron deficiency anemia and h/o celiac. Patient has endorsed epigastric discomfort for the past year. Denies dysphagia, but does feel full quicker. Was endorsing nausea but resolved with a nausea bracelet. Used to have bad reflux but improved with the pantoprazole. She often is vomiting once to twice per week, especially when she bends over. Was previously on baby aspirin for TIA but stopped taking that 1 month ago due to anemia. EGD and colonoscopy did not show any ulcers or active bleeding. I personally reviewed the patient intake form and discussed the ROS with the patient. The ROS is negative except for what is listed in HPI. Dr Boswell OV note 09/21/23 reviewed EGD 10/23/23 Dr Boswell PMHx: History reviewed. No pertinent past medical history. PSHx: Past Surgical History: Procedure Laterality Date THYROID SURGERY 2019 TOTAL KNEE ARTHROPLASTY Right 2013 PFMHx: No family history on file. ALL: Allergies Allergen Reactions Diphenhydramine Hives Gluten Meal MEDS: Current Outpatient Medications Medication Sig Dispense Refill amLODIPine (Norvasc) 10 MG tablet 10 mg. levothyroxine (Synthroid, Levoxyl) 112 MCG tablet See Instructions, TAKE 1 TABLET BY MOUTH EVERY DAY/ none on sun, # 90 tab(s), 3 Refill(s), [facility], 161.5, cm, 02/02/23 9:08:00 EDT, Height, kg, 02/02/23 9:08:00 EDT, Dosing Weight lisinopril 10 MG tablet 10 mg. metFORMIN (Glucophage) 500 MG tablet See Instructions, TAKE 1 TABLET IN THE MORNING TAKE 1 TABLETS IN THE EVENING, # 270 tab(s), 3 Refill(s), Pharmacy: [facility], 159, cm, 08/08/23 9:07:00 EST, Height, kg, 08/08/23 9:07:00 EST, Dosing Weight pantoprazole (ProtoNix) 40 MG EC tablet 40 mg. rosuvastatin (Crestor) 10 MG tablet 10 mg. spironolactone (Aldactone) 25 MG tablet 25 mg. terazosin (Hytrin) 1 MG capsule 1 mg. No current facility-administered medications for this visit. SOCIAL Hx: Social History Socioeconomic History Marital status: Spouse name: Not on file Number of children: Not on file Years of education: Not on file Highest education level: Not on file Occupational History Not on file Tobacco Use Smoking status: Unknown Smokeless tobacco: Not on file Substance and Sexual Activity Alcohol use: Not on file Drug use: Not on file Sexual activity: Not on file Other Topics Concern Not on file Social History Narrative Not on file Social Determinants of Health Financial Resource Strain: Not on file Food Insecurity: Not on file Transportation Needs: Not on file Physical Activity: Not on file Stress: Not on file Social Connections: Not on file Intimate Partner Violence: Not on file Housing Stability: Not on file DIAGNOSTIC EVALUATION: EGD Dr Boswell 10/23/23 Pathology Physical Examination: BP (!) 170/79 Pulse 88 Temp (!) 35.8 C (96.5 F) Resp 16 Ht 5' 2 (1.575 m) Wt 147 lb 3.2 oz (66.8 kg) BMI 26.92 kg/m She stands Height: 5' 2 (157.5 cm) tall with a weight of Weight: 147 lb 3.2 oz (66.8 kg) , resulting in a BMI of Body mass index is 26.92 kg/m .. General: The patient is awake, alert, and oriented, and is in no apparent distress. Head and Neck: Normocephalic and atraumatic. Respiratory: Nonlabored breathing Abdomen: Soft, no surgical scars -nontender, no reproducible abdominal pain. No palpable masses. Extremities: Ambulatory without assistance. Skin: No rashes or lesions noted. Hernia: no hernias found on exam She will need medical risk stratification from her snipper (Dr. Jarrett). We will proceed with surgical intervention. I met with the patient today to discuss risks and benefits of laparoscopic hiatal hernia repair with posterior fundoplication including, but not limited to injury to surrounding structures, the possibility of using mesh for diaphragmatic reinforcement, conversion to open, pleural effusion requiring thoracentesis, prolonged mechanical ventilation, and . She is aware of the possibility of gas bloat syndrome, the need for ongoing PPI/H2 Arina use, postoperative reflux or dysphagia. We discussed potential for hemorrhage, infection, incomplete resolution of Her symptoms, as well as cardiac and pulmonary-related complications. The patient understands and wishes to proceed. Non-operative alternatives were discussed with the patient and they wish to proceed with surgical intervention. Plan: Initial Pre-Operative Testing Primary Procedure: Laparoscopic hiatal hernia repair with mesh, posterior fundoplication, possible Clarisa gastroplasty, EGD Clearance: Cardiology clearance, STANLEY Coronado Preop SQ Heparin: 5000 units subcu heparin 2 hours preop x 1 Assessment/Plan Haydee was seen today for follow-up. Diagnoses and all orders for this visit: Hiatal hernia (Primary) - [place] upper GI double contrast w KUB; Future Gastroesophageal reflux disease without esophagitis Celiac disease 73-year-old female with a symptomatic large hiatal hernia with chronic iron deficiency anemia. I met with her and her today to discuss risk and benefits of laparoscopic hiatal hernia repair with mesh, posterior fundoplication and possible Clarisa gastroplasty. Visual aids were used to describe the procedure and risks and benefits outlined as above. She will need a preoperative upper GI with marshmallow bagel protocol and proceed with surgical scheduling. I personally performed the evaluation and management of Haydee Acuña in the development of a treatment plan for this patient. I personally interviewed the patient and performed an individual physical examination. In addition, I discussed the patient's condition and treatment options with them. I have also reviewed and agree with the past medical, family and social history unless otherwise noted. All of the patient's questions were answered. I discussed/counseled the patient regarding the risks and benefits of surgery as well as the preoperative and postoperative care plan for this patient.The patient was seen and examined independently and relevant data reviewed by myself. A full chart review was performed. Patient Care Team: Stephon Wells DO as PCP - General (Family Medicine) Serge Boswell (Gastroenterology) Benton Jarrett (Internal Medicine) Britta Basurto (Endocrinology, Diabetes, & Metabolism) Pt scheduled for UGI w/ contrast on 12/11 @ 1:30 A[facility] *still needs surgery scheduled Called pt and spouse and gave appt date/time for UGI, and directions Called pt and went over pre op, PAT, post-op, surgery arrival. Mailed and mycharted paperwork Received cardiac clearance, cleared for surgery. Gave to Shelly to sign off on documented in this encounter [facility] 10-23-2023 Evaluation + Plan note Extrac deneen from: Title:Clinical Document Author:SERGE BOSWELL Date:10/23/23 [place] ADMISSION HISTORY AN D PHYSICIAL CHIEF COMPLAINT: HISTORY OF PRESENT ILLNESS: REVIEW OF SYSTEMS: ACTIVE PROBLEMS: (31) (HFpEF) heart failure with preserved ejection fraction (9882765249) Bradycardia (91449251) Celiac disease (8690148686) CKD (chronic kidney disease) stage 3, GFR 30-59 ml/min (2872495101) CKD stage 3 due to type 2 diabetes mellitus (6623524517) Depression (251150676) Diabetes (688662288) GERD (gastroesophageal reflux disease) (759088803) Glasses (9559516252) Herpes zoster (5951676) Hiatal hernia (912554351) HTN (hypertension) (6930345437) Hyperlipidemia (06817541) Hyperlipidemia associated with type 2 diabetes mellitus (24554111) Hypotension (234508179) Hypothyroidism (79720579) Inflammatory bowel disease (27160674) Mild anemia (135128185) Neoplasm of thyroid (692266) Neuropathy (0592341826) Nocturia (265314954) Osteoarthritis (2072025063) Osteoporosis (778191156) Polyneuropathy due to diabetes mellitus (6249966706) Shortness of breath (666436829) Sinus arrhythmia (450263020) Thyroid nodule (348755726) Thyromegaly (9212683) Type 2 diabetes mellitus (180921141) Urinary frequency (570458407) Vitamin D deficiency (50178063) MEDICATIONS: Active Inpt Meds: None Active PRN Meds: None One Time Meds: None Active IV Meds: Lactated Ringers Infusion 1,000 mL (LR 1,000 mL) Start: 10/23/23 7:42:00 EDT, Rate: 50 mL/hr, 10/23/23 7:42:00 EDT ALLERGIES: (2) Benadryl Glutens FAMILY HISTORY: SOCIAL HISTORY: PHYSICAL EXAM: VITALS: GjktxuUooiQKPdwyqLWLsW6NQF8DyksRc(kg) 10/22 07:4836.7--411269JJ30/15 65.9 24 Hr Tmax: 36.7 at 10/22 07:48 36 Hr Tmax: 36.7 at 10/22 07:48 Vital Signs are the last 5 in the past 48 hours. Weights display the last 5 within 7 days. Initial Wt: 10/22 65.9 kg 145 lb Current Wt: 10/22 65.9 kg 145 lb GENERAL: HEENT: CARDIOVASCULAR: RESPIRATORY: ABDOMEN: EXREMETIES: NEUROLOGICAL: PSYCHIATRIC: LABS: No 36hr Lab Data DIAGNOSTICS: IMPRESSION: PLAN: History and Physical Update I have examined the patient; reviewed the H&P and there are no changes to the H&P unless noted below. Future Appointments Appointment Date:11/30/2023 09:15:00 AM Scheduled Provider:BRITTA BASURTO MD Location:[facility] Appointment Type:ENDO OV Appointment Date:03/01/2024 09:20:00 AM Scheduled Provider:STEPHON WELLS DO Location:[facility] Appointment Type:PC OV Appointment Date:04/05/2024 08:20:00 AM Scheduled Provider:STEPHON WELLS DO Location:[facility] Appointment Type:PC Wellness Medicare Future Scheduled Tests Laboratory* Iron Level 10/01/23 * Thyroid Stimulating Hormone 12/07/23 * Free T4 12/07/23 * A1C Hemoglobin 12/07/23 * Complete Blood Count 10/01/23 * Complete Blood Count 12/07/23 * Free T3 12/07/23 * Lipid Profile 12/07/23 * Vitamin D Level 12/07/23 * Complete Metabolic Panel 12/07/23 [facility] S[facility] 04-15-2024 Hospital Discharge instructions Patient Education 10/23/2023 09:13:22 Hiatal Hernia Hiatal Hernia A hiatal hernia occurs when part of the stomach slides above the muscle that separates the abdomen from the chest (diaphragm). A person can be born with a hiatal hernia (congenital), or it may develop over time. In almost all cases of hiatal hernia, only the top part of the stomach pushes through the diaphragm. Many people have a hiatal hernia with no symptoms. The larger the hernia, the more likely it is that you will have symptoms. In some cases, a hiatal hernia allows stomach acid to flow back into the tube that carries food from your mouth to your stomach (esophagus). This may cause heartburn symptoms. Severe heartburn symptoms may mean that you have developed a condition called gastroesophageal reflux disease (GERD). What are the causes? This condition is caused by a weakness in the opening (hiatus) where the esophagus passes through the diaphragm to attach to the upper part of the stomach. A person may be born with a weakness in thehiatus, or a weakness can develop over time. What increases the risk? This condition is more likely to develop in: Older people. Age is a major risk factor for a hiatal hernia, especially if you are over the age of50. women. People who are overweight. People who have frequent constipation. What are the signs or symptoms? Symptoms of this condition usually develop in the form of GERD symptoms. Symptoms include: Heartburn. Belching. Indigestion. Trouble swallowing. Coughing or wheezing. Sore throat. Hoarseness. Chest pain. Nausea and vomiting. How is this diagnosed? This condition may be diagnosed during testing for GERD. Tests that may be done include: X-rays of your stomach or chest. An upper gastrointestinal (GI) series. This is an X-ray exam of your GI tract that is taken after you swallow a chalky liquid that shows up clearly on the X-ray. Endoscopy. This is a procedure to look into your stomach using a thin, flexible tube that has a tiny camera and light on the end of it. How is this treated? This condition may be treated by: Dietary and lifestyle changes to help reduce GERD symptoms. Medicines. These may include: ?Qwul-iwt-ygywzuz antacids. ?Medicines that make your stomach empty more quickly. ?Medicines that block the production of stomach acid (H2 blockers). ?Stronger medicines to reduce stomach acid (proton pump inhibitors). Surgery to repair the hernia, if other treatments are not helping. If you have no symptoms, you may not need treatment. Follow these instructions at home: Lifestyle and activity Do not use any products that contain nicotine or tobacco, such as cigarettes and e-cigarettes. If you need help quitting, ask your health care provider. Try to achieve and maintain a healthy body weight. Avoid putting pressure on your abdomen. Anything that puts pressure on your abdomen increases the amount of acid that may be pushed up into your esophagus. ?Avoid bending over, especially after eating. ?Raise the head of your bed by putting blocks under the legs. This keeps your head and esophagus higher than your stomach. ?Do not wear tight clothing around your chest or stomach. ?Try not to strain when having a bowel movement, when urinating, or when lifting heavy objects. Eating and drinking Avoid foods that can worsen GERD symptoms. These may include: ?Fatty foods, like fried foods. ?[place] fruits, like oranges or lemon. ?Other foods and drinks that contain acid, like orange juice or tomatoes. ?Spicy food. ?Chocolate. Eat frequent small meals instead of three large meals a day. This helps prevent your stomach from getting too full. ?Eat slowly. ?Do not lie down right after eating. ?Do not eat 1 2 hours before bed. Do not drink beverages with caffeine. These include cola, coffee, cocoa, and tea. Do not drink alcohol. General instructions Take zpxp-rnv-csoquoa and prescription medicines only as told by your health care provider. Keep all follow-up visits as told by your health care provider. This is important. Contact a health care provider if: Your symptoms are not controlled with medicines or lifestyle changes. You are having trouble swallowing. You have coughing or wheezing that will not go away. Get help right away if: Your pain is getting worse. Your pain spreads to your arms, neck, jaw, teeth, or back. You have shortness of breath. You sweat for no reason. You feel sick to your stomach (nauseous) or you vomit. You vomit blood. You have bright red blood in your stools. You have black, tarry stools. This information is not intended to replace advice given to you by your health care provider. Make sure you discuss any questions you have with your health care provider. Document Released: 09/15/2004 Document Revised: 06/08/2018 Document Reviewed: 01/29/2018 [employer] Patient Education 2020 [employer]. 10/23/2023 09:13:14 9 - AO Minor Esophagogastroduodenoscopy (09/20)(CUSTOM) Esophagogastroduodenoscopy This is an endoscopic procedure (a procedure that uses a device like a flexible telescope) that allows your caregiver to view the upper stomach and small bowel. This test allows your caregiver to look at the esophagus. The esophagus carries food from your mouth to your stomach. They can also look at your duodenum. This is the first part of the small intestine that attaches to the stomach. This seun t is used to detect problems in the bowel such as ulcers and inflammation. MEANING OF TEST Your caregiver will go over the test results with you and discuss the importance and meaning of your results, as well as treatment options and the need for additional tests if necessary. OBTAINING THE TEST RESULTS Your caregiver s office will call you with the results of the test. POST SEDATION INSTRUCTIONS Rest at home today. Since your coordination may be impaired, be cautious on stairways, do not drive any vehicle or operate any heavy machinery, or use any sharp instruments for the remainder of the day. Do not drink any alcoholic beverages or make any major decisions for 24 hours. POST PROCEDURE INSTRUCTIONS Progress slowly with full liquids then resume previous diet and medications. Belching or passing of gas is to be expected. Notify the physician if you have severe chest pain, fever, or if difficulty when swallowing persists. 09/17/13 Custom 10/23/2023 09:13:08 Monitored Anesthesia Care, Care After Monitored Anesthesia Care, Care After These instructions provide you with information about caring for yourself after your procedure. Your health care provider may also give you more specific instructions. Your treatment has been plannedaccording to current medical practices, but problems sometimes occur. Call your health care provider if you have any problems or questions after your procedure. What can I expect after the procedure? After your procedure, you may: Feel sleepy for several hours. Feel clumsy and have poor balance for several hours. Feel forgetful about what happened after the procedure. Have poor judgment for several hours. Feel nauseous or vomit. Have a sore throat if you had a breathing tube during the procedure. Follow these instructions at home: For at least 24 hours after the procedure: Have a responsible adult stay with you. It is important to have someone help care for you until youare awake and alert. Rest as needed. Do not: ?Participate in activities in which you could fall or become injured. ?Drive. ?Use heavy machinery. ?Drink alcohol. ?Take sleeping pills or medicines that cause drowsiness. ?Make important decisions or sign legal documents. ?Take care of children on your own. Eating and drinking Follow the diet that is recommended by your health care provider. If you vomit, drink water, juice, or soup when you can drink without vomiting. Make sure you have little or no nausea before eating solid foods. General instructions Take mequ-kdg-gfdmcqa and prescription medicines only as told by your health care provider. If you have sleep apnea, surgery and certain medicines can increase your risk for breathing problems. Follow instructions from your health care provider about wearing your sleep device: ?Anytime you are sleeping, including during daytime naps. ?While taking prescription pain medicines, sleeping medicines, or medicines that make you drowsy. If you smoke, do not smoke without supervision. Keep all follow-up visits as told by your health care provider. This is important. Contact a health care provider if: You keep feeling nauseous or you keep vomiting. You feel light-headed. You develop a rash. You have a fever. Get help right away if: You have trouble breathing. Summary For several hours after your procedure, you may feel sleepy and have poor judgment. Have a responsible adult stay with you for at least 24 hours or until you are awake and alert. This information is not intended to replace advice given to you by your health care provider. Make sure you discuss any questions you have with your health care provider. Document Released: 10/16/2016 Document Revised: 09/24/2018 Document Reviewed: 10/16/2016 [employer] Patient Education 2020 [employer]. Follow Up Care 10/10/2023 15:29:15 With:SERGE BOSWELL MD Address: [address] [facility] [address] [place] [address]- [phone] When: Unknown Comments:Follow-up as needed [facility] 04-15-2024 Summary of episode note Discharge Instructions Thank you for allowing [facility] to assist you with your healthcare needs. The following is importantdischarge information regarding your hospital visit. Your Care Team STEPHON WELLS DO Your Diagnosis EGD What to do next Scheduled Follow-Up Appointments Appointment Type When With Where Contact InformationENDO OV 11/30/2023 09:15 AM EDT BRITTA BASURTO MD [place] [id number] [facility] [address] [place] [address]- [phone] OV 03/01/2024 09:20 AM EDT STEPHON WELLS DO [facility] Medicare 04/05/2024 08:20 AM EDT STEPHON WELLS DO [facility] Follow Up Appointments Follow Up with SERGE BOSWELL MD When Why: Follow-up as needed Where: [address] [facility] [address] [place], [place] [phone]- [phone] The Following Activity and Diet Have Been Ordered for You Discharge Activity - Ordered -- NO activity restrictions, 10/23/23 9:07:00 EDT Discharge Diet - Ordered -- Follow the post-operative/post-procedure diet instructions provided by your physician's office.,10/23/23 9:07:00 EDT The Following Equipment Has Been Ordered for You Discharge Home Equipment Discharge Wound Care - Ordered -- Follow the post-operative/post-procedure wound care instructions provided by your physician's office., 10/23/23 9:07:00 EDT Allergies Benadryl (Hives) Glutens Medications Please ask your primary doctor or pharmacist before taking any other medication not listed, including over the counter drugs, herbal medications, vitamins and or supplements as they may interact withyour home medications. What How Much When Why Instructions Last Dose Unchanged alendronate (alendronate 70 mg oral tablet) 1 tab(s) by mouth Every week Duration: 84 Days with 6-8 oz plain water, at least 30 minutes before first food, beverage, or medication of the day;in lieu of PCP Unchanged amLODIPine (amLODIPine 10 mg oral tablet) 1 tab(s) by mouth Once a day change in dose Unchanged calcium carbonate (calcium (as carbonate) 600 mg oral tablet) 1 tab(s) by mouth Once a day Unchanged cholecalciferol (Vitamin D3 2000 intl units oral capsule) 1 cap by mouth Every day Unchanged folic acid (folic acid 0.8 mg oral tablet) 1 tab(s) by mouth Once a day (in the morning) Unchanged levothyroxine (levothyroxine 112 mcg (0.112 mg) oral tablet) See instructions TAKE 1 TABLET BY MOUTH EVERY DAY/ none on sun Unchanged lisinopril (lisinopril 10 mg oral tablet) 1 tab(s) by mouth Once a day Unchanged magnesium oxide (magnesium oxide 400 mg (241.3 mg elemental magnesium) oral tablet) 1 tab(s) by mouth Once a day Unchanged metFORMIN (metFORMIN 500 mg oral tablet (IR)) See instructions TAKE 1 TABLET IN THE MORNING TAKE 1 TABLETS IN THE EVENING Unchanged multivitamin (Multivitamin) 1 tab(s) by mouth Every day Unchanged pantoprazole (pantoprazole 40 mg oral enteric coated tablet) 1 tab(s) by mouth Once a day Duration: 90 Days Unchanged rosuvastatin (rosuvastatin 10 mg oral tablet) 1 tab(s) by mouth Once a day Duration: 90 Days Unchanged spironolactone (spironolactone 25 mg oral tablet) 1 tab(s) by mouth Every other day CHF - Congestive heart failure Unchanged terazosin (terazosin 1 mg oral capsule) 1 cap by mouth Daily at bedtime Please take this list to your next doctor s visit. Bring all medications you take, including over the counter medications, herbals and other supplements with you to your doctor s visit. Patients and families are reminded to discard old lists and to update any records with all medication providers or retail pharmacies. Education Materials Hiatal Hernia A hiatal hernia occurs when part of the stomach slides above the muscle that separates the abdomen from the chest (diaphragm). A person can be born with a hiatal hernia (congenital), or it may develop over time. In almost all cases of hiatal hernia, only the top part of the stomach pushes through the diaphragm. Many people have a hiatal hernia with no symptoms. The larger the hernia, the more likely it is that you will have symptoms. In some cases, a hiatal hernia allows stomach acid to flow back into the tube that carries food from your mouth to your stomach (esophagus). This may cause heartburn symptoms. Severe heartburn symptoms may mean that you have developed a condition called gastroesophageal reflux disease (GERD). What are the causes? This condition is caused by a weakness in the opening (hiatus) where the esophagus passes through the diaphragm to attach to the upper part of the stomach. A person may be born with a weakness in thehiatus, or a weakness can develop over time. What increases the risk? This condition is more likely to develop in: Older people. Age is a major risk factor for a hiatal hernia, especially if you are over the age of50. women. People who are overweight. People who have frequent constipation. What are the signs or symptoms? Symptoms of this condition usually develop in the form of GERD symptoms. Symptoms include: Heartburn. Belching. Indigestion. Trouble swallowing. Coughing or wheezing. Sore throat. Hoarseness. Chest pain. Nausea and vomiting. How is this diagnosed? This condition may be diagnosed during testing for GERD. Tests that may be done include: X-rays of your stomach or chest. An upper gastrointestinal (GI) series. This is an X-ray exam of your GI tract that is taken after you swallow a chalky liquid that shows up clearly on the X-ray. Endoscopy. This is a procedure to look into your stomach using a thin, flexible tube that has a tiny camera and light on the end of it. How is this treated? This condition may be treated by: Dietary and lifestyle changes to help reduce GERD symptoms. Medicines. These may include: ? Hgrl-ppv-rudsdkw antacids. ? Medicines that make your stomach empty more quickly. ? Medicines that block the production of stomach acid (H2 blockers). ? Stronger medicines to reduce stomach acid (proton pump inhibitors). Surgery to repair the hernia, if other treatments are not helping. If you have no symptoms, you may not need treatment. Follow these instructions at home: Lifestyle and activity Do not use any products that contain nicotine or tobacco, such as cigarettes and e-cigarettes. If you need help quitting, ask your health care provider. Try to achieve and maintain a healthy body weight. Avoid putting pressure on your abdomen. Anything that puts pressure on your abdomen increases the amount of acid that may be pushed up into your esophagus. ? Avoid bending over, especially after eating. ? Raise the head of your bed by putting blocks under the legs. This keeps your head and esophagus higher than your stomach. ? Do not wear tight clothing around your chest or stomach. ? Try not to strain when having a bowel movement, when urinating, or when lifting heavy objects. Eating and drinking Avoid foods that can worsen GERD symptoms. These may include: ? Fatty foods, like fried foods. ? [place] fruits, like oranges or lemon. ? Other foods and drinks that contain acid, like orange juice or tomatoes. ? Spicy food. ? Chocolate. Eat frequent small meals instead of three large meals a day. This helps prevent your stomach from getting too full. ? Eat slowly. ? Do not lie down right after eating. ? Do not eat 1 2 hours before bed. Do not drink beverages with caffeine. These include cola, coffee, cocoa, and tea. Do not drink alcohol. General instructions Take gdme-var-cphcncn and prescription medicines only as told by your health care provider. Keep all follow-up visits as told by your health care provider. This is important. Contact a health care provider if: Your symptoms are not controlled with medicines or lifestyle changes. You are having trouble swallowing. You have coughing or wheezing that will not go away. Get help right away if: Your pain is getting worse. Your pain spreads to your arms, neck, jaw, teeth, or back. You have shortness of breath. You sweat for no reason. You feel sick to your stomach (nauseous) or you vomit. You vomit blood. You have bright red blood in your stools. You have black, tarry stools. This information is not intended to replace advice given to you by your health care provider. Make sure you discuss any questions you have with your health care provider. Document Released: 09/15/2004 Document Revised: 06/08/2018 Document Reviewed: 01/29/2018 [employer] Patient Education 2020 [employer] Esophagogastroduodenoscopy This is an endoscopic procedure (a procedure that uses a device like a flexible telescope) that allows your caregiver to view the upper stomach and small bowel. This test allows your caregiver to look at the esophagus. The esophagus carries food from your mouth to your stomach. They can also look at your duodenum. This is the first part of the small intestine that attaches to the stomach. This seun t is used to detect problems in the bowel such as ulcers and inflammation. MEANING OF TEST Your caregiver will go over the test results with you and discuss the importance and meaning of your results, as well as treatment options and the need for additional tests if necessary. OBTAINING THE TEST RESULTS Your caregiver s office will call you with the results of the test. POST SEDATION INSTRUCTIONS Rest at home today. Since your coordination may be impaired, be cautious on stairways, do not drive any vehicle or operate any heavy machinery, or use any sharp instruments for the remainder of the day. Do not drink any alcoholic beverages or make any major decisions for 24 hours. POST PROCEDURE INSTRUCTIONS Progress slowly with full liquids then resume previous diet and medications. Belching or passing of gas is to be expected. Notify the physician if you have severe chest pain, fever, or if difficulty when swallowing persists. 09/17/13 Custom Monitored Anesthesia Care, Care After These instructions provide you with information about caring for yourself after your procedure. Your health care provider may also give you more specific instructions. Your treatment has been plannedaccording to current medical practices, but problems sometimes occur. Call your health care provider if you have any problems or questions after your procedure. What can I expect after the procedure? After your procedure, you may: Feel sleepy for several hours. Feel clumsy and have poor balance for several hours. Feel forgetful about what happened after the procedure. Have poor judgment for several hours. Feel nauseous or vomit. Have a sore throat if you had a breathing tube during the procedure. Follow these instructions at home: For at least 24 hours after the procedure: Have a responsible adult stay with you. It is important to have someone help care for you until youare awake and alert. Rest as needed. Do not: ? Participate in activities in which you could fall or become injured. ? Drive. ? Use heavy machinery. ? Drink alcohol. ? Take sleeping pills or medicines that cause drowsiness. ? Make important decisions or sign legal documents. ? Take care of children on your own. Eating and drinking Follow the diet that is recommended by your health care provider. If you vomit, drink water, juice, or soup when you can drink without vomiting. Make sure you have little or no nausea before eating solid foods. General instructions Take ukyj-iqh-mjmlelw and prescription medicines only as told by your health care provider. If you have sleep apnea, surgery and certain medicines can increase your risk for breathing problems. Follow instructions from your health care provider about wearing your sleep device: ? Anytime you are sleeping, including during daytime naps. ? While taking prescription pain medicines, sleeping medicines, or medicines that make you drowsy. If you smoke, do not smoke without supervision. Keep all follow-up visits as told by your health care provider. This is important. Contact a health care provider if: You keep feeling nauseous or you keep vomiting. You feel light-headed. You develop a rash. You have a fever. Get help right away if: You have trouble breathing. Summary For several hours after your procedure, you may feel sleepy and have poor judgment. Have a responsible adult stay with you for at least 24 hours or until you are awake and alert. This information is not intended to replace advice given to you by your health care provider. Make sure you discuss any questions you have with your health care provider. Document Released: 10/16/2016 Document Revised: 09/24/2018 Document Reviewed: 10/16/2016 ElseCommand Information Patient Education 2020 [employer] Additional Information VACCINATE! IT SAVES LIVES! Members of the community who have not yet received the COVID-19 vaccine and would like to receive it can visit one of [facility] vaccine clinics. There are many vaccine clinic locations within the [facility]. For locations and available times, please visit [email or web address].[email or web address] It is important to note that some COVID mobile vaccine clinics are held outdoors and may be canceled in rainy or stormy conditions. To learn more about pediatric vaccinations (ages 5-11), we invite you to visit the [facility] webpage. https://www.[email or web address].org/[email or web address]-Nhntoijcfxb-Kggybeovjj-[email or web address] stions.htmlTo learn more about the COVID-19 vaccine, we invite you to visit the CDC website for a list of frequently asked questions.https://www.cdc.gov/coronavirus/2019-ncov/vaccines/faq.html [facility] Patient Portal Access Instructions: Stay connected with your healthcare team and access your personal medical information anytime with the [facility] [employer] Patient Portal. Please follow the directions below to create your [employer] account: 1.Access the email account you provided upon registration to the hospital/physician office.2.Look for an invitation email from [facility].3.Open the email and access the invitation link: AcceptInvitation to [employer].4.Fill in the required sadler to create your account. To access your account, visit [employer]. Click the blue button labeled Access Patient Portal and then log in with the username and password that you created in the steps above. You will be able to view your test results, lab results, a summary of your visits, upcoming appointments and more. There is also a convenient messaging option where you can send secure messages to your [employer]. In addition, you will have the ability to download any documents or summaries to your computer and/or send the information securely to a physician. Remember that your healthcare information is confidential, so carefully consider who you will allowto register on the [facility] [employer] Patient Portal for access to your information. You can also access the [employer] Patient Portal on the [employer] marian. Simply click on Patient Portal and then log into your account. If you would like to receive a full copy of your medical records, please contact the [facility] Medical Records Department by calling [phone], Monday through Monday between 8 a.m. and 4:30 p.m. HOW TO SAFELY DISPOSE OF PRESCRIPTION MEDICATIONS Please use one of the following methods to safely dispose of your unused medications. 1.Use a drug disposal kit: the drug disposal pouch allows you to safely discard your old and unuseddrugs. Ask your nurse to give you one when you are discharged.2.Visit a local take-back location: Many local pharmacies and police departments have programs that collect old and unwanted prescriptiondrugs. Call your local pharmacy or go to http://bit.ly/7D9Xr0n to find one close to you.3.Make use of household items: Use cat litter or old coffee grounds to dispose medications if other options arenot available. Mix your drugs with these household products, seal them in an airtight container andthrow it into the garbage. Call [facility]: [phone] to be sure your drugs can be disposed of in this way. Some medicines may require a different approach.4.Never flush your medications down the toilet. IF YOU HAVE BEEN PRESCRIBED AN OPIOID FOR PAIN If you have been prescribed an opioid (such as hydrocodone, oxycodone or morphine), it is critical to understand the possible side effects and risks of opioid pain medications. Even when taken as directed, opioids can have several side effects including: Tolerance, meaning you might need to take more of a medication for the same pain relief. Nausea, vomiting and/or constipation. Sleepiness, dizziness, dry mouth, confusion, depression or itching. Physical dependence, meaning you have withdrawal symptoms when a medication is stopped, can develop within a few days. KNOW YOUR RESPONSIBILITIES It is important to know exactly how much and how often to take the opioid pain medications you are prescribed. Never take opioids in higher amounts or more often than prescribed. Do not combine opioids with alcohol or other drugs that cause drowsiness, such as benzodiazepines, also known as benzos, including diazepam and alprazolam, muscle relaxants or sleep aids. Never sell or share prescription opioids. This is illegal. Store opioids in a secure place and out of reach of others (including children, family, friends and visitors). The last page of this document has been signed and retained as a CHART COPY. Signatures Patient Education Materials Hiatal Hernia 9 - AO Minor Esophagogastroduodenoscopy (09/20)(CUSTOM) Monitored Anesthesia Care, Care After Medication Leaflets My discharge plan and instructions have been reviewed and explained to me and IROGERS KATHERINE L understand my current condition and have read and understand these discharge instructions. I have received a written copy of the plan/instructions. If I have questions, I am aware that I shouldcontact my doctor. Patient/Coat Padder Signature: Date/Time: Relationship to Patient: Witness Name/Signature: Date/Time: [facility]04-15-2024 Note [place] ADMISSION HISTORY AND PHYSICIAL CHIEF COMPLAINT: HISTORY OF PRESENT ILLNESS: REVIEW OF SYSTEMS: ACTIVE PROBLEMS: (31) (HFpEF) heart failure with preserved ejection fraction (7451633035) Bradycardia (25978585) Celiac disease (5857445686) CKD (chronic kidney disease) stage 3, GFR 30-59 ml/min (4670439774) CKD stage 3 due to type 2 diabetes mellitus (8559264680) Depression (987650914) Diabetes (939491329) GERD (gastroesophageal reflux disease) (557421367) Glasses (7826114932) Herpes zoster (2518524) Hiatal hernia (710053094) HTN (hypertension) (4132841221) Hyperlipidemia (70528552) Hyperlipidemia associated with type 2 diabetes mellitus (63712971) Hypotension (775254625) Hypothyroidism (64814800) Inflammatory bowel disease (54503805) Mild anemia (208886783) Neoplasm of thyroid (949958) Neuropathy (5091895683) Nocturia (766073144) Osteoarthritis (1099423871) Osteoporosis (341325950) Polyneuropathy due to diabetes mellitus (1826420190) Shortness of breath (311465392) Sinus arrhythmia (596938375) Thyroid nodule (706800290) Thyromegaly (2541294) Type 2 diabetes mellitus (800997633) Urinary frequency (268106706) Vitamin D deficiency (44411521) MEDICATIONS: Active Inpt Meds: None Active PRN Meds: None One Time Meds: None Active IV Meds: Lactated Ringers Infusion 1,000 mL (LR 1,000 mL) Start: 10/23/23 7:42:00 EDT, Rate: 50 mL/hr, 10/23/23 7:42:00 EDT ALLERGIES: (2) Benadryl Glutens FAMILY HISTORY: SOCIAL HISTORY: PHYSICAL EXAM: VITALS: XxyyxqKztdODOrgdoGOLrT9KGB2OxwqPj(kg) 10/22 07:4836.7--064943XG66/15 65.9 24 Hr Tmax: 36.7 at 10/22 07:48 36 Hr Tmax: 36.7 at 10/22 07:48 Vital Signs are the last 5 in the past 48 hours. Weights display the last 5 within 7 days. Initial Wt: 10/22 65.9 kg 145 lb Current Wt: 10/22 65.9 kg 145 lb GENERAL: HEENT: CARDIOVASCULAR: RESPIRATORY: ABDOMEN: EXREMETIES: NEUROLOGICAL: PSYCHIATRIC: LABS: No 36hr Lab Data DIAGNOSTICS: IMPRESSION: PLAN: History and Physical Update I have examined the patient; reviewed the H&P and there are no changes to the H&P unless noted below. 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 Family's history: negative. Review of Systems Ear/Nose/Mouth/Throat: Negative except as documented in history of present illness. Respiratory: Negative except as documented in history of present illness. Cardiovascular: Negative except as documented in history of present illness. Gastrointestinal: Negative except as documented in history of present illness. Genitourinary: Negative except as documented in history of present illness. Endocrine: Negative except as documented in history of present illness. Musculoskeletal: Negative except as documented in history of present illness. Integumentary: Negative except as documented in history of present illness. Neurologic: Negative except as documented in history of present illness. Health Status Allergies: Allergic Reactions (Selected) Severity Not Documented Benadryl- Hives. Glutens- No reactions were documented., Allergies (2) ActiveReaction BenadrylHives GlutensNone Documented Current medications: (Selected) Inpatient Medications Ordered LR 1,000 mL: 50 mL/hr, Intravenous Prescriptions Prescribed alendronate 70 mg oral tablet: 70 mg, 1 tab(s), Oral, qWeek, for 84 day(s), with 6-8 oz plain water, at least 30 minutes before first food, beverage, or medication of the day; in lieu of PCP, 12 tab(s), 3 Refill(s) amLODIPine 10 mg oral tablet: 10 mg, 1 tab(s), Oral, qDay, change in dose, 90 tab(s), 3 Refill(s) levothyroxine 112 mcg (0.112 mg) oral tablet: See Instructions, TAKE 1 TABLET BY MOUTH EVERY DAY/ none on sun, 90 tab(s), 3 Refill(s) lisinopril 10 mg oral tablet: 10 mg, 1 tab(s), Oral, qDay, 90 tab(s), 3 Refill(s) metFORMIN 500 mg oral tablet (IR): See Instructions, TAKE 1 TABLET IN THE MORNING TAKE 1 TABLETS INTHE EVENING, 270 tab(s), 3 Refill(s) pantoprazole 40 mg oral enteric coated tablet: 40 mg, 1 tab(s), Oral, qDay, for 90 day(s), 90 tab(s), 3 Refill(s) rosuvastatin 10 mg oral tablet: 10 mg, 1 tab(s), Oral, qDay, for 90 day(s), 90 tab(s), 3 Refill(s) spironolactone 25 mg oral tablet: 25 mg, 1 tab(s), Oral, Every other day, 45 tab(s), 3 Refill(s) terazosin 1 mg oral capsule: 1 mg, 1 cap(s), Oral, qHS, 90 cap(s), 3 Refill(s) Documented Medications Documented Multivitamin: 1 tab(s), Oral, Daily, 0 Refill(s) Vitamin D3 2000 intl units oral capsule: 2,000 unit(s), 1 cap(s), Oral, Daily, 0 Refill(s) calcium (as carbonate) 600 mg oral tablet: 600 mg, 1 tab(s), Oral, qDay, 0 Refill(s) folic acid 0.8 mg oral tablet: 0.8 mg, 1 tab(s), Oral, qAM, 100 tab(s), 0 Refill(s) magnesium oxide 400 mg (241.3 mg elemental magnesium) oral tablet: 400 mg, 1 tab(s), Oral, qDay, 0 Refill(s), Medications (1) Active Scheduled: (0) Continuous: (1) Lactated Ringers 1,000 mL 1,000 mL, Intravenous, 50 mL/hr PRN: (0) Problem list: Medical Mild anemia / SNOMED CT 579880383 / Confirmed Bradycardia / SNOMED CT 81163863 / Confirmed Celiac disease / SNOMED CT 0776215761 / Confirmed CKD (chronic kidney disease) stage 3, GFR 30-59 ml/min / SNOMED CT 2581404605 / Confirmed CKD stage 3 due to type 2 diabetes mellitus / SNOMED CT 7479082082 / Confirmed Diabetes / SNOMED CT 051711077 / Confirmed Shortness of breath / SNOMED CT 964792096 / Confirmed GERD (gastroesophageal reflux disease) / SNOMED CT 907300295 / Confirmed (HFpEF) heart failure with preserved ejection fraction / SNOMED CT 7441706311 / Confirmed Herpes zoster / SNOMED CT 6901635 / Confirmed Hiatal hernia / SNOMED CT 111225691 / Confirmed Hyperlipidemia / SNOMED CT 55542550 / Confirmed Hyperlipidemia associated with type 2 diabetes mellitus / SNOMED CT 07412436 / Confirmed HTN (hypertension) / SNOMED CT 4825838555 / Confirmed Hypothyroidism / SNOMED CT 64595497 / Confirmed Urinary frequency / SNOMED CT 454264219 / Confirmed Inflammatory bowel disease / SNOMED CT 12890827 / Confirmed Hypotension / SNOMED CT 344598148 / Confirmed Neuropathy / SNOMED CT 4266746259 / Confirmed Nocturia / SNOMED CT 879820075 / Confirmed Sinus arrhythmia / SNOMED CT 239604239 / Confirmed Osteoarthritis / SNOMED CT 9459770949 / Confirmed Osteoporosis / SNOMED CT 410548883 / Confirmed Polyneuropathy due to diabetes mellitus / SNOMED CT 1897833303 / Confirmed Thyroid nodule / SNOMED CT 691464566 / Confirmed Thyromegaly / SNOMED CT 9779325 / Confirmed Type 2 diabetes mellitus / SNOMED CT 617480422 / Confirmed Vitamin D deficiency / SNOMED CT 78161397 / Confirmed Inactive: Seizure / SNOMED CT 185263875 Resolved: Abdominal pain / SNOMED CT 67073765 Resolved: Facial lesion / SNOMED CT 6771028035 Canceled: Mild chronic anemia / SNOMED CT 702187703 Canceled: Hypothyroidism / SNOMED CT 19012434, Active Problems (31) (HFpEF) heart failure with preserved ejection fraction Bradycardia Celiac disease CKD (chronic kidney disease) stage 3, GFR 30-59 ml/min CKD stage 3 due to type 2 diabetes mellitus Depression Diabetes GERD (gastroesophageal reflux disease) Glasses Herpes zoster Hiatal hernia HTN (hypertension) Hyperlipidemia Hyperlipidemia associated with type 2 diabetes mellitus Hypotension Hypothyroidism Inflammatory bowel disease Mild anemia Neoplasm of thyroid Neuropathy Nocturia Osteoarthritis Osteoporosis Polyneuropathy due to diabetes mellitus Shortness of breath Sinus arrhythmia Thyroid nodule Thyromegaly Type 2 diabetes mellitus Urinary frequency Vitamin D deficiency Histories Past Medical History: Active GERD (gastroesophageal reflux disease) (228353984) Diabetes (531479560) HTN (hypertension) (8654288438) Neuropathy (3313532631) Comments: 06/08/2018 EST 14:50 EST - Nallely Hirsch RN BILATERAL FEET Resolved Facial lesion (4542255688): Resolved. Abdominal pain (69979902): Resolved. Family History: Leukemia Father COPD - Chronic obstructive pulmonary disease Mother Malignant tumor of uterus Daughter Diabetes mellitus Brother Hypertension Father Heart disease Father Brother High blood pressure Son Heart attack Son Cancer Father Brother HTN - Hypertension Mother Procedure history: Prescription event monitoring ([id number]) on 04/27/2021 at 70 Years. 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 Nocturnal sinus pauses were noted and were asymptomatic as well. Holter monitor ([id number]) on 04/21/2021 at 70 Years. Comments: 05/07/2021 10:47 Marina Perez MA ([facility]-OE) 30 day- 03/23/21-04/21/21 Echocardiogram ([id number]) on 02/09/2021 at 70 Years. Comments: 05/03/2021 14:44 Nancy Dick MA ([facility]OE) EF 55-60% History of total thyroidectomy (8132712482) on 06/12/2018 at 67 Years. Comments: 06/24/2019 11:55 EST - Unique Nam CMA, Dr. Cardiac catheterization (78138997) in 2017 at 67 Years. Comments: 01/29/2021 11:43 EDT - Nancy Ellison MA ([facility]) Normal Cataract (573255557) in 2016 at 66 Years. Comments: 10/05/2017 10:57 EDT - DEIDRE PARR bilateral Knee replacement (416944892) in 2011 at 62 Years. Comments: 06/08/2018 14:59 BRIGITTE - DEIDRE Hirsch RIGHT Tonsillectomy (267328124). Colonoscopy (555388894). Basal cell carcinoma (6537197). Social History Social & Psychosocial Habits Alcohol 4Risk Assessment: Denies Alcohol Use 10/02/2023 Use: Never Employment/School 09/01/2023 Status: Retired Substance Abuse 10/02/2023isk Assessment: Denies Substance Abuse 10/02/2023 Use: Never Tobacco 10/02/2023isk Assessment: Denies Tobacco Use 10/02/2023 Tobacco Use: Never (less than 100 in l Exposure to Tobacco Smoke Lives in non-smoking home Exercise 09/01/2023 Exercise type: Walking Times per week: 5-6 times/week Comment: When the weather is warm. - 06/27/2019 10:45 - Unique Nam FRINGE WEAVER Home/Environment 10/02/2023 Primary Loss Prevention Guard: Self Nutrition/Health 10/02/2023 Caffeine intake amount: coffee 1 cup daily . Physical Examination Vital Signs 10/23/2023 7:48 EDT Temperature Temporal Artery 36.7 DegC Apical Heart Rate 80 bpm Respiratory Rate 16 br/min Systolic Blood Pressure Non-Invasive 167 mmHg HI Diastolic Blood Pressure Non-Invasive 75 mmHg Blood Pressure Method Automatic Blood Pressure Location Left arm Blood Pressure Cuff Size Large Vital Signs(last 24 hrs) Last Charted SBPH 167mmHg (OCT 22 07:48) DBP75 mmHg (OCT 22 07:48) BMI25.74 (OCT 22 07:48) Measurements from flowsheet : Measurements 10/23/2023 7:48 EDT Height 160.02 cm Admission Weight 65.9 kg Weight Method Stated [place] Body Weight 52.40 kg BSA Admission 1.69 Body Mass Index 25.74 kg/m2 Pain assessment: Pain Assessment 10/23/2023 7:48 EDT Primary Pain Intensity 0 Pain Scale Type 0-10 Pain scale . General: Alert and oriented. Airway: Normal neck range of motion. Mallampati classification: II (soft palate, fauces, uvula visible). Head: Normocephalic. Dentition Evaluation: Intact, Own teeth. Neck: Full range of motion. Respiratory: Lungs are clear to auscultation. Cardiovascular: Normal rate. Heart Sounds: Normal. Gastrointestinal: Soft. Musculoskeletal Normal range of motion. Integumentary: Intact, Warm, Dry. Neurologic: Alert, Oriented. Review / Management Results review: No qualifying data available , Lab results 10/23/2023 8:00 EDT Lactated Ringers Injection Begin Bag 1,000 mL mL 10/23/2023 7:59 EDT Continuous IV Infusions LR Antecubital Right 10/23/2023 22 gauge Peripheral IV Activity: Insert new site Peripheral IV Dressing Condition: Clean, Dry, Intact Peripheral IV Dressing Activity: Applied, Transparent dressing Peripheral IV Line Status/Patency: Flushes easily, Continuous infusion Peripheral IV Site Condition: No complications Peripheral IV Equipment: Extension set 10/23/2023 7:54 EDT Urinary Elimination Voiding, no difficulties IV Present Present Allergies Yes Anesthesia Extension Set Applied Yes Consent Form Signed Yes Patient Dressed In Hospital gown History & Physical Update On Chart Yes History & Physical On Chart Yes Belongings At Bedside Dentures, lower, Dentures, upper, Glasses, Jacket, Pants, Shirt, Shoes, Socks, Undergarments NPO Status Maintained Allergy Band on and Verified Yes Patient ID Band on and Verified Yes Implants Verified Yes Pacemaker/AICD Verified Yes Site Verified by Patient/Family Yes Anesthesia Consent Signed Yes Last Fluid Intake 10/22/2023 18:00 Last Food Intake 10/22/2023 18:00 10/23/2023 7:48 EDT Designated Person #1 We May Share PHI JINNY [phone] Designated Person #1 Relationship Spouse Designated Person #2 We May Share PHI EREN Designated Person #2 Relationship Daughter Additional Designated Person Share PHI RENETTA-SON Height 160.02 cm Admission Weight 65.9 kg Weight Method Stated [place] Body Weight 52.40 kg BSA Admission 1.69 Body Mass Index 25.74 kg/m2 Temperature Temporal Artery 36.7 DegC Apical Heart Rate 80 bpm Respiratory Rate 16 br/min Systolic Blood Pressure Non-Invasive 167 mmHg HI Diastolic Blood Pressure Non-Invasive 75 mmHg Blood Pressure Method Automatic Blood Pressure Location Left arm Blood Pressure Cuff Size Large Primary Pain Intensity 0 Pain Scale Type 0-10 Pain scale Heart Rhythm Regular Respirations Unlabored Respiratory Pattern Regular All Lobes Breath Sounds Clear Oxygen Therapy Room air Oxygen Saturation 98 % Abdomen Description Non-distended Bowel Sounds All Quadrants Present Urinary Elimination Voiding, no difficulties Status N/A Skin Temperature Warm Skin Description [place], Dry Skin Integrity Intact Neurological Symptoms Patient denies Extremity Movement Equal Characteristics of Speech Clear Level of Consciousness Alert Strength All Extremities Strong Tone All Extremities Normal Sensation All Extremities Intact Affect/Behavior Appropriate Orientation Oriented x 4 Sensory Deficits None Infectious Disease Symptoms Sore throat Infectious Disease Recent Exposure No Alcohol and Drug Use No Employee of Institutional Living No Health Care Employee No History of Exposure to TB No History of Positive Chest X-Ray for TB No History of Positive TB Skin Test No Homeless No Known Immunosuppression No Recent Immigrant No Resident of Institutional Living No Bloody Sputum No Fatigue No Fever No Loss of Appetite No Night Sweats No Persistent Cough > 3 Weeks No Weight Loss No Arrival Mode Ambulatory Glasses Yes Dentures Lower, Upper Accompanied By On Arrival Family Contact Name and Number Barriers to Learning None evident Teaching Method Explanation, Printed materials Preferred Spoken Language Kyrgyz Preferred Written Language Kyrgyz Information Given by Unable to obtain Patient's Current Physicians Patient's Current Physicians Discharge To, Anticipated Home independently Activity Status ADL Awake Standard Safety ID band on, Allergy Band on, Call device within reach, Bed in low position, Wheels locked, Safety level maintained Prev Test Positive/Diagnosis w/COVID-19 No Current Quarantine/Isolated any Illness No Any Contact with Sick Animals/Birds No Traveled Anywhere in Last 30 Days No N/A Personal Devices, Patient Valuables Dentures, lower, Dentures, upper Admission Note-Nursing Procedure/Therapy Intake . Assessment and Plan [place] [employer] (ASA) physical status classification: Class III. Anesthetic Preoperative Plan Premedication: intravenous. Anesthetic technique: MAC. Induction: intravenously. Maintenance airway: Mask. Risks discussed: nausea, vomiting, headache, sore throat, dental injury, hypotension, allergic reaction, serious complications. Informed consent: signed by patient. Digitally Signed by DUTCH DUKE on 10/23/2023 08:50 AM [facility]03-25-2024 Evaluation + Plan noteExtracted from: Title:Clinical Document Author:SERGE BOSWELL Date:10/02/23 [place] ADMISSION HISTORY AN D PHYSICIAL CHIEF COMPLAINT: HISTORY OF PRESENT ILLNESS: REVIEW OF SYSTEMS: ACTIVE PROBLEMS: (31) (HFpEF) heart failure with preserved ejection fraction (4703182665) Bradycardia (39000858) Celiac disease (4429116373) CKD (chronic kidney disease) stage 3, GFR 30-59 ml/min (6282849343) CKD stage 3 due to type 2 diabetes mellitus (8676470136) Depression (184543047) Diabetes (809499368) GERD (gastroesophageal reflux disease) (302633440) Glasses (9909471614) Herpes zoster (2940962) Hiatal hernia (073378048) HTN (hypertension) (7527695053) Hyperlipidemia (42180945) Hyperlipidemia associated with type 2 diabetes mellitus (50709822) Hypotension (298715165) Hypothyroidism (94710355) Inflammatory bowel disease (21807787) Mild anemia (203396812) Neoplasm of thyroid (693989) Neuropathy (7292151607) Nocturia (497812667) Osteoarthritis (4822160410) Osteoporosis (214189002) Polyneuropathy due to diabetes mellitus (6600048377) Shortness of breath (558021863) Sinus arrhythmia (731602142) Thyroid nodule (942195162) Thyromegaly (9407993) Type 2 diabetes mellitus (509480793) Urinary frequency (460031860) Vitamin D deficiency (69037799) MEDICATIONS: Active Inpt Meds: None Active PRN Meds: None One Time Meds: None Active IV Meds: Lactated Ringers Infusion 1,000 mL (LR 1,000 mL) Start: 10/02/23 7:49:00 EDT, Rate: 50 mL/hr, 10/02/23 7:49:00 EDT ALLERGIES: (2) Benadryl Glutens FAMILY HISTORY: SOCIAL HISTORY: PHYSICAL EXAM: VITALS: VlkmadWtcxVPYbykrJERlT6RRD1DkymMp(kg) 10/01 07:5036.7--002274GB79/25 65.9 24 Hr Tmax: 36.7 at 10/01 07:50 36 Hr Tmax: 36.7 at 10/01 07:50 Vital Signs are the last 5 in the past 48 hours. Weights display the last 5 within 7 days. Initial Wt: 10/01 65.9 kg 145 lb Current Wt: 10/01 65.9 kg 145 lb GENERAL: HEENT: CARDIOVASCULAR: RESPIRATORY: ABDOMEN: EXREMETIES: NEUROLOGICAL: PSYCHIATRIC: LABS: No 36hr Lab Data DIAGNOSTICS: IMPRESSION: PLAN: History and Physical Update I have examined the patient; reviewed the H&P and there are no changes to the H&P unless noted below. Future Appointments Appointment Date:11/30/2023 09:15:00 AM Scheduled Provider:BRITTA BASURTO MD Location:[facility] Appointment Type:ENDO OV Appointment Date:03/01/2024 09:20:00 AM Scheduled Provider:STEPHON WELLS DO Location:[facility] Appointment Type:PC OV Appointment Date:04/05/2024 08:20:00 AM Scheduled Provider:STEPHON WELLS DO Location:[facility] Appointment Type:[facility] Wellness Medicare Future Scheduled Tests Laboratory* Iron Level 10/01/23 * Thyroid Stimulating Hormone 12/07/23 * Free T4 12/07/23 * A1C Hemoglobin 12/07/23 * Complete Blood Count 10/01/23 * Complete Blood Count 12/07/23 * Free T3 12/07/23 * Lipid Profile 12/07/23 * Vitamin D Level 12/07/23 * Complete Metabolic Panel 12/07/23 [facility] 03-25-2024 Hospital Discharge instructions Patient Education 10/02/2023 08:59:20 Monitored Anesthesia Care, Care After Monitored Anesthesia Care, Care After These instructions provide you with information about caring for yourself after your procedure. Your health care provider may also give you more specific instructions. Your treatment has been plannedaccording to current medical practices, but problems sometimes occur. Call your health care provider if you have any problems or questions after your procedure. What can I expect after the procedure? After your procedure, you may: Feel sleepy for several hours. Feel clumsy and have poor balance for several hours. Feel forgetful about what happened after the procedure. Have poor judgment for several hours. Feel nauseous or vomit. Have a sore throat if you had a breathing tube during the procedure. Follow these instructions at home: For at least 24 hours after the procedure: Have a responsible adult stay with you. It is important to have someone help care for you until youare awake and alert. Rest as needed. Do not: ?Participate in activities in which you could fall or become injured. ?Drive. ?Use heavy machinery. ?Drink alcohol. ?Take sleeping pills or medicines that cause drowsiness. ?Make important decisions or sign legal documents. ?Take care of children on your own. Eating and drinking Follow the diet that is recommended by your health care provider. If you vomit, drink water, juice, or soup when you can drink without vomiting. Make sure you have little or no nausea before eating solid foods. General instructions Take wsvw-xxa-hpyphzn and prescription medicines only as told by your health care provider. If you have sleep apnea, surgery and certain medicines can increase your risk for breathing problems. Follow instructions from your health care provider about wearing your sleep device: ?Anytime you are sleeping, including during daytime naps. ?While taking prescription pain medicines, sleeping medicines, or medicines that make you drowsy. If you smoke, do not smoke without supervision. Keep all follow-up visits as told by your health care provider. This is important. Contact a health care provider if: You keep feeling nauseous or you keep vomiting. You feel light-headed. You develop a rash. You have a fever. Get help right away if: You have trouble breathing. Summary For several hours after your procedure, you may feel sleepy and have poor judgment. Have a responsible adult stay with you for at least 24 hours or until you are awake and alert. This information is not intended to replace advice given to you by your health care provider. Make sure you discuss any questions you have with your health care provider. Document Released: 10/16/2016 Document Revised: 09/24/2018 Document Reviewed: 10/16/2016 [employer] Patient Education 2020 [employer]. 10/02/2023 08:59:10 Colonoscopy, Adult, Care After Colonoscopy, Adult, Care After This sheet gives you information about how to care for yourself after your procedure. Your health care provider may also give you more specific instructions. If you have problems or questions, contact your health care provider. What can I expect after the procedure? After the procedure, it is common to have: A small amount of blood in your stool for 24 hours after the procedure. Some gas. Mild abdominal cramping or bloating. Follow these instructions at home: General instructions For the first 24 hours after the procedure: ?Do not drive or use machinery. ?Do not sign important documents. ?Do not drink alcohol. ?Do your regular daily activities at a slower pace than normal. ?Eat soft, rbqn-go-ltblri foods. Take qyou-ruk-fsdgrmh or prescription medicines only as told by your health care provider. Relieving cramping and bloating Try walking around when you have cramps or feel bloated. Apply heat to your abdomen as told by your health care provider. Use a heat source that your healthcare provider recommends, such as a moist heat pack or a heating pad. ?Place a towel between your skin and the heat source. ?Leave the heat on for 20 30 minutes. ?Remove the heat if your skin turns bright red. This is especially important if you are unable to feel pain, heat, or cold. You may have a greater risk of getting burned. Eating and drinking Drink enough fluid to keep your urine pale yellow. Resume your normal diet as instructed by your health care provider. Avoid heavy or fried foods thatare hard to digest. Avoid drinking alcohol for as long as instructed by your health care provider. Contact a health care provider if: You have blood in your stool 2 3 days after the procedure. Get help right away if: You have more than a small spotting of blood in your stool. You pass large blood clots in your stool. Your abdomen is swollen. You have nausea or vomiting. You have a fever. You have increasing abdominal pain that is not relieved with medicine. Summary After the procedure, it is common to have a small amount of blood in your stool. You may also have mild abdominal cramping and bloating. For the first 24 hours after the procedure, do not drive or use machinery, sign important documents, or drink alcohol. Contact your health care provider if you have a lot of blood in your stool, nausea or vomiting, a fever, or increased abdominal pain. This information is not intended to replace advice given to you by your health care provider. Make sure you discuss any questions you have with your health care provider. Document Released: 02/07/2005 Document Revised: 04/18/2018 Document Reviewed: 09/06/2016 [employer] Patient Education 2020 [employer]. Follow Up Care 09/22/2023 08:41:23 With:SERGE BOSWELL MD Address: [address] [facility] [address] [place] [address] [phone] When: Unknown [facility] 03-25-2024 Note Discharge Instructions Thank you for allowing [facility] to assist you with your healthcare needs. The following is importantdischarge information regarding your hospital visit. Your Care Team STEPHON WELLS DO Dr. Boswell What to do next Scheduled Follow-Up Appointments Appointment Type When With Where Contact InformationENDO OV 11/30/2023 09:15 AM EDT BRITTA BASURTO MD [facility] [address] [place] [address]- [phone] OV 03/01/2024 09:20 AM EDT STEHPON WELLS DO [facility] Medicare 04/05/2024 08:20 AM EDT STEPHON WELLS DO [facility] Follow Up Appointments Follow Up with SERGE BOSWELL MD When Where: [address] [facility] [address] [place] [address] [phone] Allergies Benadryl (Hives) Glutens Medications Please ask your primary doctor or pharmacist before taking any other medication not listed, including over the counter drugs, herbal medications, vitamins and or supplements as they may interact withyour home medications. What How Much When Why Instructions Last Dose Unchanged alendronate (alendronate 70 mg oral tablet) 1 tab(s) by mouth Every week Duration: 84 Days with 6-8 oz plain water, at least 30 minutes before first food, beverage, or medication of the day;in lieu of PCP Unchanged amLODIPine (amLODIPine 10 mg oral tablet) 1 tab(s) by mouth Once a day change in dose Unchanged calcium carbonate (calcium (as carbonate) 600 mg oral tablet) 1 tab(s) by mouth Once a day Unchanged cholecalciferol (Vitamin D3 2000 intl units oral capsule) 1 cap by mouth Every day Unchanged folic acid (folic acid 0.8 mg oral tablet) 1 tab(s) by mouth Once a day (in the morning) Unchanged levothyroxine (levothyroxine 112 mcg (0.112 mg) oral tablet) See instructions TAKE 1 TABLET BY MOUTH EVERY DAY/ none on sun Unchanged lisinopril (lisinopril 10 mg oral tablet) 1 tab(s) by mouth Once a day Unchanged magnesium oxide (magnesium oxide 400 mg (241.3 mg elemental magnesium) oral tablet) 1 tab(s) by mouth Once a day Unchanged metFORMIN (metFORMIN 500 mg oral tablet (IR)) See instructions TAKE 1 TABLET IN THE MORNING TAKE 1 TABLETS IN THE EVENING Unchanged multivitamin (Multivitamin) 1 tab(s) by mouth Every day Unchanged pantoprazole (pantoprazole 40 mg oral enteric coated tablet) 1 tab(s) by mouth Once a day Duration: 90 Days Unchanged rosuvastatin (rosuvastatin 10 mg oral tablet) 1 tab(s) by mouth Once a day Duration: 90 Days Unchanged spironolactone (spironolactone 25 mg oral tablet) 1 tab(s) by mouth Every other day CHF - Congestive heart failure Unchanged terazosin (terazosin 1 mg oral capsule) 1 cap by mouth Daily at bedtime Please take this list to your next doctor s visit. Bring all medications you take, including over the counter medications, herbals and other supplements with you to your doctor s visit. Patients and families are reminded to discard old lists and to update any records with all medication providers or retail pharmacies. Education Materials Monitored Anesthesia Care, Care After These instructions provide you with information about caring for yourself after your procedure. Your health care provider may also give you more specific instructions. Your treatment has been plannedaccording to current medical practices, but problems sometimes occur. Call your health care provider if you have any problems or questions after your procedure. What can I expect after the procedure? After your procedure, you may: Feel sleepy for several hours. Feel clumsy and have poor balance for several hours. Feel forgetful about what happened after the procedure. Have poor judgment for several hours. Feel nauseous or vomit. Have a sore throat if you had a breathing tube during the procedure. Follow these instructions at home: For at least 24 hours after the procedure: Have a responsible adult stay with you. It is important to have someone help care for you until youare awake and alert. Rest as needed. Do not: ? Participate in activities in which you could fall or become injured. ? Drive. ? Use heavy machinery. ? Drink alcohol. ? Take sleeping pills or medicines that cause drowsiness. ? Make important decisions or sign legal documents. ? Take care of children on your own. Eating and drinking Follow the diet that is recommended by your health care provider. If you vomit, drink water, juice, or soup when you can drink without vomiting. Make sure you have little or no nausea before eating solid foods. General instructions Take rdme-grk-tsqpxlz and prescription medicines only as told by your health care provider. If you have sleep apnea, surgery and certain medicines can increase your risk for breathing problems. Follow instructions from your health care provider about wearing your sleep device: ? Anytime you are sleeping, including during daytime naps. ? While taking prescription pain medicines, sleeping medicines, or medicines that make you drowsy. If you smoke, do not smoke without supervision. Keep all follow-up visits as told by your health care provider. This is important. Contact a health care provider if: You keep feeling nauseous or you keep vomiting. You feel light-headed. You develop a rash. You have a fever. Get help right away if: You have trouble breathing. Summary For several hours after your procedure, you may feel sleepy and have poor judgment. Have a responsible adult stay with you for at least 24 hours or until you are awake and alert. This information is not intended to replace advice given to you by your health care provider. Make sure you discuss any questions you have with your health care provider. Document Released: 10/16/2016 Document Revised: 09/24/2018 Document Reviewed: 10/16/2016 [employer] Patient Education 2020 [employer] Colonoscopy, Adult, Care After This sheet gives you information about how to care for yourself after your procedure. Your health care provider may also give you more specific instructions. If you have problems or questions, contact your health care provider. What can I expect after the procedure? After the procedure, it is common to have: A small amount of blood in your stool for 24 hours after the procedure. Some gas. Mild abdominal cramping or bloating. Follow these instructions at home: General instructions For the first 24 hours after the procedure: ? Do not drive or use machinery. ? Do not sign important documents. ? Do not drink alcohol. ? Do your regular daily activities at a slower pace than normal. ? Eat soft, cvqk-zg-xdlvgf foods. Take ioxm-ake-mrsfecp or prescription medicines only as told by your health care provider. Relieving cramping and bloating Try walking around when you have cramps or feel bloated. Apply heat to your abdomen as told by your health care provider. Use a heat source that your healthcare provider recommends, such as a moist heat pack or a heating pad. ? Place a towel between your skin and the heat source. ? Leave the heat on for 20 30 minutes. ? Remove the heat if your skin turns bright red. This is especially important if you are unable to feel pain, heat, or cold. You may have a greater risk of getting burned. Eating and drinking Drink enough fluid to keep your urine pale yellow. Resume your normal diet as instructed by your health care provider. Avoid heavy or fried foods thatare hard to digest. Avoid drinking alcohol for as long as instructed by your health care provider. Contact a health care provider if: You have blood in your stool 2 3 days after the procedure. Get help right away if: You have more than a small spotting of blood in your stool. You pass large blood clots in your stool. Your abdomen is swollen. You have nausea or vomiting. You have a fever. You have increasing abdominal pain that is not relieved with medicine. Summary After the procedure, it is common to have a small amount of blood in your stool. You may also have mild abdominal cramping and bloating. For the first 24 hours after the procedure, do not drive or use machinery, sign important documents, or drink alcohol. Contact your health care provider if you have a lot of blood in your stool, nausea or vomiting, a fever, or increased abdominal pain. This information is not intended to replace advice given to you by your health care provider. Make sure you discuss any questions you have with your health care provider. Document Released: 02/07/2005 Document Revised: 04/18/2018 Document Reviewed: 09/06/2016 [employer] Information Patient Education 2020 [employer] Additional Information VACCINATE! IT SAVES LIVES! Members of the community who have not yet received the COVID-19 vaccine and would like to receive it can visit one of [facility] vaccine clinics. There are many vaccine clinic locations within the [facility]. For locations and available times, please visit https://gettheshot.coronavirus.[place].gov/. It is important to note that some COVID mobile vaccine clinics are held outdoors and may be canceled in rainy or stormy conditions. To learn more about pediatric vaccinations (ages 5-11), we invite you to visit the [facility] webpage. https://www.[facility].org/pages/2223-Dksmq-Uzqljitmrcf-Qnfpluljjs-Uodbk-Lzv stions.htmlTo learn more about the COVID-19 vaccine, we invite you to visit the CDC website for a list of frequently asked questions.https://www.cdc.gov/coronavirus/2019-ncov/vaccines/faq.html [facility] Patient Portal Access Instructions: Stay connected with your healthcare team and access your personal medical information anytime with the [facility] Patient Portal. Please follow the directions below to create your [facility] account: 1.Access the email account you provided upon registration to the hospital/physician office.2.Look for an invitation email from [facility].3.Open the email and access the invitation link: AcceptInvitation to [facility].4.Fill in the required sadler to create your account. To access your account, visit [email or web address]. Click the blue button labeled Access Patient Portal and then log in with the username and password that you created in the steps above. You will be able to view your test results, lab results, a summary of your visits, upcoming appointments and more. There is also a convenient messaging option where you can send secure messages to your p eCollectvider. In addition, you will have the ability to download any documents or summaries to your computer and/or send the information securely to a physician. Remember that your healthcare information is confidential, so carefully consider who you will allowto register on the [facility] [employer] Patient Portal for access to your information. You can also access the [facility] [employer] Patient Portal on the Cardio controlwhere marian. Simply click on Patient Portal and then log into your account. If you would like to receive a full copy of your medical records, please contact the [facility] Medical Records Department by calling [phone], Monday through Monday between 8 a.m. and 4:30 p.m. HOW TO SAFELY DISPOSE OF PRESCRIPTION MEDICATIONS Please use one of the following methods to safely dispose of your unused medications. 1.Use a drug disposal kit: the drug disposal pouch allows you to safely discard your old and unuseddrugs. Ask your nurse to give you one when you are discharged.2.Visit a local take-back location: Many local pharmacies and police departments have programs that collect old and unwanted prescriptiondrugs. Call your local pharmacy or go to http://[employer] Intelligence.Game Blisters/1L2Wk4m to find one close to you.3.Make use of household items: Use cat litter or old coffee grounds to dispose medications if other options arenot available. Mix your drugs with these household products, seal them in an airtight container andthrow it into the garbage. Call [facility]: [phone] to be sure your drugs can be disposed of in this way. Some medicines may require a different approach.4.Never flush your medications down the toilet. IF YOU HAVE BEEN PRESCRIBED AN OPIOID FOR PAIN If you have been prescribed an opioid (such as hydrocodone, oxycodone or morphine), it is critical to understand the possible side effects and risks of opioid pain medications. Even when taken as directed, opioids can have several side effects including: Tolerance, meaning you might need to take more of a medication for the same pain relief. Nausea, vomiting and/or constipation. Sleepiness, dizziness, dry mouth, confusion, depression or itching. Physical dependence, meaning you have withdrawal symptoms when a medication is stopped, can develop within a few days. KNOW YOUR RESPONSIBILITIES It is important to know exactly how much and how often to take the opioid pain medications you are prescribed. Never take opioids in higher amounts or more often than prescribed. Do not combine opioids with alcohol or other drugs that cause drowsiness, such as benzodiazepines, also known as benzos, including diazepam and alprazolam, muscle relaxants or sleep aids. Never sell or share prescription opioids. This is illegal. Store opioids in a secure place and out of reach of others (including children, family, friends and visitors). The last page of this document has been signed and retained as a CHART COPY. Signatures Patient Education Materials Monitored Anesthesia Care, Care After Colonoscopy, Adult, Care After Medication Leaflets My discharge plan and instructions have been reviewed and explained to me and IROGERS KATHERINE L understand my current condition and have read and understand these discharge instructions. I have received a written copy of the plan/instructions. If I have questions, I am aware that I shouldcontact my doctor. Patient/Coat Padder Signature: Date/Time: Relationship to Patient: Witness Name/Signature: Date/Time: [facility]03-25-2024 Anesthesiology Consult note Patient: HAYDEE QUIROGA Age: 73 years Sex: Female : 1950 Associated Diagnoses: None Author: JENN GOINS APRN-SWEEPING COMPOUND BLENDER Assessment Postanesthesia assessment Vitals: Vital signs from flowsheet : Vital Signs 10/02/2023 8:45 EDT Heart Rate Monitored 66 bpm bpm Respiratory Rate - Anes 18 br/min br/min Systolic Blood Pressure Non-Invasive 95 mmHg mmHg Diastolic Blood Pressure Non-Invasive 50 mmHg mmHg 10/02/2023 8:40 EDT Heart Rate Monitored 68 bpm bpm Respiratory Rate - Anes 18 br/min br/min Systolic Blood Pressure Non-Invasive 102 mmHg mmHg Diastolic Blood Pressure Non-Invasive 63 mmHg mmHg 10/02/2023 8:35 EDT Heart Rate Monitored 77 bpm bpm Respiratory Rate - Anes 13 br/min br/min Systolic Blood Pressure Non-Invasive 117 mmHg mmHg Diastolic Blood Pressure Non-Invasive 56 mmHg mmHg 10/02/2023 8:33 EDT Systolic Blood Pressure Non-Invasive 127 mmHg mmHg Diastolic Blood Pressure Non-Invasive 49 mmHg mmHg 10/02/2023 8:30 EDT Heart Rate Monitored 81 bpm bpm Respiratory Rate - Anes 18 br/min br/min 10/02/2023 8:25 EDT Heart Rate Monitored 82 bpm bpm Respiratory Rate - Anes 17 br/min br/min 10/02/2023 7:50 EDT Temperature Temporal Artery 36.7 DegC Peripheral Pulse Rate 81 bpm Respiratory Rate 16 br/min Systolic Blood Pressure Non-Invasive 147 mmHg HI Diastolic Blood Pressure Non-Invasive 82 mmHg , Measurements from flowsheet . Mental status: alert & oriented x 4. Respiratory function: respirations are non-labored. Respiratory support: none. CV function: Normal rate. Cardiovascular support: none. Pain. Nausea status: see nursing documentation of medications. Postoperative hydration status: within normal limits. Digitally Signed by JENN GOINS on 10/02/2023 08:51 AM [facility]03-25-2024 Note [place] ADMISSION HISTORY AND PHYSICIAL CHIEF COMPLAINT: HISTORY OF PRESENT ILLNESS: REVIEW OF SYSTEMS: ACTIVE PROBLEMS: (31) (HFpEF) heart failure with preserved ejection fraction (3060269027) Bradycardia (68049061) Celiac disease (7471637763) CKD (chronic kidney disease) stage 3, GFR 30-59 ml/min (1164044423) CKD stage 3 due to type 2 diabetes mellitus (6490421726) Depression (593915529) Diabetes (717293217) GERD (gastroesophageal reflux disease) (394429984) Glasses (1440093288) Herpes zoster (8647916) Hiatal hernia (339565988) HTN (hypertension) (7239687352) Hyperlipidemia (10219419) Hyperlipidemia associated with type 2 diabetes mellitus (00438845) Hypotension (487356589) Hypothyroidism (92846928) Inflammatory bowel disease (72748823) Mild anemia (626290220) Neoplasm of thyroid (590565) Neuropathy (6044102474) Nocturia (993959969) Osteoarthritis (8279586306) Osteoporosis (068590818) Polyneuropathy due to diabetes mellitus (4941599804) Shortness of breath (423291662) Sinus arrhythmia (223441903) Thyroid nodule (459303713) Thyromegaly (3981577) Type 2 diabetes mellitus (599019186) Urinary frequency (458473167) Vitamin D deficiency (77316309) MEDICATIONS: Active Inpt Meds: None Active PRN Meds: None One Time Meds: None Active IV Meds: Lactated Ringers Infusion 1,000 mL (LR 1,000 mL) Start: 10/02/23 7:49:00 EDT, Rate: 50 mL/hr, 10/02/23 7:49:00 EDT ALLERGIES: (2) Benadryl Glutens FAMILY HISTORY: SOCIAL HISTORY: PHYSICAL EXAM: VITALS: [id number](kg) 10/01 07:5036.7--[id number]/25 65.9 24 Hr Tmax: 36.7 at 10/01 07:50 36 Hr Tmax: 36.7 at 10/01 07:50 Vital Signs are the last 5 in the past 48 hours. Weights display the last 5 within 7 days. Initial Wt: 10/01 65.9 kg 145 lb Current Wt: 10/01 65.9 kg 145 lb GENERAL: HEENT: CARDIOVASCULAR: RESPIRATORY: ABDOMEN: EXREMETIES: NEUROLOGICAL: PSYCHIATRIC: LABS: No 36hr Lab Data DIAGNOSTICS: IMPRESSION: PLAN: History and Physical Update I have examined the patient; reviewed the H&P and there are no changes to the H&P unless noted below. Digitally Signed by SERGE BOSWELL MD on 10/02/2023 08:30 AM [facility]03-25-2024 Anesthesiology Consult note Patient: HAYDEE QUIROGA Age: 73 years Sex: Female : 1950 Associated Diagnoses: None Author: JENN GOINS APRN-SWEEPING COMPOUND BLENDER Preoperative Information Time of last solid food intake: 10/02/2023 00:00:00 Time of last clear liquid intake: 10/02/2023 06:00:00 Anesthesia history Patient's history: negative. Family's history: negative. Health Status Allergies: Allergic Reactions (Selected) Severity Not Documented Benadryl- Hives. Glutens- No reactions were documented., Allergies (2) ActiveReaction BenadrylHives GlutensNone Documented Current medications: (Selected) Inpatient Medications Ordered LR 1,000 mL: 50 mL/hr, Intravenous Prescriptions Prescribed alendronate 70 mg oral tablet: 70 mg, 1 tab(s), Oral, qWeek, for 84 day(s), with 6-8 oz plain water, at least 30 minutes before first food, beverage, or medication of the day; in lieu of PCP, 12 tab(s), 3 Refill(s) amLODIPine 10 mg oral tablet: 10 mg, 1 tab(s), Oral, qDay, change in dose, 90 tab(s), 3 Refill(s) levothyroxine 112 mcg (0.112 mg) oral tablet: See Instructions, TAKE 1 TABLET BY MOUTH EVERY DAY/ none on sun, 90 tab(s), 3 Refill(s) lisinopril 10 mg oral tablet: 10 mg, 1 tab(s), Oral, qDay, 90 tab(s), 3 Refill(s) metFORMIN 500 mg oral tablet (IR): See Instructions, TAKE 1 TABLET IN THE MORNING TAKE 1 TABLETS INTHE EVENING, 270 tab(s), 3 Refill(s) pantoprazole 40 mg oral enteric coated tablet: 40 mg, 1 tab(s), Oral, qDay, for 90 day(s), 90 tab(s), 3 Refill(s) rosuvastatin 10 mg oral tablet: 10 mg, 1 tab(s), Oral, qDay, for 90 day(s), 90 tab(s), 3 Refill(s) spironolactone 25 mg oral tablet: 25 mg, 1 tab(s), Oral, Every other day, 45 tab(s), 3 Refill(s) terazosin 1 mg oral capsule: 1 mg, 1 cap(s), Oral, qHS, 90 cap(s), 3 Refill(s) Documented Medications Documented Multivitamin: 1 tab(s), Oral, Daily, 0 Refill(s) Vitamin D3 2000 intl units oral capsule: 2,000 unit(s), 1 cap(s), Oral, Daily, 0 Refill(s) calcium (as carbonate) 600 mg oral tablet: 600 mg, 1 tab(s), Oral, qDay, 0 Refill(s) folic acid 0.8 mg oral tablet: 0.8 mg, 1 tab(s), Oral, qAM, 100 tab(s), 0 Refill(s) magnesium oxide 400 mg (241.3 mg elemental magnesium) oral tablet: 400 mg, 1 tab(s), Oral, qDay, 0 Refill(s), Medications (1) Active Scheduled: (0) Continuous: (1) Lactated Ringers Infusion 1,000 mL 1,000 mL, Intravenous, 50 mL/hr PRN: (0) Problem list: Medical (Selected) Mild anemia / SNOMED CT 993191095 / Confirmed Bradycardia / SNOMED CT 60336520 / Confirmed Celiac disease / SNOMED CT 9935874828 / Confirmed CKD (chronic kidney disease) stage 3, GFR 30-59 ml/min / SNOMED CT 1786351121 / Confirmed CKD stage 3 due to type 2 diabetes mellitus / SNOMED CT 0961286146 / Confirmed Diabetes / SNOMED CT 795053512 / Confirmed Shortness of breath / SNOMED CT 214807769 / Confirmed GERD (gastroesophageal reflux disease) / SNOMED CT 587162655 / Confirmed (HFpEF) heart failure with preserved ejection fraction / SNOMED CT 1589044450 / Confirmed Herpes zoster / SNOMED CT 3327487 / Confirmed Hiatal hernia / SNOMED CT 507935377 / Confirmed Hyperlipidemia / SNOMED CT 24663562 / Confirmed Hyperlipidemia associated with type 2 diabetes mellitus / SNOMED CT 80547258 / Confirmed HTN (hypertension) / SNOMED CT 9936437111 / Confirmed Hypothyroidism / SNOMED CT 01050771 / Confirmed Urinary frequency / SNOMED CT 403638122 / Confirmed Inflammatory bowel disease / SNOMED CT 71229703 / Confirmed Hypotension / SNOMED CT 216892420 / Confirmed Neuropathy / SNOMED CT 0573303306 / Confirmed Nocturia / SNOMED CT 595427956 / Confirmed Sinus arrhythmia / SNOMED CT 619212275 / Confirmed Osteoarthritis / SNOMED CT 6351326985 / Confirmed Osteoporosis / SNOMED CT 599850460 / Confirmed Polyneuropathy due to diabetes mellitus / SNOMED CT 7618669350 / Confirmed Thyroid nodule / SNOMED CT 430167232 / Confirmed Thyromegaly / SNOMED CT 7409996 / Confirmed Type 2 diabetes mellitus / SNOMED CT 679789207 / Confirmed Vitamin D deficiency / SNOMED CT 16753326 / Confirmed, Active Problems (31) (HFpEF) heart failure with preserved ejection fraction Bradycardia Celiac disease CKD (chronic kidney disease) stage 3, GFR 30-59 ml/min CKD stage 3 due to type 2 diabetes mellitus Depression Diabetes GERD (gastroesophageal reflux disease) Glasses Herpes zoster Hiatal hernia HTN (hypertension) Hyperlipidemia Hyperlipidemia associated with type 2 diabetes mellitus Hypotension Hypothyroidism Inflammatory bowel disease Mild anemia Neoplasm of thyroid Neuropathy Nocturia Osteoarthritis Osteoporosis Polyneuropathy due to diabetes mellitus Shortness of breath Sinus arrhythmia Thyroid nodule Thyromegaly Type 2 diabetes mellitus Urinary frequency Vitamin D deficiency Histories Past Medical History: Active GERD (gastroesophageal reflux disease) (019932825) Diabetes (632678710) HTN (hypertension) (6937155519) Neuropathy (5486172861) Comments: 06/08/2018 EST 14:50 Nallely Maguire RN BILATERAL FEET Resolved Facial lesion (1855454212): Resolved. Abdominal pain (67540443): Resolved. Family History: Leukemia Father COPD - Chronic obstructive pulmonary disease Mother Malignant tumor of uterus Daughter Diabetes mellitus Brother Hypertension Father Heart disease Father Brother High blood pressure Son Heart attack Son Cancer Father Brother HTN - Hypertension Mother Procedure history: Prescription event monitoring ([id number]) on 04/27/2021 at 70 Years. 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 Nocturnal sinus pauses were noted and were asymptomatic as well. Holter monitor ([id number]) on 04/21/2021 at 70 Years. Comments: 05/07/2021 10:47 Marina Perez MA (ABR-OE) 30 day- 03/23/21-04/21/21 Echocardiogram ([id number]) on 02/09/2021 at 70 Years. Comments: 05/03/2021 14:44 Nancy Dick MA (ABR-OE) EF 55-60% History of total thyroidectomy ([id number]) on 06/12/2018 at 67 Years. Comments: 06/24/2019 11:55 Unique Marie CMA, Dr. Cardiac catheterization ([id number]) in 2017 at 67 Years. Comments: 01/29/2021 11:43 Nancy Dick MA (ABR-OE) Normal Cataract (442423051) in 2016 at 66 Years. Comments: 10/05/2017 10:57 DEIDRE DAHL bilateral Knee replacement (727051194) in 2011 at 62 Years. Comments: 06/08/2018 14:59 DEIDRE Maguire RIGHT Tonsillectomy (000849567). Colonoscopy (685284067). Basal cell carcinoma (5792511). Social History Social & Psychosocial Habits Alcohol 4Risk Assessment: Denies Alcohol Use 10/02/2023 Use: Never Employment/School 09/01/2023 Status: Retired Substance Abuse 4Risk Assessment: Denies Substance Abuse 10/02/2023 Use: Never Tobacco 10/02/2023isk Assessment: Denies Tobacco Use 10/02/2023 Tobacco Use: Never (less than 100 in l Exposure to Tobacco Smoke Lives in non-smoking home Exercise 09/01/2023 Exercise type: Walking Times per week: 5-6 times/week Comment: When the weather is warm. - 06/27/2019 10:45 - Unique Nam CMA Home/Environment 10/02/2023 Primary Loss Prevention Guard: Self Nutrition/Health 10/02/2023 Caffeine intake amount: coffee 1 cup daily . Physical Examination Vital Signs 10/02/2023 7:50 EDT Temperature Temporal Artery 36.7 DegC Peripheral Pulse Rate 81 bpm Respiratory Rate 16 br/min Systolic Blood Pressure Non-Invasive 147 mmHg HI Diastolic Blood Pressure Non-Invasive 82 mmHg Vital Signs(last 24 hrs) Last Charted SBPH 147mmHg (OCT 01 07:50) DBP82 mmHg (OCT 01 07:50) Measurements from flowsheet : Measurements 10/02/2023 7:50 EDT Height 160.02 cm Admission Weight 65.91 kg [place] Body Weight 52.40 kg Admission Body Mass Index 25.74 m2 Pain assessment: Pain Assessment 10/02/2023 7:50 EDT Primary Pain Intensity 0 Pain Scale Type 0-10 Pain scale . General: Alert and oriented. Airway: Normal temporomandibular joint mobility, Normal mouth, Normal neck range of motion. Mallampati classification: III (soft palate, base of uvula visible). Dentition Evaluation: Dentures, lower, Dentures, upper. Respiratory: Respirations are non-labored. Cardiovascular: Normal rate. Neurologic: Alert, Oriented. Review / Management Results review: No qualifying data available , Lab results 10/02/2023 8:25 EDT SN - Proc - EBL 0 mL 10/02/2023 8:24 EDT SN - Proc - Anesthesia Type MAC SN - Proc - Actual Procedure COLONOSCOPY 10/02/2023 8:24 EDT SN - PP - Body Position Lateral Right Side-up Standard Intra-op 10/02/2023 8:23 EDT SN - GCD - ASA Class 3 SN - GCD - Post-operative Diagnosis IRON DEFICIENCY ANEMIA SN - GCD - Case Level OPD Level 3 10/02/2023 8:23 EDT SN - CAt - Case Attendee SN - CAt - Case Attendee SN - CAt - Case Attendee SN - CAt - Case Attendee SN - CAt - Case Attendee SN - CAt - Case Attendee SN - CAt - Case Attendee SN - CAt - Case Attendee SN - CAt - Role Performed Primary Surgeon SN - CAt - Role Performed Narcotics Investigator 1 SN - CAt - Role Performed Society Reporter SN - CAt - Role Performed SWEEPING COMPOUND BLENDER 10/02/2023 7:56 EDT Lactated Ringers Injection Begin Bag 1,000 mL mL 10/02/2023 7:50 EDT Height 160.02 cm Admission Weight 65.91 kg [place] Body Weight 52.40 kg Admission Body Mass Index 25.74 m2 Temperature Temporal Artery 36.7 DegC Peripheral Pulse Rate 81 bpm Respiratory Rate 16 br/min Systolic Blood Pressure Non-Invasive 147 mmHg HI Diastolic Blood Pressure Non-Invasive 82 mmHg Primary Pain Intensity 0 Pain Scale Type 0-10 Pain scale Heart Rhythm Regular Respirations Unlabored Respiratory Pattern Regular Cough None Oxygen Therapy Room air Oxygen Saturation 96 % Abdomen Description Non-distended, Soft Bowel Sounds All Quadrants Present Urinary Elimination Voiding, no difficulties Skin Temperature Warm Skin Description [place], Normal for ethnicity, Dry Skin Moisture General Dry IV Present Present Extremity Movement Equal Characteristics of Speech Clear Level of Consciousness Alert Affect/Behavior Appropriate Orientation Oriented x 4 Allergies Yes Colon Prep Results Good Consent Form Signed Yes Patient Dressed In Hospital gown Pre-op Preparation Glasses removed History & Physical Update On Chart Yes History & Physical On Chart Yes Bowel Prep Completed Yes Obstructive Sleep Apnea Assess Completed Yes Orientation Assessment Oriented x 4 Positioning Repositions self NPO Status Maintained Standard Safety ID band on, Allergy Band on, Call device within reach, Bed in low position, Wheels locked, Safety level maintained Allergy Band on and Verified Yes Patient ID Band on and Verified Yes Implants Verified Yes Pacemaker/AICD Verified Yes Anesthesia Consent Signed Yes Last Fluid Intake 10/02/2023 6:00 Last Food Intake 10/01/2023 7:51 Last Void 10/02/2023 7:51 10/02/2023 7:47 EDT Designated Person #1 We May Share PHI JINNY [phone] Designated Person #1 Relationship Spouse Designated Person #2 We May Share PHI EREN Designated Person #2 Relationship Daughter Additional Designated Person Share PHI KATE Privacy Restrictions Requested None Status N/A Sensory Deficits None Sleep Apnea Snore No Sleep Apnea Tired No Sleep Apnea Obstruction No Sleep Apnea Pressure Yes Sleep Apnea BMI No Sleep Apnea Age Yes Sleep Apnea Neck No Sleep Apnea Gender No Sleep Apnea Score 2 Diagnosed With Sleep Apnea No Advanced Directives Unable to obtain Infectious Disease Symptoms Patient states no symptoms Infectious Disease Recent Exposure No Alcohol and Drug Use No Employee of Institutional Living No Health Care Employee No History of Exposure to TB No History of Positive Chest X-Ray for TB No History of Positive TB Skin Test No Homeless No Known Immunosuppression No Recent Immigrant No Resident of Institutional Living No Bloody Sputum No Fatigue No Fever No Loss of Appetite No Night Sweats No Persistent Cough > 3 Weeks No Weight Loss No Barriers to Learning None evident Teaching Method Explanation Preferred Spoken Language Kyrgyz Preferred Written Language Kyrgyz Teaching Evaluation No further teaching needed Safety Brochure Information Reviewed Unable to complete [facility] Video Viewed No Information Given by Patient Patient's Current Physicians Patient's Current Physicians Discharge To, Anticipated Home with family care Prev Test Positive/Diagnosis w/COVID-19 No Current Quarantine/Isolated any Illness No Any Contact with Sick Animals/Birds No Traveled Anywhere in Last 30 Days No Lost Weight Unintentionally Recently No Eat Poorly Due to Decreased Appetite No Total MST Score 0 N/A Personal Devices, Patient Valuables Dentures, lower, Dentures, upper Anesthesia/Transfusions Prior anesthesia Admission Note-Nursing Same Day Patient History . Assessment and Plan [place] [employer] Anesthesiologists (ASA) physical status classification: Class III. Anesthetic Preoperative Plan Anesthetic technique: MAC. Informed consent: signed by patient. Digitally Signed by JENN GOINS on 10/02/2023 08:26 AM [facility]11-20-2023 Note ORIGINAL EXAMINATION: BONE DENSITOMETRY 05/29/2023 10:49 am TECHNIQUE: A bone density dual x-ray absorptiometry (DEXA) scan was performed of the axial (e.g. hips, spine) and/or appendicular (e.g. radius) skeleton as appropriate. COMPARISON: 07/19/2021. HISTORY: ORDERING SYSTEM PROVIDED HISTORY: Reason for Exam: Osteoporosis FINDINGS: T Score Left Femoral Neck: -2.9 Left Femoral Neck: 0.525 (g/cm2) T Score Left Hip: -2.4 Left Hip: 0.652 (g/cm2) T Score Lumbar Spine: -1.6 Lumbar Spine: 0.869 (g/cmd2) BMD Change from previous Hip: 2.3% BMD Change from previous Lumbar Spine: 4.5% IMPRESSION: Osteoporosis by WHO criteria. World Health Organization criteria: (Comparing with young normal sex matched population) - Normal: T-score at or above -1 SD (standard deviation) - Osteopenia: T-score between -1 and -2.5 SD - Osteoporosis: T-score at or below -2.5 SD The NOF recommends that FDA-approved medical therapies be considered in post-menopausal women and men age >/= 50 years with a: * Hip or vertebral fracture, or * T-score of /= 20% for major osteoporotic fractures or * >/= 3% for hip fractures All treatment decisions require clinical judgement and consideration of individual patient factors, including patient preferences, comorbidities, previous drug use, risk factors not captured in the FRAX registered model (e.g., frailty, falls, vitamin D deficiency, increased bone turnover, interval significant decline in bone density) and possible under- or over-estimation of fracture risk by FRAX. Interpreted by: Baldo Moran DO Preliminary Report By: Baldo Moran DO Electronically signed By Baldo Moran DO Dictated Date: 05/29/2023 11:34:28 AM Prelim Date: 05/29/2023 11:35:30 AM Sign Date: 05/29/2023 11:35:30 AM Ordering Provider: [facility]03-18-2023 History of Present illness Narrative* Emmanuelle Carballo PA-C - 09/24/2022 4:42 PM EDT Bobbi Acuña is a 72 year old female who presents with Eye Problem (Bilateral eyes red drainage from eyes 1 week) Patient presents to clinic with chief complaint of bilateral eye redness irritation and drainage. Patient states she has had some cold symptoms and then started with this the past couple of days. Waking up with crusting and matting of her eyes. Denies any double vision blurry vision loss of vision or eye pain. Eye Problem History reviewed. No pertinent past medical history. There is no problem list on file for this patient. Current Outpatient Medications Medication Sig Dispense Refill spironolactone (ALDACTONE) 25 mg tablet Take 25 mg by mouth. rosuvastatin (CRESTOR) 10 mg tablet Take [address] (PROTONIX) 40 mg tablet Take 40 mg by mouth. metFORMIN (GLUCOPHAGE) 500 mg tablet magnesium oxide (MAG-OX) 400 mg (241.3 mg magnesium) tablet Take 400 mg by mouth. lisinopril (ZESTRIL) 10 mg tablet levothyroxine (SYNTHROID) 112 mcg tablet folic acid 800 mcg tablet Take 0.8 mg by mouth. calcium carbonate (CALTRATE) 600 mg calcium (1,500 mg) tab Take 600 mg by mouth. aspirin, enteric coated (ASPIRIN, ENTERIC COATED) 81 mg EC tablet Take 81 mg by mouth. amLODIPine (NORVASC) 10 mg tablet gentamicin (GENTAK) 0.3 % ophthalmic solution Use 1-2 Drops in eyes three times daily for 7 days. 3mL 0 No current facility-administered medications for this visit. Social History Tobacco Use Smoking status: Never Smokeless tobacco: Never Alcohol Use: Not on file Tobacco Use: Never History reviewed. No pertinent family history. ROS BP 163/80 Pulse 102 Resp 16 Wt 150 lb (68.0kg) SpO2 97% Physical Exam Vitals and nursing note reviewed. Constitutional: Appearance: Normal appearance. She is normal weight. HENT: Head: Normocephalic and atraumatic. Eyes: General: Right eye: Discharge present. Left eye: Discharge present. Skin: General: Skin is warm and dry. Neurological: Mental Status: She is alert. Psychiatric: Mood and Affect: Mood normal. ASSESSMENT/PLAN: 1. Bacterial conjunctivitis - ICD9: 372.39, 041.9, ICD10: H10.9 Patient advised on cool compresses in addition antibiotic eyedrops and antihistamines as needed forany itching and irritation. Emmanuelle [facility] Discharge Instructions Thank you for allowing [facility] to assist you with your healthcare needs. The following is importantdischarge information regarding your hospital visit. Diagnosis from Today's Visit Viral syndrome Hyperglycemia Dehydration Hypertension Emesis What to Do Next Instructions from Your Care Team No qualifying data available. Post Acute Orders No qualifying data available. You Need to Schedule the Following Appointments Follow Up with STEPH[facility] When Within 2-4 days Why: Schedule appointment as soon as possible Return to ED if symptoms worsen Increase diet from pedialyte to BRAT to non-dairy. Follow up for lab review, recheck labs and bloodpressure Where: [address] [facility] [place] [address]- [phone] Business (1) Allergies Benadryl (Hives) Medications Please ask your primary doctor or pharmacist before taking any other medication not listed, including over the counter drugs, herbal medications, vitamins and or supplements as they may interact withyour home medications. What How Much When Why Instructions Last Dose New ondansetron (ondansetron 4 mg oral tablet, disintegrating) 1 tab(s) by mouth Every 6 hours as needed for Nausea/Vomiting Duration: 5 Days Printed Prescription Unchanged alendronate (alendronate 70 mg oral tablet) 1 tab(s) by mouth Every week Duration: 84 Days with 6-8 oz plain water, at least 30 minutes before first food, beverage, or medication of the day;in lieu of PCP Unchanged amLODIPine (amLODIPine 10 mg oral tablet) 1 tab(s) by mouth Once a day change in dose Unchanged aspirin (aspirin 81 mg oral delayed release tablet) 1 tab(s) by mouth Once a day Unchanged calcium carbonate (calcium (as carbonate) 600 mg oral tablet) 1 tab(s) by mouth Once a day Unchanged cholecalciferol (Vitamin D3 2000 intl units oral capsule) 1 cap by mouth Every day Unchanged folic acid (folic acid 0.8 mg oral tablet) 1 tab(s) by mouth Once a day (in the morning) Unchanged levothyroxine (levothyroxine 112 mcg (0.112 mg) oral tablet) See instructions TAKE 1 TABLET BY MOUTH EVERY DAY/ none on sun Unchanged lisinopril (lisinopril 10 mg oral tablet) 1 tab(s) by mouth Once a day Duration: 30 Days Unchanged magnesium oxide (magnesium oxide 400 mg (241.3 mg elemental magnesium) oral tablet) 1 tab(s) by mouth Once a day Unchanged metFORMIN (metFORMIN 500 mg oral tablet (IR)) See instructions TAKE 1 TABLET IN THE MORNING TAKE 2 TABLETS IN THE EVENING Unchanged multivitamin (Multivitamin) 1 tab(s) by mouth Every day Unchanged pantoprazole (pantoprazole 40 mg oral enteric coated tablet) 1 tab(s) by mouth Once a day Duration: 90 Days Unchanged rosuvastatin (rosuvastatin 10 mg oral tablet) 1 tab(s) by mouth Once a day Unchanged spironolactone (spironolactone 25 mg oral tablet) 1 tab(s) by mouth Every other day CHF - Congestive heart failure Please take this list to your next doctor s visit. Bring all medications you take, including over the counter medications, herbals and other supplements with you to your doctor s visit. Patients and families are reminded to discard old lists and to update any records with all medication providers or retail pharmacies. Medication Leaflets ondansetron (oral) (on FRANK se rufina) Marilee Hunt Zuplenz What is the most important information I should know about ondansetron? You should not use ondansetron if you are also using apomorphine (Apokyn). What is ondansetron? Ondansetron blocks the actions of chemicals in the body that can trigger nausea and vomiting. Ondansetron is used to prevent nausea and vomiting that may be caused by surgery, cancer chemotherapy, or radiation treatment. Ondansetron may be used for purposes not listed in this medication guide. What should I discuss with my health care provider before taking ondansetron? You should not use ondansetron if: you are also using apomorphine (Apokyn); or you are allergic to ondansetron or similar medicines (dolasetron, granisetron, palonosetron). To make sure ondansetron is safe for you, tell your doctor if you have: liver disease; an electrolyte imbalance (such as low levels of potassium or magnesium in your blood); congestive heart failure, slow heartbeats; a personal or family history of long QT syndrome; or a blockage in your digestive tract (stomach or intestines). Ondansetron is not expected to harm an unborn baby. Tell your doctor if you are . It is not known whether ondansetron passes into breast milk or if it could harm a nursing baby. Tell your doctor if you are breast-feeding a baby. Ondansetron is not approved for use by anyone younger than 4 years old. Ondansetron orally disintegrating tablets may contain phenylalanine. Tell your doctor if you have phenylketonuria (PKU). How should I take ondansetron? Follow all directions on your prescription label. Do not take this medicine in larger or smaller amounts or for longer than recommended. Ondansetron can be taken with or without food. The first dose of ondansetron is usually taken before the start of your surgery, chemotherapy, or radiation treatment. Follow your doctor's dosing instructions very carefully. Take the ondansetron regular tablet with a full glass of water. To take the orally disintegrating tablet (Zofran ODT): Keep the tablet in its blister pack until you are ready to take it. Open the package and peel back the foil. Do not push a tablet through the foil or you may damage the tablet. Use dry hands to remove the tablet and place it in your mouth. Do not swallow the tablet whole. Allow it to dissolve in your mouth without chewing. Swallow several times as the tablet dissolves. To use ondansetron oral soluble film (strip) (Zuplenz): Keep the strip in the foil pouch until you are ready to use the medicine. Using dry hands, remove the strip and place it on your tongue. It will begin to dissolve right away. Do not swallow the strip whole. Allow it to dissolve in your mouth without chewing. Swallow several times after the strip dissolves. If desired, you may drink liquid to help swallow the dissolved strip. Wash your hands after using Zuplenz. Measure liquid medicine with the dosing syringe provided, or with a special dose-measuring spoon ormedicine cup. If you do not have a dose-measuring device, ask your pharmacist for one. Store at room temperature away from moisture, heat, and light. Store liquid medicine in an upright position. What happens if I miss a dose? Take the missed dose as soon as you remember. Skip the missed dose if it is almost time for your next scheduled dose. Do not take extra medicine to make up the missed dose. What happens if I overdose? Seek emergency medical attention or call the Poison Help line at . Overdose symptoms may include sudden loss of vision, severe constipation, feeling light-headed, or fainting. What should I avoid while taking ondansetron? Ondansetron may impair your thinking or reactions. Be careful if you drive or do anything that requires you to be alert. What are the possible side effects of ondansetron? Get emergency medical help if you have signs of an allergic reaction: rash, hives; fever, chills, difficult breathing; swelling of your face, lips, tongue, or throat. Call your doctor at once if you have: severe constipation, stomach pain, or bloating; headache with chest pain and severe dizziness, fainting, fast or pounding heartbeats; fast or pounding heartbeats; jaundice (yellowing of the skin or eyes); blurred vision or temporary vision loss (lasting from only a few minutes to several hours); high levels of serotonin in the body--agitation, hallucinations, fever, fast heart rate, overactivereflexes, nausea, vomiting, diarrhea, loss of coordination, fainting. Common side effects may include: diarrhea or constipation; headache; drowsiness; or tired feeling. This is not a complete list of side effects and others may occur. Call your doctor for medical advice about side effects. You may report side effects to FDA at 5-203-AHW-9170. What other drugs will affect ondansetron? Ondansetron can cause a serious heart problem, especially if you use certain medicines at the same time, including antibiotics, antidepressants, heart rhythm medicine, antipsychotic medicines, and medicines to treat cancer, malaria, HIV or AIDS. Tell your doctor about all medicines you use, and those you start or stop using during your treatment with ondansetron. Taking ondansetron while you are using certain other medicines can cause high levels of serotonin to build up in your body, a condition called 'serotonin syndrome,' which can be fatal. Tell your doctor if you also use: medicine to treat depression; medicine to treat a psychiatric disorder; a narcotic (opioid) medication; or medicine to prevent nausea and vomiting. This list is not complete and many other drugs can interact with ondansetron. This includes prescription and qkod-wxv-mbhxtkp medicines, vitamins, and herbal products. Give a list of all your medicines to any healthcare provider who treats you. Where can I get more information? Your pharmacist can provide more information about ondansetron. Remember, keep this and all other medicines out of the reach of children, never share your medicines with others, and use this medication only for the indication prescribed. Every effort has been made to ensure that the information provided by [employer]. ('[employer]') is accurate, up-to-date, and complete, but no guarantee is made to that effect. Drug information contained herein may be time sensitive. [employer] information has been compiled for use by healthcare practitioners and consumers in the [place] and therefore [employer] does not warrant that uses outside of the [place] are appropriate, unless specifically indicated otherwise. [employer] drug information does not endorse drugs, diagnose patients or recommend therapy. [employer] drug information isan informational resource designed to assist licensed healthcare practitioners in caring for their p atients and/or to serve consumers viewing this service as a supplement to, and not a substitute for, the expertise, skill, knowledge and judgment of healthcare practitioners. The absence of a warningfor a given drug or drug combination in no way should be construed to indicate that the drug or drug combination is safe, effective or appropriate for any given patient. [employer] does not assume any responsibility for any aspect of healthcare administered with the aid of information [employer] provides. The information contained herein is not intended to cover all possible uses, directions, precautions, warnings, drug interactions, allergic reactions, or adverse effects. If you have questions about the drugs you are taking, check with your doctor, nurse or pharmacist. Copyright 0807-0728 [employer]. Version: 13.. Revision Date: 04/29/2016. Education Materials Established High Blood Pressure High blood pressure (hypertension) is a chronic disease. Often, healthcare providers don t know what causes it. But it can be caused by certain health conditions and medicines. If you have high blood pressure, you may not have any symptoms. If you do have symptoms, they may include headache, dizziness, changes in your vision, chest pain, and shortness of breath. But even without symptoms, high blood pressure that s not treated raises your risk for heart attack, heart failure, and stroke. High blood pressure is a serious health risk and shouldn t be ignored. Blood pressure measurements are given as 2 numbers. Systolic blood pressure is the upper number. This is the pressure when the heart contracts. Diastolic blood pressure is the lower number. This is the pressure when the heart relaxes between beats. You will see your blood pressure readings written together. For example, a person with a systolic pressure of 118 and a diastolic pressure of 78 will have 118/78 written in the medical record. Blood pressure is categorized as normal, elevated, or stage 1 or stage 2 high blood pressure: Normal blood pressure is systolic of less than 120 and diastolic of less than 80 (120/80) Elevated blood pressure is systolic of 120 to 129 and diastolic less than 80 Stage 1 high blood pressure is systolic is 130 to 139 or diastolic between 80 to 89 Stage 2 high blood pressure is when systolic is 140 or higher or the diastolic is 90 or higher Home care If you have high blood pressure, follow these home care guidelines to help lower your blood pressure. If you are taking medicines for high blood pressure, these methods may reduce or end your need for medicines in the future. Start a weight-loss program if you are overweight. Cut back on how much salt you get in your diet. Here s how to do this: oDon t eat foods that have a lot of salt. These include olives, pickles, smoked meats, and salted potato chips. oDon t add salt to your food at the table. oUse only small amounts of salt when cooking. Start an exercise program. Talk with your healthcare provider about the type of exercise program that would be best for you. It doesn't have to be hard. Even brisk walking for 20 minutes 3 times a week is a good form of exercise. Don t take medicines that stimulate the heart. This includes many ocer-zcv-igiccpc cold and sinus decongestant pills and sprays, as well as diet pills. Check the warnings about high blood pressure onthe label. Before buying any qrhh-hja-gaulewv medicines or supplements, always ask the pharmacist about the product's potential interaction with your high blood pressure and your high blood pressure medicines. Stimulants such as amphetamine or cocaine could be deadly for someone with high blood pressure. Never take these. Limit how much caffeine you get in your diet. Switch to caffeine-free products. Stop smoking. If you are a long-time smoker, this can be hard. Talk to your healthcare provider about medicines and nicotine replacement options to help you. Also, enroll in a stop-smoking program tomake it more likely that you will quit for good. Learn how to handle stress. This is an important part of any program to lower blood pressure. Learnabout relaxation methods like meditation, yoga, or biofeedback. If your provider prescribed medicines, take them exactly as directed. Missing doses may cause your blood pressure get out of control. If you miss a dose or doses, check with your healthcare provider or pharmacist about what to do. Consider buying an automatic blood pressure machine to check your blood pressure at home. Ask your provider for a recommendation. You can get one of these at most pharmacies. The [place] [employer] recommends the following guidelines for home blood pressure monitoring: Don't smoke or drink coffee for 30 minutes before taking your blood pressure. Go to the bathroom before the test. Relax for 5 minutes before taking the measurement. Sit with your back supported (don't sit on a couch or soft chair); keep your feet on the floor uncrossed. Place your arm on a solid flat surface (like a table) with the upper part of the arm at heartlevel. Place the middle of the cuff directly above the bend of the elbow. Check the monitor's instruction manual for an illustration. Take multiple readings. When you measure, take 2 to 3 readings one minute apart and record all of the results. Take your blood pressure at the same time every day, or as your healthcare provider recommends. Record the date, time, and blood pressure reading. Take the record with you to your next medical appointment. If your blood pressure monitor has a built-in memory, simply take the monitor with you to your next appointment. Call your provider if you have several high readings. Don't be frightened by a single high blood pressure reading, but if you get several high readings, check in with your healthcare provider. Note: When blood pressure reaches a systolic (top number) of 180 or higher OR diastolic (bottom number) of 110 or higher, seek emergency medical treatment. Follow-up care You will need to see your healthcare provider regularly. This is to check your blood pressure and to make changes to your medicines. Make a follow-up appointment as directed. Bring the record of yourhome blood pressure readings to the appointment. When to seek medical advice Call your healthcare provider right away if any of these occur: Blood pressure reaches a systolic (upper number) of 180 or higher OR a diastolic (bottom number) of110 or higher Chest pain or shortness of breath Severe headache Throbbing or rushing sound in the ears Nosebleed Sudden severe pain in your belly (abdomen) Extreme drowsiness, confusion, or fainting Dizziness or spinning sensation (vertigo) Weakness of an arm or leg or one side of the face You have problems speaking or seeing [id number] [employer]. [address] [place] [address]. All rights reserved. This information is not intended as a substitute for professional medical care. Always follow yourhealthcare professional's instructions. Dehydration (Adult) Dehydration occurs when your body loses too much fluid. This may be the result of vomiting a lot orfrom diarrhea, sweating a lot, or a high fever. It may also happen if you don t drink enough fluid when you re sick. Misuse of diuretics (water pills) can also be a cause. Symptoms include thirst and feeling dizzy, weak, fatigued, or very drowsy. The diet described belowis usually enough to treat most cases. Sometimes you may need medicine. Home care Follow these guidelines for home care: Drink at least 12 8-ounce glasses of fluid every day to overcome the dehydration. Fluid may includewater; orange juice; lemonade; apple, grape, and cranberry juice; clear fruit drinks; electrolyte replacement and sports drinks; and teas and coffee without caffeine. If you have been diagnosed with a kidney disease, ask your doctor how much and what types of fluids you should drink to prevent dehydration. If you have kidney disease, drinking too much fluid can cause it build up in the your body and be dangerous to your health. If you have fever, muscle aching, or headache from a viral syndrome, you may use acetaminophen or ibuprofen, unless another medicine was prescribed for this. If you have chronic liver or kidney disease or ever had a stomach ulcer or GI bleeding, talk with your doctor before using these medicines. Don't take aspirin if you are younger than 18 and are ill with a fever. Aspirin raises the chance forsevere liver injury. Follow-up care Follow up with your health care provider if you don't get better in the next 24 to 48 hours. When to seek medical advice Call your health care provider right away if any of these occur: Continued vomiting (can t keep liquids down) Frequent diarrhea (more than 5 times a day); blood (red or black color) or mucus in diarrhea Blood in vomit or stool Swollen abdomen or increasing abdominal pain Weakness, dizziness, or fainting Unusually drowsy or confused Reduced urine output or extreme thirst Fever of 100.4 F (38 C) oral or higher that does not get better with fever medication [id number] [employer]. [address] [place] [address]. All rights reserved. This information is not intended as a substitute for professional medical care. Always follow yourhealthcare professional's instructions. Hyperglycemia (High Blood Sugar) Too much glucose (sugar) in your blood is called hyperglycemia or high blood sugar. High blood sugar can lead to a dangerous condition called ketoacidosis. In severe cases, it can lead to coma. Possible Causes of Hyperglycemia Inadequate treatment plan for diabetes Being sick Being under stress Taking certain medications, such as steroids Eating too much food, especially carbohydrates Being less active than usual Not taking enough diabetes medication Symptoms of Hyperglycemia Hyperglycemia may not cause symptoms. If you do have symptoms, they may include: Thirst Frequent need to urinate Feeling tired Nausea Itchy, dry skin Blurry vision Fast breathing Weakness Dizziness Wounds or skin infections that don t heal Unexplained weight loss if hyperglycemia lasts for more than a few days What You Should Do Check your blood sugar. Drink plenty of sugar-free, caffeine-free liquids such as water. Don t drink fruit juice. Check your blood sugar again every 4 hours. If you take insulin or diabetes medications, follow your sick-day plan for taking medication. Call your healthcare provider if you are not able to eat. Check your blood or urine for ketones as directed. Call your health care provider if your blood sugar and ketones do not return to your target range. Preventing High Blood Sugar To help keep your blood sugar from getting too high: Control stress. When you're ill, follow your sick-day plan. Follow your meal plan. Eat only the amount of food on your meal plan Follow your exercise plan. Take your insulin or diabetes medications as directed by you health care team. Also test your bloodsugar as directed. If the plan is not working for you, discuss it with your doctor. Other Things to Do Carry a medical ID card or wear a medical alert bracelet. It should say that you have diabetes. It should also say what to do in case you pass out or go into a coma. Make sure family, friends, and coworkers know the signs of high blood sugar. Tell them what to do if your blood sugar gets very high and you can t help yourself. Talk to your health care team about other things you can do to prevent high blood sugar. Special note: Drink plenty of sugar-free and caffeine-free liquids when you feel symptoms of hyperglycemia. Call your doctor if you keep having episodes of hyperglycemia. [id number] [employer] [place] [address]. All rights reserved. This information is not intended as a substitute for professional medical care. Always follow yourhealthcare professional's instructions. Viral Syndrome (Adult) A viral illness may cause a number of symptoms such as fever. Other symptoms depend on the part of the body that the virus affects. If it settles in your nose, throat, and lungs, it may cause cough, sore throat, congestion, runny nose, headache, earache and other ear symptoms, or shortness of breath. If it settles in your stomach and intestinal tract, it may cause nausea, vomiting, cramping, and diarrhea. Sometimes it causes generalized symptoms like aching all over, feeling tired, loss of energy, or loss of appetite. A viral illness usually lasts anywhere from several days to several weeks, but sometimes it lasts longer. In some cases, a more serious infection can look like a viral syndrome in the first few days of the illness. You may need another exam and additional tests to know the difference. Watch for thewarning signs listed below for when to seek medical advice. Home care Follow these guidelines for taking care of yourself at home: If symptoms are severe, rest at home for the first 2 to 3 days. Stay away from cigarette smoke - both your smoke and the smoke from others. You may use aoli-pts-sshngld acetaminophen or ibuprofen for fever, muscle aching, and headache, unless another medicine was prescribed for this. If you have chronic liver or kidney disease or ever had a stomach ulcer or gastrointestinal bleeding, talk with your healthcare provider before using these medicines. No one who is younger than 18 and ill with a fever should take aspirin. It may cause severe disease or . Your appetite may be poor, so a light diet is fine. Avoid dehydration by drinking 8 to 12, 8-ounce glasses of fluids each day. This may include water; orange juice; lemonade; apple, grape, and cranberry juice; clear fruit drinks; electrolyte replacement and sports drinks; and decaffeinated teas andcoffee. If you have been diagnosed with a kidney disease, ask your healthcare provider how much andwhat types of fluids you should drink to prevent dehydration. If you have kidney disease, drinking too much fluid can cause it build up in the your body and be dangerous to your health. Bgom-buw-dlqaepo remedies won't shorten the length of the illness but may be helpful for symptoms such as cough, sore throat, nasal and sinus congestion, or diarrhea. Don't use decongestants if you have high blood pressure. Follow-up care Follow up with your healthcare provider if you do not improve over the next week. Call 911 Call 911 if any of the following occur: Convulsion Feeling weak, dizzy, or like you are going to faint Chest pain, or more than mild shortness of breath When to seek medical advice Call your healthcare provider right away if any of these occur: Cough with lots of colored sputum (mucus) or blood in your sputum Chest pain, shortness of breath, wheezing, or trouble breathing Severe headache; face, neck, or ear pain Severe, constant pain in the lower right side of your belly (abdominal) Continued vomiting (can t keep liquids down) Frequent diarrhea (more than 5 times a day); blood (red or black color) or mucus in diarrhea Feeling weak, dizzy, or like you are going to faint Extreme thirst Fever of 100.4 F (38 C) or higher, or as directed by your healthcare provider [id number] [employer] [address] [place] [address]. All rights reserved. This information is not intended as a substitute for professional medical care. Always follow yourhealthcare professional's instructions. Additional Information VACCINATE! IT SAVES LIVES! Members of the community who have not yet received the COVID-19 vaccine and would like to receive it can visit one of [facility] vaccine clinics. There are many vaccine clinic locations within the [facility]. For locations and available times, please visit [email or web address]. It is important to note that some COVID mobile vaccine clinics are held outdoors and may be canceled in rainy orstormy conditions. To learn more about pediatric vaccinations (ages 5-11), we invite you to visit the [facility] webpage. [email or web address] learn more about the COVID-19 vaccine, we invite you to visit the [facility] website for a list of frequently asked questions. [email or web address] [facility] [employer] Patient Portal Access Instructions: Stay connected with your healthcare team and access your personal medical information anytime with the [employer] Patient Portal. If you would like a full copy of your medical records please contact the [facility] Medical Records Department Monday through Monday between 8a.m. and 4:30p.m. Please follow the directions below to access the portal: 1.Access the email account you provided upon registration to the [facility].2.Look for an invitation email from [facility].3.Open the email and access the invitation link: Accept Invitation to [employer]4.Fill in the required sadler to create your account. Sign into [email or web address] with your username and password that you created in the above steps to stay up to date. You can then view a summary of results, a summary of your visits, and the ability to download your summaries to your computer or send the information securely to a physician. Remember that your healthcare information is confidential, so carefully consider who you will allow to register on the [employer] Patient Portal for access to your information. You can also access the [employer] Patient Portal on the [employer] marian. Simply click on Health Records under [employer] and then click on the [employer] logo. HOW TO SAFELY DISPOSE OF PRESCRIPTION MEDICATIONS Please use one of the following methods to safely dispose of your unused medications. 1.Use a drug disposal kit: the drug disposal pouch allows you to safely discard your old and unuseddrugs. Ask your nurse to give you one when you are discharged.2.Visit a local take-back location: Many local pharmacies and police departments have programs that collect old and unwanted prescriptiondrugs. Call your local pharmacy or go to http://[employer].Game Blisters/6A8Bf3m to find one close to you.3.Make use of household items: Use cat litter or old coffee grounds to dispose medications if other options arenot available. Mix your drugs with these household products, seal them in an airtight container andthrow it into the garbage. Call [facility]: [phone] to be sure your drugs can be disposed of in this way. Some medicines may require a different approach.4.Never flush your medications down the toilet. IF YOU HAVE BEEN PRESCRIBED AN OPIOIDS FOR PAIN If you have been prescribed an opioid (such as hydrocodone, oxycodone or morphine), it is critical to understand the possible side effects and risks of opioid pain medications. Even when taken as directed, opioids can have several side effects including: Tolerance, meaning you might need to take more of a medication for the same pain relief. Nausea, vomiting and/or constipation. Sleepiness, dizziness, dry mouth, confusion, depression or itching. Physical dependence, meaning you have withdrawal symptoms when a medication is stopped ? this can develop within a few days. KNOW YOUR RESPONSIBILITIES It is important to know exactly how much and how often to take the opioid pain medications you are prescribed. Never take opioids in higher amounts or more often than prescribed. Do not combine opioids with alcohol or other drugs that cause drowsiness, such as benzodiazepines, also known as benzos,including diazepam and alprazolam, muscle relaxants or sleep aids. Never sell or share prescriptionopioids. This is illegal. Store opioids in a secure place and out of reach of others (including children, family, friends and visitors). The last page(s) of this document has been signed and retained as a CHART COPY Signatures Patient Education Materials Hypertension, Established DEHYDRATION (6y-Adult) Hyperglycemia (High Blood Sugar) Viral Syndrome (Adult) Medication Leaflets ondansetron (oral) My discharge plan and instructions have been reviewed and explained to me and I,HAYDEE QUIROGA understand my current condition and have read and understand these discharge instructions. I have received a written copy of the plan/instructions. If I have questions, I am aware that I shouldcontact my doctor. Patient/Coat Padder Signature: Date/Time: Relationship to Patient: Witness Name/Signature: Date/Time: [facility]02-04-2023 Hospital Discharge instructions Patient Education 08/13/2022 18:56:07 Hypertension, Established Established High Blood Pressure High blood pressure (hypertension) is a chronic disease. Often, healthcare providers don t know what causes it. But it can be caused by certain health conditions and medicines. If you have high blood pressure, you may not have any symptoms. If you do have symptoms, they may include headache, dizziness, changes in your vision, chest pain, and shortness of breath. But even without symptoms, high blood pressure that s not treated raises your risk for heart attack, heart failure, and stroke. High blood pressure is a serious health risk and shouldn t be ignored. Blood pressure measurements are given as 2 numbers. Systolic blood pressure is the upper number. This is the pressure when the heart contracts. Diastolic blood pressure is the lower number. This is the pressure when the heart relaxes between beats. You will see your blood pressure readings written together. For example, a person with a systolic pressure of 118 and a diastolic pressure of 78 will have 118/78 written in the medical record. Blood pressure is categorized as normal, elevated, or stage 1 or stage 2 high blood pressure: Normal blood pressure is systolic of less than 120 and diastolic of less than 80 (120/80) Elevated blood pressure is systolic of 120 to 129 and diastolic less than 80 Stage 1 high blood pressure is systolic is 130 to 139 or diastolic between 80 to 89 Stage 2 high blood pressure is when systolic is 140 or higher or the diastolic is 90 or higher Home care If you have high blood pressure, follow these home care guidelines to help lower your blood pressure. If you are taking medicines for high blood pressure, these methods may reduce or end your need for medicines in the future. Start a weight-loss program if you are overweight. Cut back on how much salt you get in your diet. Here s how to do this: oDon t eat foods that have a lot of salt. These include olives, pickles, smoked meats, and salted potato chips. oDon t add salt to your food at the table. oUse only small amounts of salt when cooking. Start an exercise program. Talk with your healthcare provider about the type of exercise program that would be best for you. It doesn't have to be hard. Even brisk walking for 20 minutes 3 times a week is a good form of exercise. Don t take medicines that stimulate the heart. This includes many zlfn-aep-elffxnb cold and sinus decongestant pills and sprays, as well as diet pills. Check the warnings about high blood pressure onthe label. Before buying any sdcb-wvd-seicjue medicines or supplements, always ask the pharmacist about the product's potential interaction with your high blood pressure and your high blood pressure medicines. Stimulants such as amphetamine or cocaine could be deadly for someone with high blood pressure. Never take these. Limit how much caffeine you get in your diet. Switch to caffeine-free products. Stop smoking. If you are a long-time smoker, this can be hard. Talk to your healthcare provider about medicines and nicotine replacement options to help you. Also, enroll in a stop-smoking program tomake it more likely that you will quit for good. Learn how to handle stress. This is an important part of any program to lower blood pressure. Learnabout relaxation methods like meditation, yoga, or biofeedback. If your provider prescribed medicines, take them exactly as directed. Missing doses may cause your blood pressure get out of control. If you miss a dose or doses, check with your healthcare provider or pharmacist about what to do. Consider buying an automatic blood pressure machine to check your blood pressure at home. Ask your provider for a recommendation. You can get one of these at most pharmacies. The [place] [employer] recommends the following guidelines for home blood pressure monitoring: Don't smoke or drink coffee for 30 minutes before taking your blood pressure. Go to the bathroom before the test. Relax for 5 minutes before taking the measurement. Sit with your back supported (don't sit on a couch or soft chair); keep your feet on the floor uncrossed. Place your arm on a solid flat surface (like a table) with the upper part of the arm at heartlevel. Place the middle of the cuff directly above the bend of the elbow. Check the monitor's instruction manual for an illustration. Take multiple readings. When you measure, take 2 to 3 readings one minute apart and record all of the results. Take your blood pressure at the same time every day, or as your healthcare provider recommends. Record the date, time, and blood pressure reading. Take the record with you to your next medical appointment. If your blood pressure monitor has a built-in memory, simply take the monitor with you to your next appointment. Call your provider if you have several high readings. Don't be frightened by a single high blood pressure reading, but if you get several high readings, check in with your healthcare provider. Note: When blood pressure reaches a systolic (top number) of 180 or higher OR diastolic (bottom number) of 110 or higher, seek emergency medical treatment. Follow-up care You will need to see your healthcare provider regularly. This is to check your blood pressure and to make changes to your medicines. Make a follow-up appointment as directed. Bring the record of [facility] blood pressure readings to the appointment. When to seek medical advice Call your healthcare provider right away if any of these occur: Blood pressure reaches a systolic (upper number) of 180 or higher OR a diastolic (bottom number) of110 or higher Chest pain or shortness of breath Severe headache Throbbing or rushing sound in the ears Nosebleed Sudden severe pain in your belly (abdomen) Extreme drowsiness, confusion, or fainting Dizziness or spinning sensation (vertigo) Weakness of an arm or leg or one side of the face You have problems speaking or seeing [id number] [employer]. [address] [place] [id number]. All rights reserved. This information is not intended as a substitute for professional medical care. Always follow yourhealthcare professional's instructions. 08/13/2022 18:56:04 DEHYDRATION (6y-Adult) Dehydration (Adult) Dehydration occurs when your body loses too much fluid. This may be the result of vomiting a lot orfrom diarrhea, sweating a lot, or a high fever. It may also happen if you don t drink enough fluid when you re sick. Misuse of diuretics (water pills) can also be a cause. Symptoms include thirst and feeling dizzy, weak, fatigued, or very drowsy. The diet described belowis usually enough to treat most cases. Sometimes you may need medicine. Home care Follow these guidelines for home care: Drink at least 12 8-ounce glasses of fluid every day to overcome the dehydration. Fluid may includewater; orange juice; lemonade; apple, grape, and cranberry juice; clear fruit drinks; electrolyte replacement and sports drinks; and teas and coffee without caffeine. If you have been diagnosed with a kidney disease, ask your doctor how much and what types of fluids you should drink to prevent dehydration. If you have kidney disease, drinking too much fluid can cause it build up in the your body and be dangerous to your health. If you have fever, muscle aching, or headache from a viral syndrome, you may use acetaminophen or ibuprofen, unless another medicine was prescribed for this. If you have chronic liver or kidney disease or ever had a stomach ulcer or GI bleeding, talk with your doctor before using these medicines. Don't take aspirin if you are younger than 18 and are ill with a fever. Aspirin raises the chance forsevere liver injury. Follow-up care Follow up with your health care provider if you don't get better in the next 24 to 48 hours. When to seek medical advice Call your health care provider right away if any of these occur: Continued vomiting (can t keep liquids down) Frequent diarrhea (more than 5 times a day); blood (red or black color) or mucus in diarrhea Blood in vomit or stool Swollen abdomen or increasing abdominal pain Weakness, dizziness, or fainting Unusually drowsy or confused Reduced urine output or extreme thirst Fever of 100.4 F (38 C) oral or higher that does not get better with fever medication [id number] [employer]. [address] [place] [id number]. All rights reserved. This information is not intended as a substitute for professional medical care. Always follow yourhealthcare professional's instructions. 08/13/2022 18:56:02 Hyperglycemia (High Blood Sugar) Hyperglycemia (High Blood Sugar) Too much glucose (sugar) in your blood is called hyperglycemia or high blood sugar. High blood sugar can lead to a dangerous condition called ketoacidosis. In severe cases, it can lead to coma. Possible Causes of Hyperglycemia Inadequate treatment plan for diabetes Being sick Being under stress Taking certain medications, such as steroids Eating too much food, especially carbohydrates Being less active than usual Not taking enough diabetes medication Symptoms of Hyperglycemia Hyperglycemia may not cause symptoms. If you do have symptoms, they may include: Thirst Frequent need to urinate Feeling tired Nausea Itchy, dry skin Blurry vision Fast breathing Weakness Dizziness Wounds or skin infections that don t heal Unexplained weight loss if hyperglycemia lasts for more than a few days What You Should Do Check your blood sugar. Drink plenty of sugar-free, caffeine-free liquids such as water. Don t drink fruit juice. Check your blood sugar again every 4 hours. If you take insulin or diabetes medications, follow your sick-day plan for taking medication. Call your healthcare provider if you are not able to eat. Check your blood or urine for ketones as directed. Call your health care provider if your blood sugar and ketones do not return to your target range. Preventing High Blood Sugar To help keep your blood sugar from getting too high: Control stress. When you're ill, follow your sick-day plan. Follow your meal plan. Eat only the amount of food on your meal plan Follow your exercise plan. Take your insulin or diabetes medications as directed by you health care team. Also test your bloodsugar as directed. If the plan is not working for you, discuss it with your doctor. Other Things to Do Carry a medical ID card or wear a medical alert bracelet. It should say that you have diabetes. It should also say what to do in case you pass out or go into a coma. Make sure family, friends, and coworkers know the signs of high blood sugar. Tell them what to do if your blood sugar gets very high and you can t help yourself. Talk to your health care team about other things you can do to prevent high blood sugar. Special note: Drink plenty of sugar-free and caffeine-free liquids when you feel symptoms of hyperglycemia. Call your doctor if you keep having episodes of hyperglycemia. [id number] [employer]. [address] [place] [address], [place] [address]. All rights reserved. This information is not intended as a substitute for professional medical care. Always follow yourhealthcare professional's instructions. 08/13/2022 18:55:59 Viral Syndrome (Adult) Viral Syndrome (Adult) A viral illness may cause a number of symptoms such as fever. Other symptoms depend on the part of the body that the virus affects. If it settles in your nose, throat, and lungs, it may cause cough, sore throat, congestion, runny nose, headache, earache and other ear symptoms, or shortness of breath. If it settles in your stomach and intestinal tract, it may cause nausea, vomiting, cramping, and diarrhea. Sometimes it causes generalized symptoms like aching all over, feeling tired, loss of energy, or loss of appetite. A viral illness usually lasts anywhere from several days to several weeks, but sometimes it lasts longer. In some cases, a more serious infection can look like a viral syndrome in the first few days of the illness. You may need another exam and additional tests to know the difference. Watch for thewarning signs listed below for when to seek medical advice. Home care Follow these guidelines for taking care of yourself at home: If symptoms are severe, rest at home for the first 2 to 3 days. Stay away from cigarette smoke - both your smoke and the smoke from others. You may use xxyc-zet-qdyxouy acetaminophen or ibuprofen for fever, muscle aching, and headache, unless another medicine was prescribed for this. If you have chronic liver or kidney disease or ever had a stomach ulcer or gastrointestinal bleeding, talk with your healthcare provider before using these medicines. No one who is younger than 18 and ill with a fever should take aspirin. It may cause severe disease or . Your appetite may be poor, so a light diet is fine. Avoid dehydration by drinking 8 to 12, 8-ounce glasses of fluids each day. This may include water; orange juice; lemonade; apple, grape, and cranberry juice; clear fruit drinks; electrolyte replacement and sports drinks; and decaffeinated teas andcoffee. If you have been diagnosed with a kidney disease, ask your healthcare provider how much andwhat types of fluids you should drink to prevent dehydration. If you have kidney disease, drinking too much fluid can cause it build up in the your body and be dangerous to your health. Qivt-udx-omizipx remedies won't shorten the length of the illness but may be helpful for symptoms such as cough, sore throat, nasal and sinus congestion, or diarrhea. Don't use decongestants if you have high blood pressure. Follow-up care Follow up with your healthcare provider if you do not improve over the next week. Call 911 Call 911 if any of the following occur: Convulsion Feeling weak, dizzy, or like you are going to faint Chest pain, or more than mild shortness of breath When to seek medical advice Call your healthcare provider right away if any of these occur: Cough with lots of colored sputum (mucus) or blood in your sputum Chest pain, shortness of breath, wheezing, or trouble breathing Severe headache; face, neck, or ear pain Severe, constant pain in the lower right side of your belly (abdominal) Continued vomiting (can t keep liquids down) Frequent diarrhea (more than 5 times a day); blood (red or black color) or mucus in diarrhea Feeling weak, dizzy, or like you are going to faint Extreme thirst Fever of 100.4 F (38 C) or higher, or as directed by your healthcare provider [id number] [employer]. [address] [place] [address]. All rights reserved. This information is not intended as a substitute for professional medical care. Always follow yourhealthcare professional's instructions. Follow Up Care 08/13/2022 17:23:36 With:STEPHON WELLS Address: [place] [address]- [phone] Business (1) When:2-4 days Comments:Schedule appointment as soon as possibleReturn to ED if symptoms worsenIncrease diet from pedialyteto BRAT to non-dairy. Follow up for lab review, recheck labs and blood pressure [facility] 02-04-2023 Note Discharge Instructions Thank you for allowing [place] to assist you with your healthcare needs. The following is importantdischarge information regarding your hospital visit. Diagnosis from Today's Visit Viral syndrome Hyperglycemia Dehydration Hypertension Emesis What to Do Next Instructions from Your Care Team No qualifying data available. Post Acute Orders No qualifying data available. You Need to Schedule the Following Appointments Follow Up with STEPHON WELLS When Within 2-4 days Why: Schedule appointment as soon as possible Return to ED if symptoms worsen Increase diet from pedialyte to BRAT to non-dairy. Follow up for lab review, recheck labs and bloodpressure Where: [address] [place] [place] [phone] Business (1) Allergies Benadryl (Hives) Medications Please ask your primary doctor or pharmacist before taking any other medication not listed, including over the counter drugs, herbal medications, vitamins and or supplements as they may interact withyour home medications. What How Much When Why Instructions Last Dose New ondansetron (ondansetron 4 mg oral tablet, disintegrating) 1 tab(s) by mouth Every 6 hours as needed for Nausea/Vomiting Duration: 5 Days Printed Prescription Unchanged alendronate (alendronate 70 mg oral tablet) 1 tab(s) by mouth Every week Duration: 84 Days with 6-8 oz plain water, at least 30 minutes before first food, beverage, or medication of the day;in lieu of PCP Unchanged amLODIPine (amLODIPine 10 mg oral tablet) 1 tab(s) by mouth Once a day change in dose Unchanged aspirin (aspirin 81 mg oral delayed release tablet) 1 tab(s) by mouth Once a day Unchanged calcium carbonate (calcium (as carbonate) 600 mg oral tablet) 1 tab(s) by mouth Once a day Unchanged cholecalciferol (Vitamin D3 2000 intl units oral capsule) 1 cap by mouth Every day Unchanged folic acid (folic acid 0.8 mg oral tablet) 1 tab(s) by mouth Once a day (in the morning) Unchanged levothyroxine (levothyroxine 112 mcg (0.112 mg) oral tablet) See instructions TAKE 1 TABLET BY MOUTH EVERY DAY/ none on sun Unchanged lisinopril (lisinopril 10 mg oral tablet) 1 tab(s) by mouth Once a day Duration: 30 Days Unchanged magnesium oxide (magnesium oxide 400 mg (241.3 mg elemental magnesium) oral tablet) 1 tab(s) by mouth Once a day Unchanged metFORMIN (metFORMIN 500 mg oral tablet (IR)) See instructions TAKE 1 TABLET IN THE MORNING TAKE 2 TABLETS IN THE EVENING Unchanged multivitamin (Multivitamin) 1 tab(s) by mouth Every day Unchanged pantoprazole (pantoprazole 40 mg oral enteric coated tablet) 1 tab(s) by mouth Once a day Duration: 90 Days Unchanged rosuvastatin (rosuvastatin 10 mg oral tablet) 1 tab(s) by mouth Once a day Unchanged spironolactone (spironolactone 25 mg oral tablet) 1 tab(s) by mouth Every other day CHF - Congestive heart failure Please take this list to your next doctor s visit. Bring all medications you take, including over the counter medications, herbals and other supplements with you to your doctor s visit. Patients and families are reminded to discard old lists and to update any records with all medication providers or retail pharmacies. Medication Leaflets ondansetron (oral) (on FRANK se rufina) Marilee Hunt [employer] What is the most important information I should know about ondansetron? You should not use ondansetron if you are also using apomorphine (Apokyn). What is ondansetron? Ondansetron blocks the actions of chemicals in the body that can trigger nausea and vomiting. Ondansetron is used to prevent nausea and vomiting that may be caused by surgery, cancer chemotherapy, or radiation treatment. Ondansetron may be used for purposes not listed in this medication guide. What should I discuss with my health care provider before taking ondansetron? You should not use ondansetron if: you are also using apomorphine (Apokyn); or you are allergic to ondansetron or similar medicines (dolasetron, granisetron, palonosetron). To make sure ondansetron is safe for you, tell your doctor if you have: liver disease; an electrolyte imbalance (such as low levels of potassium or magnesium in your blood); congestive heart failure, slow heartbeats; a personal or family history of long QT syndrome; or a blockage in your digestive tract (stomach or intestines). Ondansetron is not expected to harm an unborn baby. Tell your doctor if you are . It is not known whether ondansetron passes into breast milk or if it could harm a nursing baby. Tell your doctor if you are breast-feeding a baby. Ondansetron is not approved for use by anyone younger than 4 years old. Ondansetron orally disintegrating tablets may contain phenylalanine. Tell your doctor if you have phenylketonuria (PKU). How should I take ondansetron? Follow all directions on your prescription label. Do not take this medicine in larger or smaller amounts or for longer than recommended. Ondansetron can be taken with or without food. The first dose of ondansetron is usually taken before the start of your surgery, chemotherapy, or radiation treatment. Follow your doctor's dosing instructions very carefully. Take the ondansetron regular tablet with a full glass of water. To take the orally disintegrating tablet (Zofran ODT): Keep the tablet in its blister pack until you are ready to take it. Open the package and peel back the foil. Do not push a tablet through the foil or you may damage the tablet. Use dry hands to remove the tablet and place it in your mouth. Do not swallow the tablet whole. Allow it to dissolve in your mouth without chewing. Swallow several times as the tablet dissolves. To use ondansetron oral soluble film (strip) (Zuplenz): Keep the strip in the foil pouch until you are ready to use the medicine. Using dry hands, remove the strip and place it on your tongue. It will begin to dissolve right away. Do not swallow the strip whole. Allow it to dissolve in your mouth without chewing. Swallow several times after the strip dissolves. If desired, you may drink liquid to help swallow the dissolved strip. Wash your hands after using Zuplenz. Measure liquid medicine with the dosing syringe provided, or with a special dose-measuring spoon ormedicine cup. If you do not have a dose-measuring device, ask your pharmacist for one. Store at room temperature away from moisture, heat, and light. Store liquid medicine in an upright position. What happens if I miss a dose? Take the missed dose as soon as you remember. Skip the missed dose if it is almost time for your next scheduled dose. Do not take extra medicine to make up the missed dose. What happens if I overdose? Seek emergency medical attention or call the Poison Help line at . Overdose symptoms may include sudden loss of vision, severe constipation, feeling light-headed, or fainting. What should I avoid while taking ondansetron? Ondansetron may impair your thinking or reactions. Be careful if you drive or do anything that requires you to be alert. What are the possible side effects of ondansetron? Get emergency medical help if you have signs of an allergic reaction: rash, hives; fever, chills, difficult breathing; swelling of your face, lips, tongue, or throat. Call your doctor at once if you have: severe constipation, stomach pain, or bloating; headache with chest pain and severe dizziness, fainting, fast or pounding heartbeats; fast or pounding heartbeats; jaundice (yellowing of the skin or eyes); blurred vision or temporary vision loss (lasting from only a few minutes to several hours); high levels of serotonin in the body--agitation, hallucinations, fever, fast heart rate, overactivereflexes, nausea, vomiting, diarrhea, loss of coordination, fainting. Common side effects may include: diarrhea or constipation; headache; drowsiness; or tired feeling. This is not a complete list of side effects and others may occur. Call your doctor for medical advice about side effects. You may report side effects to FDA at 3-100-LNZ-0969. What other drugs will affect ondansetron? Ondansetron can cause a serious heart problem, especially if you use certain medicines at the same time, including antibiotics, antidepressants, heart rhythm medicine, antipsychotic medicines, and medicines to treat cancer, malaria, HIV or AIDS. Tell your doctor about all medicines you use, and those you start or stop using during your treatment with ondansetron. Taking ondansetron while you are using certain other medicines can cause high levels of serotonin to build up in your body, a condition called 'serotonin syndrome,' which can be fatal. Tell your doctor if you also use: medicine to treat depression; medicine to treat a psychiatric disorder; a narcotic (opioid) medication; or medicine to prevent nausea and vomiting. This list is not complete and many other drugs can interact with ondansetron. This includes prescription and akyd-fon-xaczbvj medicines, vitamins, and herbal products. Give a list of all your medicines to any healthcare provider who treats you. Where can I get more information? Your pharmacist can provide more information about ondansetron. Remember, keep this and all other medicines out of the reach of children, never share your medicines with others, and use this medication only for the indication prescribed. Every effort has been made to ensure that the information provided by [employer]. ('[employer]') is accurate, up-to-date, and complete, but no guarantee is made to that effect. Drug information contained herein may be time sensitive. [employer] information has been compiled for use by healthcare practitioners and consumers in the [place] and therefore [employer] does not warrant that uses outside of the [place] are appropriate, unless specifically indicated otherwise. [employer] drug information does not endorse drugs, diagnose patients or recommend therapy. [employer] drug information isan informational resource designed to assist licensed healthcare practitioners in caring for their p atients and/or to serve consumers viewing this service as a supplement to, and not a substitute for, the expertise, skill, knowledge and judgment of healthcare practitioners. The absence of a warningfor a given drug or drug combination in no way should be construed to indicate that the drug or drug combination is safe, effective or appropriate for any given patient. [employer] does not assume any responsibility for any aspect of healthcare administered with the aid of information [employer] provides. The information contained herein is not intended to cover all possible uses, directions, precautions, warnings, drug interactions, allergic reactions, or adverse effects. If you have questions about the drugs you are taking, check with your doctor, nurse or pharmacist. Copyright 5490-2446 [employer]. Version: 13.01. Revision Date: 04/29/2016. Education Materials Established High Blood Pressure High blood pressure (hypertension) is a chronic disease. Often, healthcare providers don t know what causes it. But it can be caused by certain health conditions and medicines. If you have high blood pressure, you may not have any symptoms. If you do have symptoms, they may include headache, dizziness, changes in your vision, chest pain, and shortness of breath. But even without symptoms, high blood pressure that s not treated raises your risk for heart attack, heart failure, and stroke. High blood pressure is a serious health risk and shouldn t be ignored. Blood pressure measurements are given as 2 numbers. Systolic blood pressure is the upper number. This is the pressure when the heart contracts. Diastolic blood pressure is the lower number. This is the pressure when the heart relaxes between beats. You will see your blood pressure readings written together. For example, a person with a systolic pressure of 118 and a diastolic pressure of 78 will have 118/78 written in the medical record. Blood pressure is categorized as normal, elevated, or stage 1 or stage 2 high blood pressure: Normal blood pressure is systolic of less than 120 and diastolic of less than 80 (120/80) Elevated blood pressure is systolic of 120 to 129 and diastolic less than 80 Stage 1 high blood pressure is systolic is 130 to 139 or diastolic between 80 to 89 Stage 2 high blood pressure is when systolic is 140 or higher or the diastolic is 90 or higher Home care If you have high blood pressure, follow these home care guidelines to help lower your blood pressure. If you are taking medicines for high blood pressure, these methods may reduce or end your need for medicines in the future. Start a weight-loss program if you are overweight. Cut back on how much salt you get in your diet. Here s how to do this: oDon t eat foods that have a lot of salt. These include olives, pickles, smoked meats, and salted potato chips. oDon t add salt to your food at the table. oUse only small amounts of salt when cooking. Start an exercise program. Talk with your healthcare provider about the type of exercise program that would be best for you. It doesn't have to be hard. Even brisk walking for 20 minutes 3 times a week is a good form of exercise. Don t take medicines that stimulate the heart. This includes many lygc-vdo-qzihwcd cold and sinus decongestant pills and sprays, as well as diet pills. Check the warnings about high blood pressure onthe label. Before buying any leee-dzi-vnbifgh medicines or supplements, always ask the pharmacist about the product's potential interaction with your high blood pressure and your high blood pressure medicines. Stimulants such as amphetamine or cocaine could be deadly for someone with high blood pressure. Never take these. Limit how much caffeine you get in your diet. Switch to caffeine-free products. Stop smoking. If you are a long-time smoker, this can be hard. Talk to your healthcare provider about medicines and nicotine replacement options to help you. Also, enroll in a stop-smoking program tomake it more likely that you will quit for good. Learn how to handle stress. This is an important part of any program to lower blood pressure. Learnabout relaxation methods like meditation, yoga, or biofeedback. If your provider prescribed medicines, take them exactly as directed. Missing doses may cause your blood pressure get out of control. If you miss a dose or doses, check with your healthcare provider or pharmacist about what to do. Consider buying an automatic blood pressure machine to check your blood pressure at home. Ask your provider for a recommendation. You can get one of these at most pharmacies. The [place] [employer] recommends the following guidelines for home blood pressure monitoring: Don't smoke or drink coffee for 30 minutes before taking your blood pressure. Go to the bathroom before the test. Relax for 5 minutes before taking the measurement. Sit with your back supported (don't sit on a couch or soft chair); keep your feet on the floor uncrossed. Place your arm on a solid flat surface (like a table) with the upper part of the arm at heartlevel. Place the middle of the cuff directly above the bend of the elbow. Check the monitor's instruction manual for an illustration. Take multiple readings. When you measure, take 2 to 3 readings one minute apart and record all of the results. Take your blood pressure at the same time every day, or as your healthcare provider recommends. Record the date, time, and blood pressure reading. Take the record with you to your next medical appointment. If your blood pressure monitor has a built-in memory, simply take the monitor with you to your next appointment. Call your provider if you have several high readings. Don't be frightened by a single high blood pressure reading, but if you get several high readings, check in with your healthcare provider. Note: When blood pressure reaches a systolic (top number) of 180 or higher OR diastolic (bottom number) of 110 or higher, seek emergency medical treatment. Follow-up care You will need to see your healthcare provider regularly. This is to check your blood pressure and to make changes to your medicines. Make a follow-up appointment as directed. Bring the record of yourhome blood pressure readings to the appointment. When to seek medical advice Call your healthcare provider right away if any of these occur: Blood pressure reaches a systolic (upper number) of 180 or higher OR a diastolic (bottom number) of110 or higher Chest pain or shortness of breath Severe headache Throbbing or rushing sound in the ears Nosebleed Sudden severe pain in your belly (abdomen) Extreme drowsiness, confusion, or fainting Dizziness or spinning sensation (vertigo) Weakness of an arm or leg or one side of the face You have problems speaking or seeing [id number] [employer]. [address] [place] [address], [place] [address]. All rights reserved. This information is not intended as a substitute for professional medical care. Always follow yourhealthcare professional's instructions. Dehydration (Adult) Dehydration occurs when your body loses too much fluid. This may be the result of vomiting a lot orfrom diarrhea, sweating a lot, or a high fever. It may also happen if you don t drink enough fluid when you re sick. Misuse of diuretics (water pills) can also be a cause. Symptoms include thirst and feeling dizzy, weak, fatigued, or very drowsy. The diet described belowis usually enough to treat most cases. Sometimes you may need medicine. Home care Follow these guidelines for home care: Drink at least 12 8-ounce glasses of fluid every day to overcome the dehydration. Fluid may includewater; orange juice; lemonade; apple, grape, and cranberry juice; clear fruit drinks; electrolyte replacement and sports drinks; and teas and coffee without caffeine. If you have been diagnosed with a kidney disease, ask your doctor how much and what types of fluids you should drink to prevent dehydration. If you have kidney disease, drinking too much fluid can cause it build up in the your body and be dangerous to your health. If you have fever, muscle aching, or headache from a viral syndrome, you may use acetaminophen or ibuprofen, unless another medicine was prescribed for this. If you have chronic liver or kidney disease or ever had a stomach ulcer or GI bleeding, talk with your doctor before using these medicines. Don't take aspirin if you are younger than 18 and are ill with a fever. Aspirin raises the chance forsevere liver injury. Follow-up care Follow up with your health care provider if you don't get better in the next 24 to 48 hours. When to seek medical advice Call your health care provider right away if any of these occur: Continued vomiting (can t keep liquids down) Frequent diarrhea (more than 5 times a day); blood (red or black color) or mucus in diarrhea Blood in vomit or stool Swollen abdomen or increasing abdominal pain Weakness, dizziness, or fainting Unusually drowsy or confused Reduced urine output or extreme thirst Fever of 100.4 F (38 C) oral or higher that does not get better with fever medication [id number] [employer]. [address] [place] [address]. All rights reserved. This information is not intended as a substitute for professional medical care. Always follow yourhealthcare professional's instructions. Hyperglycemia (High Blood Sugar) Too much glucose (sugar) in your blood is called hyperglycemia or high blood sugar. High blood sugar can lead to a dangerous condition called ketoacidosis. In severe cases, it can lead to coma. Possible Causes of Hyperglycemia Inadequate treatment plan for diabetes Being sick Being under stress Taking certain medications, such as steroids Eating too much food, especially carbohydrates Being less active than usual Not taking enough diabetes medication Symptoms of Hyperglycemia Hyperglycemia may not cause symptoms. If you do have symptoms, they may include: Thirst Frequent need to urinate Feeling tired Nausea Itchy, dry skin Blurry vision Fast breathing Weakness Dizziness Wounds or skin infections that don t heal Unexplained weight loss if hyperglycemia lasts for more than a few days What You Should Do Check your blood sugar. Drink plenty of sugar-free, caffeine-free liquids such as water. Don t drink fruit juice. Check your blood sugar again every 4 hours. If you take insulin or diabetes medications, follow your sick-day plan for taking medication. Call your healthcare provider if you are not able to eat. Check your blood or urine for ketones as directed. Call your health care provider if your blood sugar and ketones do not return to your target range. Preventing High Blood Sugar To help keep your blood sugar from getting too high: Control stress. When you're ill, follow your sick-day plan. Follow your meal plan. Eat only the amount of food on your meal plan Follow your exercise plan. Take your insulin or diabetes medications as directed by you health care team. Also test your bloodsugar as directed. If the plan is not working for you, discuss it with your doctor. Other Things to Do Carry a medical ID card or wear a medical alert bracelet. It should say that you have diabetes. It should also say what to do in case you pass out or go into a coma. Make sure family, friends, and coworkers know the signs of high blood sugar. Tell them what to do if your blood sugar gets very high and you can t help yourself. Talk to your health care team about other things you can do to prevent high blood sugar. Special note: Drink plenty of sugar-free and caffeine-free liquids when you feel symptoms of hyperglycemia. Call your doctor if you keep having episodes of hyperglycemia. [phone] [employer]. [address] [place] [address], [place] [address]. All rights reserved. This information is not intended as a substitute for professional medical care. Always follow yourhealthcare professional's instructions. Viral Syndrome (Adult) A viral illness may cause a number of symptoms such as fever. Other symptoms depend on the part of the body that the virus affects. If it settles in your nose, throat, and lungs, it may cause cough, sore throat, congestion, runny nose, headache, earache and other ear symptoms, or shortness of breath. If it settles in your stomach and intestinal tract, it may cause nausea, vomiting, cramping, and diarrhea. Sometimes it causes generalized symptoms like aching all over, feeling tired, loss of energy, or loss of appetite. A viral illness usually lasts anywhere from several days to several weeks, but sometimes it lasts longer. In some cases, a more serious infection can look like a viral syndrome in the first few days of the illness. You may need another exam and additional tests to know the difference. Watch for thewarning signs listed below for when to seek medical advice. Home care Follow these guidelines for taking care of yourself at home: If symptoms are severe, rest at home for the first 2 to 3 days. Stay away from cigarette smoke - both your smoke and the smoke from others. You may use wbpe-xhn-cvignbx acetaminophen or ibuprofen for fever, muscle aching, and headache, unless another medicine was prescribed for this. If you have chronic liver or kidney disease or ever had a stomach ulcer or gastrointestinal bleeding, talk with your healthcare provider before using these medicines. No one who is younger than 18 and ill with a fever should take aspirin. It may cause severe disease or . Your appetite may be poor, so a light diet is fine. Avoid dehydration by drinking 8 to 12, 8-ounce glasses of fluids each day. This may include water; orange juice; lemonade; apple, grape, and cranberry juice; clear fruit drinks; electrolyte replacement and sports drinks; and decaffeinated teas andcoffee. If you have been diagnosed with a kidney disease, ask your healthcare provider how much andwhat types of fluids you should drink to prevent dehydration. If you have kidney disease, drinking too much fluid can cause it build up in the your body and be dangerous to your health. Dhis-kbu-hrbjbbj remedies won't shorten the length of the illness but may be helpful for symptoms such as cough, sore throat, nasal and sinus congestion, or diarrhea. Don't use decongestants if you have high blood pressure. Follow-up care Follow up with your healthcare provider if you do not improve over the next week. Call 911 Call 911 if any of the following occur: Convulsion Feeling weak, dizzy, or like you are going to faint Chest pain, or more than mild shortness of breath When to seek medical advice Call your healthcare provider right away if any of these occur: Cough with lots of colored sputum (mucus) or blood in your sputum Chest pain, shortness of breath, wheezing, or trouble breathing Severe headache; face, neck, or ear pain Severe, constant pain in the lower right side of your belly (abdominal) Continued vomiting (can t keep liquids down) Frequent diarrhea (more than 5 times a day); blood (red or black color) or mucus in diarrhea Feeling weak, dizzy, or like you are going to faint Extreme thirst Fever of 100.4 F (38 C) or higher, or as directed by your healthcare provider [id number] [employer] [address] [place] [address]. All rights reserved. This information is not intended as a substitute for professional medical care. Always follow yourhealthcare professional's instructions. Additional Information VACCINATE! IT SAVES LIVES! Members of the community who have not yet received the COVID-19 vaccine and would like to receive it can visit one of [facility] vaccine clinics. There are many vaccine clinic locations within the [facility]. For locations and available times, please visit [email or web address]. It is important to note that some COVID mobile vaccine clinics are held outdoors and may be canceled in rainy orstormy conditions. To learn more about pediatric vaccinations (ages 5-11), we invite you to visit the [facility] webpage. [email or web address] learn more about the COVID-19 vaccine, we invite you to visit the [employer] website for a list of frequently asked questions. [email or web address] [employer] OneChart Patient Portal Access Instructions: Stay connected with your healthcare team and access your personal medical information anytime with the [employer] Patient Portal. If you would like a full copy of your medical records please contact the [facility] Medical Records Department Monday through Monday between 8a.m. and 4:30p.m. Please follow the directions below to access the portal: 1.Access the email account you provided upon registration to the [facility].2.Look for an invitation email from [facility].3.Open the email and access the invitation link: Accept Invitation to [employer]4.Fill in the required sadler to create your account. Sign into [email or web address] with your username and password that you created in the above steps to stay up to date. You can then view a summary of results, a summary of your visits, and the ability to download your summaries to your computer or send the information securely to a physician. Remember that your healthcare information is confidential, so carefully consider who you will allow to register on the [employer] Patient Portal for access to your information. You can also access the [employer] Patient Portal on the [employer]. Simply click on Health Records under [employer] and then click on the [employer] logo. HOW TO SAFELY DISPOSE OF PRESCRIPTION MEDICATIONS Please use one of the following methods to safely dispose of your unused medications. 1.Use a drug disposal kit: the drug disposal pouch allows you to safely discard your old and unuseddrugs. Ask your nurse to give you one when you are discharged.2.Visit a local take-back location: Many local pharmacies and police departments have programs that collect old and unwanted prescriptiondrugs. Call your local pharmacy or go to http://W[employer] Intelligence.Game Blisters/5A3Fk8k to find one close to you.3.Make use of household items: Use cat litter or old coffee grounds to dispose medications if other options arenot available. Mix your drugs with these household products, seal them in an airtight container andthrow it into the garbage. Call [facility]: [phone] to be sure your drugs can be disposed of in this way. Some medicines may require a different approach.4.Never flush your medications down the toilet. IF YOU HAVE BEEN PRESCRIBED AN OPIOIDS FOR PAIN If you have been prescribed an opioid (such as hydrocodone, oxycodone or morphine), it is critical to understand the possible side effects and risks of opioid pain medications. Even when taken as directed, opioids can have several side effects including: Tolerance, meaning you might need to take more of a medication for the same pain relief. Nausea, vomiting and/or constipation. Sleepiness, dizziness, dry mouth, confusion, depression or itching. Physical dependence, meaning you have withdrawal symptoms when a medication is stopped ? this can develop within a few days. KNOW YOUR RESPONSIBILITIES It is important to know exactly how much and how often to take the opioid pain medications you are prescribed. Never take opioids in higher amounts or more often than prescribed. Do not combine opioids with alcohol or other drugs that cause drowsiness, such as benzodiazepines, also known as benzos,including diazepam and alprazolam, muscle relaxants or sleep aids. Never sell or share prescriptionopioids. This is illegal. Store opioids in a secure place and out of reach of others (including children, family, friends and visitors). The last page(s) of this document has been signed and retained as a CHART COPY [employer]atures Patient Education Materials Hypertension, Established DEHYDRATION (6y-Adult) Hyperglycemia (High Blood Sugar) Viral Syndrome (Adult) Medication Leaflets ondansetron (oral) My discharge plan and instructions have been reviewed and explained to me and I,HAYDEE QUIROGA understand my current condition and have read and understand these discharge instructions. I have received a written copy of the plan/instructions. If I have questions, I am aware that I shouldcontact my doctor. Patient/Coat Padder Signature: Date/Time: Relationship to Patient: Witness Name/Signature: Date/Time: [facility]10-14-2022 Note ORIGINAL EXAMINATION: HIDA1 11:22 am TECHNIQUE: Approximately 4.3 millicuries Tc99m Choletec was administered IV. Then, dynamic images of the abdomen were obtained in the anterior projection for 60 mins. Due to a shortage/unavailability of CCK, 8 ounces of ensure plus was substituted orally. Images were obtained in the anterior projection and regions of interest were drawn around the gallbladder and ejection fraction was calculated. COMPARISON: None HISTORY: Reason for Exam: ruq pain FINDINGS: Prompt, homogenous uptake by the liver is noted with normal appearance of radiotracer excretion into the biliary system. Clearance of blood pool activity appears appropriate. Gallbladder and small bowel are visualized in appropriate sequence and time. Gallbladder ejection fraction is 45%. Normal value is >33% for Ensure protocol. Note, Ensure normal range is based on a limited study. Enterogastric reflux is noted. IMPRESSION: 1. Normal gallbladder ejection fraction of 45%. 2. Enterogastric reflux. Interpreted by: Charli Farah MD Preliminary Report By: Charli Farah MD Electronically signed By Charli Farah MD Dictated Date: 04/22/2022 11:24:25 AM Prelim Date: 04/22/2022 11:26:08 AM Sign Date: 04/22/2022 11:26:08 AM Ordering Provider: [facility]10-14-2022 Note ORIGINAL EXAMINATION: HIDA1 11:22 am TECHNIQUE: Approximately 4.3 millicuries Tc99m Choletec was administered IV. Then, dynamic images of the abdomen were obtained in the anterior projection for 60 mins. Due to a shortage/unavailability of CCK, 8 ounces of ensure plus was substituted orally. Images were obtained in the anterior projection and regions of interest were drawn around the gallbladder and ejection fraction was calculated. COMPARISON: None HISTORY: Reason for Exam: ruq pain FINDINGS: Prompt, homogenous uptake by the liver is noted with normal appearance of radiotracer excretion into the biliary system. Clearance of blood pool activity appears appropriate. Gallbladder and small bowel are visualized in appropriate sequence and time. Gallbladder ejection fraction is 45%. Normal value is >33% for Ensure protocol. Note, Ensure normal range is based on a limited study. Enterogastric reflux is noted. IMPRESSION: 1. Normal gallbladder ejection fraction of 45%. 2. Enterogastric reflux. Interpreted by: Charli Farah MD Preliminary Report By: Charli Farah MD Electronically signed By Charli Farah MD Dictated Date: 04/22/2022 11:24:25 AM Prelim Date: 04/22/2022 11:26:08 AM Sign Date: 04/22/2022 11:26:08 AM [facility] Appointment Date:01/13/2022 09:15:00 AM Scheduled Provider:BRITTA BASURTO MD Location:[facility] Appointment Type:ENDO OV Future Scheduled Tests Laboratory* Basic Metabolic Panel 03/17/21 * Thyroid Stimulating Hormone 01/12/22 * Thyroid Stimulating Hormone 10/13/21 * Free T4 01/12/22 * Free T4 10/13/21 * A1C Hemoglobin 01/12/22 * Free T3 10/13/21 * Vitamin D Level 01/12/22 * Complete Metabolic Panel 01/12/22 [facility] Evaluation + Plan note Future Appointments Appointment Date:11/04/2021 01:30:00 PM Scheduled Provider:STEPHON WELLS DO Location:[facility] Appointment Type:PC Wellness Medicare Appointment Date:01/13/2022 09:15:00 AM Scheduled Provider:BRITTA BASURTO MD Location:[facility] Appointment Type:ENDO OV Future Scheduled Tests Laboratory* Basic Metabolic Panel 03/17/21 * Thyroid Stimulating Hormone 01/12/22 * Free T4 01/12/22 * A1C Hemoglobin 01/12/22 * Vitamin D Level 01/12/22 * Complete Metabolic Panel 01/12/22 [facility] Evaluation + Plan note Future Appointments Appointment Date:01/13/2022 09:15:00 AM Scheduled Provider:BRITTA BASURTO MD Location:[facility] Appointment Type:ENDO OV Appointment Date:04/11/2022 08:30:00 AM Scheduled Provider: Location:[facility] Appointment Type:MA Mammogram Screening Bilateral w/ Gonzalez Future Scheduled Tests Laboratory* Basic Metabolic Panel 05/26/22 * Basic Metabolic Panel 03/17/21 * Thyroid Stimulating Hormone 01/12/22 * Free T4 01/12/22 * A1C Hemoglobin 01/12/22 * Vitamin D Level 01/12/22 * Complete Metabolic Panel 01/12/22 * N-Terminal proBNP 05/26/22 Radiology* MA Mammo Screening Bilateral w/ Gonzalez 04/11/22 [facility] Evaluation + Plan note Future Appointments Appointment Date:02/03/2022 08:30:00 AM Scheduled Provider:BRITTA BASURTO MD Location:[facility] Appointment Type:ENDO OV Appointment Date:04/11/2022 08:30:00 AM Scheduled Provider: Location:[facility] Appointment Type:MA Mammogram Screening Bilateral w/ Gonzalez Future Scheduled Tests Laboratory* Basic Metabolic Panel 05/26/22 * Basic Metabolic Panel 03/17/21 * N-Terminal proBNP 05/26/22 Radiology* MA Mammo Screening Bilateral w/ Gonzalez 04/11/22 [facility] myLINGOaluation + Plan note Future Appointments Appointment Date:04/11/2022 08:30:00 AM Scheduled Provider: Location:[facility] Appointment Type:MA Mammogram Screening Bilateral w/ Gonzalez Appointment Date:08/04/2022 09:00:00 AM Scheduled Provider:BRITTA BASURTO MD Location:[facility] Appointment Type:ENDO OV Future Scheduled Tests Laboratory* Basic Metabolic Panel 05/26/22 * Thyroid Stimulating Hormone 08/06/22 * Free T4 08/06/22 * A1C Hemoglobin 08/06/22 * Free T3 08/06/22 * Lipid Profile 08/06/22 * Microalbumin Level Urine 08/06/22 * Vitamin D Level 08/06/22 * Complete Metabolic Panel 08/06/22 * N-Terminal proBNP 05/26/22 Radiology* MA Mammo Screening Bilateral w/ Gonzalez 04/11/22 [facility] myLINGOaluation + Plan note Future Appointments Appointment Date:05/04/2022 11:30:00 AM Scheduled Provider: Location:[facility] Appointment Type:MA Mammogram Screening Bilateral w/ Gonzalez Appointment Date:08/04/2022 09:00:00 AM Scheduled Provider:BRITTA BASURTO MD Location:[facility] Appointment Type:ENDO OV Future Scheduled Tests Laboratory* Basic Metabolic Panel 05/26/22 * Thyroid Stimulating Hormone 08/06/22 * Free T4 08/06/22 * A1C Hemoglobin 08/06/22 * Free T3 08/06/22 * Lipid Profile 08/06/22 * Microalbumin Level Urine 08/06/22 * Vitamin D Level 08/06/22 * Complete Metabolic Panel 08/06/22 * N-Terminal proBNP 05/26/22 Radiology* MA Mammo Screening Bilateral w/ Gonzalez 05/04/22 [facility] Evaluation + Plan note Future Appointments Appointment Date:05/25/2022 01:45:00 PM Scheduled Provider: [facility] Appointment Type:CV OV Appointment Date:08/04/2022 09:00:00 AM Scheduled Provider:BRITTA BASURTO MD Location:[facility] Appointment Type:ENDO OV Future Scheduled Tests Laboratory* Basic Metabolic Panel 05/26/22 * Thyroid Stimulating Hormone 08/06/22 * Free T4 08/06/22 * A1C Hemoglobin 08/06/22 * Free T3 08/06/22 * Lipid Profile 08/06/22 * Microalbumin Level Urine 08/06/22 * Vitamin D Level 08/06/22 * Complete Metabolic Panel 08/06/22 * N-Terminal proBNP 05/26/22 [facility] Evaluation + Plan note Future Appointments Appointment Date:05/25/2022 01:45:00 PM Scheduled Provider: [facility] Appointment Type:CV OV Appointment Date:08/04/2022 09:00:00 AM Scheduled Provider:BRITTA BASUTRO MD Location:[facility] Appointment Type:ENDO OV Future Scheduled Tests Laboratory* Thyroid Stimulating Hormone 08/06/22 * Free T4 08/06/22 * A1C Hemoglobin 08/06/22 * Free T3 08/06/22 * Lipid Profile 08/06/22 * Microalbumin Level Urine 08/06/22 * Vitamin D Level 08/06/22 * Complete Metabolic Panel 08/06/22 [facility] Evaluation + Plan note Future Appointments Appointment Date:08/04/2022 09:00:00 AM Scheduled Provider:BRITTA BASURTO MD Location:[facility] Appointment Type:ENDO OV [facility] Evaluation + Plan note Future Appointments Appointment Date:02/02/2023 09:15:00 AM Scheduled Provider:BRITTA BASURTO MD Location:[facility] Appointment Type:ENDO OV Future Scheduled Tests Laboratory* Thyroid Stimulating Hormone 10/02/22 * Thyroid Stimulating Hormone 02/01/23 * Free T4 02/01/23 * Free T4 10/02/22 * A1C Hemoglobin 02/01/23 * Free T3 02/01/23 * Vitamin D Level 02/01/23 * Complete Metabolic Panel 02/01/23 [facility] Evaluation + Plan note Future Appointments Appointment Date:02/02/2023 09:15:00 AM Scheduled Provider:BRITTA BASURTO MD Location:[facility] Appointment Type:ENDO OV Future Scheduled Tests Laboratory* Thyroid Stimulating Hormone 02/01/23 * Free T4 02/01/23 * A1C Hemoglobin 02/01/23 * Free T3 02/01/23 * Vitamin D Level 02/01/23 * Complete Metabolic Panel 02/01/23 [facility] Evaluation + Plan note Future Appointments Appointment Date:02/02/2023 09:15:00 AM Scheduled Provider:BRITTA BASURTO MD Location:[facility] Appointment Type:[facility] OV [facility] Evaluation + Plan note Future Appointments Appointment Date:08/08/2023 09:15:00 AM Scheduled Provider:BRITTA BASURTO MD Location:[facility] Appointment Type:[facility] OV Future Scheduled Tests Laboratory* Thyroid Stimulating Hormone 08/05/23 * Free T4 08/05/23 * A1C Hemoglobin 08/05/23 * Complete Blood Count 08/05/23 * Lipid Profile 08/05/23 * Albumin/Creatinine Ratio, Random Urine 08/05/23 * Vitamin D Level 08/05/23 * Complete Metabolic Panel 08/05/23 [facility] Evaluation + Plan note Future Appointments Appointment Date:08/08/2023 09:15:00 AM Scheduled Provider:BRITTA BASURTO MD Location:[facility] Appointment Type:ENDO OV Appointment Date:04/05/2024 08:20:00 AM Scheduled Provider:STEPHON WELLS DO Location:[facility] Appointment Type:PC Wellness Medicare Future Scheduled Tests Laboratory* Thyroid Stimulating Hormone 08/05/23 * Free T4 08/05/23 * A1C Hemoglobin 08/05/23 * Complete Blood Count 08/05/23 * Lipid Profile 08/05/23 * Albumin/Creatinine Ratio, Random Urine 08/05/23 * Vitamin D Level 08/05/23 * Complete Metabolic Panel 08/05/23 [facility] Evaluation + Plan note Future Appointments Appointment Date:08/08/2023 09:15:00 AM Scheduled Provider:BRITTA BASURTO MD Location:[facility] Appointment Type:ENDO OV Appointment Date:04/05/2024 08:20:00 AM Scheduled Provider:STEPHON WELLS DO Location:[facility] Appointment Type:PC Wellness Medicare [facility] Evaluation + Plan note Future Appointments Appointment Date:11/30/2023 09:15:00 AM Scheduled Provider:BRITTA BASURTO MD Location:[facility] Appointment Type:ENDO OV Appointment Date:03/01/2024 09:20:00 AM Scheduled Provider:STEPHON WELLS DO Location:[facility] Appointment Type:PC OV Appointment Date:04/05/2024 08:20:00 AM Scheduled Provider:STEPHON WELLS DO Location:[facility] Appointment Type:PC Wellness Medicare Future Scheduled Tests Laboratory* Iron Level 10/01/23 * Thyroid Stimulating Hormone 12/07/23 * Free T4 12/07/23 * A1C Hemoglobin 12/07/23 * Complete Blood Count 10/01/23 * Complete Blood Count 12/07/23 * Free T3 12/07/23 * Lipid Profile 12/07/23 * Vitamin D Level 12/07/23 * Complete Metabolic Panel 12/07/23 [facility] Evaluation + Plan note Future Appointments Appointment Date:11/30/2023 09:15:00 AM Scheduled Provider:BRITTA BASURTO MD Location:[facility] Appointment Type:ENDO OV Appointment Date:03/01/2024 09:20:00 AM Scheduled Provider:STEPHON WELLS DO Location:[facility] Appointment Type:PC OV Appointment Date:04/05/2024 08:20:00 AM Scheduled Provider:STEPHON WELLS DO Location:[facility] Appointment Type:PC Wellness Medicare Diagnostic Tests Pending * Celiac Disease Comprehensive 09/22/23 Future Scheduled Tests Laboratory* Iron Level 10/01/23 * Thyroid Stimulating Hormone 12/07/23 * Free T4 12/07/23 * A1C Hemoglobin 12/07/23 * Complete Blood Count 10/01/23 * Complete Blood Count 12/07/23 * Free T3 12/07/23 * Lipid Profile 12/07/23 * Vitamin D Level 12/07/23 * Complete Metabolic Panel 12/07/23 [facility] Evaluation + Plan note Future Appointments Appointment Date:11/30/2023 09:15:00 AM Scheduled Provider:BRITTA BASURTO MD Location:[facility] Appointment Type:ENDO OV Appointment Date:03/01/2024 09:20:00 AM Scheduled Provider:STEPHON WELLS DO Location:[facility] Appointment Type:PC OV Appointment Date:04/05/2024 08:20:00 AM Scheduled Provider:STEPHON WELLS DO Location:[facility] Appointment Type:PC Wellness Medicare Future Scheduled Tests Laboratory* Iron Level 10/01/23 * Complete Blood Count 10/01/23 [facility] Evaluation + Plan note Future Appointments Appointment Date:04/04/2024 08:30:00 AM Scheduled Provider:BRITTA BASURTO MD Location:[facility] Appointment Type:ENDO OV Appointment Date:06/10/2024 09:45:00 AM Scheduled Provider: Location:[facility] Appointment Type:MA Mammogram Screening Bilateral w/ Gonzalez Appointment Date:08/26/2024 09:05:00 AM Scheduled Provider:STEPHON WELLS DO Location:[facility] Appointment Type:PC Wellness Medicare Future Scheduled Tests Laboratory* Iron Level 10/01/23 * Complete Blood Count 10/01/23 * Albumin/Creatinine Ratio, Random Urine 04/01/24 Radiology* MA Mammo Screening Bilateral w/ Gonzalez 06/10/24 [facility] Evaluation + Plan note Future Appointments Appointment Date:08/06/2024 08:45:00 AM Scheduled Provider:BRITTA BASURTO MD Location:[facility] Appointment Type:ENDO OV Appointment Date:08/26/2024 09:05:00 AM Scheduled Provider:STEPHON WELLS DO Location:[facility] Appointment Type:PC Wellness Medicare Future Scheduled Tests Laboratory* N-Telopeptide, Urine 08/04/24 * Iron Level 10/01/23 * Thyroid Stimulating Hormone 08/04/24 * Free T4 08/04/24 * A1C Hemoglobin 08/04/24 * Complete Blood Count 10/01/23 * Creatinine Random Urine 08/04/24 * Free T3 08/04/24 * Lipid Profile 08/04/24 * Albumin/Creatinine Ratio, Random Urine 04/01/24 * Albumin/Creatinine Ratio, Random Urine 08/04/24 * Vitamin D Level 08/04/24 * Complete Metabolic Panel 08/04/24 * [facility] Send Out (Non-Blood Specimens) 08/04/24 [facility] Evaluation + Plan note Future Appointments Appointment Date:12/05/2024 08:45:00 AM Scheduled Provider:BRITTA BASURTO MD Location:[facility] Appointment Type:ENDO OV Appointment Date:09/01/2025 09:00:00 AM Scheduled Provider:STEPHON WELLS DO Location:[facility] Appointment Type:PC Wellness Medicare with Labs Future Scheduled Tests Laboratory* Albumin/Creatinine Ratio, Random Urine 04/01/24 [facility] Evaluation note* Diagnosis Bacterial conjunctivitis- Primary [facility] Hiatal hernia- Primary Diaphragmatic hernia without mention of obstruction or gangrene Gastroesophageal reflux disease without esophagitis Esophageal reflux Celiac disease documented in this encounter [facility] note* Diagnosis Hiatal hernia- Primary Diaphragmatic hernia without mention of obstruction or gangrene Gastroesophageal reflux disease without esophagitis Esophageal reflux Celiac disease documented in this encounter [facility] note* Diagnosis Hiatal hernia- Primary Diaphragmatic hernia without mention of obstruction or gangrene Gastroesophageal reflux disease without esophagitis Esophageal reflux Celiac disease documented in this encounter [facility] note* Diagnosis Hiatal hernia Diaphragmatic hernia without mention of obstruction or gangrene documented in this encounter [facility] note* Diagnosis Hiatal hernia- Primary Diaphragmatic hernia without mention of obstruction or gangrene Gastroesophageal reflux disease without esophagitis Esophageal reflux Celiac disease Hiatal hernia Diaphragmatic hernia without mention of obstruction or gangrene documented in this encounter [facility] note* Diagnosis Hiatal hernia- Primary Diaphragmatic hernia without mention of obstruction or gangrene Gastroesophageal reflux disease without esophagitis Esophageal reflux Celiac disease Hiatal hernia Diaphragmatic hernia without mention of obstruction or gangrene Diaphragmatic hernia without obstruction or gangrene Diaphragmatic hernia without mention of obstruction or gangrene Gastro-esophageal reflux disease without esophagitis documented in this encounter [facility] note* Diagnosis Hiatal hernia- Primary Diaphragmatic hernia without mention of obstruction or gangrene Gastroesophageal reflux disease without esophagitis Esophageal reflux Celiac disease Hiatal hernia Diaphragmatic hernia without mention of obstruction or gangrene Diaphragmatic hernia without obstruction or gangrene Diaphragmatic hernia without mention of obstruction or gangrene Gastro-esophageal reflux disease without esophagitis documented in this encounter [facility] note* Diagnosis Hiatal hernia- Primary Diaphragmatic hernia without mention of obstruction or gangrene GERD without esophagitis Esophageal reflux Diaphragmatic hernia without obstruction or gangrene Diaphragmatic hernia without mention of obstruction or gangrene Gastro-esophageal reflux disease without esophagitis documented in this encounter [facility] note* Diagnosis Hiatal hernia- Primary Diaphragmatic hernia without mention of obstruction or gangrene Diaphragmatic hernia without obstruction or gangrene Diaphragmatic hernia without mention of obstruction or gangrene Gastro-esophageal reflux disease without esophagitis Gastroesophageal reflux disease Esophageal reflux documented in this encounter [facility] note* Diagnosis Encounter for postoperative care- Primary Hiatal hernia Diaphragmatic hernia without mention of obstruction or gangrene Celiac disease documented in this encounter [facility] note* Diagnosis Encounter for postoperative care- Primary Hiatal hernia Diaphragmatic hernia without mention of obstruction or gangrene [facility] Acute otitis media, bilateral- Primary Unspecified otitis media documented in this encounter [facility] course Narrative No data available for this section [facility] Hospital Discharge instructions No data available for this section [facility] Progress note No data available for this section [facility] Summary Purpose Family History No Family History Records Found No data available for this section No data available for this section No data available for this section No data available for this section No data available for this section No data available for this section No data available for this section No data available for this section No data available for this section No Family History Records FoundNo Family History Records Found No data available for this section No data available for this section No Family History Records FoundNo Family History Records Found No data available for this section No Family History Records Found Advance Directives No Advanced Directives Records Found Date Activated Date Inactivated Comments 01/26/2024 1:15 PM 01/29/2024 2:15 PM Date Activated Date Inactivated Comments 01/26/2024 7:14 AM 01/26/2024 1:15 PM Date Activated Date Inactivated Comments 01/26/2024 1:15 PM 01/29/2024 2:15 PM Date Activated Date Inactivated Comments 01/26/2024 7:14 AM 01/26/2024 1:15 PM Additional Source Comments INFORMATION SOURCE (unrecogn ized section and content) DATE CREATED AUTHOR 01/05/2018 [facility] DATE CREATED AUTHOR AUTHOR'S ORGANIZ ATION 03/07/2024 [facility] ([place]) DATE CREATED AUTHOR AUTHOR'S ORGANIZ ATION 03/24/2024 [facility] DATE CREATED AUTHOR AUTHOR'S ORGANIZ ATION 07/27/2024 [facility] DATE CREATED AUTHOR AUTHOR'S ORGANIZ ATION 08/13/2024 [facility] DATE CREATED AUTHOR AUTHOR'S ORGANIZ ATION 12/06/2024 [facility] Care Team (unrecognized sect ion and content) Government Teacher Relationship Specialty Start Date End Date Stephon Wells DO [address] [facility], [place] [address] PCP - General Family Medicine 10/31/23 Serge Boswell [address] [facility] [address] [place] [phone] Gastroenterology 10/31/23 Benton Jarrett [address] [place] [address] Internal Medicine 12/01/23 Britta Basurto [address] [place] [phone] Endocrinology, Diabetes, & Metabolism 12/01/23 Government Teacher Relationship Specialty Start Date End Date Stephon Wells DO [address] [facility], [place] [address] PCP - General Family Medicine 10/31/23 Serge Boswell [address] [facility] [address] [place] [phone] Gastroenterology 10/31/23 Benton Jarrett [address] [place] [address] Internal Medicine 12/01/23 Britta Basurto [address] [phone] Endocrinology, Diabetes, & Metabolism 12/01/23 Government Teacher Relationship Specialty Start Date End Date Stephon Wells DO [address] [facility] [place] [address] PCP - General Family Medicine 10/31/23 Serge Boswell [address] [facility] [address] [place] [phone] Gastroenterology 10/31/23 Benton Jarrett [address] [place] [address] [facility] Internal Medicine 12/01/23 Britta Basurto [address] [place] [address] [phone] Endocrinology, Diabetes, & Metabolism 12/01/23 Government Teacher Relationship Specialty Start Date End Date Stephon Wells DO [address] [facility] [place] [address] PCP - General Family Medicine 10/31/23 Serge Boswell [address] [phone] Gastroenterology 10/31/23 Benton Jarrett [address] [place] [address] [facility] Internal Medicine 12/01/23 Britta Basurto [address] [place] [address] [phone] Endocrinology, Diabetes, & Metabolism 12/01/23 Government Teacher Relationship Specialty Start Date End Date Stephon Wells DO [address] [facility] [place] [address] PCP - General Family Medicine 10/31/23 Serge Boswell [address] [facility] [address] [place] [phone] Gastroenterology 10/31/23 Benton Jarrett [address] [place] [address] [facility] Internal Medicine 12/01/23 Britta Basurto [address] [place] [address] [phone] Endocrinology, Diabetes, & Metabolism 12/01/23 Government Teacher Relationship Specialty Start Date End Date Stephon Wells DO [address] [facility] [place] [address] PCP - General Family Medicine 10/31/23 Serge Boswell [address] [phone] Gastroenterology 10/31/23 Benton Jarrett [address] [place] [address] [facility] Internal Medicine 12/01/23 Britta Basurto [address] [place] [address] [phone] Endocrinology, Diabetes, & Metabolism 12/01/23 Government Teacher Relationship Specialty Start Date End Date Stephon Wells DO [address] [facility] [place] [address] PCP - General Family Medicine 10/31/23 Serge Boswell [address] [facility] [place] [address] [place] [phone] Gastroenterology 10/31/23 Benton Jarrett [address] [place] [address] [facility] Internal Medicine 12/01/23 Britta Basurto [address] [place] [address] [phone] Endocrinology, Diabetes, & Metabolism 12/01/23 Government Teacher Relationship Specialty Start Date End Date Stephon Wells DO [address] [facility] [place] [address] PCP - General Family Medicine 10/31/23 Serge Boswell [address] [phone] Gastroenterology 10/31/23 Benton Jarrett [address] [place] [address] [facility] Internal Medicine 12/01/23 Britta Basurto [address] [place] [phone] Endocrinology, Diabetes, & Metabolism 12/01/23 Government Teacher Relationship Specialty Start Date End Date Stephon Wells DO [address] [facility], [place] [id number] PCP - General Family Medicine 10/31/23 Serge [place] [address] [facility] [place] [address] [place] [phone] Gastroenterology 10/31/23 Benton Jarrett [address] [place] [address] Cmo Internal Medicine 12/01/23 Britta Basurto [address] [place] [phone] Endocrinology, Diabetes, & Metabolism 12/01/23 Government Teacher Relationship Specialty Start Date End Date Stephon Wells DO [address] [facility] [place] [address] PCP - General Family Medicine 10/31/23 Serge [place] MD [address] [facility] [place] [address] [place] [phone] Gastroenterology 10/31/23 Benton Jarrett [address] [place] [address] Cmo Internal Medicine 12/01/23 Britta Basurto [address] [place] [phone] Endocrinology, Diabetes, & Metabolism 12/01/23 Government Teacher Relationship Specialty Start Date End Date Stephon Wells DO [address] [facility] [place] [address] PCP - General Family Medicine 10/31/23 Serge [place] MD [address] [facility] [address] [place] [phone] Gastroenterology 10/31/23 Benton Jarrett [address] [place] [address] Cmo Internal Medicine 12/01/23 Britta Basurto [address] [phone] Endocrinology, Diabetes, & Metabolism 12/01/23 Government Teacher Relationship Specialty Start Date End Date Stephon Wells DO [address] [place] [address] PCP - General Family Medicine 07/23/24 Care Team (unrecognized sect ion and content) Care Team Personnel Name: STEPHON WELLS DO Position: P4 Physician - Primary Care Med Service: Active Provider Member Role: Primary Care Physician Address: Address: [address] [place] [address]- Name: BRITTA BASURTO MD Position: P4 Physician - Endocrinology Med Service: Active Provider Member Role: Multimedia Manager Address: Address: [address] [facility], [place] [address]- Name: BENTON JARRETT MD Position: P4 Physician - Cardiology Med Service: Employed Provider Member Role: Cmo Address: Address: [address] [facility] [address] [facility] [place] [address]- Care Team Related Persons Name: JINNY ACUÑA Address: Home [address], [place] [phone] [place] Care Team Personnel Name: STEPHON WELSL DO Position: P4 Physician - Primary Care Med Service: Active Provider Member Role: Primary Care Physician Address: Address: [address] [place] [id number]- Name: BRITTA BASURTO MD Position: P4 Physician - Endocrinology Med Service: Active Provider Member Role: Multimedia Manager Address: Address: [address] [place] [address], [place] [address]- Name: BENTON JARRETT MD Position: P4 Physician - Cardiology Med Service: Employed Provider Member Role: Cmo Address: Address: [address] [place] [address]- Care Team Related Persons Name: JINNY ACUÑA Address: Home [address], [place] [phone] [place] Care Team Personnel Name: STEPHON WELLS DO Position: P4 Physician - Primary Care Med Service: Active Provider Member Role: Primary Care Physician Address: Address: [facility] [place] [address]- Name: BRITTA BASURTO MD Position: P4 Physician - Endocrinology Med Service: Active Provider Member Role: Multimedia Manager Address: Address: [address] [place] [address], [place] [address]- Name: BENTON JARRETT MD Position: P4 Physician - Cardiology Med Service: Employed Provider Member Role: Cmo Address: Address: [address] [place], [place] [id number]- Care Team Related Persons Name: JINNY ACUÑA Address: Home [address], [place] [phone] [place] Care Team Personnel Name: STEPHON WELLS DO Position: P4 Physician - Primary Care Member Role: Primary Care Physician Address: Address: [address] [place] [address]- Name: BRITTA BASURTO MD Position: P4 Physician - Endocrinology Member Role: Multimedia Manager Address: Address: [address] [place] [address], [place] [address]- Name: BENTON JARRETT MD Position: P4 Physician - Cardiology Member Role: Cmo Address: Address: [address] [place] [address] [place] [id number]- Care Team Related Persons Name: JINNY ACUÑA Address: Home [address], [place] [phone] [place] Care Team Personnel Name: STEPHON WELLS DO Position: P4 Physician - Primary Care Member Role: Primary Care Physician Address: Address: [address] [place] [id number]- Name: BRITTA BASURTO MD Position: P4 Physician - Endocrinology Member Role: Multimedia Manager Address: Address: [address] [place] [address], [place] [address]- Name: BENTON JARRETT MD Position: P4 Physician - Cardiology Member Role: Cmo Address: Address: [address] [place] [address]- Care Team Related Persons Name: JINNY ACUÑA Address: Home [address], [place] [phone] [place] Care Team Personnel Name: STEPHON WELLS DO Position: P4 Physician - Primary Care Member Role: Primary Care Physician Address: Address: [address] [place] [address]- Name: BRITTA BASURTO MD Position: P4 Physician - Endocrinology Member Role: Multimedia Manager Address: Address: [address] [place] [address], [place] [address]- Name: BENTON JARRETT MD Position: P4 Physician - Cardiology Member Role: Cmo Address: Address: [address] [place] [address]- Care Team Related Persons Name: JINNY ACUÑA Address: Home [address], [place] [phone] [place] Care Team Personnel Name: STEPHON WELLS DO Position: P4 Physician - Primary Care Member Role: Primary Care Physician Address: Address: [address] [place], [place] [address] Name: BRITTA BASURTO MD Position: P4 Physician - Endocrinology Member Role: Multimedia Manager Address: Address: [address] [place], [place] [address] Name: BENTON JARRETT MD Position: P4 Physician - Cardiology Member Role: Cmo Address: Address: [address] [facility] [address] [facility] [place], [place] [address] Name: EMMANUELLE MENCHACA MD Position: ED Physician Address: Address: [address] [facility] [place], [place] [address] Name: DENIA RUIZ MD Position: Resident Member Role: Resident Address: Address: [address] [place] [address] Family Practice [place], [place] [address] Care Team Related Persons Name: JINNY ACUÑA Address: Home [address] [place], [place] [phone] Source Comments (unrecognize d section and content) In the event this informatio n is protected by the Federal Confidentiality of Alcohol and Drug Abuse Patient Records regulations: The Federal rules restrict any use of the information to criminally investigate or prosecute any alcohol or drug abuse patient.[facility] the event this information is protected by the Federal Confidentiality of Alcohol and Drug Abuse Patient Records regulations: The Federal rules restrict any use of the information to criminally investigate or prosecute any alcohol or drug abuse patient.[facility] Reason for Visit (unrecogniz ed section and content) Reason Comments Eye Problem Bilateral eyes red d rainage from eyes 1 week Reason Comments 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 lester ia Specialty Diagnoses / Procedures Referred By Contac t Referred To Contact General Surgery Diagnoses Diaphragmatic hernia without obstruction or gangrene Procedures ME UNLISTED EVALUATION AND MANAGEMENT SERVICE Stephon Wells, [address] [place] [facility] [address] Benton Nuñez MD [address] [facility] [address] [place] [address] Referral ID Status Reason Start Date Expiration Date Visits Re quested Visits Authorized [id number] Closed 11/02/2023 05/01/2024 1 1 Reason Comments Follow-up Pre op -ALS -lap HH repair w/ mesh, post fundo, poss clarisa gastro, EGD, poss open scheduled 01/25 Specialty Diagnoses / Procedures Referred By Triston t Referred To Contact Diagnoses Diaphragmatic hernia without obstruction or gangrene Gastro-esophageal reflux disease without esophagitis Procedures ME LAPS RPR PARAESPHGL HRNA INCL FUNDPLSTY W/MESH ME ESOPHAGUS LENGTHENING ME EGD TRANSORAL BIOPSY SINGLE/MULTIPLE LAPAROSCOPIC HIATAL HERNIA REPAIR WITH MESH, POSTERIOR FUNDOPLICATION POSSIBLE CLARISA GASTROPLASTY ESOPHAGOGASTRODUODENOSCOPY WITH BIOPSY, POSSIBLE OPEN Benton Nuñez MD [address] [facility] [address] [place] [address] [address] [facility] [place] [address] Referral ID Status Reason Start Date Expiration Date Visits Re quested Visits Authorized [id number] 1 1 Reason Comments Post-op Als 2 week post op Reason Comments Post-op POST OP LAP HH REPAI R 01/26/2024 JZ Reason Comments Sore Throat Sore throat x 2 days , both ears painful today Scheduled Active and Recently Administ ered Medications (unrecognized section and content) Medication Order 01/27/2024 01/28/2024 01/29/2024 acetaminophen (Ofirmev) IVPB 1,000 mg (COMPLETED) 1,000 mg, IntraVENous, at 400 mL/hr, Administer over 15 Minutes, Every 6 hours scheduled (4 times per day), First dose on Mon01/26/24 at 1800, For 2 doses 0015 (New Bag - Provider: Ondina Ibarra RN)0030 (Stopped - Provider: Ondina Ibarra RN) diatrizoate meglumine-sodium (Gastrografin) 66-10 % solution 30 mL (COMPLETED) 30 mL, Oral, Once, On 01/27/24 at 0915, For 1 dose 0915 (Given - Provider: Jyoti Chaparro, RT (R)) enoxaparin (Lovenox) syringe 40 mg 40 mg, SubCUTAneous, Every 24 hours, First dose on Mon01/26/24 at 2200, Phase II/On Unit, Indication of Use: Prophylaxis-DVT/PE, Indications: Prophylaxis of Venous Thromboembolism 2022 (Given - Provider: Lillian Lunsford LPN) 2042 (Given - Provider: Lillian Lunsford LPN) Insulin Lispro (Humalog) injection 0-6 Units 0-6 Units, SubCUTAneous, 4 times daily, First dose on 01/27/24 at 1300, Low Dose Correction Algorithm Glucose: Dose: LESS than 139 No Insulin 140-199 1 Unit 200-249 2 Units 250-299 3 Units 300-349 4 Units 350-400 5 Units Above 400 6 Units 1300 (Not Given - Provider: Radha Bhardwaj RN - Reason: Order parameters not met)1700 (Not Given - Provider: Radha Bhardwaj RN - Reason: Order parameters not met)2100 (Not Given - Provider: Lillian Lunsford LPN - Reason: Contraindicated) 0800 (Not Given - Provider: Boy Page RN - Reason: Order parameters not met)1300 (Not Given - Provider: Boy Page RN - Reason: Order parameters not met)1600 (Not Given - Provider: Boy Page RN - Reason: Order parameters not met)2042 (Given - Provider: Lillian Lunsford LPN) 0900 (Not Given - Provider: Linda Ruff RN - Reason: Order parameters not met)1300 (Canceled Entry - Provider: Automatic Discharge Provider - Comment: Automatically canceled at discontinue of medication order) pantoprazole (ProtoNix) injection 40 mg 40 mg, IntraVENous, Administer over 2 Minutes, Daily, First dose on Mon01/26/24 at 1400, Phase II/On Unit 0826 (Given - Provider: Radha Bhardwaj RN) 0801 (Given - Provider: Boy Page RN) 0853 (Given - Provider: Linda Ruff, DEIDRE) sodium chloride 0.9% (NS) flush 10 mL 10 mL, IntraVENous, Every 12 hours scheduled (2 times per day), First dose on Mon01/26/24 at 2100, Phase II/On Unit 1140 (Given - Provider: Radha Bhardwaj RN)2100 (Not Given - Provider: Lillian Lunsford LPN - Reason: IV Fluids Infusing) 0800 (Not Given - Provider: Boy Page RN - Reason: IV Fluids Infusing)2043 (Given - Provider: Lillian Lunsford LPN) 0900 (Not Given - Provider: Linda Ruff RN - Reason: IV Fluids Infusing) Continuous Medication Order 01/27/2024 01/28/2024 01/29/2024 sodium chloride 0.45 % with KCl 20 mEq/L infusion 100 mL/hr, IntraVENous, Continuous, Starting on Mon01/26/24 at 1545 0515 (New Bag - Provider: Ondina Ibarra RN)1537 (New Bag - Provider: Radha Bhardwaj RN)1806 (Rate/Dose Verify - Provider: Radha Bhardwaj RN)2235 (Rate/Dose Verify - Provider: Lillian Lunsford LPN) 0000 (New Bag - Provider: Lillian Lunsford LPN)0214 (Rate/Dose Verify - Provider: Lillian Lunsford LPN)0447 (Rate/Dose Verify - Provider: Lillian Lunsford LPN)1022 (New Bag - Provider: Boy Page RN) 0540 (New Bag - Provider: Lewis Turcios RN) PRN Medication Order 01/27/2024 01/28/2024 01/29/2024 dextrose 5 % infusion 100 mL/hr, IntraVENous, PRN, Blood sugar less than 70mg/dL, Starting on Mon01/27/24 at 1137, Start infusion following administration of dextrose 50% or glucagon. dextrose 50 % solution 12.5 g 12.5 g, IntraVENous, PRN, low blood sugar, Blood glucose less than 70 mg/dL and patient NOT ALERT or NPO., Starting on 01/27/24 at 1137, If patient does not respond within 5 minutes, repeat dose x1. Start D5W at 100 mL/hour until ordering provider can be reached. Repeat blood glucose in 15 minutes. If blood glucose is less than 70 mg/dL, repeat treatment and recheck blood glucose in 15 minutes x2. If using Glucostabilizer, dose as instructed per system. glucagon (human recombinant) injection 1 mg 1 mg, IntraMUSCular, PRN, low blood sugar, Blood glucose less than 70 mg/dL and patient NOT ALERT or NPO and does not have IV access., Starting on 01/27/24 at 1137, After administration, attempt intravenous access and start D5W at 100 mL/hr. Repeat blood glucose in 15 minutes x2 and notify provider. glucose oral gel 15 g 15 g, Oral, As needed, low blood sugar, Starting on 01/27/24 at 1137, If blood glucose less than 50 mg/dL and patient ALERT and NOT NPO, give 2 tubes glucose gel. If blood glucose less than 70 mg/dL and patient ALERT and NOT NPO, give 1 tube glucose gel. Repeat blood glucose in 15 minutes. If blood glucose is less than 70 mg/dL, repeat treatment and recheck blood glucose in 15 minutes x2 and notify provider. hydrALAZINE (Apresoline) injection 10 mg 10 mg, IntraVENous, Every 4 hours PRN, high blood pressure, Second line, give for blood pressure greater than 160 hold for heart greater than 100 bpm, Starting on Mon01/28/24 at 0755 HYDROmorphone (Dilaudid) injection 0.25 mg(Linked Group 1) 0.25 mg, IntraVENous, Every 4 hours PRN, moderate pain (4-6), Starting on Mon01/26/24 at 1537, If oral and IV narcotics ordered, use oral first and only use IV if oral is ineffective or cannot take oral. Do Not give oral and IV within 1 hour of each other unless specifically ordered. 0514 (See Alternative - Provider: Ondina Ibarra RN)1139 (See Alternative - Provider: Radha Bhardwaj RN)1806 (See Alternative - Provider: Radha Bhardwaj RN) 312 (Given by Other - Provider: Lillian Lunsford LPN - Reason: Administered by Other (Comment Required) - Comment: Given IVP by Arya JIANG)2042 (Given - Provider: Lillian Lunsford LPN) HYDROmorphone (Dilaudid) injection 0.5 mg(Linked Group 1) 0.5 mg, IntraVENous, Every 4 hours PRN, severe pain (7-10), Starting on Mon01/26/24 at 1537, If oral and IV narcotics ordered, use oral first and only use IV if oral is ineffective or cannot take oral. Do Not give oral and IV within 1 hour of each other unless specifically ordered. 0514 (Given - Provider: Ondina Ibarra RN)1139 (Given - Provider: Radha Bhardwaj RN)180 (Given - Provider: Radha Bhardwaj RN) 312 (See Alternative - Provider: Lillian Lunsford LPN)2042 (See Alternative - Provider: Lillian Lunsford LPN) labetalol (Normodyne,Trandate) injection 10 mg 10 mg, IntraVENous, Every 4 hours PRN, high blood pressure, First line, give for blood pressure greater than 160 hold for heart rate less than 60 bpm, Starting on Mon01/28/24 at 0755 0808 (Given - Provider: Boy Page RN - Comment: BP 161/93 HR 78) 0927 (Given - Provider: Linda Ruff RN) naloxone (Narcan) injection 0.4 mg 0.4 mg, IntraVENous, Every 5 min PRN, opioid reversal, respiratory depression, Starting on Mon01/26/24 at 1316, +++ For RR <10, pinpoint pupils, over sedation for opioid reversal - MUST notify station installer and repairer provider immediately after first dose, may give IM or SQ if no IV access +++ ondansetron (Zofran) injection 4 mg(Linked Group 2) 4 mg, IntraVENous, Every 6 hours PRN, nausea, vomiting, Starting on Mon01/26/24 at 1315, Phase II/On Unit, 1st Line. Give IV if patient is unable to take orally. If inadequate response within 60 minutes, proceed to next-line agent or contact provider if no further options ordered. 180 (Given - Provider: Radha Bhardwaj, DEIDRE) ondansetron ODT (Zofran-ODT) disintegrating tablet 4 mg(Linked Group 2) 4 mg, Oral, Every 8 hours PRN, nausea, vomiting, Starting on Mon01/26/24 at 1315, Phase II/On Unit, 1st Line. If inadequate response within 60 minutes, proceed to next-line agent or contact provider if no further options ordered. Patient should allow tablet to dissolve on tongue. Do not remove from blister pack until just before administering. 180 (See Alternative - Provider: Radha Bhardwaj, DEIDRE) promethazine (Phenergan) injection 6.25 mg 6.25 mg, IntraMUSCular, Every 6 hours PRN, nausea, vomiting, Starting on Mon01/26/24 at 1502, Only to be given as IM injection. sodium chloride 0.9 % infusion 5-250 mL/hr, IntraVENous, PRN, if patient receiving piggyback infusions and maintenance fluids are not ordered OR KVO fluids to protect IV site / prevent frequent line interruptions/ long duration, Starting on Mon01/26/24 at 1315, Phase II/On Unit, For piggyback infusion, administer at same rate as piggyback for a total of 25 mL. Enter 25 mL into dose field and piggyback rate into rate field of order. If piggyback is infusing at a rate less than 100 mL/hr, enter 25 mL into dose field and 100 mL/hr into rate field of order. For KVO fluids, enter rate of 20 mL/hr or less into rate field of order. sodium chloride 0.9% (NS) flush 10 mL 10 mL, IntraVENous, PRN, line care, Starting on Mon01/26/24 at 1315, Phase II/On Unit, After every IV line use Linked Groups Order Group 1: HYDROmorphone (Dilaudid) injection 0.25 mgJump to med 0.25 mg, IntraVENous, Every 4 hours PRN, moderate pain (4-6), Starting on Mon01/26/24 at 1537, If oral and IV narcotics ordered, use oral first and only use IV if oral is ineffective or cannot take oral. Do Not give oral and IV within 1 hour of each other unless specifically ordered. Or HYDROmorphone (Dilaudid) injection 0.5 mgJump to med 0.5 mg, IntraVENous, Every 4 hours PRN, severe pain (7-10), Starting on Mon01/26/24 at 1537, If oral and IV narcotics ordered, use oral first and only use IV if oral is ineffective or cannot take oral. Do Not give oral and IV within 1 hour of each other unless specifically ordered. Group 2: ondansetron ODT (Zofran-ODT) disintegrating tablet 4 mgJump to med 4 mg, Oral, Every 8 hours PRN, nausea, vomiting, Starting on Mon01/26/24 at 1315, Phase II/On Unit, 1st Line. If inadequate response within 60 minutes, proceed to next-line agent or contact provider if no further options ordered. Patient should allow tablet to dissolve on tongue. Do not remove from blister pack until just before administering. Or ondansetron (Zofran) injection 4 mgJump to med 4 mg, IntraVENous, Every 6 hours PRN, nausea, vomiting, Starting on Mon01/26/24 at 1315, Phase II/On Unit, 1st Line. Give IV if patient is unable to take orally. If inadequate response within 60 minutes, proceed to next-line agent or contact provider if no further options ordered. FOR RECORDS PERTAINING TO PATIENTS WHO ARE OR HAVE BEEN ENROLLED IN A CHEMICAL DEPENDENCY/SUBSTANCEABUSE PROGRAM, SOME INFORMATION MAY BE OMITTED. This clinical summary was aggregated from multiple sources. Caution should be exercised in using it in the provision of clinical care. This summary normalizes information from multiple sources, and as a consequence, information in this document may materially change the coding, format and clinical context of patient data. In addition, data may be omitted in some cases. CLINICAL DECISIONS SHOULD BE BASED ON THE PRIMARY CLINICAL RECORDS. [facility]. provides no warranty or guarantee of the accuracy or completeness of information in this document.
== END | disposition home or self-care (01) ==
LOC: MTLAB 14:13
PROVIDERS: PCP Family Medicine; Referring Provider Internal Medicine Gastroenterology; Visit Provider Internal Medicine Gastroenterology
DX: K90.0 Celiac disease (principal)
CPT/HCPCS: 36415; 82784; 83516; 85027; 86140; 86255